=== PATIENT | female | born 1930 | race Caucasian/White ===

== ENCOUNTER 2019-03-21 08:08 | Inpatient (IN) | payer MEDICARE, MEDICAID ==
[~2019-03-21] VITALS: Ht 165.1 cm; Wt 85.7 kg
--- OUTSIDE RECORDS SUMMARY | ~2019-03-21 | XMS | Encounter Summary ---
Demographics + + + | Address | [address] | | | [place] [address] | + + + | Home Phone | | + + + | Preferred Language | Unknown | + + + | Marital Status | | + + + | Quaker Affiliation | 1013 | + + + | Race | Unknown | + + + | Ethnic Group | Unknown | + + + Author + + + | Author | [facility] | | | and [place] | + + + | Organization | [facility] | | | and [place] | + + + | Address | Unknown | + + + | Phone | Unavailable | + + + Support + + +---------+ + | Name | Relationship | Address | Phone | + + +---------+ + | Eladia Moore | ECON | Unknown | | + + +---------+ + | Bisi Hooks | ECON | Unknown | | + + +---------+ + Care Team Providers + +------+ + | Care Crystal Inspector Name | Role | Phone | + +------+ + | Kaushik Christensen MD | PCP | | + +------+ + Encounter Details +--------+ + + + + | Date | Type | Department | Care Team | Description | +--------+ + + + + | 10/03/ | Orders Only | [facility] | Chung Rushing, | | | 2016 | | NEPHROLOGY [place] | NATIONAL COVERAGE SPECIALIST [address] | | | | [address] | [address] | | | | | [address] [place], [place] | [place] | | | | | [address] | [address] | | | | | [phone] | [phone] | | | | | | | | +--------+ + + + + Social History + +-------+ +--------+------+ | Tobacco Use | Types | Packs/Day | Years | Date | | | | | Used | | + +-------+ +--------+------+ | Never Smoker | | | | | + +-------+ +--------+------+ + +---+---+---+ | Smokeless Tobacco: | | | | | Never Used | | | | + +---+---+---+ + + +---------+ + | Alcohol Use | Drinks/Week | oz/Week | Comments | + + +---------+ + | No | | | | + + +---------+ + + + + | Sex Assigned at | Date Recorded | | | | + + + | Not on file | | + + + + + + + | Job Start Date | Occupation | Industry | + + + + | Not on file | Not on file | Not on file | + + + + + + + + | Travel History | Travel Start | Travel End | + + + + + + | No recent travel history available. | + + documented as of this encounter Plan of Treatment +--------+---------+ + + + | Date | Type | Specialty | Care Team | Description | +--------+---------+ + + + | 04/08/ | Office | Cardiology | Alexandra Amaya | | | 2020 | Visit | | [address] | | | | | | [address] | | | | | | [place] [address] | | | | | | [phone] | | | | | | | | +--------+---------+ + + + documented as of this encounter Procedures + +--------+ + + + | Procedure Name | Priori | Date/Time | Associated Diagnosis | Comments | | | ty | | | | + +--------+ + + + | BASIC METABOLIC | Routin | 10/03/2016 | | Results for this | | PANEL | e | 10:20 AM | | procedure are in the | | | | PDT | | results section. | + +--------+ + + + documented in this encounter Results Basic Metabolic Panel (10/03/2016 10:20 AM PDT) + + + + + + | Component | Value | Ref Range | Performed | Pathologist | | | | | At | Signature | + + + + + + | Glucose, | 95 | 70 - 100 mg/dL | EXTERNAL | | | Fasting | | | LAB | | + + + + + + | BUN | 82 (A) | 6 - 23 mg/dL | EXTERNAL | | | | | | LAB | | + + + + + + | Creatinine | 3.42 (A) | 0.70 - 1.11 | EXTERNAL | | | | | mg/dL | LAB | | + + + + + + | BUN/Creatin | 24.0 | 6.0 - 28.6 | EXTERNAL | | | ine Ratio | | | LAB | | + + + + + + | Calcium | 9.5 | 8.4 - 10.2 | EXTERNAL | | | | | mg/dL | LAB | | + + + + + + | Na | 140 | 132 - 143 | EXTERNAL | | | | | mmol/L | LAB | | + + + + + + | K | 5.5 (A) | 3.6 - 5.1 | EXTERNAL | | | | | mmol/L | LAB | | + + + + + + | Cl | 108 | 95 - 112 mmol/L | EXTERNAL | | | | | | LAB | | + + + + + + | CO2 | 17 (A) | 19 - 31 mmol/L | EXTERNAL | | | | | | LAB | | + + + + + + | Anion Gap | 20.5 | 7 - 21 mmol/L | EXTERNAL | | | | | | LAB | | + + + + + + | Estimated | 13 | mg/dL | EXTERNAL | | | GFR | | | LAB | | + + + + + + + + | Specimen | + + | Blood specimen | | (specimen) | + + + +---------+ + + | Performing | Address | City/State/Zipcode | Phone Number | | Organization | | | | + +---------+ + + | EXTERNAL LAB | | | | + +---------+ + + documented in this encounter Visit Diagnoses Not on filedocumented in this encounter"
--- OUTSIDE RECORDS SUMMARY | ~2019-03-21 | XMS | Encounter Summary ---
Demographics + + + | Address | [address] | | | [place] [address] | + + + | Home Phone | | + + + | Preferred Language | Unknown | + + + | Marital Status | | + + + | Baptist Affiliation | 1013 | + + + | Race | Unknown | + + + | Ethnic Group | Unknown | + + + Author + + + | Author | [facility] | | | and [place] | + + + | Organization | [facility] | | | and [...] Team Providers + +------+ + | Care Railroad Signal Technician Name | Role | Phone | + +------+ + | Kaushik Christensen MD | PCP | | + +------+ + Encounter Details +--------+ + + + + | Date | Type | Department | Care Team | Description | +--------+ + + + + | 01/30/ | Orders Only | [facility] | Conversion | | | 2018 | | NEPRHOLOGY [place] | Transaction, | | | | | [address] | Provider Unknown | | | | | [address] [place], [place] | [phone] | | | | | [phone] | (Fax) | | | | | [phone] | | | +--------+ + + + [...] [address] | | | | | | [place] [address] | | | | | | [phone] | | | | | | | | +--------+---------+ + + + documented as of this encounter Procedures + +--------+ + + + | Procedure Name | Priori | Date/Time | Associated Diagnosis | Comments | | | ty | | | | + +--------+ + + + | CBC NO DIFFERENTIAL | Routin | 01/30/2018 | | Results for this | | | e | 12:00 AM | | procedure are in the | | | | PST | | results section. | + +--------+ + + + | URIC ACID | Routin | 01/30/2018 | | Results for this | | | e | 12:00 AM | | procedure are in the | | | | PST | | results section. | + +--------+ + + + | MAGNESIUM | Routin | 01/30/2018 | | Results for this | | | e | 12:00 AM | | procedure are in the | | | | PST | | results section. | + +--------+ + + + | RENAL FUNCTION PANEL | Routin | 01/30/2018 | | Results for this | | | e | 12:00 AM | | procedure are in the | | | | PST | | results section. | + +--------+ + + + documented in this encounter Results CBC no Differential (01/30/2018 12:00 AM PST) + + + + + + | Component | Value | Ref Range | Performed | Pathologist | | | | | At | Signature | + + + + + + | WBC | 4.5 | 4.5 - 11 10 | EXTERNAL | | | | | | LAB | | + + + + + + | RED CELL | 3.76 (A) | 3.8 - 5.1 10 | EXTERNAL | | | COUNT | | | LAB | | + + + + + + | Hgb | 11.8 (A) | 12 - 16 g/dL | EXTERNAL | | | | | | LAB | | + + + + + + | Hematocrit, | 35 | 35 - 45 % | EXTERNAL | | | POC | | | LAB | | + + + + + + | MCV | 93.1 | 81 - 99 fL | EXTERNAL | | | | | | LAB | | + + + + + + | MCH | 31 | 27 - 33 pg | EXTERNAL | | | | | | LAB | | + + + + + + | MCHC | 34 | 30 - 36 g/dL | EXTERNAL | | | | | | LAB | | + + + + + + | RDW-CV | 15.9 (A) | 10.5 - 15 % | EXTERNAL | | | | | | LAB | | + + + + + + | Platelet | 199 | 140 - 440 K/ L | EXTERNAL | | | Count | | | LAB | | | Plasma | | | | | + + + + + + | MPV | | fL | EXTERNAL | | | | | | LAB | | + + + + + + + + | Specimen | + + | | + + + +---------+ + + | Performing | Address | City/State/Zipcode | Phone Number | | Organization | | | | + +---------+ + + | EXTERNAL LAB | | | | + +---------+ + + Uric Acid (01/30/2018 12:00 AM PST) + +-------+ + + + | Component | Value | Ref Range | Performed | Pathologist | | | | | At | Signature | + +-------+ + + + | Uric Acid | 6.1 | 2.3 - 6.6 | EXTERNAL | | | | | | LAB | | + +-------+ + + + + + | Specimen | + + | Blood specimen | | (specimen) | + + + +---------+ + + | Performing | Address | City/State/Zipcode | Phone Number | | Organization | | | | + +---------+ + + | EXTERNAL LAB | | | | + +---------+ + + Magnesium (01/30/2018 12:00 AM PST) + +-------+ + + + | Component | Value | Ref Range | Performed | Pathologist | | | | | At | Signature | + +-------+ + + + | Magnesium | 2.2 | 1.7 - 2.5 mg/dL | EXTERNAL | | | | | | LAB | | + +-------+ + + + + + | Specimen | + + | Blood specimen | | (specimen) | + + + +---------+ + + | Performing | Address | City/State/Zipcode | Phone Number | | Organization | | | | + +---------+ + + | EXTERNAL LAB | | | | + +---------+ + + Renal Function Panel (01/30/2018 12:00 AM PST) + + + + + + | Component | Value | Ref Range | Performed | Pathologist | | | | | At | Signature | + + + + + + | Glucose, | 144 (A) | 70 - 100 mg/dL | EXTERNAL | | | Fasting | | | LAB | | + + + + + + | BUN | 27 (A) | 6 - 23 mg/dL | EXTERNAL | | | | | | LAB | | + + + + + + | Creatinine | 1.77 (A) | 0.70 - 1.11 | EXTERNAL | | | | | mg/dL | LAB | | + + + + + + | PHOSPHORUS | 3.4 | 2.5 - 5.0 mg/dL | EXTERNAL | | | | | | LAB | | + + + + + + | Albumin | 3.7 | 3.5 - 5.0 | EXTERNAL | | | | | | LAB | | + + + + + + | Na | 145 (A) | 132 - 143 | EXTERNAL | | | | | mmol/L | LAB | | + + + + + + | K | 3.8 | 3.6 - 5.1 | EXTERNAL | | | | | mmol/L | LAB | | + + + + + + | Cl | 105 | 95 - 112 mmol/L | EXTERNAL | | | | | | LAB | | + + + + + + | CO2 | 25 | 19 - 31 mmol/L | EXTERNAL | | | | | | LAB | | + + + + + + | Anion Gap | 18.8 | 7 - 21 mmol/L | EXTERNAL | | | | | | LAB | | + + + + + + | eGFR if not | | | EXTERNAL | | | | | | LAB | | | [place] | | | | | + + + + + + | Phosphorus, | | | EXTERNAL | | | Inorganic | | | LAB | | + + + + + + | BUN/Creatin | 15.3 | 6 - 28.6 | EXTERNAL | | | ine Ratio | | | LAB | | + + + + + + | Calcium | 9.4 | 8.5 - 10.3 | EXTERNAL | | | | | mg/dL | LAB | | + + + + + + | Estimated | 27 | mg/dL | EXTERNAL | | | [...]
--- OUTSIDE RECORDS SUMMARY | ~2019-03-21 | XMS | Encounter Summary ---
Demographics + + + | Address | [address] | | | [place] [address] | + + + | Home Phone | | + + + | Preferred Language | Unknown | + + + | Marital Status | | + + + | Yazidism Affiliation | 1013 | + + + | Race | Unknown | + + + | Ethnic Group | Unknown | + + + Author + + + | Author | [facility] | | | and [place] | + + + | Organization | [facility] | | | and [...] Team Providers + +------+ + | Care Dispatcher Maintenance Service Name | Role | Phone | + +------+ + | Renaldo Ramirez DO | PCP | Unavailable | + +------+ + Encounter Details +--------+---------+ + + + | Date | Type | Department | Care Team | Description | +--------+---------+ + + + | 02/11/ | Office | [facility] | Silvio Alfred MD | CKD (chronic kidney | | 2019 | Visit | NEPHROLOGY [place] | [address] | disease) stage 4, | | | | [address] | [address] [place], [place] | GFR 15-29 ml/min | | | | [address] | [id number] | (HCC) (Primary Dx); | | | | [place], [place] | | Bilateral leg edema; | | | | [address] | | Hyperuricemia; | | | | [phone] | | Vitamin D | | | | | | deficiency; | | | | | | Secondary | | | | | | hyperparathyroidism | | | | | | (HCC); Essential | | | | | | hypertension; | | | | | | Electrolyte | | | | | | imbalance risk | +--------+---------+ + + + Social History + +-------+ [...] + + documented as of this encounter Last Filed Vital Signs + + + + + | Vital Sign | Reading | Time Taken | Comments | + + + + + | Blood Pressure | 110/70 | 02/11/2019 11:34 AM | | | | | PST | | + + + + + | Pulse | 72 | 02/11/2019 11:34 AM | | | | | PST | | + + + + + | Temperature | - | - | | + + + + + | Respiratory Rate | - | - | | + + + + + | Oxygen Saturation | - | - | | + + + + + | Inhaled Oxygen | - | - | | | Concentration | | | | + + + + + | Weight | 108.5 kg (239 lb 4.8 | 02/11/2019 11:34 AM | | | | oz) | PST | | + + + + + | Height | 167.6 cm (5' 6") | 02/11/2019 11:34 AM | | | | | PST | | + + + + + | Body Mass Index | 38.62 | 02/11/2019 11:34 AM | | | | | PST | | + + + + + documented in this encounter Patient Instructions Patient Instructions Silvio Alfred MD - 02/11/2019 11:10 AM PSTDiscussions/Recommendations : I discussed today with Ms. Farias the meaning of her CKD and the interaction of that with her hemodynamics. I stressed the importance of keeping her BP controlled and avoiding getting dehydrated i f we are to have a chance at helping preserve her renal function. She showed good understan ding. I gave her instructions on how to chart her blood pressure in the appropriate manner at home. She is to call us if they fall outside of the optimal provided range. She will bring her sphygmomanometer for validation once a year. She will strictly abide by a low salt & low purine diet. She will avoid all kinds of NSAIDs for analgesia. Also: I increased her Torsemide to 40 mg twice a day. I sent her for a repeat BMP in 1 week. I decreased her Amlodipine to 2.5 mg once a day. She will bring me back her home BP charts in 1 week. At that time, I will decide whether any changes to her vasoactive regimen are warranted. I asked her to elevate her legs for 1 hour to 1.5 hours, once or twice a day to help with h er leg edema. She knows that she still needs to be active and ambulatory carefully as ben shrestha. Discussed to avoid alcohol and caffeine. Patient has expressed understanding of today's instructions, all questions have been ans wered to their satisfaction and written instructions have been provided. She will F/U with your office regularly. She will have RFP, Magnesium, CBC, uric acid, Urine total olwrebj-hh-imwjztulhk ratiodon e before she comes back in 6 months. documented in this encounter Progress Notes Silvio Alfred MD - 02/11/2019 11:10 AM PST Patient Active Problem List Diagnosis Date Noted POA Spinal stenosis, lumbar Unknown Priority: High Secondary hyperparathyroidism 02/24/2014 Unknown Vitamin D deficiency 02/24/2014 Unknown CKD (chronic kidney disease), stage III 12/30/2013 Unknown Hyperuricemia 12/30/2013 Unknown Anemia 12/25/2013 Unknown Edema 12/25/2013 Unknown Essential hypertension 12/25/2013 Unknown OSTEOPOROSIS Unknown OBESITY Unknown SCIATICA Unknown ARTHRITIS, LUMBAR SPINE Unknown DEGENERATIVE DISC DISEASE, LUMBAR SPINE Unknown BACK PAIN, LUMBAR Unknown THORACIC/LUMBOSACRAL NEURITIS/RADICULITIS UNSPEC Unknown HYPERTENSION 11/29/[address] Ramirez: I saw your patient Ms. Farias in the office today with her daughter. She is here to F/ U on her CKD & its complications: in 09/2013, her SCr & eGFR were 1.51 & 33; in early 4, 2.07, 23; in late 10/2013: 1.42 & 35. The patient has history of hypertension since ~1979's. her BP control has been reportedly a d. she denies any history of prolonged exposure to NSAIDs or recent exposure to known nephro toxins. she denies any recurrent nephrolithiasis or pyelonephritis. she tells me that she's had no history of urinary retention, gross hematuria or dysuria. she has stress incontinence symptoms. No symptoms of UTI. She has 2-4 nightly nocturia. No history of passing kidney stones. she has no foamy urine either. her baseline Creatinine is 1.3 from 2013*. There is n o family history of renal genetic diseases such as PKD. She says that she feels 'good ' today. She denies any blurred vision tinnitus, headache, f ever, chills, or cough. No nausea, vomiting, abdominal pain, diarrhea, melena, or hematoche cynthia. No chest pain, palpitation, dizziness, loss of consciousness, orthopnea, paroxysmal nocturn al dyspnea, or leg edema. She does feel imbalanced at times; no falls or LOC. She eats many high sodium foods, heat & serve and processed foods & meats. Her home BP log shows 1teens's - 130's / 60 - 70's.* She was on lisinopril 40mg in the past, September 2016 it was titrated down and eventually stopp ed for hypotension and lower GFR. Metoprolol was decreased to 25mg daily due to relative bradycardia. The following portions of the patient's history were reviewed and updated as appropriate: a llergies, current medications, past medical history, past social history, past surgical hist ory, family history and problem list. U/S from 12/2013: no evidence of any significant renal anatomic abnormalities. As in History of Present Illness & in Assessment. All the pertinent systems were reviewed a nd were otherwise negative. Current Outpatient Medications: acetaminophen (TYLENOL) 500 mg tablet, Take 500 mg by mouth 2 (two) times daily., Disp : , Rfl: allopurinol (ZYLOPRIM) 100 mg tablet, Take 1 tablet by mouth daily., Disp: , Rfl: amLODIPine (NORVASC) 5 mg tablet, Take 1 tablet by mouth daily., Disp: , Rfl: Aspirin (ADULT ASPIRIN LOW STRENGTH) 81 MG TBDP, One tablet by mouth once daily (Patie nt not taking: Reported on 02/11/2019), Disp: , Rfl: aspirin 81 MG EC tablet, Take 81 mg by mouth daily with breakfast., Disp: , Rfl: cholecalciferol (CHOLECALCIFEROL) 1000 units TABS, Take 1,000 Units by mouth daily., D isp: , Rfl: Cholecalciferol (VITAMIN D3) 400 UNITS CAPS, Two to four capsules by mouth daily (Shruti ent not taking: Reported on 02/11/2019), Disp: , Rfl: cyanocobalamin (VITAMIN B-12) 500 mcg tablet, Take 500 mcg by mouth Daily., Disp: , Rf l: doxazosin (CARDURA) 1 mg tablet, One tablet by mouth twice daily (Patient not taking: Reported on 02/11/2019), Disp: , Rfl: ELIQUIS 2.5 MG tablet, Take 2.5 mg by mouth 2 times daily., Disp: , Rfl: HYDROcodone-acetaminophen (NORCO) 5-325 mg per tablet, , Disp: , Rfl: lisinopril (PRINIVIL,ZESTRIL) 40 MG tablet, One tablet by mouth at bedtime (Patient no t taking: Reported on 02/11/2019), Disp: , Rfl: losartan (COZAAR) 50 mg tablet, One tablet by mouth once daily, Disp: , Rfl: metoprolol succinate (TOPROL-XL) 25 mg 24 hr tablet, Take 1 tablet by mouth daily., Di sp: , Rfl: metoprolol succinate (TOPROL-XL) 50 mg 24 hr tablet, One tablet by mouth once daily (P atient not taking: Reported on 02/11/2019), Disp: , Rfl: pantoprazole (PROTONIX) 40 mg tablet, Take 40 mg by mouth every morning (before breakf ast)., Disp: , Rfl: potassium chloride (MICRO-K) 10 mEq CR capsule, 4 times daily., Disp: , Rfl: torsemide (DEMADEX) 20 mg tablet, Take 20 mg by mouth 2 times daily., Disp: , Rfl: travoprost (TRAVATAN Z) 0.004% ophthalmic solution, 1 drop nightly., Disp: , Rfl: triamterene-hydrochlorothiazide (MAXZIDE-25) 37.5-25 mg per tablet, One tablet by mout h once daily (Patient not taking: Reported on 02/11/2019), Disp: , Rfl: Physical Exam: BP 110/70 | Pulse 72 | Ht 1.676 m (5' 6") | Wt 108.5 kg (239 lb 4.8 oz) | BMI 38.62 kg/ m General appearance: Pleasant, not in acute distress. Uses 4ww. Neck: Supple without tracheal deviation or jugular venous distension. Head and ENT: Head is atraumatic. The oropharynx is without erythema or thrush. Eyes: Anicteric. The extraocular muscle movements are normal. Lungs: Clear to auscultation bilaterally. There are no wheezes. Heart: Regular rate and rhythm without any rub, gallop. Grade 2 systolic murmur, best at t he LSB. Abdominal exam: Soft and nontender with normal bowel sounds. Musculoskeletal: No costovertebral angle tenderness bilaterally. Extremities: Warm to touch with +3 tense leg edema. There is no cyanosis. +ve edema in t he thighs. Skin: There are no petechiae, or ecchymosis. Neurological: Awake, alert, and oriented to time, place, and person. Normal gross motor po wer. There is no asterixis. Psychiatric: The patient s behavior is normal. Judgment and thought content are normal. Lab Results Component Value Date HGB 11.4 (A) 02/05/2019 HGB 12.4 07/26/2018 NA 142 02/05/2019 K 4.1 02/05/2019 CL 102 02/05/2019 CO2 28 02/05/2019 BUN 42 (A) 02/05/2019 CREA 1.88 (A) 02/05/2019 CALCIUM 9.2 02/05/2019 ALBUMIN 3.5 02/05/2019 EGFR 25.0 (A) 02/05/2019 PTH 128.3 (A) 07/25/2017 LABPROT 122.0 02/05/2019 Old Labs: Lab Results Component Value Date BUN 28 (A) 07/26/2018 CREATININE 1.70 (A) 07/26/2018 EGFR 28 (A) 07/26/2018 NA 143 07/26/2018 K 3.8 07/26/2018 CL 105 07/26/2018 CO2 22 07/26/2018 CA 9.3 07/26/2018 PHOS 3.4 07/26/2018 MG 2.3 07/26/2018 ALB 3.9 07/26/2018 HGB 12.4 07/26/2018 URICACID 5.8 07/26/2018 WBC 4.1 (A) 07/26/2018 HCT 37.5 07/26/2018 FERRITIN 266.7 (A) 10/16/2015 LABIRON 23.1 10/16/2015 LABPROT 187.9 (A) 07/26/2018 [id number] 39 09/07/2016 Assessment: Ms. Farias is a 88 y.o. female patient with stage IV CKD on a background of longstanding HTN. 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 She had an KAMALA in September 2016 that she had recovered from. RENAL FUNCTION: Relatively stable for her BLOOD PRESSURE: Reports controlled BLOOD SUGAR: Reports it normal ELECTROLYTES: Ok ANEMIA: Mild VITAMIN D: Deficiency is being treated PARATHYROID HORMONE: Mildly up; to be rechecked URIC ACID: Improved with treatment PROTEINURIA: Minimal URINALYSIS: No UTI or hematuria; she may have a colonizer historically VOLUME STATUS: Euvolumic. Discussions/Recommendations: I discussed today with Ms. Farias the meaning of her CKD and the interaction of that with her hemodynamics. I stressed the importance of keeping her BP controlled and avoiding getting dehydrated i f we are to have a chance at helping preserve her renal function. She showed good understan ding. I gave her instructions on how to chart her blood pressure in the appropriate manner at home. She is to call us if they fall outside of the optimal provided range. She will bring her sphygmomanometer for validation once a year. She will strictly abide by a low salt & low purine diet. She will avoid all kinds of NSAIDs for analgesia. Also: I increased her Torsemide to 40 mg twice a day. I sent her for a repeat BMP in 1 week. I decreased her Amlodipine to 2.5 mg once a day. She will bring me back her home BP charts in 1 week. At that time, I will decide whether any changes to her vasoactive regimen are warranted. I asked her to elevate her legs for 1 hour to 1.5 hours, once or twice a day to help with h er leg edema. She knows that she still needs to be active and ambulatory carefully as ben shrestha. Discussed to avoid alcohol and caffeine. Patient has expressed understanding of today's instructions, all questions have been ans wered to their satisfaction and written instructions have been provided. She will F/U with your office regularly. She will have RFP, Magnesium, CBC, uric acid, Urine total nsyvmxk-[id number] ratiodon e before she comes back in [address] Ramirez for the opportunity to follow up with this patient and be part of the care team. Please do not hesitate to call me at any time with questions or concerns. Truly yours, Silvio Alfred MD documented in this enco unter Plan of Treatment +--------+---------+ + + + | Date | Type | Specialty | Care Team | Description | +--------+---------+ + + + | 04/08/ | Office | Cardiology | Alexandra Amaya | | | 2019 | Visit | | [address] | | | | | | [address] | | | | | | [place] [address] | | | | | | [phone] | | | | | | | | +--------+---------+ + + + documented as of this encounter Visit Diagnoses + + | Diagnosis | + + | CKD (chronic kidney disease) stage 4, GFR 15-29 ml/min ([facility]) - Primary Chronic kidney | | disease, Stage IV (severe) | + + | Bilateral leg edema Edema | + + | Hyperuricemia Other abnormal blood chemistry | + + | Vitamin D deficiency Unspecified vitamin D deficiency | + + | Secondary hyperparathyroidism ([facility]) Secondary hyperparathyroidism (of renal origin) | + + | Essential hypertension Unspecified essential hypertension | + + | Electrolyte imbalance risk Other specified conditions influencing health status | + + documented in this encounter
--- OUTSIDE RECORDS SUMMARY | ~2019-03-21 | XMS | Encounter Summary ---
Demographics + + + | Address | [address] | | | [place] [address] | + + + | Home Phone | | + + + | Preferred Language | Unknown | + + + | Marital Status | | + + + | Pentecostalism Affiliation | 1013 | + + + | Race | Unknown | + + + | Ethnic Group | Unknown | + + + Author + + + | Author | [facility] | | | and [place] | + + + | Organization | [facility] | | | [...] Team Providers + +------+ + | Care First Sampler Name | Role | Phone | + +------+ + | Kaushik Christensen MD | PCP | | + +------+ + Encounter Details +--------+ + + + + | Date | Type | Department | Care Team | Description | +--------+ + + + + | 01/31/ | Orders Only | [facility] | Conversion | | | 2018 | | NEPHROLOGY [place] | Transaction, | | | | | [address] | Provider Unknown | | | | | [address] [facility], [place] | | | | | | [address] | (Fax) | | | | | [phone] | | | +--------+ + + + [...] [address] | | | | | | [place] [address] | | | | | | [phone] | | | | | | | | +--------+---------+ + + + documented as of this encounter Procedures + +--------+ + + + | Procedure Name | Priori | Date/Time | Associated Diagnosis | Comments | | | ty | | | | + +--------+ + + + | PROTEIN/CREATININE | Routin | 01/31/2018 | | Results for this | | RATIO, URINE | e | 12:00 AM | | procedure are in the | | | | PST | | results section. | + +--------+ + + + documented in this encounter Results Protein/Creatinine Ratio, Urine (01/31/2018 12:00 AM PST) + + + + + + | Component | Value | Ref Range | Performed | Pathologist | | | | | At | Signature | + + + + + + | Protein/Cre | 172.4 (A) | 0 - 150 | EXTERNAL | | | at Ratio | | | LAB | | + + + + + + + + | Specimen | + + | Urine specimen | | (specimen) | + + + +---------+ + + | Performing | Address | City/State/Zipcode | Phone Number | | Organization | | | | + +---------+ + + | EXTERNAL LAB | | | | + +---------+ + + documented in this encounter Visit Diagnoses Not on filedocumented in this encounter"
--- OUTSIDE RECORDS SUMMARY | ~2019-03-21 | XMS | Encounter Summary ---
Demographics + + + | Address | [address] | | | [place] [address] | + + + | Home Phone | | + + + | Preferred Language | Unknown | + + + | Marital Status | | + + + | Zoroastrian Affiliation | 1013 | + + + | Race | Unknown | + + + | Ethnic Group | Unknown | + + + Author + + + | Author | [facility] | | | and [place] | + + + | Organization | [facility] | | | [...] Team Providers + +------+ + | Care Director Of Parks And Recreation Name | Role | Phone | + +------+ + PCP | Unavailable | + +------+ + Encounter Details +--------+ + + + + | Date | Type | Department | Care Team | Description | +--------+ + + + + | 12/07/ | Abstract | [place] [facility] | [facility] | | | 2011 | | Conversion Location | SR | | | | | [phone] | | | +--------+ + + + + Social History + +-------+ +--------+------+ | Tobacco Use | Types | Packs/Day | Years | Date | | | | | Used | | + +-------+ +--------+------+ | Never Assessed | | | | | + +-------+ +--------+------+ + + + | Sex Assigned at [...] + + + | Blood Pressure | 158/88 | 12/01/2011 12:00 AM | | | | | PDT | | + + + + + | Pulse | - | - | | + [...] + + + + | Weight | 113.4 kg (250 lb) | 12/01/2011 12:00 AM | | | | | PDT | | + + + + + | Height | 165.1 cm (5' 5") | 02/21/2011 12:00 AM | | | | | PST | | + + + + + | Body Mass Index | 41.6 | 02/21/2011 12:00 AM | | | | | PST | | + + + + + documented in this encounter Plan of Treatment +--------+---------+ + + + | Date | Type | Specialty | Care Team | Description | +--------+---------+ + + + | 04/08/ | Office | Cardiology | Alexandra Amaya | | | 2020 | Visit | | [address] | | | | | | [address] | | | | | | [place] [address] | | | | | | [phone] | | | | | | | | +--------+---------+ + + + documented as of this encounter Visit Diagnoses Not on filedocumented in this encounter
--- OUTSIDE RECORDS SUMMARY | ~2019-03-21 | XMS | Encounter Summary ---
Demographics + + + | Address | [address] | | | [place] [address] | + + + | Home Phone | | + + + | Preferred Language | Unknown | + + + | Marital Status | | + + + | Anabaptism Affiliation | 1013 | + + + | Race | Unknown | + + + | Ethnic Group | Unknown | + + + Author + + + | Author | [facility] | | | and [place] | + + + | Organization | [facility] | | | [...] Team Providers + +------+ + | Care Loading Shovel Oiler Name | Role | Phone | + +------+ + | Kaushik Christensen MD | PCP | | + +------+ + Encounter Details +--------+ + + + + | Date | Type | Department | Care Team | Description | +--------+ + + + + | 12/13/ | Orders Only | [facility] | Conversion | | | 2016 | | NEPRHOLOGY [place] | Transaction, | | | | | [address] | Provider Unknown | | | | | [address] [place], [place] | [phone] | | | | | [address] | | | | | | [phone] | | | +--------+ + + + [...] [address] | | | | | | [place] [address] | | | | | | [phone] | | | | | | | | +--------+---------+ + + + documented as of this encounter Procedures + +--------+ + + + | Procedure Name | Priori | Date/Time | Associated Diagnosis | Comments | | | ty | | | | + +--------+ + + + | RENAL FUNCTION PANEL | Routin | 12/14/2015 | | Results for this | | | e | 12:00 AM | | procedure are in the | | | | PDT | | results section. | + +--------+ + + + documented in this encounter Results Renal Function Panel (12/14/2015 12:00 AM PDT) + + + + + + | Component | Value | Ref Range | Performed | Pathologist | | | | | At | Signature | + + + + + + | Glucose, | 86 | 70 - 100 mg/dL | EXTERNAL | | | Fasting | | | LAB | | + + + + + + | BUN | 35 (A) | 6 - 23 mg/dL | EXTERNAL | | | | | | LAB | | + + + + + + | Creatinine | 1.99 (A) | 0.70 - 1.11 | EXTERNAL | | | | | mg/dL | LAB | | + + + + + + | PHOSPHORUS | | mg/dL | EXTERNAL | | | | | | LAB | | + + + + + + | Albumin | 3.9 | 3.5 - 5.0 | EXTERNAL | | | | | | LAB | | + + + + + + | Na | 141 | 132 - 143 | EXTERNAL | | | | | mmol/L | LAB | | + + + + + + | K | 4.3 | 3.6 - 5.1 | EXTERNAL | | | | | mmol/L | LAB | | + + + + + + | Cl | 105 | 95 - 112 mmol/L | EXTERNAL | | | | | | LAB | | + + + + + + | CO2 | 24 | 19 - 31 mmol/L | EXTERNAL | | | | | | LAB | | + + + + + + | Anion Gap | 16.3 | 7 - 21 mmol/L | EXTERNAL | | | | | | LAB | | + + + + + + | eGFR if not | | | EXTERNAL | | | | | | LAB | | | ALGERIAN | | | | | + + + + + + | Phosphorus, | 4.0 | 2.5 - 5.0 | EXTERNAL | | | Inorganic | | | LAB | | + + + + + + | BUN/Creatin | 17.6 | 6.0 - 28.6 | EXTERNAL | | | ine Ratio | | | LAB | | + + + + + + | Calcium | 9.4 | 8.4 - 10.2 | EXTERNAL | | | | | mg/dL | LAB | | + + + + + + | Estimated | 24 | mg/dL | EXTERNAL | | | [...]
--- OUTSIDE RECORDS SUMMARY | ~2019-03-21 | XMS | Encounter Summary ---
Demographics + + + | Address | [address] | | | [place] [address] | + + + | Home Phone | | + + + | Preferred Language | Unknown | + + + | Marital Status | | + + + | Alevism Affiliation | 1013 | + + + | Race | Unknown | + + + | Ethnic Group | Unknown | + + + Author + + + | Author | [facility] | | | and [place] | + + + | Organization | [facility] | | [...] Team Providers + +------+ + | Care Adult Ministries Director Name | Role | Phone | + +------+ + | Kaushik Christensen MD | PCP | | + +------+ + Reason for Visit +---------+ + | Reason | Comments | +---------+ + | Results | 02/05/19 | +---------+ + Encounter Details +--------+ + + + + | Date | Type | Department | Care Team | Description | +--------+ + + + + | 02/07/ | Documentati | [facility] | Darrel, | Results (02/05/19) | | 2019 | on | NEPHROLOGY [place] | [facility] | | | | | [address] | Draw Bench Operator Helper | | | | | LEONARDO MARTINEZ [facility] | | | | | | [place] | | | | | | [address] | | | | | | [phone] | | | +--------+ + + + [...] [place] | | | | | | [place] [address] | | | | | | [phone] | | | | | | | | +--------+---------+ + + + documented as of this encounter Procedures + +--------+ + + + | Procedure Name | Priori | Date/Time | Associated Diagnosis | Comments | | | ty | | | | + +--------+ + + + | CBC NO DIFFERENTIAL | Routin | 02/05/2019 | | Results for this | | | e | | | procedure are in the | | | | | | results section. | + +--------+ + + + | PROTEIN/CREATININE | Routin | 02/05/2019 | | Results for this | | RATIO, URINE | e | | | procedure are in the | | | | | | results section. | + +--------+ + + + | URIC ACID | Routin | 02/05/2019 | | Results for this | | | e | | | procedure are in the | | | | | | results section. | + +--------+ + + + | MAGNESIUM | Routin | 02/05/2019 | | Results for this | | | e | | | procedure are in the | | | | | | results section. | + +--------+ + + + | RENAL FUNCTION PANEL | Routin | 02/05/2019 | | Results for this | | | e | | | procedure are in the | | | | | | results section. | + +--------+ + + + documented in this encounter Results Uric Acid (02/05/2019) + +-------+ + + + | Component | Value | Ref Range | Performed | Pathologist | | | | | At | Signature | + +-------+ + + + | Uric Acid | 6.1 | 2.3 - 6.6 | | | + +-------+ + + + + + | Specimen | + + | Blood | + + Protein/Creatinine Ratio, Urine (02/05/2019) + +-------+ + + + | Component | Value | Ref Range | Performed | Pathologist | | | | | At | Signature | + +-------+ + + + | Protein/Cre | 122.0 | 0 - 150 | | | | at Ratio | | | | | + +-------+ + + + + + | Specimen | + + | Urine | + + Renal Function Panel (02/05/2019) + + + + + + | Component | Value | Ref Range | Performed | Pathologist | | | | | At | Signature | + + + + + + | Na | 142 | 132 - 143 | | | | | | mmol/L | | | + + + + + + | K | 4.1 | 3.6 - 5.1 | | | | | | mmol/L | | | + + + + + + | Cl | 102 | 95 - 112 mmol/L | | | + + + + + + | CO2 | 28 | 19 - 31 mmol/L | | | + + + + + + | Anion Gap | 16 | 7 - 21 mmol/L | | | + + + + + + | Glucose | 96 | 70 - 100 mg/dL | | | + + + + + + | BUN | 42 (A) | 6 - 23 mg/dL | | | + + + + + + | Creatinine | 1.88 (A) | 0.70 - 1.11 | | | | | | mg/dL | | | + + + + + + | Estimated | 25.0 (A) | 60.0 - 140.0 | | | | GFR | | mL/min/1.73m2 | | | + + + + + + | BUN/Creatin | 22.3 | 6.0 - 28.6 | | | | ine Ratio | | | | | + + + + + + | Albumin | 3.5 | 3.5 - 5.0 g/dL | | | + + + + + + | Calcium | 9.2 | 8.5 - 10.3 | | | + + + + + + | PHOSPHORUS | 3.8 | 2.5 - 5.0 | | | + + + + + + + + | Specimen | + + | Blood | + + Magnesium (02/05/2019) + +-------+ + + + | Component | Value | Ref Range | Performed | Pathologist | | | | | At | Signature | + +-------+ + + + | Magnesium | 2.5 | 1.7 - 2.5 mg/dL | | | + +-------+ + + + + + | Specimen | + + | Blood | + + CBC with Manual Differential (02/05/2019) + + + + + + | Component | Value | Ref Range | Performed | Pathologist | | | | | At | Signature | + + + + + + | WBC | 4.8 | 4.5 - 11.0 | | | + + + + + + | RBC | 3.80 | 3.80 - 5.10 | | | | | | M/uL | | | + + + + + + | Hemoglobin | 11.4 (A) | 12 - 16 | | | + + + + + + | Hematocrit, | 35.1 | 35.0 - 45.0 % | | | | POC | | | | | + + + + + + | MCV | 92.4 | 81.0 - 99.0 fL | | | + + + + + + | MCH | 30.0 | 27.0 - 33.0 pg | | | + + + + + + | MCHC | 32.0 | 30.0 - 36.0 | | | | | | g/dL | | | + + + + + + | Platelet | 211 | 140 - 440 | | | | Count | | | | | | Plasma | | | | | + + + + + + | RDW | 17 (A) | 10.5 - 15.0 | | | + + + + + + | Neutrophils | 69.1 | 39 - 80 | | | | , Absolute | | | | | + + + + + + | Absolute | 12.9 (A) | 24 - 44 | | | | Lymphocytes | | | | | + + + + + + | Absolute | 12.6 (A) | 0 - 12 | | | | Monocytes | | | | | + + + + + + | Eosinophils | 4.1 | 0 - 6 | | | | , Absolute | | | | | + + + + + + | Basophils, | 1.3 | 0 - 2 | | | | Absolute | | | | | + + + + + + + + | Specimen | + + | Blood | + + documented in this encounter Visit Diagnoses Not on filedocumented in this encounter"
--- OUTSIDE RECORDS SUMMARY | ~2019-03-21 | XMS | Encounter Summary ---
Demographics + + + | Address | [address] | | | [place] [address] | + + + | Home Phone | | + + + | Preferred Language | Unknown | + + + | Marital Status | | + + + | Jehovah'S Witness Affiliation | 1013 | + + + | Race | Unknown | + + + | Ethnic Group | Unknown | + + + Author + + + | Author | [facility] | | | and [place] | + + + | Organization | [facility] | | | and [...] Team Providers + +------+ + | Care Point Of Care Specialist Name | Role | Phone | + +------+ + | Kaushik Christensen MD | PCP | | + +------+ + Encounter Details +--------+ + + + + | Date | Type | Department | Care Team | Description | +--------+ + + + + | 12/12/ | Orders Only | [facility] | Conversion | | | 2017 | | NEPRHOLOGY [place] | Transaction, | | | | | [address] | Provider Unknown | | | | | [address] [place], [place] | [phone] | | | | | [address] | | | | | | [phone] | | | +--------+ + + + [...] [place] | | | | | | [place] [address] | | | | | | [phone] | | | | | | | | +--------+---------+ + + + documented as of this encounter Procedures + +--------+ + + + | Procedure Name | Priori | Date/Time | Associated Diagnosis | Comments | | | ty | | | | + +--------+ + + + | BASIC METABOLIC | Routin | 12/12/2016 | | Results for this | | PANEL | e | 12:00 AM | | procedure are in the | | | | PDT | | results section. | + +--------+ + + + documented in this encounter Results Basic Metabolic Panel (12/12/2016 12:00 AM PDT) + + + + + + | Component | Value | Ref Range | Performed | Pathologist | | | | | At | Signature | + + + + + + | Glucose, | 83 | 70 - 100 mg/dL | EXTERNAL | | | Fasting | | | LAB | | + + + + + + | BUN | 18 | 6 - 23 mg/dL | EXTERNAL | | | | | | LAB | | + + + + + + | Creatinine | 1.42 (A) | 0.70 - 1.11 | EXTERNAL | | | | | mg/dL | LAB | | + + + + + + | BUN/Creatin | 12.7 | 6.0 - 28.6 | EXTERNAL | | | ine Ratio | | | LAB | | + + + + + + | Calcium | 9.8 | 8.4 - 10.2 | EXTERNAL | | | | | mg/dL | LAB | | + + + + + + | Na | 141 | 132 - 143 | EXTERNAL | | | | | mmol/L | LAB | | + + + + + + | K | 3.7 | 3.6 - 5.1 | EXTERNAL | | | | | mmol/L | LAB | | + + + + + + | Cl | 103 | 95 - 112 mmol/L | EXTERNAL | | | | | | LAB | | + + + + + + | CO2 | 25 | 19 - 31 mmol/L | EXTERNAL | | | | | | LAB | | + + + + + + | Anion Gap | 16.7 | 7 - 21 mmol/L | EXTERNAL | | | | | | LAB | | + + + + + + | Estimated | 35 | mg/dL | EXTERNAL | | | [...]
--- OUTSIDE RECORDS SUMMARY | ~2019-03-21 | XMS | Encounter Summary ---
Demographics + + + | Address | [address] | | | [place] [address] | + + + | Home Phone | | + + + | Preferred Language | Unknown | + + + | Marital Status | | + + + | Buddhist Affiliation | 1013 | + + + | Race | Unknown | + + + | Ethnic Group | Unknown | + + + Author + + + | Author | [facility] | | | and [place] | + + + | Organization | [facility] | | [...] Team Providers + +------+ + | Care Leak Detection Engineer Name | Role | Phone | + +------+ + | Kaushik Christensen MD | PCP | | + +------+ + Reason for Visit +--------+ + | Reason | Comments | +--------+ + | Other | cardiac clearance for surgery | +--------+ + Encounter Details +--------+ + + + + | Date | Type | Department | Care Team | Description | +--------+ + + + + | 12/25/ | Telephone | [facility] | David Montgomery MD | Other (cardiac | | 2011 | | NEUROSURGERY [address] | [address] | clearance for | | | | [address] | [place] [address] | surgery) | | | | [place]AW Ram[place]rez | [phone] | | | | | [address] | | | | | | [phone] | | | +--------+ + + + [...] [place] | | | | | | [place] [address] | | | | | | [phone] | | | | | | | | +--------+---------+ + + + documented as of this encounter Visit Diagnoses Not on filedocumented in this encounter"
--- OUTSIDE RECORDS SUMMARY | ~2019-03-21 | XMS | Encounter Summary ---
Demographics + + + | Address | [address] | | | [place] [address] | + + + | Home Phone | | + + + | Preferred Language | Unknown | + + + | Marital Status | | + + + | Temple Affiliation | 1013 | + + + | Race | Unknown | + + + | Ethnic Group | Unknown | + + + Author + + + | Author | [facility] | | | and [place] | + + + | Organization | [facility] | | | [...] Team Providers + +------+ + | Care Trauma Registrar Name | Role | Phone | + +------+ + | Renaldo Ramirez DO | PCP | Unavailable | + +------+ + Encounter Details +--------+---------+ + + + | Date | Type | Department | Care Team | Description | +--------+---------+ + + + | 02/11/ | Office | [facility] | Silvio Alfred MD | CKD (chronic kidney | | 2019 | Visit | NEPHROLOGY [place] | [address] | disease) stage 4, | | | | [address] | [address] [place], [place] | GFR 15-29 ml/min | | | | [address] | [address] | (HCC) (Primary Dx); | | | | [place], [place] | | Bilateral leg edema; | | | | [address] | | Hyperuricemia; | | | | [phone] | | Vitamin D | | | [...] RFP, Magnesium, CBC, uric acid, Urine total agncscq-nx-zavjzquxzb ratiodon e before she comes back in [...] LABIRON 23.1 10/16/2015 LABPROT 187.9 (A) 07/26/2018 [id number] 09/07/2016 Assessment: Ms. Farias is a [...] RFP, Magnesium, CBC, uric acid, Urine total ouilcqc-uw-mugaohtrpb ratiodon e before she comes back in [...] [address] | | | | | | [place] [address] | | | | | | [phone] | | | | | | | | +--------+---------+ + + + documented as of this encounter Visit Diagnoses + + | Diagnosis | + + | CKD (chronic kidney disease) stage 4, GFR 15-29 ml/min ([facility]) - Primary Chronic kidney | | disease, Stage IV (severe) | + + | Bilateral leg edema Edema | + + | Hyperuricemia Other abnormal blood chemistry | + + | Vitamin D deficiency Unspecified vitamin D deficiency | + + | Secondary hyperparathyroidism ([facility]) Secondary hyperparathyroidism (of renal origin) | + + | Essential hypertension Unspecified essential hypertension | + + | Electrolyte imbalance risk Other specified conditions influencing health status | + + documented in this encounter
--- OUTSIDE RECORDS SUMMARY | ~2019-03-21 | XMS | Encounter Summary ---
Demographics + + + | Address | [address] | | | [place] [address] | + + + | Home Phone | | + + + | Preferred Language | Unknown | + + + | Marital Status | | + + + | Protestant Affiliation | 1013 | + + + | Race | Unknown | + + + | Ethnic Group | Unknown | + + + Author + + + | Author | [facility] | | | and [place] | + + + | Organization | [facility] | | | [...] Team Providers + +------+ + | Care Web Services Manager Name | Role | Phone | + +------+ + | Kaushik Christensen MD | PCP | | + +------+ + Encounter Details +--------+ + + + + | Date | Type | Department | Care Team | Description | +--------+ + + + + | 04/21/ | Orders Only | [facility] | Silvio Alfred MD | | | 2014 | | NEPHROLOGY [place] | [address] | | | | | [address] | [address] [place], [place] | | | | | [address] [place], [place] | [address] | | | | | [address] | | | | | | [phone] | | | +--------+ + + + [...] [address] | | | | | | [place] [address] | | | | | | [phone] | | | | | | | | +--------+---------+ + + + documented as of this encounter Procedures + +--------+ + + + | Procedure Name | Priori | Date/Time | Associated Diagnosis | Comments | | | ty | | | | + +--------+ + + + | URINALYSIS WITH | Routin | 04/21/2014 | | Results for this | | MICROSCOPIC WITH | e | 12:00 AM | | procedure are in the | | CULTURE IF INDICATED | | PST | | results section. | + +--------+ + + + | VITAMIN D, | Routin | 04/21/2014 | | Results for this | | DEFICIENCY SCREEN | e | 12:00 AM | | procedure are in the | | (25-HYDROXY) | | PST | | results section. | + +--------+ + + + | PARATHYROID HORMONE, | Routin | 04/21/2014 | | Results for this | | INTACT AND CALCIUM | e | 12:00 AM | | procedure are in the | | | | PST | | results section. | + +--------+ + + + | PROTEIN/CREATININE | Routin | 04/21/2014 | | Results for this | | RATIO, URINE | e | 12:00 AM | | procedure are in the | | | | PST | | results section. | + +--------+ + + + | PROTEIN, URINE, | Routin | 04/21/2014 | | Results for this | | RANDOM | e | 12:00 AM | | procedure are in the | | | | PST | | results section. | + +--------+ + + + | CREATININE, URINE, | Routin | 04/21/2014 | | Results for this | | RANDOM | e | 12:00 AM | | procedure are in the | | | | PST | | results section. | + +--------+ + + + | CULTURE, URINE | Routin | 04/21/2014 | | Results for this | | | e | 12:00 AM | | procedure are in the | | | | PST | | results section. | + +--------+ + + + | URIC ACID | Routin | 04/21/2014 | | Results for this | | | e | 12:00 AM | | procedure are in the | | | | PST | | results section. | + +--------+ + + + | MAGNESIUM | Routin | 04/21/2014 | | Results for this | | | e | 12:00 AM | | procedure are in the | | | | PST | | results section. | + +--------+ + + + | RENAL FUNCTION PANEL | Routin | 04/21/2014 | | Results for this | | | e | 12:00 AM | | procedure are in the | | | | PST | | results section. | + +--------+ + + + documented in this encounter Results Urinalysis with Microscopic with Culture if Indicated (04/21/2014 12:00 AM PST) + + + + + + | Component | Value | Ref Range | Performed | Pathologist | | | | | At | Signature | + + + + + + | Color | Yellow | | EXTERNAL | | | | | | LAB | | + + + + + + | Clarity | Clear | | EXTERNAL | | | | | | LAB | | + + + + + + | Spec Grav, | 1.013 | 1.005 - 1.030 | EXTERNAL | | | Fluid | | | LAB | | + + + + + + | Leukocyte | Negative | | EXTERNAL | | | Esterase, | | | LAB | | | Urine | | | | | + + + + + + | Nitrite, | Negative | | EXTERNAL | | | Urine | | | LAB | | + + + + + + | Urobilinoge | Normal | | EXTERNAL | | | n, Urine | | | LAB | | + + + + + + | Total | Negative | | EXTERNAL | | | Protein | | | LAB | | + + + + + + | pH, Urine | 5 | 5 - 9 | EXTERNAL | | | | | | LAB | | + + + + + + | Blood, | Negative | | EXTERNAL | | | Urine | | | LAB | | + + + + + + | Ketones | Negative | | EXTERNAL | | | | | | LAB | | + + + + + + | Bilirubin, | Negative | | EXTERNAL | | | Urine | | | LAB | | + + + + + + | Glucose, | Negative | | EXTERNAL | | | Urine | | | LAB | | + + + + + + | WBC, UA | | | EXTERNAL | | | | | | LAB | | + + + + + + | RBC, UA | | | EXTERNAL | | | | | | LAB | | + + + + + + | Epithelial | | | EXTERNAL | | | Cells | | | LAB | | + + + + + + | Bacteria, | | | EXTERNAL | | | UA | | | LAB | | + + + + + + | HYALINE | | | EXTERNAL | | | CASTS UA | | | LAB | | + + + + + + + + | Specimen | + + | | + + + +---------+ + + | Performing | Address | City/State/Zipcode | Phone Number | | Organization | | | | + +---------+ + + | EXTERNAL LAB | | | | + +---------+ + + Parathyroid Hormone, Intact and Calcium (04/21/2014 12:00 AM PST) + + + + + + | Component | Value | Ref Range | Performed | Pathologist | | | | | At | Signature | + + + + + + | PTH Intact | 88.28 (A) | 15 - 65 | EXTERNAL | | | | | | LAB | | + + + + + + | Calcium | 9.7 | 8.4 - 10.2 | EXTERNAL | [...] | | | + +---------+ + + Protein/Creatinine Ratio, Urine (04/21/2014 12:00 AM PST) + +-------+ + + + | Component | Value | Ref Range | Performed | Pathologist | | | | | At | Signature | + +-------+ + + + | Protein/Cre | 52.9 | 0 - 150 | EXTERNAL | [...] | | | + +---------+ + + Protein, Urine, Random (04/21/2014 12:00 AM PST) + +-------+ + + + | Component | Value | Ref Range | Performed | Pathologist | | | | | At | Signature | + +-------+ + + + | Protein, | 9 | 0.0 - 50.0 | EXTERNAL | | | Urine | | | LAB | | + +-------+ + + + + + | Specimen | + + | Urine specimen | | (specimen) | + + + +---------+ + + | Performing | Address | City/State/Zipcode | Phone Number | | Organization | | | | + +---------+ + + | EXTERNAL LAB | | | | + +---------+ + + Creatinine, Urine, Random (04/21/2014 12:00 AM PST) + +-------+ + + + | Component | Value | Ref Range | Performed | Pathologist | | | | | At | Signature | + +-------+ + + + | Creatinine, | 170 | | EXTERNAL | | | 24H Ur | | | LAB | | + +-------+ + + + + + | Specimen | + + | Urine specimen | | (specimen) | + + + +---------+ + + | Performing | Address | City/State/Zipcode | Phone Number | | Organization | | | | + +---------+ + + | EXTERNAL LAB | | | | + +---------+ + + Vitamin D, Deficiency Screen (25-Hydroxy) (04/21/2014 12:00 AM PST) + +-------+ + + + | Component | Value | Ref Range | Performed | Pathologist | | | | | At | Signature | + +-------+ + + + | Vit D, | 34 | 30 - 100 | EXTERNAL | | | 25-Hydroxy | | | LAB | | + [...] | + +---------+ + + Uric Acid (04/21/2014 12:00 AM PST) + +---------+ + + + | Component | Value | Ref Range | Performed | Pathologist | | | | | At | Signature | + +---------+ + + + | Uric Acid | 9.9 (A) | 2.3 - 6.6 | EXTERNAL | | | | | | LAB | | + +---------+ + + + + + | Specimen | + + | Blood specimen | | (specimen) | + + + +---------+ + + | Performing | Address | City/State/Zipcode | Phone Number | | Organization | | | | + +---------+ + + | EXTERNAL LAB | | | | + +---------+ + + Magnesium (04/21/2014 12:00 AM PST) + +-------+ + + [...] + +---------+ + + Renal Function Panel (04/21/2014 12:00 AM PST) + + + + + + | Component | Value | Ref Range | Performed | Pathologist | | | | | At | Signature | + + + + + + | Glucose, | 96 | 70 - 100 mg/dL | EXTERNAL | | | Fasting | | | LAB | | + + + + + + | BUN | 29 (A) | 6 - 23 mg/dL | EXTERNAL | | | | | | LAB | | + + + + + + | Creatinine | 1.67 (A) | 0.70 - 1.11 | EXTERNAL | | | | | mg/dL | LAB | | + + + + + + | PHOSPHORUS | | mg/dL | EXTERNAL | | | | | | LAB | | + + + + + + | Albumin | 4.0 | 3.5 - 5.0 | EXTERNAL | | | | | | LAB | | + + + + + + | Na | 143 | 132 - 143 | EXTERNAL | | | | | mmol/L | LAB | | + + + + + + | K | 4.3 | 3.6 - 5.1 | EXTERNAL | | | | | mmol/L | LAB | | + + + + + + | Cl | 104 | 95 - 112 mmol/L | EXTERNAL | | | | | | LAB | | + + + + + + | CO2 | 25 | 19 - 31 mmol/L | EXTERNAL | | | | | | LAB | | + + + + + + | Anion Gap | 18.3 | 7 - 21 mmol/L | EXTERNAL | | | | | | LAB | | + + + + + + | eGFR if not | | | EXTERNAL | | | | | | LAB | | | COMORAN | | | | | + + + + + + | Phosphorus, | 3.8 | 2.5 - 5.0 | EXTERNAL | | | Inorganic | | | LAB | | + + + + + + | BUN/Creatin | 17.4 | 6.0 - 28.6 | EXTERNAL | | | ine Ratio | | | LAB | | + + + + + + | Calcium | 9.7 | 8.4 - 10.2 | EXTERNAL | | | | | mg/dL | LAB | | + + + + + + | Estimated | 29 | mg/dL | EXTERNAL | | | [...] | | | + +---------+ + + Culture, Urine (04/21/2014 12:00 AM PST) + + | Specimen | + + | Urine specimen | | (specimen) | + + + + + | Narrative | Performed At | + + + | Specimen Description Urine CULTURE | EXTERNAL LAB | | Probable Contaminants, suggest | | | recollection. REPORT STATUS Final | | | | | + + + + +---------+ + + | Performing | Address | City/State/Zipcode | Phone Number | | Organization | | | | + +---------+ + + | EXTERNAL LAB | | | | + +---------+ + + documented in this encounter Visit Diagnoses Not on filedocumented in this encounter"
--- OUTSIDE RECORDS SUMMARY | ~2019-03-21 | XMS | Encounter Summary ---
Demographics + + + | Address | [address] | | | [place] [address] | + + + | Home Phone | | + + + | Preferred Language | Unknown | + + + | Marital Status | | + + + | Denominational Affiliation | 1013 | + + + [...] Team Providers + +------+ + | Care Procurement Buyer Name | Role | Phone | + +------+ + | Kaushik Christensen MD | PCP | | + +------+ + Encounter Details +--------+ + + + + | Date | Type | Department | Care Team | Description | +--------+ + + + + | 09/21/ | Orders Only | [facility] | Chung Rushing, | | | 2016 | | NEPHROLOGY [place] | CABINET INSTALLER [address] | | | | | [address] [facility] | [address] | | | | | [place] | [place] | | | | | [address] | [address] | | | | | [phone] | [phone] | | | | | | | [...] [address] | | | | | | [place] [address] | | | | | | [phone] | | | | | | | | +--------+---------+ + + + documented as of this encounter Procedures + +--------+ + + + | Procedure Name | Priori | Date/Time | Associated Diagnosis | Comments | | | ty | | | | + +--------+ + + + | BASIC METABOLIC | Routin | 09/21/2016 | | Results for this | | PANEL | e | 11:31 AM | | procedure are in the | | | | PDT | | results section. | + +--------+ + + + documented in this encounter Results Basic Metabolic Panel (09/21/2016 11:31 AM PDT) + + + + + + | Component | Value | Ref Range | Performed | Pathologist | | | | | At | Signature | + + + + + + | Glucose, | 94 | 70 - 100 mg/dL | EXTERNAL | | | Fasting | | | LAB | | + + + + + + | BUN | 73 (A) | 6 - 23 mg/dL | EXTERNAL | | | | | | LAB | | + + + + + + | Creatinine | 2.79 (A) | 0.70 - 1.11 | EXTERNAL | | | | | mg/dL | LAB | | + + + + + + | BUN/Creatin | 26.2 | 6.0 - 28.6 | EXTERNAL | [...] + + + + | K | 4.8 | 3.6 - 5.1 | EXTERNAL | | | | | mmol/L | LAB | | + + + + + + | Cl | 107 | 95 - 112 mmol/L | EXTERNAL | | | | | | LAB | | + + + + + + | CO2 | 20 | 19 - 31 mmol/L | EXTERNAL | | | | | | LAB | | + + + + + + | Anion Gap | 17.8 | 7 - 21 mmol/L | EXTERNAL | | | | | | LAB | | + + + + + + | Estimated | 16 | mg/dL | EXTERNAL | | | [...]
--- OUTSIDE RECORDS SUMMARY | ~2019-03-21 | XMS | Encounter Summary ---
Demographics + + + | Address | [address] | | | [place] [address] | + + + | Home Phone | | + + + | Preferred Language | Unknown | + + + | Marital Status | | + + + | Yazidism Affiliation | 1013 | + + + | Race | Unknown | + + + | Ethnic Group | Unknown | + + + Author + + + | Author | [facility] | | | and [place] | + + + | Organization | [facility] | | | and [...] Team Providers + +------+ + | Care Education Spec Name | Role | Phone | + +------+ + | Kaushik Christensen MD | PCP | | + +------+ + Encounter Details +--------+ + + + + | Date | Type | Department | Care Team | Description | +--------+ + + + + | 10/15/ | Orders Only | [facility] | Chung Rushing, | | | 2015 | | NEPHROLOGY JOSE | [facility] [facility] [address] | | | | | [address] [facility] | [address] | | | | | [place] | [place] | | | | | [address] | [address] | | | | | [phone] | [phone] | | | | | | | [...] [address] | | | | | | [place] [address] | | | | | | [phone] | | | | | | | | +--------+---------+ + + + documented as of this encounter Procedures + +--------+ + + + | Procedure Name | Priori | Date/Time | Associated Diagnosis | Comments | | | ty | | | | + +--------+ + + + | EXTERNAL LAB: CBC | Routin | 10/16/2015 | | Results for this | | | e | 10:55 AM | | procedure are in the | | | | PDT | | results section. | + +--------+ + + + | IRON AND IRON | Routin | 10/16/2015 | | Results for this | | BINDING CAPACITY | e | 10:55 AM | | procedure are in the | | | | PDT | | results section. | + +--------+ + + + | VITAMIN D, | Routin | 10/16/2015 | | Results for this | | DEFICIENCY SCREEN | e | 10:55 AM | | procedure are in the | | (25-HYDROXY) | | PDT | | results section. | + +--------+ + + + | PARATHYROID HORMONE, | Routin | 10/16/2015 | | Results for this | | INTACT AND CALCIUM | e | 10:55 AM | | procedure are in the | | | | PDT | | results section. | + +--------+ + + + | PROTEIN, URINE, | Routin | 10/16/2015 | | Results for this | | RANDOM | e | 10:55 AM | | procedure are in the | | | | PDT | | results section. | + +--------+ + + + | URIC ACID | Routin | 10/16/2015 | | Results for this | | | e | 10:55 AM | | procedure are in the | | | | PDT | | results section. | + +--------+ + + + | MAGNESIUM | Routin | 10/16/2015 | | Results for this | | | e | 10:55 AM | | procedure are in the | | | | PDT | | results section. | + +--------+ + + + | FERRITIN | Routin | 10/16/2015 | | Results for this | | | e | 10:55 AM | | procedure are in the | | | | PDT | | results section. | + +--------+ + + + | RENAL FUNCTION PANEL | Routin | 10/16/2015 | | Results for this | | | e | 10:55 AM | | procedure are in the | | | | PDT | | results section. | + +--------+ + + + documented in this encounter Results Iron and Iron Binding Capacity (10/16/2015 10:55 AM PDT) + +-------+ + + + | Component | Value | Ref Range | Performed | Pathologist | | | | | At | Signature | + +-------+ + + + | Iron | 69.09 | 37 - 160 | EXTERNAL | | | | | | LAB | | + +-------+ + + + | Iron | 23.1 | 20 - 55 | EXTERNAL | | | Saturation | | | LAB | | + +-------+ + + + | TIBC | 299 | 245 - 400 | EXTERNAL | | | | | [...] + + Parathyroid Hormone, Intact and Calcium (10/16/2015 10:55 AM PDT) + + + + + + | Component | Value | Ref Range | Performed | Pathologist | | | | | At | Signature | + + + + + + | PTH Intact | 130.3 (A) | 15 - 65 | EXTERNAL [...] + +---------+ + + Protein, Urine, Random (10/16/2015 10:55 AM PDT) + +-------+ + + + | Component | Value | Ref Range | Performed | Pathologist | | | | | At | Signature | + +-------+ + + + | Protein, | 4 | 0.0 - 50.0 | EXTERNAL | [...] + + Vitamin D, Deficiency Screen (25-Hydroxy) (10/16/2015 10:55 AM PDT) + +-------+ + + + | Component [...] | | | + +---------+ + + External Lab: CBC (10/16/2015 10:55 AM PDT) + + + + + + | Component | Value | Ref Range | Performed | Pathologist | | | | | At | Signature | + + + + + + | WBC | 4.4 (A) | 4.5 - 11.0 10 | EXTERNAL | | | | | | LAB | | + + + + + + | RED CELL | 3.34 (A) | 3.8 - 5.1 10 | EXTERNAL | | | COUNT | | | LAB | | + + + + + + | Hgb | 10.1 (A) | 12.0 - 16.0 | EXTERNAL | | | | | g/dL | LAB | | + + + + + + | Hematocrit, | 30.9 (A) | 35 - 45 % | EXTERNAL | | | POC | | | LAB | | + + + + + + | MCV | 92.7 | 81 - 99 fL | EXTERNAL | | | | | | LAB | | + + + + + + | MCH | 30 | 27 - 33 pg | EXTERNAL | | | | | | LAB | | + + + + + + | MCHC | 33 | 30 - 36 g/dL | EXTERNAL | | | | | | LAB | | + + + + + + | Platelet | 163 | 140 - 440 K/ L | EXTERNAL | | | Count | | | LAB | | | Plasma | | | | | + + + + + + | RDW-CV | | % | EXTERNAL | | | | | | LAB | | + + + + + + | MPV | | fL | EXTERNAL | | | | | | LAB | | + + + + + + | Differentia | | | EXTERNAL | | | l Type | | | LAB | | + + + + + + | % Segmented | | % | EXTERNAL | | | | | | LAB | | | Neutrophils | | | | | + + + + + + | % | | % | EXTERNAL | | | Lymphocytes | | | LAB | | + + + + + + | % Monocytes | | % | EXTERNAL | | | | | | LAB | | + + + + + + | % | | % | EXTERNAL | | | Eosinophils | | | LAB | | + + + + + + | % Basophils | | % | EXTERNAL | | | | | | LAB | | + + + + + + | Absolute | | / L | EXTERNAL | | | Segmented | | | LAB | | | Neutrophils | | | | | + + + + + + | Absolute | | / L | EXTERNAL | | | Lymphocytes | | | LAB | | + + + + + + | Absolute | | / L | EXTERNAL | | | Monocytes | | | LAB | | + + + + + + | Absolute | | / L | EXTERNAL | | | Eosinophils | | | LAB | | + + + + + + | Absolute | | / L | EXTERNAL | | | Basophils | | | LAB | | + [...] | + +---------+ + + Uric Acid (10/16/2015 10:55 AM PDT) + +-------+ + + + | Component | Value | Ref Range | Performed | Pathologist | | | | | At | Signature | + +-------+ + + + | Uric Acid | 5.6 | 2.3 - 6.6 | EXTERNAL | [...] | | + +---------+ + + Magnesium (10/16/2015 10:55 AM PDT) + +-------+ + + + | Component [...] | | | + +---------+ + + Ferritin (10/16/2015 10:55 AM PDT) + + + + + + | Component | Value | Ref Range | Performed | Pathologist | | | | | At | Signature | + + + + + + | Ferritin, | 266.7 (A) | 13 - 150 ng/mL | EXTERNAL | | | External | | | LAB | | + [...] + +---------+ + + Renal Function Panel (10/16/2015 10:55 AM PDT) + + + + + + | Component | Value | Ref Range | Performed | Pathologist | | | | | At | Signature | + + + + + + | Glucose, | 88 | 70 - 100 mg/dL | EXTERNAL | | | Fasting | | | LAB | | + + + + + + | BUN | 38 (A) | 6 - 23 mg/dL | EXTERNAL | | | | | | LAB | | + + + + + + | Creatinine | 2.25 (A) | 0.70 - 1.11 | EXTERNAL | | | | | mg/dL | LAB | | + + + + + + | PHOSPHORUS | | mg/dL | EXTERNAL | | | | | | LAB | | + + + + + + | Albumin | 3.6 | 3.5 - 5.0 | EXTERNAL | | | | | | LAB | | + + + + + + | Na | 141 | 132 - 143 | EXTERNAL | | | | | mmol/L | LAB | | + + + + + + | K | 4.5 | 3.6 - 5.1 | EXTERNAL | | | | | mmol/L | LAB | | + + + + + + | Cl | 105 | 95 - 112 mmol/L | EXTERNAL | | | | | | LAB | | + + + + + + | CO2 | 23 | 19 - 31 mmol/L | EXTERNAL | | | | | | LAB | | + + + + + + | Anion Gap | 17.5 | 7 - 21 mmol/L | EXTERNAL | | | | | | LAB | | + + + + + + | eGFR if not | | | EXTERNAL | | | | | | LAB | | | BURMESE | | | | | + + + + + + | Phosphorus, | 3.3 | 2.5 - 5.0 | EXTERNAL | | | Inorganic | | | LAB | | + + + + + + | BUN/Creatin | 16.9 | 6.0 - 28.6 | EXTERNAL | | | ine Ratio | | | LAB | | + + + + + + | Calcium | 9.5 | 8.4 - 10.2 | EXTERNAL | | | | | mg/dL | LAB | | + + + + + + | Estimated | 21 | mg/dL | EXTERNAL | | | [...]
--- OUTSIDE RECORDS SUMMARY | ~2019-03-21 | XMS | Encounter Summary ---
Demographics + + + | Address | [address] | | | [place] [address] | + + + | Home Phone | | + + + | Preferred Language | Unknown | + + + | Marital Status | | + + + | Restoration Affiliation | 1013 | + + + | Race | Unknown | + + + | Ethnic Group | Unknown | + + + Author + + + | Author | [facility] | | | and [place] | + + + | Organization | [facility] | | | and [...] Team Providers + +------+ + | Care Regional Director Of Finance Name | Role | Phone | + +------+ + | Kaushik Christensne MD | PCP | | + +------+ + Encounter Details +--------+ + + + + | Date | Type | Department | Care Team | Description | +--------+ + + + + | 10/27/ | Orders Only | [facility] | Silvio Alfred MD | | | 2014 | | NEPHROLOGY [place] | [address] [place] | | | | | [address] [place] | [address] [place], [place] | | | | | [address] [place], [place] | [address] | | | | | [address] | | | | | | [phone] | | | +--------+ + + + [...] [address] | | | | | | [place] [address] | | | | | | [phone] | | | | | | | | +--------+---------+ + + + documented as of this encounter Procedures + +--------+ + + + | Procedure Name | Priori | Date/Time | Associated Diagnosis | Comments | | | ty | | | | + +--------+ + + + | EXTERNAL LAB: CBC | Routin | 10/27/2014 | | Results for this | | | e | 12:00 AM | | procedure are in the | | | | PDT | | results section. | + +--------+ + + + | URINALYSIS WITH | Routin | 10/27/2014 | | Results for this | | MICROSCOPIC WITH | e | 12:00 AM | | procedure are in the | | CULTURE IF INDICATED | | PDT | | results section. | + +--------+ + + + | PROTEIN/CREATININE | Routin | 10/27/2014 | | Results for this | | RATIO, URINE | e | 12:00 AM | | procedure are in the | | | | PDT | | results section. | + +--------+ + + + | URIC ACID | Routin | 10/27/2014 | | Results for this | | | e | 12:00 AM | | procedure are in the | | | | PDT | | results section. | + +--------+ + + + | MAGNESIUM | Routin | 10/27/2014 | | Results for this | | | e | 12:00 AM | | procedure are in the | | | | PDT | | results section. | + +--------+ + + + | BASIC METABOLIC | Routin | 10/27/2014 | | Results for this | | PANEL | e | 12:00 AM | | procedure are in the | | | | PDT | | results section. | + +--------+ + + + documented in this encounter Results Urinalysis with Microscopic with Culture if Indicated (10/27/2014 12:00 AM PDT) + + + + [...] + + + | Spec Grav, | 1.012 | 1.005 - 1.030 | EXTERNAL | [...] + +---------+ + + Protein/Creatinine Ratio, Urine (10/27/2014 12:00 AM PDT) + +-------+ + + + | Component | Value | Ref Range | Performed | Pathologist | | | | | At | Signature | + +-------+ + + + | Protein/Cre | 54.9 | 0 - 150 | EXTERNAL | [...] + +---------+ + + External Lab: CBC (10/27/2014 12:00 AM PDT) + + + + + + | Component | Value | Ref Range | Performed | Pathologist | | | | | At | Signature | + + + + + + | WBC | 4.5 | 4.5 - 11.0 10 | EXTERNAL | | | | | | LAB | | + + + + + + | RED CELL | 3.98 | 3.8 - 5.1 10 | EXTERNAL | | | COUNT | | | LAB | | + + + + + + | Hgb | 12.2 | 12.0 - 16.0 | EXTERNAL | | | | | g/dL | LAB | | + + + + + + | Hematocrit, | 36.9 | 35 - 45 % | EXTERNAL [...] + + + + | Platelet | 196 | 140 - 440 K/ L | EXTERNAL | | | Count | | | LAB | | | Plasma | | | | | + + + + + + | RDW-CV | 15.7 (A) | 10.5 - 15.0 % | EXTERNAL | | | | | | LAB | | + + + + + + | MPV | | fL | EXTERNAL | | | | | | LAB | | + + + + + + | Differentia | Auto | | EXTERNAL | | | l Type | | | LAB | | + + + + + + | % Segmented | 52.0 | 39 - 80 % | EXTERNAL | | | | | | LAB | | | Neutrophils | | | | | + + + + + + | % | 33.0 | 24 - 44 % | EXTERNAL | | | Lymphocytes | | | LAB | | + + + + + + | % Monocytes | 9.3 | 0 - 12 % | EXTERNAL | | | | | | LAB | | + + + + + + | % | 4.2 | 0 - 6 % | EXTERNAL | | | Eosinophils | | | LAB | | + + + + + + | % Basophils | 1.5 | 0 - 2 % | EXTERNAL | | | | [...] | + +---------+ + + Uric Acid (10/27/2014 12:00 AM PDT) + +-------+ + + + | Component | Value | Ref Range | Performed | Pathologist | | | | | At | Signature | + +-------+ + + + | Uric Acid | 5.8 | 2.3 - 6.6 | EXTERNAL | [...] | | + +---------+ + + Magnesium (10/27/2014 12:00 AM PDT) + +-------+ + + + [...] | | | + +---------+ + + Basic Metabolic Panel (10/27/2014 12:00 AM PDT) + + + + + + | Component | Value | Ref Range | Performed | Pathologist | | | | | At | Signature | + + + + + + | Glucose, | 92 | 70 - 100 mg/dL | EXTERNAL | | | Fasting | | | LAB | | + + + + + + | BUN | 56 (A) | 6 - 23 mg/dL | EXTERNAL | | | | | | LAB | | + + + + + + | Creatinine | 2.16 (A) | 0.70 - 1.11 | EXTERNAL | | | | | mg/dL | LAB | | + + + + + + | BUN/Creatin | 25.9 | 6.0 - 28.6 | EXTERNAL | [...] + + + + | K | 4.4 | 3.6 - 5.1 | EXTERNAL | | | | | mmol/L | LAB | | + + + + + + | Cl | 106 | 95 - 112 mmol/L | EXTERNAL | | | | | | LAB | | + + + + + + | CO2 | 22 | 19 - 31 mmol/L | EXTERNAL | | | | | | LAB | | + + + + + + | Anion Gap | 17.4 | 7 - 21 mmol/L | EXTERNAL | | | | | | LAB | | + + + + + + | Estimated | 22 | mg/dL | EXTERNAL | | | [...]
--- OUTSIDE RECORDS SUMMARY | ~2019-03-21 | XMS | Encounter Summary ---
Demographics + + + | Address | [address] | | | [place] [address] | + + + | Home Phone | | + + + | Preferred Language | Unknown | + + + | Marital Status | | + + + | Adventist Affiliation | 1013 | + + + | Race | Unknown | + + + | Ethnic Group | Unknown | + + + Author + + + | Author | [facility] | | | and [place] | + + + | Organization | [facility] | | | and [...] Team Providers + +------+ + | Care Rat Culturist Name | Role | Phone | + +------+ + | Kaushik Christensen MD | PCP | | + +------+ + Encounter Details +--------+ + + + + | Date | Type | Department | Care Team | Description | +--------+ + + + + | 01/31/ | Orders Only | [facility] | David Montgomery MD | Obesity, | | 2011 | | NEUROSURGERY [address] | [address] | unspecified; | | | | [address] | [place] [address] | Unspecified | | | | [place], [place] | [phone] | essential | | | | [address] | | hypertension; | | | | [phone] | | Coronary | | | | | | atherosclerosis of | | | | | | unspecified type of | | | | | | vessel, mcgrath or | | | | | | graft | +--------+ + + + + Social [...] | | | | | [place] [address] | | | | | | [phone] | | | | | | | | +--------+---------+ + + + + +------+--------+ + + | Name | Type | Priori | Associated Diagnoses | Order Schedule | | | | ty | | | + +------+--------+ + + | Protime-INR | Lab | Routin | Obesity | 1 Occurrences | | | | e | Unspecified | starting 02/01/2012 | | | | | essential | until 01/31/2013 | | | | | hypertension | | | | | | Coronary | | | | | | atherosclerosis of | | | | | | unspecified type of | | | | | | vessel, mcgrath or | | | | | | graft | | + +------+--------+ + + | APTT | Lab | Routin | Unspecified | 1 Occurrences | | | | e | essential | starting 02/01/2012 | | | | | hypertension | until 01/31/2013 | | | | | Coronary | | | | | | atherosclerosis of | | | | | | unspecified type of | | | | | | vessel, mcgrath or | | | | | | graft | | + +------+--------+ + + | UA W/Sidney If Ind | Lab | Routin | Obesity | 1 Occurrences | | W/Cult If Ind | | e | Unspecified | starting 02/01/2012 | | | | | essential | until 01/31/2013 | | | | | hypertension | | | | | | Coronary | | | | | | atherosclerosis of | | | | | | unspecified type of | | | | | | vessel, mcgrath or | | | | | | graft | | + +------+--------+ + + documented as of this encounter Visit Diagnoses + + | Diagnosis | + + | Obesity, unspecified | + + | Unspecified essential hypertension | + + | Coronary atherosclerosis of unspecified type of vessel, mcgrath or graft | + + documented in this encounter"
--- OUTSIDE RECORDS SUMMARY | ~2019-03-21 | XMS | Encounter Summary ---
Demographics + + + | Address | [address] | | | [place] [address] | + + + | Home Phone | | + + + | Preferred Language | Unknown | + + + | Marital Status | | + + + | Caodaism Affiliation | 1013 | + + + [...] Team Providers + +------+ + | Care Inventory Taker Name | Role | Phone | + +------+ + | Kaushik Christensen MD | PCP | | + +------+ + Encounter Details +--------+ + + + + | Date | Type | Department | Care Team | Description | +--------+ + + + + | 10/06/ | Orders Only | [facility] | Silvio Alfred MD | | | 2014 | | NEPHROLOGY [place] | [address] [place] | | | | | [address] [place] | [address] [place], [place] | | | | | [address] [place], [place] | [address] | | | | | [address] | | | | | | [phone] | | | +--------+ + + + [...] + + documented as of this encounter Progress Notes Brice Transaction, Provider Unknown - 10/01/2014 11:08 AM PDTFormatting of this note m ight be different from the original. Telephone Encounter by Leah Adams CMA at 10/01/14 [id number] Author: Leah Adams CMA Service: (none) Author Type: Statistical Clerk Filed: 10/01/14 1112 Encounter Date: 10/01/2014 Status: Signed Continuous Crusher Operator: Leah Adams CMA (Statistical Clerk) I called and spoke to patient in regards to GFR dramatic drop in the last two months. Alfredo nt stated she was not feeling ill and was feeling "Fine" patient said she was taking three i buprofen tablets in the AM and three tablets in the PM, patient stated PCP instructed her to stop taking that LAKE. As instructed from Provider patient will have repeat labs completed on Monday, she will cut Lisinopril in half. Patient voiced good understanding and lab order was faxed to IP in [place] Transaction, Provider Unknown - 10/01/2014 11:07 AM PDT Telephone Encounter by Leah Adams CMA at 10/01/14 8504 Author: Leah Adams CMA Service: (none) Author Type: Statistical Clerk Filed: 10/01/14 1103 Encounter Date: 10/01/2014 Status: Signed Continuous Crusher Operator: Leah Adams CMA (Statistical Clerk) ----- Message from Silvio Alfred MD sent at 10/01/2014 10:25 AM PDT ----- Regarding: FW: Schedule with Aubrie Make sure she is not sick; if she is she needs to go to urgent care/ER plz have her cut her Lisinopril in half Repeat BMP on Monday FA ----- Message ----- From: Leah Adams CMA Sent: 10/01/2014 9:51 AM To: Silvio Alfred MD Subject: FW: Schedule with Aubrie See results ----- Message ----- From: BLAINE Raygoza Sent: 10/01/2014 9:31 AM To: Leah Adams CMA Subject: Schedule with Aubrie This patients last labs show a dramatic drop in renal function. She should see Aubrie for h er next appointment please. ----- Message ----- From: Leah Adams CMA Sent: 10/01/2014 9:10 AM To: BLAINE Raygoza docume nted in this encounter Plan of Treatment +--------+---------+ + + + | Date | Type | Specialty | Care Team | Description | +--------+---------+ + + + | 04/08/ | Office | Cardiology | Alexandra Amaya | | | 2020 | Visit | | [address] | | | | | | [place] [address] | | | | | | [place] [address] | | | | | | [phone] | | | | | | | | +--------+---------+ + + + documented as of this encounter Procedures + +--------+ + + + | Procedure Name | Priori | Date/Time | Associated Diagnosis | Comments | | | ty | | | | + +--------+ + + + | BASIC METABOLIC | Routin | 10/06/2014 | | Results for this | | PANEL | e | 12:00 AM | | procedure are in the | | | | PDT | | results section. | + +--------+ + + + documented in this encounter Results Basic Metabolic Panel (10/06/2014 12:00 AM PDT) + + + + + + | Component | Value | Ref Range | Performed | Pathologist | | | | | At | Signature | + + + + + + | Glucose, | 99 | 70 - 100 mg/dL | EXTERNAL | | | Fasting | | | LAB | | + + + + + + | BUN | 34 (A) | 6 - 23 mg/dL | EXTERNAL | | | | | | LAB | | + + + + + + | Creatinine | 2.06 (A) | 0.70 - 1.11 | EXTERNAL | | | | | mg/dL | LAB | | + + + + + + | BUN/Creatin | | | EXTERNAL | | | ine Ratio | | | LAB | | + + + + + + | Calcium | 9.2 | 8.4 - 10.2 | EXTERNAL | | | | | mg/dL | LAB | | + + + + + + | Na | 142 | 132 - 143 | EXTERNAL | [...] + + + + | CO2 | 19 | 19 - 31 mmol/L | EXTERNAL | | | | | | LAB | | + + + + + + | Anion Gap | 19.5 | 7 - 21 mmol/L | EXTERNAL | | | | | | LAB | | + + + + + + | Estimated | 23 | mg/dL | EXTERNAL | | | [...]
--- OUTSIDE RECORDS SUMMARY | ~2019-03-21 | XMS | Encounter Summary ---
Demographics + + + | Address | [address] | | | [place] [address] | + + + | Home Phone | | + + + | Preferred Language | Unknown | + + + | Marital Status | | + + + | Latter-Day Affiliation | 1013 | + + + | Race | Unknown | + + + | Ethnic Group | Unknown | + + + Author + + + | Author | [facility] | | | and [place] | + + + | Organization | [facility] | | | [...] Team Providers + +------+ + | Care Ditcher Operator Name | Role | Phone | + +------+ + | Kaushik Christensen MD | PCP | | + +------+ + Encounter Details +--------+ + + + + | Date | Type | Department | Care Team | Description | +--------+ + + + + | 01/31/ | Orders Only | [facility] | Conversion | | | 2018 | | NEPHROLOGY [place] | Transaction, | | | | | [address] | Provider Unknown | | | | | [address] [facility] [place] | | | | | | [address] | (Fax) | | | | | [phone] | | | +--------+ + + + [...] [address] | | | | | | [place] [address] | | | | | | [phone] | | | | | | | [...]
--- OUTSIDE RECORDS SUMMARY | ~2019-03-21 | XMS | Encounter Summary ---
Demographics + + + | Address | [address] | | | [place] [address] | + + + | Home Phone | | + + + | Preferred Language | Unknown | + + + | Marital Status | | + + + | Bahai Affiliation | 1013 | + + + | Race | Unknown | + + + | Ethnic Group | Unknown | + + + Author + + + | Author | [facility] | | | and [place] | + + + | Organization | [facility] | | | [...] Team Providers + +------+ + | Care Delivery Coordinator Name | Role | Phone | + +------+ + | Kaushik Christensen MD | PCP | | + +------+ + Encounter Details +--------+ + + + + | Date | Type | Department | Care Team | Description | +--------+ + + + + | 12/05/ | Orders Only | [facility] | AlbertChung matthews, | | | 2016 | | NEPRHOLOGY [place] | HADOOP JAVA DEVELOPER [address] | | | | | [address] | [facility] | | | | | [address] [place], [place] | [place] | | | | | [address] | [address] | | | | | [phone] | [phone] | | | | | | | [...] | | | | | | [place] [address] | | | | | | [phone] | | | | | | | | +--------+---------+ + + + documented as of this encounter Procedures + +--------+ + + + | Procedure Name | Priori | Date/Time | Associated Diagnosis | Comments | | | ty | | | | + +--------+ + + + | EXTERNAL LAB: CBC | Routin | 12/05/2016 | | Results for this | | | e | 9:15 AM | | procedure are in the | | | | PDT | | results section. | + +--------+ + + + | URINALYSIS, REFLEX | Routin | 12/05/2016 | | Results for this | | MICROSCOPIC AND/OR | e | 9:15 AM | | procedure are in the | | CULTURE | | PDT | | results section. | + +--------+ + + + | PROTEIN/CREATININE | Routin | 12/05/2016 | | Results for this | | RATIO, URINE | e | 9:15 AM | | procedure are in the | | | | PDT | | results section. | + +--------+ + + + | RENAL FUNCTION PANEL | Routin | 12/05/2016 | | Results for this | | | e | 9:15 AM | | procedure are in the | | | | PDT | | results section. | + +--------+ + + + documented in this encounter Results Urinalysis, Reflex Microscopic and/or Culture (12/05/2016 9:15 AM PDT) + + + + + [...] + + + | Spec Grav, | 1.007 | 1.005 - 1.030 | EXTERNAL | | | Fluid | | | LAB | | + + + + + + | Leukocyte | Comment: 25 | | EXTERNAL | | | Esterase, [...] + + | | + + + + + | Narrative | Performed At | + + + | WBC's: >50 RBC's: 0 Epithelial: Squamous 1+, Transitional 1+ | EXTERNAL LAB | | Bacteria: 3+ | | + + + + +---------+ + + | Performing | Address | City/State/Zipcode | Phone Number | | Organization | | | | + +---------+ + + | EXTERNAL LAB | | | | + +---------+ + + Protein/Creatinine Ratio, Urine (12/05/2016 9:15 AM PDT) + + + + + + | Component | Value | Ref Range | Performed | Pathologist | | | | | At | Signature | + + + + + + | Protein/Cre | 159.1 (A) | 0 - 150 | EXTERNAL [...] + +---------+ + + External Lab: CBC (12/05/2016 9:15 AM PDT) + + + + + + | Component | Value | Ref Range | Performed | Pathologist | | | | | At | Signature | + + + + + + | WBC | 5.0 | 4.5 - 11.0 10 | EXTERNAL | | | | | | LAB | | + + + + + + | RED CELL | 3.56 (A) | 3.8 - 5.1 10 | EXTERNAL | | | COUNT | | | LAB | | + + + + + + | Hgb | 11.2 (A) | 12.0 - 16.0 | EXTERNAL | | | | | g/dL | LAB | | + + + + + + | Hematocrit, | 33.8 (A) | 35 - 45 % | EXTERNAL | | | POC | | | LAB | | + + + + + + | MCV | 95.2 | 81 - 99 fL | EXTERNAL [...] + + + + | Platelet | 166 | 140 - 440 K/ L | EXTERNAL | | | Count | | | LAB | | | Plasma | | | | | + + + + + + | RDW-CV | 16.2 (A) | 10.5 - 15.0 % | [...] + +---------+ + + Renal Function Panel (12/05/2016 9:15 AM PDT) + + + + + + | Component | Value | Ref Range | Performed | Pathologist | | | | | At | Signature | + + + + + + | Glucose, | 89 | 70 - 100 mg/dL | EXTERNAL | | | Fasting | | | LAB | | + + + + + + | BUN | 21 | 6 - 23 mg/dL | EXTERNAL | | | | | | LAB | | + + + + + + | Creatinine | 1.55 (A) | 0.70 - 1.11 | EXTERNAL [...] + + + + | K | 3.6 | 3.6 - 5.1 | EXTERNAL | [...] + + + | Anion Gap | 17.6 | 7 - 21 mmol/L | EXTERNAL | | | | | | LAB | | + + + + + + | eGFR if not | | | EXTERNAL | | | | | | LAB | | | [place] | | | | | + + + + + + | Phosphorus, | 3.6 | 2.5 - 5.0 | EXTERNAL | | | Inorganic | | | LAB | | + + + + + + | BUN/Creatin | 13.5 | 6.0 - 28.6 | EXTERNAL | | | ine Ratio | | | LAB | | + + + + + + | Calcium | 9.3 | 8.4 - 10.2 | EXTERNAL | | | | | mg/dL | LAB | | + + + + + + | Estimated | 32 | mg/dL | EXTERNAL | | | [...]
--- OUTSIDE RECORDS SUMMARY | ~2019-03-21 | XMS | Encounter Summary ---
Demographics + + + | Address | [address] | | | [place] [address] | + + + | Home Phone | | + + + | Preferred Language | Unknown | + + + | Marital Status | | + + + | Confucianism Affiliation | 1013 | + + + | Race | Unknown | + + + | Ethnic Group | Unknown | + + + Author + + + | Author | [facility] | | | and [place] | + + + | Organization | [facility] | | | [...] Team Providers + +------+ + | Care Sample Steamer Name | Role | Phone | + +------+ + | Kaushik Christensen MD | PCP | | + +------+ + Encounter Details +--------+ + + + + | Date | Type | Department | Care Team | Description | +--------+ + + + + | 10/06/ | Orders Only | [facility] | Silvio Alfred MD | | | 2014 | | NEPHROLOGY [place] | [address] [place] | | | | | [address] | [address] [place], [place] | | | | | [address] [place], [place] | [address] | | | | | [address] | | | | | | [phone] | | | +--------+ + + + [...] Encounter by Leah Adams CMA at 10/01/14 [id number] Author: Leah Adams CMA Service: (none) Author Type: Director Business Systems Filed: 10/01/14 1112 Encounter Date: 10/01/2014 Status: Signed Choker Setter: Leah Adams CMA (Director Business Systems) I called and spoke to patient in [...] Encounter by Leah Adams CMA at 10/01/14 1073 Author: Leah Adams CMA Service: (none) Author Type: Director Business Systems Filed: 10/01/14 1104 Encounter Date: 10/01/2014 Status: Signed Choker Setter: Leah Adams CMA (Director Business Systems) ----- Message from Silvio Alfred MD sent [...] [address] | | | | | | [place] [address] | | | | | | [phone] | | | | | | | [...]
--- OUTSIDE RECORDS SUMMARY | ~2019-03-21 | XMS | Encounter Summary ---
Demographics + + + | Address | [address] | | | [place] [address] | + + + | Home Phone | | + + + | Preferred Language | Unknown | + + + | Marital Status | | + + + | Congregational Affiliation | 1013 | + + + | Race | Unknown | + + + | Ethnic Group | Unknown | + + + Author + + + | Author | [facility] | | | and [place] | + + + | Organization | [facility] | | [...] Team Providers + +------+ + | Care Seed Corn Manager Production Name | Role | Phone | + +------+ + | Kaushik Christensen MD | PCP | | + +------+ + Encounter Details +--------+ + + + + | Date | Type | Department | Care Team | Description | +--------+ + + + + | 09/07/ | Orders Only | [facility] | Chung Rushing, | | | 2017 | | NEPHROLOGY [place] | HOME RESTORATION SERVICE CLEANER [address] | | | | | [address] | [address] | | | | | [address] [place], [place] | [place] | | | | | [address] | [address] | | | | | [phone] | [phone] | | | | | | | [...] [address] | | | | | | [place] [address] | | | | | | [phone] | | | | | | | | +--------+---------+ + + + documented as of this encounter Procedures + +--------+ + + + | Procedure Name | Priori | Date/Time | Associated Diagnosis | Comments | | | ty | | | | + +--------+ + + + | EXTERNAL LAB: CBC | Routin | 09/07/2016 | | Results for this | | | e | 10:35 AM | | procedure are in the | | | | PDT | | results section. | + +--------+ + + + | URINALYSIS, REFLEX | Routin | 09/07/2016 | | Results for this | | MICROSCOPIC AND/OR | e | 10:35 AM | | procedure are in the | | CULTURE | | PDT | | results section. | + +--------+ + + + | VITAMIN D, | Routin | 09/07/2016 | | Results for this | | DEFICIENCY SCREEN | e | 10:35 AM | | procedure are in the | | (25-HYDROXY) | | PDT | | results section. | + +--------+ + + + | PROTEIN/CREATININE | Routin | 09/07/2016 | | Results for this | | RATIO, URINE | e | 10:35 AM | | procedure are in the | | | | PDT | | results section. | + +--------+ + + + | URIC ACID | Routin | 09/07/2016 | | Results for this | | | e | 10:35 AM | | procedure are in the | | | | PDT | | results section. | + +--------+ + + + | PARATHYROID HORMONE, | Routin | 09/07/2016 | | Results for this | | INTACT | e | 10:35 AM | | procedure are in the | | | | PDT | | results section. | + +--------+ + + + | RENAL FUNCTION PANEL | Routin | 09/07/2016 | | Results for this | | | e | 10:35 AM | | procedure are in the | | | | PDT | | results section. | + +--------+ + + + documented in this encounter Results Urinalysis, Reflex Microscopic and/or Culture (09/07/2016 10:35 AM PDT) + + + + + [...] + + + | Spec Grav, | 1.010 | 1.005 - 1.030 | EXTERNAL | | | Fluid | | | LAB | | + + + + + + | Leukocyte | Comment: 100 | | EXTERNAL | | | Esterase, | | | LAB | | | Urine | | | | | + + + + + + | Nitrite, | Comment: Positive | | EXTERNAL | | | Urine [...] + +---------+ + + Protein/Creatinine Ratio, Urine (09/07/2016 10:35 AM PDT) + + + + + + | Component | Value | Ref Range | Performed | Pathologist | | | | | At | Signature | + + + + + + | Protein/Cre | 252.5 (A) | 0 - 150 | EXTERNAL [...] + + Vitamin D, Deficiency Screen (25-Hydroxy) (09/07/2016 10:35 AM PDT) + +-------+ + + + | Component | Value | Ref Range | Performed | Pathologist | | | | | At | Signature | + +-------+ + + + | Vit D, | 39 | 30 - 100 | EXTERNAL | [...] + +---------+ + + External Lab: CBC (09/07/2016 10:35 AM PDT) + +-------+ + + + | Component | Value | Ref Range | Performed | Pathologist | | | | | At | Signature | + +-------+ + + + | WBC | 6.8 | 4.5 - 11.0 10 | EXTERNAL | | | | | | LAB | | + +-------+ + + + | RED CELL | 4.03 | 3.8 - 5.1 10 | EXTERNAL | | | COUNT | | | LAB | | + +-------+ + + + | Hgb | 12.3 | 12.0 - 16.0 | EXTERNAL | | | | | g/dL | LAB | | + +-------+ + + + | Hematocrit, | 37.2 | 35 - 45 % | EXTERNAL | | | POC | | | LAB | | + +-------+ + + + | MCV | 92.4 | 81 - 99 fL | EXTERNAL | | | | | | LAB | | + +-------+ + + + | MCH | 31 | 27 - 33 pg | EXTERNAL | | | | | | LAB | | + +-------+ + + + | MCHC | 33 | 30 - 36 g/dL | EXTERNAL | | | | | | LAB | | + +-------+ + + + | Platelet | 206 | 140 - 440 K/ L | EXTERNAL | | | Count | | | LAB | | | Plasma | | | | | + +-------+ + + + | RDW-CV | 14.8 | 10.5 - 15.0 % | EXTERNAL | | | | | | LAB | | + +-------+ + + + | MPV | | fL | EXTERNAL | | | | | | LAB | | + +-------+ + + + | Differentia | | | EXTERNAL | | | l Type | | | LAB | | + +-------+ + + + | % Segmented | | % | EXTERNAL | | | | | | LAB | | | Neutrophils | | | | | + +-------+ + + + | % | | % | EXTERNAL | | | Lymphocytes | | | LAB | | + +-------+ + + + | % Monocytes | | % | EXTERNAL | | | | | | LAB | | + +-------+ + + + | % | | % | EXTERNAL | | | Eosinophils | | | LAB | | + +-------+ + + + | % Basophils | | % | EXTERNAL | | | | | | LAB | | + +-------+ + + + | Absolute | | / L | EXTERNAL | | | Segmented | | | LAB | | | Neutrophils | | | | | + +-------+ + + + | Absolute | | / L | EXTERNAL | | | Lymphocytes | | | LAB | | + +-------+ + + + | Absolute | | / L | EXTERNAL | | | Monocytes | | | LAB | | + +-------+ + + + | Absolute | | / L | EXTERNAL | | | Eosinophils | | | LAB | | + +-------+ + + + | Absolute | | [...] | + +---------+ + + Uric Acid (09/07/2016 10:35 AM PDT) + +-------+ + + + | Component | Value | Ref Range | Performed | Pathologist | | | | | At | Signature | + +-------+ + + + | Uric Acid | 5.0 | 2.3 - 6.6 | EXTERNAL | [...] + +---------+ + + Parathyroid Hormone, Intact (09/07/2016 10:35 AM PDT) + + + + + + | Component | Value | Ref Range | Performed | Pathologist | | | | | At | Signature | + + + + + + | PTH INTACT | 179.5 (A) | 15 - 65 pg/mL | EXTERNAL | | | | | [...] + +---------+ + + Renal Function Panel (09/07/2016 10:35 AM PDT) + + + + + [...] + + + + | BUN | 46 (A) | 6 - 23 mg/dL | EXTERNAL | | | | | | LAB | | + + + + + + | Creatinine | 2.36 (A) | 0.70 - 1.11 | EXTERNAL [...] + + + + | K | 4.6 | 3.6 - 5.1 | EXTERNAL | [...] | | | LAB | | | [place] | | | | | + + + + + + | Phosphorus, | 3.9 | 2.5 - 5.0 | EXTERNAL | | | Inorganic | | | LAB | | + + + + + + | BUN/Creatin | 19.5 | 6.0 - 28.6 | EXTERNAL | | | ine Ratio | | | LAB | | + + + + + + | Calcium | 9.4 | 8.4 - 10.2 | EXTERNAL | | | | | mg/dL | LAB | | + + + + + + | Estimated | 20 | mg/dL | EXTERNAL | | | [...]
--- OUTSIDE RECORDS SUMMARY | ~2019-03-21 | XMS | Encounter Summary ---
Demographics + + + | Address | [address] | | | [place] [address] | + + + | Home Phone | | + + + | Preferred Language | Unknown | + + + | Marital Status | | + + + | Amish Affiliation | 1013 | + + + | Race | Unknown | + + + | Ethnic Group | Unknown | + + + Author + + + | Author | [facility] | | | and [place] | + + + | Organization | [facility] | | | and [...] Team Providers + +------+ + | Care Airborne And Air Delivery Specialist Name | Role | Phone | + +------+ + | Kaushik Christensen MD | PCP | | + +------+ + Encounter Details +--------+ + + + + | Date | Type | Department | Care Team | Description | +--------+ + + + + | 03/03/ | Orders Only | [facility] | Silvio Alfred MD | | | 2013 | | NEPHROLOGY [place] | [address] | | | | | [address] | [address] [place], [place] | | | | | [address] [place], [place] | [address] | | | | | [address] | | | | | | [phone] | | | +--------+ + + + [...] [address] | | | | | | [place] [address] | | | | | | [phone] | | | | | | | | +--------+---------+ + + + documented as of this encounter Procedures + +--------+ + + + | Procedure Name | Priori | Date/Time | Associated Diagnosis | Comments | | | ty | | | | + +--------+ + + + | BASIC METABOLIC | Routin | 03/03/2014 | | Results for this | | PANEL | e | 12:00 AM | | procedure are in the | | | | PST | | results section. | + +--------+ + + + documented in this encounter Results Basic Metabolic Panel (03/03/2014 12:00 AM PST) + + + + + + | Component | Value | Ref Range | Performed | Pathologist | | | | | At | Signature | + + + + + + | Glucose, | 98 | 70 - 100 mg/dL | EXTERNAL | | | Fasting | | | LAB | | + + + + + + | BUN | 31 (A) | 6 - 23 mg/dL | EXTERNAL | | | | | | LAB | | + + + + + + | Creatinine | 1.59 (A) | 0.70 - 1.11 | EXTERNAL [...] + + + + | K | 4.2 | 3.6 - 5.1 | EXTERNAL | | | | | mmol/L | LAB | | + + + + + + | Cl | 101 | 95 - 112 mmol/L | EXTERNAL | | | | | | LAB | | + + + + + + | CO2 | 29 | 19 - 31 mmol/L | EXTERNAL | | | | | | LAB | | + + + + + + | Anion Gap | 17.2 | 7 - 21 mmol/L | EXTERNAL | | | | | | LAB | | + + + + + + | Estimated | 31 | mg/dL | EXTERNAL | | | [...]
--- OUTSIDE RECORDS SUMMARY | ~2019-03-21 | XMS | Encounter Summary ---
Demographics + + + | Address | [address] | | | [place] [address] | + + + | Home Phone | | + + + | Preferred Language | Unknown | + + + | Marital Status | | + + + | Islam Affiliation | 1013 | + + + | Race | Unknown | + + + | Ethnic Group | Unknown | + + + Author + + + | Author | [facility] | | | and [place] | + + + | Organization | [facility] | | | [...] Team Providers + +------+ + | Care Change Control Coordinator Name | Role | Phone | [...] + + | 02/07/ | Documentati | [facility] | Darrel, | Results (02/05/19) | | 2019 | on | NEPHROLOGY [place] | [facility] | | | | | [address] | Rock Crushing Machine Operator | | | | | [address] [facility] | | | | | | [place] | | | | | | [address] | | | | | | [phone] | | | +--------+ + + + [...] [address] | | | | | | [place] [address] | | | | | | [phone] | | | | | | | [...]
--- OUTSIDE RECORDS SUMMARY | ~2019-03-21 | XMS | Encounter Summary ---
Demographics + + + | Address | [address] | | | [place] [address] | + + + | Home Phone | | + + + | Preferred Language | Unknown | + + + | Marital Status | | + + + | Hindu Affiliation | 1013 | + + + | Race | Unknown | + + + | Ethnic Group | Unknown | + + + Author + + + | Author | [facility] | | | and [place] | + + + | Organization | [facility] | | | and [...] Team Providers + +------+ + | Care River Rat Name | Role | Phone | + +------+ + | Kaushik Christensen MD | PCP | | + +------+ + Encounter Details +--------+ + + + + | Date | Type | Department | Care Team | Description | +--------+ + + + + | 11/08/ | Orders Only | [facility] | Conversion | | | 2016 | | NEPRHOLOGY [place] | Transaction, | | | | | [address] | Provider Unknown | | | | | [address] [place], [place] | [phone] | | | | | [address] | | | | | | [phone] | | | +--------+ + + + [...] [address] | | | | | | [place] [address] | | | | | | [phone] | | | | | | | | +--------+---------+ + + + documented as of this encounter Procedures + +--------+ + + + | Procedure Name | Priori | Date/Time | Associated Diagnosis | Comments | | | ty | | | | + +--------+ + + + | EXTERNAL LAB: CBC | Routin | 11/09/2015 | | Results for this | | | e | 12:00 AM | | procedure are in the | | | | PDT | | results section. | + +--------+ + + + | URINALYSIS, REFLEX | Routin | 11/09/2015 | | Results for this | | MICROSCOPIC AND/OR | e | 12:00 AM | | procedure are in the | | CULTURE | | PDT | | results section. | + +--------+ + + + | COMPREHENSIVE | Routin | 11/09/2015 | | Results for this | | METABOLIC PANEL | e | 12:00 AM | | procedure are in the | | | | PDT | | results section. | + +--------+ + + + documented in this encounter Results Urinalysis, Reflex Microscopic and/or Culture (11/09/2015 12:00 AM PDT) + + + + + + | Component | Value | Ref Range | Performed | Pathologist | | | | | At | Signature | + + + + + + | Color | Light Yellow | | EXTERNAL | | | | | | LAB | | + + + + + + | Clarity | Clear | | EXTERNAL | | | | | | LAB | | + + + + + + | Spec Grav, | 1.008 | 1.005 - 1.030 | EXTERNAL | [...] + + + + | Total | neg | | EXTERNAL | | | Protein | | | LAB | | + + + + + + | Blood, | Negative | | EXTERNAL | | | Urine | | | LAB | | + + + + + + | Ketones | neg | | EXTERNAL | | | | [...] Performed At | + + + | CASTS - HAYALINE 2+ WBC'S 0 -0 - 4 RBC'S - 0 -0 -4 EPITHILIAL - | EXTERNAL LAB | | SQUAMOUS 1+ - 0-1+ SQUAMOUS CRYSTALS - NEG BACTERIA - 3+ | | + + + + +---------+ + + | Performing | Address | City/State/Zipcode | Phone Number | | Organization | | | | + +---------+ + + | EXTERNAL LAB | | | | + +---------+ + + External Lab: CBC (11/09/2015 12:00 AM PDT) + + + + + + | Component | Value | Ref Range | Performed | Pathologist | | | | | At | Signature | + + + + + + | WBC | 3.8 (A) | 4.5 - 11.0 10 | [...] + + + + | Hematocrit, | 30.8 (A) | 35 - 45 % | EXTERNAL | | | POC | | | LAB | | + + + + + + | MCV | 92.2 | 81 - 99 fL | EXTERNAL [...] + + + + | Platelet | 158 | 140 - 440 K/ L | EXTERNAL | | | Count | | | LAB | | | Plasma | | | | | + + + + + + | RDW-CV | 15.4 (A) | 10.5 - 15.0 % | [...] + + + | % Segmented | 50.0 | 39 - 80 % | EXTERNAL | | | | | | LAB | | | Neutrophils | | | | | + + + + + + | % | 35.7 | 24 - 44 % | EXTERNAL | | | Lymphocytes | | | LAB | | + + + + + + | % Monocytes | 7.7 | 0 - 12 % | EXTERNAL | | | | | | LAB | | + + + + + + | % | 5.6 | 0 - 6 % | EXTERNAL | | | Eosinophils | | | LAB | | + + + + + + | % Basophils | 1.0 | 0 - 2 % | EXTERNAL [...] | | | + +---------+ + + Comprehensive Metabolic Panel (11/09/2015 12:00 AM PDT) + + + + + + | Component | Value | Ref Range | Performed | Pathologist | | | | | At | Signature | + + + + + + | Glucose, | 84 | 70 - 100 mg/dL | EXTERNAL | | | Fasting | | | LAB | | + + + + + + | BUN | 33 (A) | 6 - 23 mg/dL | EXTERNAL | | | | | | LAB | | + + + + + + | Creatinine | 2.12 (A) | 0.70 - 1.11 | EXTERNAL | | | | | mg/dL | LAB | | + + + + + + | BUN/Creatin | 15.6 | 6.0 - 28.6 | EXTERNAL | | | ine Ratio | | | LAB | | + + + + + + | Calcium | 9.1 | 8.4 - 10.2 | EXTERNAL | | | | | mg/dL | LAB | | + + + + + + | Protein, | 6.0 | 6.0 - 8.0 g/dL | EXTERNAL | | | Total | | | LAB | | + + + + + + | Albumin | 3.9 | 3.5 - 5.0 | EXTERNAL | | | | | | LAB | | + + + + + + | Globulin | 2.1 | 1.8 - 3.5 | EXTERNAL | | | | | | LAB | | + + + + + + | A/G Ratio | 1.9 | 1.1 - 2.4 | EXTERNAL | | | | | | LAB | | + + + + + + | Bilirubin | 0.6 | 0.0 - 1.2 mg/dL | EXTERNAL | | | Total | | | LAB | | + + + + + + | ALP, | 84 | 30 - 128 | EXTERNAL | | | External | | | LAB | | + + + + + + | ALT | 5 (A) | 7 - 52 U/L | EXTERNAL | | | | | | LAB | | + + + + + + | AST | 8 (A) | 13 - 39 U/L | EXTERNAL | | | | | [...]
--- OUTSIDE RECORDS SUMMARY | ~2019-03-21 | XMS | Encounter Summary ---
Demographics + + + | Address | [address] | | | [place] [address] | + + + | Home Phone | | + + + | Preferred Language | Unknown | + + + | Marital Status | | + + + | Yazidi Affiliation | 1013 | + + + | Race | Unknown | + + + | Ethnic Group | Unknown | + + + Author + + + | Author | [facility] | | | and [place] | + + + | Organization | [facility] | | [...] Team Providers + +------+ + | Care Damper Maker Name | Role | Phone | + +------+ + | Kaushik Christensen MD | PCP | | + +------+ + Encounter Details +--------+ + + + + | Date | Type | Department | Care Team | Description | +--------+ + + + + | 10/27/ | Orders Only | [facility] | Conversion | | | 2017 | | NEPHROLOGY [place] | Transaction, | | | | | [address] | Provider Unknown | | | | | [address] [facility], [place] | | | | | | [address] | (Fax) | | | | | [phone] | | | +--------+ + + + [...] [place] | | | | | | [place] [address] | | | | | | [phone] | | | | | | | | +--------+---------+ + + + documented as of this encounter Procedures + +--------+ + + + | Procedure Name | Priori | Date/Time | Associated Diagnosis | Comments | | | ty | | | | + +--------+ + + + | BASIC METABOLIC | Routin | 10/27/2016 | | Results for this | | PANEL | e | 8:40 AM | | procedure are in the | | | | PDT | | results section. | + +--------+ + + + documented in this encounter Results Basic Metabolic Panel (10/27/2016 8:40 AM PDT) + + + + + [...] + + + + | Creatinine | 1.95 (A) | 0.70 - 1.11 | EXTERNAL | | | | | mg/dL | LAB | | + + + + + + | BUN/Creatin | 21.5 | 6.0 - 28.6 | EXTERNAL | | | ine Ratio | | | LAB | | + + + + + + | Calcium | 9.6 | 8.4 - 10.2 | EXTERNAL | | | | | mg/dL | LAB | | + + + + + + | Na | 138 | 132 - 143 | EXTERNAL | | | | | mmol/L | LAB | | + + + + + + | K | 3.5 (A) | 3.6 - 5.1 | EXTERNAL [...]
--- OUTSIDE RECORDS SUMMARY | ~2019-03-21 | XMS | Encounter Summary ---
Demographics + + + | Address | [address] | | | [place] [address] | + + + | Home Phone | | + + + | Preferred Language | Unknown | + + + | Marital Status | | + + + | Shinto Affiliation | 1013 | + + + | Race | Unknown | + + + | Ethnic Group | Unknown | + + + Author + + + | Author | [facility] | | | and [place] | + + + | Organization | [facility] | | | [...] Team Providers + +------+ + | Care Plant Mechanic Name | Role | Phone | + +------+ + PCP | Unavailable | + +------+ + Encounter Details +--------+ + + + + | Date | Type | Department | Care Team | Description | +--------+ + + + + | 09/26/ | Hospital | [facility] | Sammy Cespedes Shandra Maier, | | | 2011 | Encounter | MED CTR XRAY [address] | MD [address] | | | | | [place] | [place], [place] | | | | | [place] [address] | [address] | | | | | [phone] | | | +--------+ + + + [...] + + documented as of this encounter Medications at Time of Discharge + + + +---------+ + + | Medication | Sig | Dispensed | Refills | Start | End Date | | | | | | Date | | + + + +---------+ + + | gabapentin | 2 by mouth three | | 0 | 09/15/19 | | | (NEURONTIN) 300 mg | times daily | | | 12 | 3 | | capsule | | | | | | + + + +---------+ + + | losartan (COZAAR) | | | 0 | 06/20/19 | | | 25 mg tablet | | | | 12 | 2 | + + + +---------+ + + | nortriptyline | 2-3 by mouth at | | 0 | 09/15/19 | | | (PAMELOR) 10 MG | bedtime | | | 12 | 3 | | capsule | | | | | | + + + +---------+ + + documented as of this encounter [...] [address] | | | | | | [place] [address] | | | | | | [phone] | | | | | | | | +--------+---------+ + + + documented as of this encounter Procedures + +--------+ + + + | Procedure Name | Priori | Date/Time | Associated Diagnosis | Comments | | | ty | | | | + +--------+ + + + | DEXA BONE DENSITY | | 09/27/2011 | | Results for this | | STUDY ARACELY MILLS | | 9:53 AM | | procedure are in the | | ASSESSMENT | | PDT | | results section. | + +--------+ + + + documented in this encounter Results DEXA Bone Density Study (09/27/2011 9:53 AM PDT) + + | Specimen | + + | | + + + + + | Narrative | Performed At | + + + | [facility] Diagnostic Imaging Department | [place] | | [address] [facility] | [facility] | | BONE DENSITY TESTING | DIAG IMG | | CLINICAL HISTORY: OSTEOPOROSIS. TECHNIQUE: The bone mineral | | | density was evaluated in this 81-year-old female utilizing dual-energy | | | x -ray absorption technique applied to the left femoral neck and | | | lumbar spine. Review of the images and data sheet show the study to | | | be technically satisfactory. The average bone mineral density in | | | lumbar spine region was 1.198 g/cm2, which is 1.3 standard deviat | | | ions above peak bone density (T-score). Matched for age and sex, this | | | bone mineral density was 4.0 st andard deviations above the mean | | | (Z-score). In the femoral neck, the corresponding bone mineral | | | density was 0.661 g/cm2 which is 1.7 standard dev iations below peak | | | bone density and 0.6 standard deviations above the mean. | | | IMPRESSION: 1. BONE MINERAL DENSITY READINGS WHICH FALL IN THE | | | OSTEOPENIC RANGE AT THE FEMORAL NECK LEVEL. THIS IS THOUGHT TO BE | | | THE MORE ACCURATE ASSESSMENT OF THE PATIENT'S TRUE BONE MINERAL | | | DENSITY, BECAUSE OF DEGENERATIVE CHANGES IN THE LUMBAR REGION. | | | Dictated Date/Time: 09/29/2011 10:34 Transcribed Date/Time: | | | 09/29/2011 11:13 Track Mechanic: LZ <Electronically Signed | | | by Lefty Kirby MD> 09/29/11 1346 | | + + + + + | Procedure Note | + + | Sarbjit, Rad Conversion - 05/03/2013 5:38 PM [facility] | | Diagnostic Imaging Department [address] [place] [address] | | BONE DENSITY TESTING CLINICAL HISTORY: OSTEOPOROSIS. | | TECHNIQUE: The bone mineral density was evaluated in this 81-year-old female utilizing | | dual-energy x-ray absorption technique applied to the left femoral neck and lumbar | | spine. Review of the images and data sheet show the study to be technically | | satisfactory. The average bone mineral density in lumbar spine region was 1.198 g/cm2, | | which is 1.3 standard deviations above peak bone density (T-score). Matched for age and | | sex, this bone mineral density was 4.0 standard deviations above the mean (Z-score). In | | the femoral neck, the corresponding bone mineral density was 0.661 g/cm2 which is 1.7 | | standard deviations below peak bone density and 0.6 standard deviations above the mean. | | IMPRESSION:1. BONE MINERAL DENSITY READINGS WHICH FALL IN THE OSTEOPENIC RANGE AT THE | | FEMORAL NECK LEVEL. THIS IS THOUGHT TO BE THE MORE ACCURATE ASSESSMENT OF THE PATIENT'S | | TRUE BONE MINERAL DENSITY, BECAUSE OF DEGENERATIVE CHANGES IN THE LUMBAR REGION. | | Dictated Date/Time: 09/29/2011 10:34Transcribed Date/Time: 09/29/2011 | | 11:13Transcriptionist: <Electronically Signed by Lefty Kirby MD> 09/29/11 | | 1346 | | | |In the femoral neck, the corresponding bone mineral density was 0.661 g/cm2 which is 1.7 st andard dev | |iations below peak bone density and 0.6 standard deviations above the mean. | | | |IMPRESSION: | |1. BONE MINERAL DENSITY READINGS WHICH FALL IN THE OSTEOPENIC RANGE AT THE FEMORAL NECK LE HUSAM. THIS | | IS THOUGHT TO BE THE MORE ACCURATE ASSESSMENT OF THE PATIENT'S TRUE BONE MINERAL DENSITY, BECAUSE OF | | DEGENERATIVE CHANGES IN THE LUMBAR REGION. | | | |Dictated Date/Time: 09/29/2011 10:34 | |Transcribed Date/Time: 09/29/2011 11:13 | |Track Mechanic: | |<Electronically Signed by Lefty Kirby MD> 09/29/11 1346 | + + + +---------+ + + | Performing | Address | City/State[place] [facility] | Phone Number | | Organization | | | | + +---------+ + + | [facility] | | | | | [facility] | | | | + +---------+ + + documented in this encounter Visit Diagnoses Not on filedocumented in this encounter"
--- OUTSIDE RECORDS SUMMARY | ~2019-03-21 | XMS | Encounter Summary ---
Demographics + + + | Address | [address] | | | [place] [address] | + + + | Home Phone | | + + + | Preferred Language | Unknown | + + + | Marital Status | | + + + | Holiness Affiliation | 1013 | + + + | Race | Unknown | + + + | Ethnic Group | Unknown | + + + Author + + + | Author | [facility] | | | and [place] | + + + | Organization | [facility] | | | [...] Team Providers + +------+ + | Care Security Officer Supervisor Name | Role | Phone | + +------+ + | Renaldo Ramirez DO | PCP | Unavailable | + +------+ + Reason for Visit +--------+ + | Reason | Comments | +--------+ + | Other | | +--------+ + Encounter Details +--------+ + + + + | Date | Type | Department | Care Team | Description | +--------+ + + + + | 03/12/ | Telephone | [facility] | Lia Diallo, | Other | | 2019 | | CARDIOLOGY [place] | [facility] | | | | | [address] | | | | | | [place], [place] | | | | | | [address] | | | | | | [phone] | | | +--------+ + + + [...] [place] | | | | | | [place] [address] | | | | | | [phone] | | | | | | | | +--------+---------+ + + + documented as of this encounter Visit Diagnoses Not on filedocumented in this encounter"
--- OUTSIDE RECORDS SUMMARY | ~2019-03-21 | XMS | Encounter Summary ---
Demographics + + + | Address | [address] | | | [place] [address] | + + + | Home Phone | | + + + | Preferred Language | Unknown | + + + | Marital Status | | + + + | Uatsdin Affiliation | 1013 | + + + [...] Team Providers + +------+ + | Care Media Sales Consultant Name | Role | Phone | + +------+ + | Kaushik Christensen MD | PCP | | + +------+ + Encounter Details +--------+ + + + + | Date | Type | Department | Care Team | Description | +--------+ + + + + | 03/08/ | Orders Only | [facility] | Conversion | | | 2016 | | NEPHROLOGY [place] | Transaction, | | | | | [address] | Provider Unknown | | | | | [address] [facility] [place] | | | | | | [address] | (Fax) | | | | | [phone] | | | +--------+ + + + [...] [place] | | | | | | [place] [address] | | | | | | [phone] | | | | | | | | +--------+---------+ + + + documented as of this encounter Procedures + +--------+ + + + | Procedure Name | Priori | Date/Time | Associated Diagnosis | Comments | | | ty | | | | + +--------+ + + + | VITAMIN D, | Routin | 03/08/2016 | | Results for this | | DEFICIENCY SCREEN | e | 11:06 AM | | procedure are in the | | (25-HYDROXY) | | PST | | results section. | + +--------+ + + + | HEMOGLOBIN AND | Routin | 03/08/2016 | | Results for this | | HEMATOCRIT | e | 11:06 AM | | procedure are in the | | | | PST | | results section. | + +--------+ + + + | PROTEIN/CREATININE | Routin | 03/08/2016 | | Results for this | | RATIO, URINE | e | 11:06 AM | | procedure are in the | | | | PST | | results section. | + +--------+ + + + | URIC ACID | Routin | 03/08/2016 | | Results for this | | | e | 11:06 AM | | procedure are in the | | | | PST | | results section. | + +--------+ + + + | PARATHYROID HORMONE, | Routin | 03/08/2016 | | Results for this | | INTACT | e | 11:06 AM | | procedure are in the | | | | PST | | results section. | + +--------+ + + + | MAGNESIUM | Routin | 03/08/2016 | | Results for this | | | e | 11:06 AM | | procedure are in the | | | | PST | | results section. | + +--------+ + + + | RENAL FUNCTION PANEL | Routin | 03/08/2016 | | Results for this | | | e | 11:06 AM | | procedure are in the | | | | PST | | results section. | + +--------+ + + + documented in this encounter Results Hemoglobin and Hematocrit (03/08/2016 11:06 AM PST) + + + + + + | Component | Value | Ref Range | Performed | Pathologist | | | | | At | Signature | + + + + + + | Hgb | 11.4 (A) | 12.0 - 16.0 | EXTERNAL [...] + +---------+ + + Protein/Creatinine Ratio, Urine (03/08/2016 11:06 AM PST) + +-------+ + + + | Component | Value | Ref Range | Performed | Pathologist | | | | | At | Signature | + +-------+ + + + | Protein/Cre | 74.7 | 0 - 150 | EXTERNAL | [...] + + Vitamin D, Deficiency Screen (25-Hydroxy) (03/08/2016 11:06 AM PST) + +-------+ + + + | Component | Value | Ref Range | Performed | Pathologist | | | | | At | Signature | + +-------+ + + + | Vit D, | 35 | 30 - 100 | EXTERNAL | [...] | + +---------+ + + Uric Acid (03/08/2016 11:06 AM PST) + +-------+ + + + | Component | Value | Ref Range | Performed | Pathologist | | | | | At | Signature | + +-------+ + + + | Uric Acid | 4.9 | 2.3 - 6.6 | EXTERNAL | [...] + +---------+ + + Parathyroid Hormone, Intact (03/08/2016 11:06 AM PST) + + + + + + | Component | Value | Ref Range | Performed | Pathologist | | | | | At | Signature | + + + + + + | PTH INTACT | 124.6 (A) | 15 - 65 pg/mL | [...] | | + +---------+ + + Magnesium (03/08/2016 11:06 AM PST) + +-------+ + + + | Component | Value | Ref Range | Performed | Pathologist | | | | | At | Signature | + +-------+ + + + | Magnesium | 2.4 | 1.7 - 2.5 mg/dL | EXTERNAL [...] + +---------+ + + Renal Function Panel (03/08/2016 11:06 AM PST) + + + + + + | Component | Value | Ref Range | Performed | Pathologist | | | | | At | Signature | + + + + + + | Glucose, | 93 | 70 - 100 mg/dL | EXTERNAL | | | Fasting | | | LAB | | + + + + + + | BUN | 43 (A) | 6 - 23 mg/dL | EXTERNAL | | | | | | LAB | | + + + + + + | Creatinine | 1.91 (A) | 0.70 - 1.11 | EXTERNAL [...] + + + | Anion Gap | 15.6 | 7 - 21 mmol/L | EXTERNAL | | | | | | LAB | | + + + + + + | eGFR if not | | | EXTERNAL | | | | | | LAB | | | PALESTINIAN | | | | | + + + + + + | Phosphorus, | 3.7 | 2.5 5.0 | EXTERNAL | | | Inorganic | | | LAB | | + + + + + + | BUN/Creatin | 22.5 | 6.0 - 28.6 | EXTERNAL | | | ine Ratio | | | LAB | | + + + + + + | Calcium | 9.3 | 8.4 - 10.2 | EXTERNAL | | | | | mg/dL | LAB | | + + + + + + | Estimated | 25 | mg/dL | EXTERNAL | | | [...]
--- OUTSIDE RECORDS SUMMARY | ~2019-03-21 | XMS | Encounter Summary ---
Demographics + + + | Address | [address] | | | [place] [address] | + + + | Home Phone | | + + + | Preferred Language | Unknown | + + + | Marital Status | | + + + | Scientology Affiliation | 1013 | + + + [...] Team Providers + +------+ + | Care Sharepoint Solutions Architect Name | Role | Phone | + +------+ + | Kaushik Christensen MD | PCP | | + +------+ + Encounter Details +--------+ + + + + | Date | Type | Department | Care Team | Description | +--------+ + + + + | 01/04/ | Abstract | [place] [facility] | Kaushik Christensen | | | 2011 | | Conversion Location | MD [address] | | | | | [phone] | [address] | | | | | | [place] [address] | | | | | | [phone] | | | | | | | [...] [place] | | | | | | [place] [address] | | | | | | [phone] | | | | | | | | +--------+---------+ + + + documented as of this encounter Visit Diagnoses Not on filedocumented in this encounter"
--- OUTSIDE RECORDS SUMMARY | ~2019-03-21 | XMS | Encounter Summary ---
Demographics + + + | Address | [address] | | | [place] [address] | + + + | Home Phone [...] Team Providers + +------+ + | Care Auto Body Repairer Fiberglass Name | Role | Phone | + +------+ + | Kaushik Christensen MD | PCP | | + +------+ + Encounter Details +--------+ + + + + | Date | Type | Department | Care Team | Description | +--------+ + + + + | 01/24/ | Orders Only | [facility] | Dvaid Montgomery MD | S/P lumbar fusion | | 2011 | | NEUROSURGERY [address] | [address] | (Primary Dx) | | | | [address] | [place] [address] | | | | | [place] | [phone] | | | | | [address] | | | | | | [phone] | | | +--------+ + + + [...] [place] | | | | | | [place] [address] | | | | | | [phone] | | | | | | | | +--------+---------+ + + + documented as of this encounter Visit Diagnoses + + | Diagnosis | + + | S/P lumbar fusion - Primary Arthrodesis status | + + documented in this encounter"
--- OUTSIDE RECORDS SUMMARY | ~2019-03-21 | XMS | Encounter Summary ---
Demographics + + + | Address | [address] | | | [place] [address] | + + + | Home Phone | | + + + | Preferred Language | Unknown | + + + | Marital Status | | + + + | Taoism Affiliation | 1013 | + + + | Race | Unknown | + + + | Ethnic Group | Unknown | + + + Author + + + | Author | [facility] | | | and [place] | + + + | Organization | [facility] | | [...] Team Providers + +------+ + | Care Clinic Assistant Name | Role | Phone | + +------+ + | Kaushik Christensen MD | PCP | | + +------+ + Encounter Details +--------+ + + + + | Date | Type | Department | Care Team | Description | +--------+ + + + + | 10/18/ | Orders Only | [facility] | Provider, | Vitamin D | | 2018 | | SYSTEM GENERIC OP | [address] | deficiency; | | | | CONVERSION [address] | Secondary | | | | [address] [place], [place] | [place] [address] | hyperparathyroidism | | | | [address] | | of renal origin | | | | [phone] | | ([facility]); Hyperuricemia | | | | | | without signs of | | | | | | inflammatory | | | | | | arthritis and | | | | | | tophaceous disease; | | | | | | Chronic kidney | | | | | | disease, stage III | | | | | | (moderate) ([facility]); | | | | | | Localized edema; | | | | | | Essential (primary) | | | | | | hypertension | +--------+ + + + + Social [...] [address] | | | | | | [place] [address] | | | | | | [phone] | | | | | | | | +--------+---------+ + + + + +------+--------+ + + | Name | Type | Priori | Associated Diagnoses | Order Schedule | | | | ty | | | + +------+--------+ + + | CBC with Manual | Lab | Routin | Vitamin D | Expected: | | Differential | | e | deficiency | 01/16/2018, Expires: | | | | | Secondary | 01/15/2019 | | | | | hyperparathyroidism | | | | | | of renal origin | | | | | | (HCC) Hyperuricemia | | | | | | without signs of | | | | | | inflammatory | | | | | | arthritis and | | | | | | tophaceous disease | | | | | | Chronic kidney | | | | | | disease, stage III | | | | | | (moderate) (HCC) | | | | | | Localized edema | | | | | | Essential (primary) | | | | | | hypertension | | + +------+--------+ + + | Renal Function Panel | Lab | Routin | Chronic kidney | Expected: | | | | e | disease, stage III | 01/25/2019, Expires: | | | | | (moderate) ([facility]) | 03/26/2019 | | | | | Localized edema | | | | | | Essential (primary) | | | | | | hypertension | | | | | | Hyperuricemia | | | | | | without signs of | | | | | | inflammatory | | | | | | arthritis and | | | | | | tophaceous disease | | + +------+--------+ + + | CBC with | Lab | Routin | Chronic kidney | Expected: | | Differential | | e | disease, stage III | 01/25/2019, Expires: | | | | | (moderate) ([facility]) | 03/26/2019 | | | | | Localized edema | | | | | | Essential (primary) | | | | | | hypertension | | | | | | Hyperuricemia | | | | | | without signs of | | | | | | inflammatory | | | | | | arthritis and | | | | | | tophaceous disease | | + +------+--------+ + + | Magnesium | Lab | Routin | Chronic kidney | Expected: | | | | e | disease, stage III | 01/25/2019, Expires: | | | | | (moderate) ([facility]) | 03/26/2019 | | | | | Localized edema | | | | | | Essential (primary) | | | | | | hypertension | | | | | | Hyperuricemia | | | | | | without signs of | | | | | | inflammatory | | | | | | arthritis and | | | | | | tophaceous disease | | + +------+--------+ + + | Uric Acid | Lab | Routin | Chronic kidney | Expected: | | | | e | disease, stage III | 01/25/2019, Expires: | | | | | (moderate) (HCC) | 03/26/2019 | | | | | Localized edema | | | | | | Essential (primary) | | | | | | hypertension | | | | | | Hyperuricemia | | | | | | without signs of | | | | | | inflammatory | | | | | | arthritis and | | | | | | tophaceous disease | | + +------+--------+ + + | Protein/Creatinine | Lab | Routin | Chronic kidney | Expected: | | Ratio, Urine | | e | disease, stage III | 01/25/2019, Expires: | | | | | (moderate) (HCC) | 03/26/2019 | | | | | Localized edema | | | | | | Essential (primary) | | | | | | hypertension | | | | | | Hyperuricemia | | | | | | without signs of | | | | | | inflammatory | | | | | | arthritis and | | | | | | tophaceous disease | | + +------+--------+ + + documented as of this encounter Visit Diagnoses + + | Diagnosis | + + | Vitamin D deficiency Unspecified vitamin D deficiency | + + | Secondary hyperparathyroidism of renal origin (HCC) Secondary hyperparathyroidism (of | | renal origin) | + + | Hyperuricemia without signs of inflammatory arthritis and tophaceous disease Other | | abnormal blood chemistry | + + | Chronic kidney disease, stage III (moderate) (HCC) Chronic kidney disease, Stage III | | (moderate) | + + | Localized edema Edema | + + | Essential (primary) hypertension Unspecified essential hypertension | + + documented in this encounter"
--- OUTSIDE RECORDS SUMMARY | ~2019-03-21 | XMS | Encounter Summary ---
Demographics + + + | Address | [address] | | | [place] [address] | + + + | Home Phone | | + + + | Preferred Language | Unknown | + + + | Marital Status | | + + + | Rastafari Affiliation | 1013 | + + + | Race | Unknown | + + + | Ethnic Group | Unknown | + + + Author + + + | Author | [facility] | | | and [place] | + + + | Organization | [facility] | | | and [...] Team Providers + +------+ + | Care Interactive Media Project Manager Name | Role | Phone | + +------+ + | Renaldo Ramirez DO | PCP | Unavailable | + +------+ + Encounter Details +--------+ + + + + | Date | Type | Department | Care Team | Description | +--------+ + + + + | 02/11/ | Orders Only | [facility] | Silvio Alfred MD | Essential | | 2019 | | NEPHROLOGY [place] | [address] | hypertension | | | | [address] | [address] [place], [place] | (Primary Dx); CKD | | | | [address] | [address] | (chronic kidney | | | | [place], [place] | | disease) stage 4, | | | | [address] | | GFR 15-29 ml/min | | | | [phone] | | (HCC) | +--------+ + + + + Social [...] [address] | | | | | | [place] [address] | | | | | | [phone] | | | | | | | | +--------+---------+ + + + + +------+--------+ + + | Name | Type | Priori | Associated Diagnoses | Order Schedule | | | | ty | | | + +------+--------+ + + | Basic Metabolic | Lab | Routin | Essential | Expected: | | Panel | | e | hypertension CKD | 08/12/2019, Expires: | | | | | (chronic kidney | 02/12/2020 | | | | | disease) stage 4, | | | | | | GFR 15-29 ml/min | | | | | | (HCC) | | + +------+--------+ + + | Renal Function Panel | Lab | Routin | Essential | Expected: | | | | e | hypertension CKD | 08/12/2019, Expires: | | | | | (chronic kidney | 02/12/2020 | | | | | disease) stage 4, | | | | | | GFR 15-29 ml/min | | | | | | (HCC) | | + +------+--------+ + + | Magnesium | Lab | Routin | Essential | Expected: | | | | e | hypertension CKD | 08/12/2019, Expires: | | | | | (chronic kidney | 02/12/2020 | | | | | disease) stage 4, | | | | | | GFR 15-29 ml/min | | | | | | (HCC) | | + +------+--------+ + + | CBC with | Lab | Routin | Essential | Expected: | | Differential | | e | hypertension CKD | 08/12/2019, Expires: | | | | | (chronic kidney | 02/12/2020 | | | | | disease) stage 4, | | | | | | GFR 15-29 ml/min | | | | | | (HCC) | | + +------+--------+ + + | Uric Acid | Lab | Routin | Essential | Expected: | | | | e | hypertension CKD | 08/12/2019, Expires: | | | | | (chronic kidney | 02/12/2020 | | | | | disease) stage 4, | | | | | | GFR 15-29 ml/min | | | | | | (HCC) | | + +------+--------+ + + | Protein/Creatinine | Lab | Routin | Essential | Expected: | | Ratio, Urine | | e | hypertension CKD | 08/12/2019, Expires: | | | | | (chronic kidney | 02/12/2020 | | | | | disease) stage 4, | | | | | | GFR 15-29 ml/min | | | | | | ([facility]) | | + +------+--------+ + + documented as of this encounter Visit Diagnoses + + | Diagnosis | + + | Essential hypertension - Primary Unspecified essential hypertension | + + | CKD (chronic kidney disease) stage 4, GFR 15-29 ml/min ([facility]) Chronic kidney disease, | | Stage IV (severe) | + + documented in this encounter"
--- OUTSIDE RECORDS SUMMARY | ~2019-03-21 | XMS | Encounter Summary ---
Demographics + + + | Address | [address] | | | [place] [address] | + + + | Home Phone | | + + + | Preferred Language | Unknown | + + + | Marital Status | | + + + | Adventism Affiliation | 1013 | + + + | Race | Unknown | + + + | Ethnic Group | Unknown | + + + Author + + + | Author | [facility] | | | and [place] | + + + | Organization | [facility] | | | and [...] Team Providers + +------+ + | Care Structural Layout Worker Name | Role | Phone | + +------+ + PCP | Unavailable | + +------+ + Encounter Details +--------+ + + + + | Date | Type | Department | Care Team | Description | +--------+ + + + + | 06/26/ | Hospital | [facility] | | | | 1997 | Encounter | MED CTR XRAY [address] | | | | | | [address] | | | | | | [place] [address] | | | | | | [phone] | | | +--------+ + + + [...] [address] | | | | | | [place] [address] | | | | | | [phone] | | | | | | | | +--------+---------+ + + + documented as of this encounter Visit Diagnoses Not on filedocumented in this encounter"
--- OUTSIDE RECORDS SUMMARY | ~2019-03-21 | XMS | Encounter Summary ---
Demographics + + + | Address | [address] | | | [place] [address] | + + + | Home Phone | | + + + | Preferred Language | Unknown | + + + | Marital Status | | + + + | Voodoo Affiliation | 1013 | + + + | Race | Unknown | + + + | Ethnic Group | Unknown | + + + Author + + + | Author | [facility] | | | and [place] | + + + | Organization | [facility] | | | and [...] Team Providers + +------+ + | Care Dictaphone Mechanic Name | Role | Phone | + +------+ + | Kaushik Christensen MD | PCP | | + +------+ + Encounter Details +--------+ + + + + | Date | Type | Department | Care Team | Description | +--------+ + + + + | 05/01/ | Hospital | [facility] | David Montgomery MD | Spondylolisthesis of | | 2013 - | Encounter | MED CTR XRAY [address] | [address] | lumbar region | | | | [place] | [place] [address] | | | 05/03/ | | [place] [address] | [phone] | | | 2012 | | [phone] | | | +--------+ + + + [...] + + + +---------+ + + | Cholecalciferol | Two to four capsules | | 0 | 11/29/19 | | | (VITAMIN D3) 400 | by mouth daily | | | 12 | | | UNITS CAPS | | | | | | + + + +---------+ + + | Aspirin (ADULT | One tablet by mouth | | 0 | 11/29/19 | | | ASPIRIN LOW | once daily | | | 12 | 9 | | STRENGTH) 81 MG TBDP | | | | | | + + + +---------+ + + | doxazosin | One tablet by mouth | | 0 | 11/29/19 | | | (CARDURA) 1 mg | twice daily | | | 12 | 9 | | tablet | | | | | | + + + +---------+ + + | gabapentin | 2 by mouth three | | 0 | 09/15/19 | | | (NEURONTIN) 300 mg | times daily | | | 12 | 3 | | capsule | | | | | | + + + +---------+ + + | Lactulose | Take 30 mLs by mouth | 240 mL | 1 | 01/25/20 | | | SOLNIndications: S/P | every 6 hours as | | | 12 | 3 | | lumbar fusion | needed | | | | | | | (Constipation). | | | | | + + + +---------+ + + | lisinopril | One tablet by mouth | | 0 | 11/29/19 | | | (PRINIVIL,ZESTRIL) | at bedtime | | | 12 | 9 | | 40 MG tablet | | | | | | + + + +---------+ + + | losartan (COZAAR) | One tablet by mouth | | 0 | 11/29/19 | | | 50 mg tablet | once daily | | | 12 | 9 | + + + +---------+ + + | metoprolol | One tablet by mouth | | 0 | 11/29/19 | | | succinate | once daily | | | 12 | 9 | | (TOPROL-XL) 50 mg 24 | | | | | | | hr tablet | | | | | | + + + +---------+ + + | naproxen sodium | Two tablets by mouth | | 0 | 11/29/19 | | | (ALEVE) 220 MG | twice daily | | | 12 | 3 | | tablet | | | | | | + + + +---------+ + + | nortriptyline | 2-3 by mouth at | | 0 | 09/15/19 | | | (PAMELOR) 10 MG | bedtime | | | 12 | 3 | | capsule | | | | | | + + + +---------+ + + | tizanidine | Take 1 capsule by | 90 | 3 | 01/25/20 | | | (ZANAFLEX) 4 MG | mouth 3 times daily | capsule | | 12 | 3 | | capsuleIndications: | as needed for Muscle | | | | | | S/P lumbar fusion | spasms. | | | | | + + + +---------+ + + | | One tablet by mouth | | 0 | 11/29/19 | | | triamterene-hydrochl | once daily | | | 12 | 9 | | orothiazide | | | | | | | (MAXZIDE-25) 37.5-25 | | | | | | | mg per tablet | | | | | | + + + +---------+ + + | UNCODED | S/P lumbar fusion | 1 each | 0 | 01/30/20 | | | MEDICATIONIndication | | | | 12 | 3 | | s: S/P lumbar fusion | | | | | | + + + +---------+ + + documented as of this encounter Plan of Treatment +--------+---------+ + + + | Date | Type | Specialty | Care Team | Description | +--------+---------+ + + + | 04/08/ | Office | Cardiology | Carnaghan, Alexandra | | | 2020 | Visit | | [address] | | | | | | [address] | | | | | | [place] [address] | | | | | | [phone] | | | | | | | | +--------+---------+ + + + documented as of this encounter Procedures + +--------+ + + + | Procedure Name | Priori | Date/Time | Associated Diagnosis | Comments | | | ty | | | | + +--------+ + + + | XR LUMBAR SPINE 2 OR | Routin | 05/01/2012 | Spondylolisthesis | Results for this | | 3 VW | e | 4:12 PM | of lumbar region | procedure are in the | | | | PST | | results section. | + +--------+ + + + documented in this encounter Results XR Lumbar Spine 2 or 3 Vw (05/01/2012 4:12 PM PST) + + | Specimen | + + | | + + + + + | Narrative | Performed At | + + + | [facility] | [place] | | Department [address] [place] [address] | [facility] | | [ rep [address]] [ rep [facility] | | [facility]] Signed | - IMAGING | | | | | Patient Name: JORDAN GRULLON | | | Physician: LANNY : 1930 Age: 82 Sex: F Unit | | | #: [id number] Exam Date: 05/01/12 Location: | | | [facility] Report #: [id number] Page: | | | %(RAD)RES..mtdd.print.filter("pg") of %(RAD) | | | RES..mtdd.print.filter("tpg") | | | | | | Accession Number: [id number] | | | TWO VIEWS LUMBAR SPINE, 05/01/2012 CLINICAL HISTORY: | | | FOLLOW UP LUMBAR FUSION. COMPARISON: Lumbar | | | radiographs 03/13/2012 and multiple previous radiographs, lumbar MRI | | | 06/23/2011. FINDINGS: Diffuse osteopenia is | | | suggested. Five nonrib-bearing, lumbar-type vertebrae are again | | | visible. Leftward lumbar curvature centered at L2 persists. | | | Interbody and posterior naveed and pedicle screw fusion hardware | | | remains in similar, satisfactory position and alignment at L4-5. | | | Minimal residual anterolisthesis persists at this level and is | | | similar to previous. Lumbar vertebral height is maintained, | | | without evident fracture. Severe, asymmetric right-sided disk space | | | narrowing and vertebral spondylosis persist at L2-3, and there is | | | multilevel facet hypertrophy. Sacroiliac joints, imaged sacrum, | | | bony pelvis and lower ribs are unremarkable. Numerous rounded | | | calcifications persist in the pelvic cavity and are consistent with | | | phleboliths. IMPRESSION: 1. STABLE, | | | SATISFACTORY APPEARANCE STATUS POST OPERATIVE INTERBODY AND POSTERIOR | | | NAVEED AND PEDICLE SCREW FUSION AT L4-5, WITH MINIMAL RESIDUAL | | | ANTEROLISTHESIS PERSISTING AT THIS LEVEL. 2. SEVERE | | | ASYMMETRIC DEGENERATIVE DISK DISEASE AND SPONDYLOSIS AT L2-3, IN THE | | | SETTING OF LEVOSCOLIOSIS. 3. OSTEOPENIA. | | | Dictated Date/Time: 05/01/2012 16:12 Transcribed | | | Date/Time: 05/01/2012 16:58 It Teacher: | | | <<Signature on File>> | | | Shamar King | | Luis Carlos Jeter MD05/01/122 <Electronically signed by Shamar Jeter MD> | | | Shamar Jeter MD 05/01/12 1612 It Teacher: | | | Webmedx [id number]/05/13 1658 David Montgomery MD | | | | | + + + + + + + + | Performing | Address | City/State/Zipcode | Phone Number | | Organization | | | | + + + + + | [facility] | [address] | [place] | [phone] | | [facility] | | [address] | | | - IMAGING | | | | + + + + + documented in this encounter Visit Diagnoses + + | Diagnosis | + + | Spondylolisthesis of lumbar region Acquired spondylolisthesis | + + documented in this encounter
--- OUTSIDE RECORDS SUMMARY | ~2019-03-21 | XMS | Encounter Summary ---
Demographics + + + | Address | [address] | | | [place] [address] | + + + | Home Phone [...] + + | Author | [facility] | | | and [place] | + + + | Organization | [facility] | | [...] Team Providers + +------+ + | Care Stage Rigger Name | Role | Phone | + +------+ + | Kaushik Christensen MD | PCP | | + +------+ + Encounter Details +--------+ + + + + | Date | Type | Department | Care Team | Description | +--------+ + + + + | 01/29/ | Orders Only | [facility] | David Montgomery MD | S/P lumbar fusion | | 2011 | | NEUROSURGERY [address] | [address] | (Primary Dx) | | | | [address] | [place] [address] | | | | | [place] | [phone] | | | | | [address] | | | | | | [phone] | | | +--------+ + + + [...] [address] | | | | | | [place] [address] | | | | | | [phone] | | | | | | | | +--------+---------+ + + + documented as of this encounter Visit Diagnoses + + | Diagnosis | + + | S/P lumbar fusion - Primary Arthrodesis status | + + documented in this encounter"
--- OUTSIDE RECORDS SUMMARY | ~2019-03-21 | XMS | Encounter Summary ---
Demographics + + + | Address | [address] | | | [place] [address] | + + + | Home Phone | | + + + | Preferred Language | Unknown | + + + | Marital Status | | + + + | Bahai Affiliation | 1013 | + + + | Race | Unknown | + + + | Ethnic Group | Unknown | + + + Author + + + | Author | [facility] | | | and [place] | + + + | Organization | [facility] | | | [...] Team Providers + +------+ + | Care Medical Information Specialist Name | Role | Phone | + +------+ + | Renaldo Ramirez DO | PCP | Unavailable | + +------+ + Encounter Details +--------+---------+ + + + | Date | Type | Department | Care Team | Description | +--------+---------+ + + + | 02/11/ | Office | [facility] | Silvio Alfred MD | CKD (chronic kidney | | 2019 | Visit | NEPHROLOGY [place] | [address] | disease) stage 4, | | | | [address] | [address] [place], [place] | GFR 15-29 ml/min | | | | [address] | [address] | (HCC) (Primary Dx); | | | | [place], [place] | | Bilateral leg edema; | | | | [address] | | Hyperuricemia; | | | | [phone] | | Vitamin D | | | [...] RFP, Magnesium, CBC, uric acid, Urine total qdkpsre-wc-sbnqytmynq ratiodon e before she comes back in [...] LABIRON 23.1 10/16/2015 LABPROT 187.9 (A) 07/26/2018 [id number] 09/07/2016 Assessment: Ms. Farias is a [...] RFP, Magnesium, CBC, uric acid, Urine total rpenusy-ot-lojnwpfxgj ratiodon e before she comes back in [...] [address] | | | | | | [place] [address] | | | | | | [phone] | | | | | | | | +--------+---------+ + + + documented as of this encounter Visit Diagnoses + + | Diagnosis | + + | CKD (chronic kidney disease) stage 4, GFR 15-29 ml/min ([facility]) - Primary Chronic kidney | | disease, Stage IV (severe) | + + | Bilateral leg edema Edema | + + | Hyperuricemia Other abnormal blood chemistry | + + | Vitamin D deficiency Unspecified vitamin D deficiency | + + | Secondary hyperparathyroidism ([facility]) Secondary hyperparathyroidism (of renal origin) | + + | Essential hypertension Unspecified essential hypertension | + + | Electrolyte imbalance risk Other specified conditions influencing health status | + + documented in this encounter
--- OUTSIDE RECORDS SUMMARY | ~2019-03-21 | XMS | Encounter Summary ---
Demographics + + + | Address | [address] | | | [place] [address] | + + + | Home Phone | | + + + | Preferred Language | Unknown | + + + | Marital Status | | + + + | Restorationism Affiliation | 1013 | + + + [...] Team Providers + +------+ + | Care Sheet Sewer Name | Role | Phone | + +------+ + | Kaushik Christensen MD | PCP | | + +------+ + Encounter Details +--------+ + + + + | Date | Type | Department | Care Team | Description | +--------+ + + + + | 12/13/ | Orders Only | [facility] | Conversion | | | 2016 | | NEPRHOLOGY [place] | Transaction, | | | | | [address] | Provider Unknown | | | | | [address] [place], [place] | [phone] | | | | | [address] | | | | | | [phone] | | | +--------+ + + + [...] [address] | | | | | | [place] [address] | | | | | | [phone] | | | | | | | [...] | | | LAB | | | [facility] | | | | | + + [...]
--- OUTSIDE RECORDS SUMMARY | ~2019-03-21 | XMS | Encounter Summary ---
Demographics + + + | Address | [address] | | | [place] [address] | + + + | Home Phone | | + + + | Preferred Language | Unknown | + + + | Marital Status | | + + + | Amish Affiliation | 1013 | + + + | Race | Unknown | + + + | Ethnic Group | Unknown | + + + Author + + + | Author | [facility] | | | and [place] | + + + | Organization | [facility] | | [...] Providers + +------+ + | Care Security Police Name | Role | Phone | + +------+ + | Renaldo Ramirez DO | PCP | Unavailable | + +------+ + Reason for Visit + + + | Reason | Comments | + + + | Medication Refill | | + + + Encounter Details +--------+--------+ + + + | Date | Type | Department | Care Team | Description | +--------+--------+ + + + | 02/12/ | Refill | [facility] | Silvio Alfred MD | Medication Refill | | 2019 | | NEPHROLOGY [place] | [address] | | | | | [address] | [address] [facility] [place] | | | | | [facility] [address] | [address] | | | | | [place], [place] | | | | | | [address] | | | | | | [phone] | | | +--------+--------+ + + + Social History + +-------+ [...] [address] | | | | | | [place] [address] | | | | | | [phone] | | | | | | | | +--------+---------+ + + + documented as of this encounter Visit Diagnoses + + | Diagnosis | + + | Essential hypertension - Primary Unspecified essential hypertension | + + | CKD (chronic kidney disease) stage 4, GFR 15-29 ml/min (HCC) Chronic kidney disease, | | Stage IV (severe) | + + documented in this encounter"
--- OUTSIDE RECORDS SUMMARY | ~2019-03-21 | XMS | Encounter Summary ---
Demographics + + + | Address | [address] | | | [place] [address] | + + + | Home Phone | | + + + | Preferred Language | Unknown | + + + | Marital Status | | + + + | Zoroastrianism Affiliation | 1013 | + + + | Race | Unknown | + + + | Ethnic Group | Unknown | + + + Author + + + | Author | [facility] | | | and [place] | + + + | Organization | [facility] | | [...] Team Providers + +------+ + | Care Sand Blaster Name | Role | Phone | + +------+ + PCP | Unavailable | + +------+ + Encounter Details +--------+ + + + + | Date | Type | Department | Care Team | Description | +--------+ + + + + | 06/26/ | Hospital | [facility] | | | | 1997 | Encounter | MED CTR XRAY [address] | | | | | | [address] | | | | | | [place] [address] | | | | | | [phone] | | | +--------+ + + + [...] [address] | | | | | | [place] [address] | | | | | | [phone] | | | | | | | | +--------+---------+ + + + documented as of this encounter Visit Diagnoses Not on filedocumented in this encounter"
--- OUTSIDE RECORDS SUMMARY | ~2019-03-21 | XMS | Encounter Summary ---
Demographics + + + | Address | [address] | | | [place] [address] | + + + | Home Phone | | + + + | Preferred Language | Unknown | + + + | Marital Status | | + + + | Jehovah'S Witness Affiliation | 1013 | + + + | Race | Unknown | + + + | Ethnic Group | Unknown | + + + Author + + + | Author | [facility] | | | and [place] | + + + | Organization | [facility] | | [...] Team Providers + +------+ + | Care Greaser And Oiler Name | Role | Phone | + +------+ + | Kaushik Christensen MD | PCP | | + +------+ + Reason for Referral Diagnostic/Screening (Routine) +--------+--------+ + + + + | Status | Reason | Specialty | Diagnoses / | Referred By | Referred To | | | | | Procedures | Contact | Contact | +--------+--------+ + + + + | Closed | | Radiology | Diagnoses | [place], | [facility] | | | | | Cervical | [place] | [address] | | | | | radiculopath | [address] | [place], | | | | | y S/P | [address] | [place] | | | | | lumbar | [address] | [address] | | | | | spinal | [place] | Phone: | | | | | fusion | [id number] | [phone] | | | | | Procedures | Phone: | Fax: | | | | | MRI Cervical | [phone] | [phone] | | | | | Spine wo | Fax: | | | | | | Contrast | [phone] | | +--------+--------+ + + + + Reason for Visit + + + | Reason | Comments | + + + | Follow-up | 6 Month PO | + + + Encounter Details +--------+---------+ + + + | Date | Type | Department | Care Team | Description | +--------+---------+ + + + | 08/14/ | Office | [facility] | [place], [place] | Cervical | | 2012 | Visit | NEUROSURGERY [address] | [address] | radiculopathy | | | | [address] | [address] | (Primary Dx); S/P | | | | [place], [place] | [place] [address] | lumbar spinal | | | | [address] | [phone] | fusion; Spinal | | | | [phone] | | stenosis, lumbar | +--------+---------+ + + + Social History [...] + + + | Blood Pressure | 98/47 | 08/14/2012 11:08 AM | | | | | PDT | | + + + + + | Pulse | 80 | 08/14/2012 11:08 AM | | | | | PDT | | + + + + + | Temperature | - | - | | + + + + + | Respiratory Rate | 18 | 08/14/2012 11:08 AM | | | | | PDT | | + + + + + | Oxygen Saturation | - | - | | + + + + + | Inhaled Oxygen | - | - | | | Concentration | | | | + + + + + | Weight | 113.4 kg (250 lb) | 08/14/2012 11:08 AM | | | | | PDT | | + + + + + | Height | 165.1 cm (5' 5") | 08/14/2012 11:08 AM | | | | | PDT | | + + + + + | Body Mass Index | 41.6 | 08/14/2012 11:08 AM | | | | | PDT | | + + + + + documented in this encounter Patient Instructions Patient Instructions Roland Beebe PA-C - 08/14/2012 11:46 AM To U. told me t hat you're symptoms are doing fairly well when your sitting. However when your up moving ar ound you have both leg weakness as well as balance issues. He also note he eventually yield ed increased back pain when your up very long. You're trying to walk but that is very diffi cult for you not only for the above reasons but also because of your knees. You also told massiel painter that you're right hand will goes to sleep on you frequently and you have weakness of your right hand as well. We are planning to get an MRI of your neck. We will call you with the results but if we need to discuss the results we will have you return for a visit. Namita painter we will see you back in about 3 months for a recheck with no x-rays at that time. If you decide he wants to try physical therapy again to help with recent or in your balance and str ength in your lower extremities then you will call us and we can get that arranged for you.E lectronically signed by Roland Beebe PA-C at 08/14/2012 11:47 AM PDT documented in this encounter Progress Notes Roland Beebe PA-C - 08/14/2012 11:49 AM PDTFormatting of this note might be differ ent from the original. Roland Beebe PA-C [address] [facility] [address] [place] [address] FAX: NEUROSURGERY FOLLOW-UP CHIEF COMPLAINT: Chief Complaint Patient presents with Follow-up 6 Month PO HISTORY OF PRESENT ILLNESS: The patient is a 82 y.o. female that had a L4-[address] pinto for around 6 months ago. She returns and overall is doing just okay.. The patient com plains of bilateral leg weakness we have some balance problems. She continues to have some back pain when she is up walking around or standing. She certainly has had some improvement sensory presurgical state. She is able to sleep well without discomfort. She has very lit tle pain when she is sitting. Unfortunately she continues to have balance issues as well as leg weakness with activity. This may be a little bit progressive. She also has problems w ith her knees bilaterally complicating her ability to walk. The patient also complains of r ight hand numbness particularly in the first and second fingers. 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 PAST MEDICAL HISTORY: Past Medical History Diagnosis Date Hypertension Obesity, Class III, BMI 40-49.9 (morbid obesity) PAST SURGICAL HISTORY: Past Surgical History Procedure Date Gallbladder surgery 30 years ago Refractive surgery 2011 Both Eyes Tonsillectomy Knee arthroscopy CURRENT MEDICATIONS: Current Outpatient Prescriptions Medication Sig Dispense Refill Aspirin (ADULT ASPIRIN LOW STRENGTH) 81 MG TBDP One tablet by mouth once daily losartan (COZAAR) 50 mg tablet One tablet by mouth once daily lisinopril (PRINIVIL,ZESTRIL) 40 MG tablet One tablet by mouth at bedtime triamterene-hydrochlorothiazide (MAXZIDE-25) 37.5-25 mg per tablet One tablet by mouth once daily Cholecalciferol (VITAMIN D3) 400 UNITS CAPS Two to four capsules by mouth daily metoprolol succinate (TOPROL-XL) 50 mg 24 hr tablet One tablet by mouth once daily doxazosin (CARDURA) 1 mg tablet One tablet by mouth twice daily ALLERGIES: No Known Allergies SOCIAL HISTORY: The patient reports that she has never smoked. She has never used smokeless tobacco. She r eports that she does not drink alcohol or use illicit drugs. FAMILY HISTORY: No family history on file. INTERIM PHYSICAL EXAMINATION: Blood pressure 98/47, pulse 80, resp. rate 18, height 1.651 m (5' 5"), weight 113.399 kg (2 50 lb). Body mass index is 41.60 kg/(m^2). GENERAL: Jordan Farias is in no acute distress with unlabored respirations. HEENT: HEAD/FACE: Normocephalic and atraumatic. There are no areas of recent trauma. CHEST: Clear to ausculation without crackles or wheeze. HEART: Regular rate and rhythm without murmurs. SPINE: The patient s incisions are healed well. EXTREMITIES: No lower extremity edema. NEUROLOGICAL EXAMINATION: MENTAL STATUS: The patient is awake, alert, and oriented. She follows simple and complex commands MOTOR EXAM: Motor strength is normal. This is unchanged from the preoperative exam. SENSORY EXAM: The sensory examination unchanged from the preoperative exam. REFLEXES: Reflexes are unchanged from her preoperative history and physical. RADIOGRAPHIC REVIEW: The patient s postoperative x-rays show stable instrumentation and alignment and were rev iewed with the patient today during the visit. There has been increased arthrodesis since t he patient s last x-ray which was also reviewed for comparison. ASSESSMENT: S/P lumbar fusion L4-5 for: Encounter Diagnoses Name Primary? Cervical radiculopathy Yes S/P lumbar spinal fusion Spinal stenosis, lumbar Past Medical History Diagnosis Date Hypertension Obesity, Class III, BMI 40-49.9 (morbid obesity) PLAN: Overall, the patient is doing doing okay but still could have some improvement I have offered the patient to return to land therapy with physical therapy for strengthenin g as well as balance training. Because of her hand symptoms her weakness and her balance is sues I think it's reasonable to get a cervical MRI. I plan to call her with the results of her MRI. She understands though if we need to discuss the MRIs in any detail I would ask he r to return to the clinic for an appointment. Otherwise I have asked her to give us a call if she decides she wants to proceed with physical therapy. I would like to have her seen willow jackman in about 3 months for a general check on her progress. We will not plan for x-rays prior to that appointment unless something changes. I spent 30 minutes in visit with Jordan Farias today with the majority of time spent counselling the patient on her recovery and coordinating her future care. The patient will follow-up with my clinic in around 3 months for re-evaluation. ELECTRONICALLY SIGNED BY: Roland Beebe PA-C, 08/14/2012 11:53 documented in this encounter Plan of Treatment +--------+---------+ + + + | Date | Type | Specialty | Care Team | Description | +--------+---------+ + + + | 04/08/ | Office | Cardiology | Jose Luis Alexandra | | | 2019 | Visit | | [address] | | | | | | [address] | | | | | | [place] [address] | | | | | | [phone] | | | | | | | | +--------+---------+ + + + + +---------+--------+ + + | Name | Type | Priori | Associated Diagnoses | Order Schedule | | | | ty | | | + +---------+--------+ + + | MRI Cervical Spine | Imaging | Routin | Cervical | Expected: | | wo Contrast | | e | radiculopathy S/P | 08/14/2012, Expires: | | | | | lumbar spinal fusion | 08/14/2013 | + +---------+--------+ + + documented as of this encounter Visit Diagnoses + + | Diagnosis | + + | Cervical radiculopathy - Primary Brachial neuritis or radiculitis nos | + + | S/P lumbar spinal fusion Arthrodesis status | + + | Spinal stenosis, lumbar Spinal stenosis, lumbar region, without neurogenic | | claudication | + + documented in this encounter
--- OUTSIDE RECORDS SUMMARY | ~2019-03-21 | XMS | Encounter Summary ---
Demographics + + + | Address | [address] | | | [place] [address] | + + + | Home Phone | | + + + | Preferred Language | Unknown | + + + | Marital Status | | + + + | Christian Affiliation | 1013 | + + + | Race | Unknown | + + + | Ethnic Group | Unknown | + + + Author + + + | Author | [facility] | | | and [place] | + + + | Organization | [facility] | | | [...] Team Providers + +------+ + | Care Cane Weigher Helper Name | Role | Phone | + +------+ + | Renaldo Ramirez DO | PCP | Unavailable | + +------+ + Reason for Visit +--------+ + | Reason | Comments | +--------+ + | Other | B/P Log 02/11/19-02/18/19 | +--------+ + Encounter Details +--------+ + + + + | Date | Type | Department | Care Team | Description | +--------+ + + + + | 02/19/ | Documentati | [facility] | Darrel | Jaison (B/P Log | | 2019 | on | NEPHROLOGY [place] | Kash Treadwell | 02/11/19-02/18/19) | | | | [address] | [address] | | | | | [place] [address] | | | | | | [place], [place] | | | | | | [address] | | | | | | [phone] | | | +--------+ + + + [...] [address] | | | | | | [place] [address] | | | | | | [phone] | | | | | | | | +--------+---------+ + + + documented as of this encounter Visit Diagnoses Not on filedocumented in this encounter"
--- OUTSIDE RECORDS SUMMARY | ~2019-03-21 | XMS | Encounter Summary ---
Demographics + + + | Address | [address] | | | [place] [address] | + + + | Home Phone | | + + + | Preferred Language | Unknown | + + + | Marital Status | | + + + | Sabianism Affiliation | 1013 | + + + | Race | Unknown | + + + | Ethnic Group | Unknown | + + + Author + + + | Author | [facility] | | | and [place] | + + + | Organization | [facility] | | | [...] Team Providers + +------+ + | Care Nut Former Name | Role | Phone | + +------+ + | Kaushik Christensen MD | PCP | | + +------+ + Encounter Details +--------+ + + + + | Date | Type | Department | Care Team | Description | +--------+ + + + + | 01/29/ | Hospital | [facility] | David Montgomery MD | | | 2011 - | Encounter | MED CTR SUR[facility] | [address] | | | | | [address] | [place] [address] | | | 01/31/ | | [place] [address] | [phone] | | | 2011 | | [phone] | | | +--------+ + + + [...] + + +---------+ + + | | Take 1-2 tablets by | 60 | 0 | 01/25/20 | | | oxyCODONE-acetaminop | mouth every 4 hours | tablet | | 12 | 2 | | hen (PERCOCET) | as needed for Pain | | | | | | 7.5-325 mg per | for 10 days. | | | | | | tabletIndications: | | | | | | | S/P lumbar fusion | | | | [...] [address] | | | | | | [place] [address] | | | | | | [phone] | | | | | | | | +--------+---------+ + + + documented as of this encounter Procedures + +--------+ + + + | Procedure Name | Priori | Date/Time | Associated Diagnosis | Comments | | | ty | | | | + +--------+ + + + | XR LUMBAR SPINE 2 OR | Routin | 01/31/2012 | | Results for this | | 3 VW | e | 12:58 PM | | procedure are in the | | | | PST | | results section. | + +--------+ + + + documented in this encounter Results XR Lumbar Spine 2 or 3 Vw (01/31/2012 12:58 PM PST) + + | Specimen | + + | | + + + + + | Narrative | Performed At | + + + | [facility] | MAX | | Department [address] [place] [address] | [facility] | | [ rep [address]] [ rep ct [facility] | | [facility] Signed | - IMAGING | | | | | Patient Name: JORDAN GRULLON | | | Physician: LANNY : 1930 Age: 81 Sex: F Unit | | | #: [id number] Exam Date: 01/31/12 Location: | | | [address] [place] [address]- Report #: [id number] Page: | | | %(RAD)RES..mtdd.print.filter("pg") of %(RAD) | | | RES..mtdd.print.filter("tpg") | | | | | | Accession Number: [id number] | | | TWO VIEWS LUMBAR SPINE, 01/31/2012 CLINICAL HISTORY: | | | STATUS POST LUMBAR FUSION. COMPARISON: Lumbar MRI | | | 06/23/2011, lumbar radiographs 06/20/2011. FINDINGS: | | | Five [id number]-[id number], lumbar-type vertebrae are visible. There is | | | persistent leftward lumbar curvature centered at L2-3. Interbody | | | and posterior naveed and pedicle screw fusion hardware is now present | | | at L4-5 and appears to be well seated. Previously described | | | anterolisthesis at this level has resolved. No fracture is | | | visible. There is persistent severe asymmetric right-sided disk | | | space narrowing and vertebral spondylosis at L2-3. The sacroiliac | | | joints and imaged sacrum are unremarkable. A back brace is present | | | and an apparent surgical drain projects in the left paravertebral | | | region. IMPRESSION: 1. SATISFACTORY APPEARANCE | | | STATUS POST OPERATIVE INTERBODY AND POSTERIOR NAVEED AND PEDICLE SCREW | | | FUSION AT L4-5, WITH RESOLUTION OF PREVIOUSLY DESCRIBED | | | ANTEROLISTHESIS AT THIS LEVEL. 2. 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 Dictated Date/Time: 01/31/2012 | | | 12:58 Transcribed Date/Time: 01/31/2012 13:13 | | | Manager Secondary: <<Signature on File>> | | | | | | Shamar Jeter MD01/31/12 3744 <Electronically signed by Shamar King | | | Corona PURCELL> Shamar Jeter MD 01/31/12 1258 | | | Manager Secondary: [email or web address] | | | David Montgomery MD | | + + + + + + + + | Performing | Address | City/State/Zipcode | Phone Number | | Organization | | | | + + + + + | [facility] | [address] | [place] | [phone] | | [facility] | | [address] | | | - IMAGING | | | | + + + + + documented in this encounter Visit Diagnoses Not on filedocumented in this encounter
--- OUTSIDE RECORDS SUMMARY | ~2019-03-21 | XMS | Encounter Summary ---
Demographics + + + | Address | [address] | | | [place] [address] | + + + | Home Phone | | + + + | Preferred Language | Unknown | + + + | Marital Status | | + + + | Druze Affiliation | 1013 | + + + | Race | Unknown | + + + | Ethnic Group | Unknown | + + + Author + + + | Author | [facility] | | | and [place] | + + + | Organization | [facility] | | [...] Team Providers + +------+ + | Care Bowl Sander Name | Role | Phone | + +------+ + | Kaushik Christensen MD | PCP | | + +------+ + Encounter Details +--------+ + + + + | Date | Type | Department | Care Team | Description | +--------+ + + + + | 10/12/ | Orders Only | [facility] | Conversion | | | 2017 | | NEPHROLOGY [place] | Transaction, | | | | | [address] | Provider Unknown | | | | | [address] [facility], [place] | | | | | | [address] | (Fax) | | | | | [phone] | | | +--------+ + + + [...] [address] | | | | | | [place] [address] | | | | | | [phone] | | | | | | | | +--------+---------+ + + + documented as of this encounter Procedures + +--------+ + + + | Procedure Name | Priori | Date/Time | Associated Diagnosis | Comments | | | ty | | | | + +--------+ + + + | BASIC METABOLIC | Routin | 10/12/2016 | | Results for this | | PANEL | e | 9:10 AM | | procedure are in the | | | | PDT | | results section. | + +--------+ + + + documented in this encounter Results Basic Metabolic Panel (10/12/2016 9:10 AM PDT) + + + + + + | Component | Value | Ref Range | Performed | Pathologist | | | | | At | Signature | + + + + + + | Glucose, | 91 | 70 - 100 mg/dL | EXTERNAL | | | Fasting | | | LAB | | + + + + + + | BUN | 79 (A) | 6 - 23 mg/dL | EXTERNAL | | | | | | LAB | | + + + + + + | Creatinine | 3.05 (A) | 0.70 - 1.11 | EXTERNAL [...] + + + + | CO2 | 18 (A) | 19 - 31 mmol/L | EXTERNAL | | | | | | LAB | | + + + + + + | Anion Gap | 19.5 | 7 - 21 mmol/L | EXTERNAL | | | | | | LAB | | + + + + + + | Estimated | 15 | mg/dL | EXTERNAL | | | [...]
--- OUTSIDE RECORDS SUMMARY | ~2019-03-21 | XMS | Clinical Summary ---
Demographics + + + | Address | [address] | | | [place] [address] | + + + | Home Phone | | + + + | Preferred Language | Unknown | + + + | Marital Status | | + + + | Buddhist Affiliation | 1013 | + + + | Race | Unknown | + + + | Ethnic Group | Unknown | + + + Author + + + | Author | [facility] | | | and [place] | + + + | Organization | [facility] | | | [...] Providers + +------+ + | Care Delivery Rep Name | Role | Phone | + +------+ + | Renaldo Ramirez DO | PCP | Unavailable | + +------+ + Allergies No Known Allergies Medications + + + +---------+------+------+-------+ | Medication | Sig | Dispensed | Refills | Star | End | Statu | | | | | | t | Date | s | | | | | | Date | | | + + + +---------+------+------+-------+ | Cholecalciferol | Two to four capsules | | 0 | 09/0 | | Activ | | (VITAMIN D3) 400 | by mouth daily | | | 4/20 | | e | | UNITS CAPS | | | | 12 | | | + + + +---------+------+------+-------+ | cyanocobalamin | Take 500 mcg by | | 0 | | | Activ | | (VITAMIN B-12) 500 | mouth Daily. | | | | | e | | mcg tablet | | | | | | | + + + +---------+------+------+-------+ | potassium chloride | 4 times daily. | | 0 | 03/2 | | Activ | | (MICRO-K) 10 mEq CR | | | | 8/20 | | e | | capsule | | | | 19 | | | + + + +---------+------+------+-------+ | ELIQUIS 2.5 MG | Take 2.5 mg by mouth | | 0 | 10/2 | | Activ | | tablet | 2 times daily. | | | 220 | | e | | | | | | 19 | | | + + + +---------+------+------+-------+ | pantoprazole | Take 40 mg by mouth | | 0 | | | Activ | | (PROTONIX) 40 mg | every morning | | | | | e | | tablet | (before breakfast). | | | | | | + + + +---------+------+------+-------+ | allopurinol | Take 1 tablet by | 90 | 3 | 01/25 | | Activ | | (ZYLOPRIM) 100 mg | mouth Daily. | tablet | | 11/13 | | e | | tablet | | | | 19 | | | + + + +---------+------+------+-------+ | metoprolol | Take 1 tablet by | 90 | 3 | / | | Activ | | succinate | mouth Daily. | tablet | | 0/20 | | e | | (TOPROL-XL) 25 mg 24 | | | | 19 | | | | hr tablet | | | | | | | + + + +---------+------+------+-------+ | torsemide | Take 1 tablet by | 30 | 5 | 12/1 | | Activ | | (DEMADEX) 100 mg | mouth Daily. Until | tablet | | 0/20 | | e | | tablet | swelling improves, | | | 19 | | | | | then decrease back | | | | | | | | to the previous dose | | | | | | | | of 40 mg 2x daily | | | | | | + + + +---------+------+------+-------+ | metOLazone 2.5 mg | Take 1 tablet by | 30 | 11 | 12/1 | 12/1 | Activ | | tablet | mouth Daily. Take | tablet | | 7/20 | 6/20 | e | | | daily 30 - 60 | | | 19 | 20 | | | | minutes before | | | | | | | | taking Torsemide for | | | | | | | | 3 days, then take | | | | | | | | it every OTHER day | | | | | | + + + +---------+------+------+-------+ | Aspirin (ADULT | One tablet by mouth | | 0 | 09/0 | 12/1 | Disco | | ASPIRIN LOW | once daily | | | 4/20 | 0/20 | ntinu | | STRENGTH) 81 MG TBDP | | | | 12 | 19 | ed | | | | | | | | (Shruti | | | | | | | | ent | | | | | | | | Not | | | | | | | | Takin | | | | | | | | g) | + + + +---------+------+------+-------+ | losartan (COZAAR) | One tablet by mouth | | 0 | 09/0 | 12/1 | Disco | | 50 mg tablet | once daily | | | 4/20 | 0/20 | ntinu | | | | | | 12 | 19 | ed | | | | | | | | (Shruti | | | | | | | | ent | | | | | | | | Not | | | | | | | | Takin | | | | | | | | g) | + + + +---------+------+------+-------+ | lisinopril | One tablet by mouth | | 0 | 09/0 | 12/1 | Disco | | (PRINIVIL,ZESTRIL) | at bedtime | | | 4/20 | 0/20 | ntinu | | 40 MG tablet | | | | 12 | 19 | ed | | | | | | | | (Shruti | | | | | | | | ent | | | | | | | | Not | | | | | | | | Takin | | | | | | | | g) | + + + +---------+------+------+-------+ | | One tablet by mouth | | 0 | 09/0 | 12/1 | Disco | | triamterene-hydrochl | once daily | | | 4/20 | 0/20 | ntinu | | orothiazide | | | | 12 | 19 | ed | | (MAXZIDE-25) 37.5-25 | | | | | | (Shruti | | mg per tablet | | | | | | ent | | | | | | | | Not | | | | | | | | Takin | | | | | | | | g) | + + + +---------+------+------+-------+ | metoprolol | One tablet by mouth | | 0 | 09/0 | 12/1 | Disco | | succinate | once daily | | | 4/20 | 0/20 | ntinu | | (TOPROL-XL) 50 mg 24 | | | | 12 | 19 | ed | | hr tablet | | | | | | (Shruti | | | | | | | | ent | | | | | | | | Not | | | | | | | | Takin | | | | | | | | g) | + + + +---------+------+------+-------+ | doxazosin | One tablet by mouth | | 0 | 09/0 | 12/1 | Disco | | (CARDURA) 1 mg | twice daily | | | 4/20 | 0/20 | ntinu | | tablet | | | | 12 | 19 | ed | | | | | | | | (Shruti | | | | | | | | ent | | | | | | | | Not | | | | | | | | Takin | | | | | | | | g) | + + + +---------+------+------+-------+ | acetaminophen | Take 500 mg by mouth | | 0 | | 12/1 | Disco | | (TYLENOL) 500 mg | 2 (two) times | | | | 0/20 | ntinu | | tablet | daily. | | | | 19 | ed | | | | | | | | (Shruti | | | | | | | | ent | | | | | | | | Not | | | | | | | | Takin | | | | | | | | g) | + + + +---------+------+------+-------+ | | | | 0 | 10/ | 12/ | Disco | | HYDROcodone-acetamin | | | | 6/20 | 0/20 | ntinu | | ophen (NORCO) 5-325 | | | | 18 | 19 | ed | | mg per tablet | | | | | | (Shruti | | | | | | | | ent | | | | | | | | Not | | | | | | | | Takin | | | | | | | | g) | + + + +---------+------+------+-------+ | aspirin 81 MG EC | Take 81 mg by mouth | | 0 | | 12/1 | Disco | | tablet | daily with | | | | 0/20 | ntinu | | | breakfast. | | | | 19 | ed | | | | | | | | (Shruti | | | | | | | | ent | | | | | | | | Not | | | | | | | | Takin | | | | | | | | g) | + + + +---------+------+------+-------+ | cholecalciferol | Take 1,000 Units by | | 0 | | 12/1 | Disco | | (CHOLECALCIFEROL) | mouth daily. | | | | 0/20 | ntinu | | 1000 units TABS | | | | | 19 | ed | | | | | | | | (Shruti | | | | | | | | ent | | | | | | | | Not | | | | | | | | Takin | | | | | | | | g) | + + + +---------+------+------+-------+ | metoprolol | Take 1 tablet by | | 0 | 11/0 | 12/1 | Disco | | succinate | mouth daily. | | | 10/13 | 0/20 | ntinu | | (TOPROL-XL) 25 mg 24 | | | | 18 | 19 | ed | | hr tablet | | | | | | (Dose | | | | | | | | | | | | | | | | adjus | | | | | | | | tment | | | | | | | | ) | + + + +---------+------+------+-------+ | travoprost | 1 drop nightly. | | 0 | | 02/24 | Disco | | (TRAVATAN Z) 0.004% | | | | | 0/20 | ntinu | | ophthalmic solution | | | | | 19 | ed | | | | | | | | (Shruti | | | | | | | | ent | | | | | | | | Not | | | | | | | | Takin | | | | | | | | g) | + + + +---------+------+------+-------+ | amLODIPine | Take 1 tablet by | 90 | 3 | 11 | 02/24 | Disco | | (NORVASC) 2.5 mg | mouth Daily. | tablet | | 8/ | 0/20 | ntinu | | tablet | | | | 19 | 19 | ed | | | | | | | | (Side | | | | | | | | | | | | | | | | effec | | | | | | | | ts) | + + + +---------+------+------+-------+ | torsemide | Take 2 tablets by | 360 | 3 | 01/26 | 02/24 | Disco | | (DEMADEX) 20 mg | mouth 2 times daily. | tablet | | 0/20 | 0/20 | ntinu | | tabletIndications: | | | | 19 | 19 | ed | | Essential | | | | | | | | hypertension, CKD | | | | | | | | (chronic kidney | | | | | | | | disease) stage 4, | | | | | | | | GFR 15-29 ml/min | | | | | | | | (HCC) | | | | | | | + + + +---------+------+------+-------+ Active Problems + + + | Problem | Noted Date | + + + | Electrolyte imbalance risk | 02/11/2019 | + + + | Secondary hyperparathyroidism | 02/24/2014 | + + + | Vitamin D deficiency | 02/24/2014 | + + + | CKD (chronic kidney disease) stage 4, GFR 15-29 ml/min | 12/30/2013 | + + + | Hyperuricemia | 12/30/2013 | + + + | Anemia | 12/25/2013 | + + + | Bilateral leg edema | 12/25/2013 | + + + | Essential hypertension | 12/25/2013 | + + + | OSTEOPOROSIS | | + + + | OBESITY | | + + + | Spinal stenosis, lumbar | | + + + | SCIATICA | | + + + | ARTHRITIS, LUMBAR SPINE | | + + + | DEGENERATIVE DISC DISEASE, LUMBAR SPINE | | + + + | BACK PAIN, LUMBAR | | + + + | THORACIC/LUMBOSACRAL NEURITIS/RADICULITIS UNSPEC | | + + + | Atrial fibrillation | | + + + | Hypertension | | + + + | Chronic kidney disease | | + + + + + | Overview: class IV, (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, resolved) | + + Resolved Problems + + + + | Problem | Noted | Resolved | | | Date | Date | + + + + | Hypertension | 11/29/19 | | | | 12 | 9 | + + + + Encounters +--------+ + + + + | Date | Type | Specialty | Care Team | Description | +--------+ + + + + | 03/12/ | Telephone | Cardiology | Lia Diallo, | Other | | 2019 | | | STRUCTURER | | +--------+ + + + + | 03/07/ | Procedure | Cardiology | Jose Juan Montes, | Persistent atrial | | 2018 | visit | | MD | fibrillation | +--------+ + + + + | 03/05/ | Office | Cardiology | Jose Juan Montes, | Persistent atrial | | 2018 | Visit | | MD | fibrillation | | | | | | (Primary Dx); | | | | | | Essential | | | | | | hypertension; Stage | | | | | | 4 chronic kidney | | | | | | disease (HCC); Pedal | | | | | | edema | +--------+ + + + + | 02/19/ | Documentati | Nephrology | Darrel, | Jaison (B/P Log | | 2018 | on | | [facility] | 02/11/19-02/18/19) | | | | | [employer]ig[employer] | | +--------+ + + + + | 02/12/ | Refill | Nephrology | Silvio Alfred MD | Medication Refill | | 2018 | | | | | +--------+ + + + + | 02/11/ | Office | Nephrology | Silvio Alfred MD | CKD (chronic kidney | | 2019 | Visit | | | disease) stage 4, | | | | | | GFR 15-29 ml/min | | | | | | ([facility]) (Primary Dx); | | | | | | Bilateral leg edema; | | | | | | Hyperuricemia; | | | | | | Vitamin D | | | | | | deficiency; | | | | | | Secondary | | | | | | hyperparathyroidism | | | | | | ([facility]); Essential | | | | | | hypertension; | | | | | | Electrolyte | | | | | | imbalance risk | +--------+ + + + + | 02/11/ | Orders Only | Nephrology | Silvio Alfred MD | Essential | | 2019 | | | | hypertension | | | | | | (Primary Dx); CKD | | | | | | (chronic kidney | | | | | | disease) stage 4, | | | | | | GFR 15-29 ml/min | | | | | | ([facility]) | +--------+ + + + + | 02/07/ | Documentati | Nephrology | Darrel | Kamille (02/05/19) | | 2019 | on | | [facility] | | | | | | [employer] | | +--------+ + + + + | 01/30/ | Telephone | Nephrology | Darrel, | Other (Appointment | | 2018 | | | [facility] | reminder call) | | | | | [employer] | | +--------+ + + + + from Last 3 Months Immunizations + + + + | Name | Administration Dates | Next Due | + + + + | PNEUMOCOCCAL | 03/27/2004 | | | POLYSACCHARIDE | | | | 23-VALENT (PPSV23) | | | + + + + Family History + + +---------+ + | Medical History | Relation | Name | Comments | + + +---------+ + | Cancer | Brother | Deejay | | + + +---------+ + | Coronary artery | Brother | Deejay | | | disease | | | | + + +---------+ + | Diabetes | Brother | Deejay | | + + +---------+ + | Diabetes | Father | | | + + +---------+ + | Heart attack | Father | | | + + +---------+ + | Heart disease | Father | | | + + +---------+ + | Diabetes | Mother | | | + + +---------+ + | Heart disease | Mother | | | + + +---------+ + | Diabetes, IDDM | Sister | | | + + +---------+ + | Heart disease | Sister | | | + + +---------+ + | Colon cancer | Sister | | | + + +---------+ + | Colon cancer | Sister | Ivonne | | + + +---------+ + | Coronary artery | Sister | Ivonne | | | disease | | | | + + +---------+ + | Heart attack | Sister | Ivnone | | + + +---------+ + | Coronary artery | Sister | Lee | | | disease | | | | + + +---------+ + | Heart attack | Sister | Lee | | + + +---------+ + | Coronary artery | Son | | | | disease | | | | + + +---------+ + | Heart attack | Son | | | + + +---------+ + | Sudden | Son | | | + + +---------+ + + +---------+ + + | Relation | Name | Status | Comments | + +---------+ + + | Brother | Deejay | | | + +---------+ + + | Brother | | | | + +---------+ + + | Brother | | | | + +---------+ + + | Brother | | | | + +---------+ + + | Daughter | | Alive | | + +---------+ + + | Father | | | [place] | | | | (Age | | | | | 80) | | + +---------+ + + | Maternal Grandfather | | | | + +---------+ + + | Maternal Grandmother | | | | + +---------+ + + | Mother | | | following a hip fracture | | | | (Age | | | | | 80) | | + +---------+ + + | Paternal Grandfather | | | | + +---------+ + + | Paternal Grandmother | | | | + +---------+ + + | Sister | | Alive | | + +---------+ + + | Sister | | Alive | | + +---------+ + + | Sister | Ivonne | | | + +---------+ + + | Sister | Lee | | | + +---------+ + + | Sister | | | | + +---------+ + + | Sister | | | | + +---------+ + + | Son | | | [place] | | | | (Age | | | | | 65) | | + +---------+ + + Social History + +-------+ +--------+------+ [...] recent travel history available. | + + Last Filed Vital Signs + + + + + | Vital Sign | Reading | Time Taken | Comments | + + + + + | Blood Pressure | 120/64 | 03/05/2019 10:20 AM | RA | | | | PST | | + + + + + | Pulse | 91 | 03/05/2019 10:17 AM | | | | | PST | | + + + + + | Temperature | 35.7 C (96.3 F) | 08/02/2017 10:45 AM | | | | | PDT | | + + + + + | Respiratory Rate | 18 | 08/14/2012 11:08 AM | | | | | PDT | | + + + + + | Oxygen Saturation | 98% | 03/05/2019 10:17 AM | | | | | PST | | + + + + + | Inhaled Oxygen | - | - | | | Concentration | | | | + + + + + | Weight | 109.4 kg (241 lb 3.2 | 03/05/2019 10:17 AM | | | | oz) | PST | | + + + + + | Height | 167.6 cm (5' 6") | 03/05/2019 10:17 AM | | | | | PST | | + + + + + | Body Mass Index | 38.93 | 03/05/2019 10:17 AM | | | | | PST | | + + + + + Plan of Treatment +--------+---------+ + + + | Date | Type | Specialty | Care Team | Description | +--------+---------+ + + + | 04/08/ | Office | Cardiology | Jose Luis Alexandra | | | 2020 | Visit | | [address] | | | | | | [address] | | | | | | [place] [address] | | | | | | [phone] | | | | | | | | +--------+---------+ + + + + + + + + | Health Maintenance | Due Date | Last Done | Comments | + + + + + | Vaccine: | | | | | Dtap/Tdap/Td (1 - | 2 | | | | Tdap) | | | | + + + + + | Vaccine: Zoster (1 | | | | | of 2) | 1 | | | + + + + + | Vaccine: | | 03/27/2004 | | | Pneumococcal 65+ (2 | 6 | | | | of 2 - PCV13) | | | | + + + + + | Adult Annual | | | | | Wellness Visit | 9 | | | + + + + + | Vaccine: Influenza | Completed | 12/17/2018 | | + + + + + Procedures + +--------+ + + + | Procedure Name | Priori | Date/Time | Associated Diagnosis | Comments | | | ty | | | | + +--------+ + + + | ECG 12 LEAD | Routin | 03/05/2019 | Persistent atrial | Results for this | | | e | 10:23 AM | fibrillation | procedure are in the | | | | PST | | results section. | + +--------+ + + + | LABS - EXTERNAL SCAN | | 02/05/2019 | | Results for this | | | | 12:00 AM | | procedure are [...] section. | + +--------+ + + + from Last 3 Months Results ECG 12 lead (03/05/2019 10:23 AM PST) + + + + + + | Component | Value | Ref Range | Performed | Pathologist | | | | | At | Signature | + + + + + + | VENTRICULAR | 94 | BPM | [facility] | | | RATE EKG | | | | | + + + + + + | ATRIAL RATE | 88 | BPM | [facility] | | + + + + + + | QRS | 72 | ms | [facility] | | | DURATION | | | | | + + + + + + | Q-T | 366 | ms | [facility] | | | INTERVAL | | | | | + + + + + + | Q-T | 457 | ms | [facility] | | | INTERVAL | | | | | | (CORRECTED) | | | | | + + + + + + | QRS AXIS | 60 | degrees | [facility] | | + + + + + + | T AXIS | -146 | degrees | [facility] | | + + + + + + | INTERPRETAT | Atrial fibrillationLow | | [facility] | | | ION TEXT | voltage QRSST & T wave | | | | | | abnormality, consider | | | | | | inferior | | | | | | ischemiaAbnormal ECGNo | | | | | | previous ECGs | | | | | | availablePlease refer to | | | | | | Providers office visit | | | | | | note for Providers | | | | | | Interpretation.Confirmed | | | | | | by [facility] [place] Read Only, | | | | | | [facility] ([id number]), | | | | | | research editor Hernan Zamora | | | | | | ([id number]) on 03/05/2019 | | | | | | 10:33:51 AM | | | | + + + + + + + + | Specimen | + + | | + + + + + | Narrative | Performed At | + + + | | | + + + + +---------+ + + | Performing | Address | City/State/Zipcode | Phone Number | | Organization | | | | + +---------+ + + | [facility] | | | | + +---------+ + + LABS - EXTERNAL SCAN (02/05/2019 12:00 AM PST) + + + | Narrative | Performed At | + + + | Ordered by an | | | unspecified provider. | | + + + CBC with Manual Differential (02/05/2019) [...] + + | Urine | + + Uric Acid (02/05/2019) + +-------+ + + [...] + + | Blood | + + Renal Function Panel (02/05/2019) [...] + + | Blood | + + from Last 3 Months Insurance + +--------+ +--------+-------+---------+--------+ | Payer | Benefi | Subscriber | Effect | Phone | Address | Type | | | t Plan | ID | harriet | | | | | | / | | Dates | | | | | | Group | | | | | | + +--------+ +--------+-------+---------+--------+ | [employer] | [employer] | [id number] | 03/27/19 | | | Medica | | | HEALTH | | 17-Pre | | | re | | | MDCR | | sent | | | | + +--------+ +--------+-------+---------+--------+ + +--------+ +--------+ + + | Guarantor Name | Accoun | Relation to | Date | Phone | Billing Address | | | t Type | Patient | of | | | | | | | | | | + +--------+ +--------+ + + | Jordan Farias | Person | Self [birth year] | [address] | | | al/Fam | | 1930 | [phone] | [place], [place] | | | [place] | | | [address] (Home) | [address] | + +--------+ +--------+ + + | Jordan Farias | Person | Self [birth year] | [address] | | | al/Fam | | 1930 | [phone] | [place], [place] | | | [place] | | | [address] (Home) | [address] | + +--------+ +--------+ + + Advance Directives + + + + + | Type | Date Recorded | Patient | Explanation | | | | Assistant Pastry Chef | | + + + + + | Power of | | | | | Flight Instructor | | | | + + + + + | Advance | | | | | Directive | | | | + + + + +
--- OUTSIDE RECORDS SUMMARY | ~2019-03-21 | XMS | Encounter Summary ---
Demographics + + + | Address | [address] | | | [place] [address] | + + + | Home Phone | | + + + | Preferred Language | Unknown | + + + | Marital Status | | + + + | Hinduism Affiliation | 1013 | + + + [...] Team Providers + +------+ + | Care Information Systems Supervisor Name | Role | Phone | + +------+ + | Kaushik Christensen MD | PCP | | + +------+ + Reason for Visit + + + | Reason | Comments | + + + | Recall For Services | | | (DMST) | | + + + Encounter Details +--------+ + + + + | Date | Type | Department | Care Team | Description | +--------+ + + + + | 11/05/ | Telephone | [facility] | Jonathan Izquierdo | Recall For Services | | 2012 | | [address] | MD Steve [address] | (DMST) | | | | [place] [address], | [address] [place] | | | | | [place] [address] | [place] [address] | | | | | [phone] | [phone] | | | | | | | [...] [address] | | | | | | [place] [address] | | | | | | [phone] | | | | | | | | +--------+---------+ + + + documented as of this encounter Visit Diagnoses Not on filedocumented in this encounter"
--- OUTSIDE RECORDS SUMMARY | ~2019-03-21 | XMS | Encounter Summary ---
Demographics + + + | Address | [address] | | | [place] [address] | + + + | Home Phone | | + + + | Preferred Language | Unknown | + + + | Marital Status | | + + + | Roman Catholic Affiliation | 1013 | + + + | Race | Unknown | + + + | Ethnic Group | Unknown | + + + Author + + + | Author | [facility] | | | and [place] | + + + | Organization | [facility] | [...] Team Providers + +------+ + | Care Hotel Engineer Name | Role | Phone | + +------+ + | Kaushik Christensen MD | PCP | | + +------+ + Encounter Details +--------+ + + + + | Date | Type | Department | Care Team | Description | +--------+ + + + + | 12/05/ | Orders Only | [facility] | AlbertChung matthews, | | | 2016 | | NEPRHOLOGY [place] | TAPPING MACHINE OPERATOR [address] | | | | | [address] | [facility] [place] | | | | | [address] [place], [place] | [place] | | | | | [address] | [address] | | | | | [phone] | [phone] | | | | | | | [...] [address] | | | | | | [place] [address] | | | | | | [phone] | | | | | | | [...] | | | LAB | | | CITIZEN [place] | | | | | + + [...]
--- OUTSIDE RECORDS SUMMARY | ~2019-03-21 | XMS | Encounter Summary ---
Demographics + + + | Address | [address] | | | [place] [address] | + + + | Home Phone | | + + + | Preferred Language | Unknown | + + + | Marital Status | | + + + | Sikhism Affiliation | 1013 | + + + | Race | Unknown | + + + | Ethnic Group | Unknown | + + + Author + + + | Author | [facility] | | | and [place] | + + + | Organization | [facility] | | [...] Team Providers + +------+ + | Care Invas Tech Name | Role | Phone | + +------+ + | Kaushik Christensen MD | PCP | | + +------+ + Encounter Details +--------+ + + + + | Date | Type | Department | Care Team | Description | +--------+ + + + + | 04/21/ | Orders Only | [facility] | Chung Rushing, | | | 2015 | | NEPHROLOGY [place] | SUPERVISOR MOLDING [address] | | | | | [address] | [address] | | | | | [address] [place], [place] | [place] | | | | | [address] | [address] | | | | | [phone] | [phone] | | | | | | | [...] [address] | | | | | | [place] [address] | | | | | | [phone] | | | | | | | | +--------+---------+ + + + documented as of this encounter Procedures + +--------+ + + + | Procedure Name | Priori | Date/Time | Associated Diagnosis | Comments | | | ty | | | | + +--------+ + + + | EXTERNAL LAB: CBC | Routin | 04/21/2015 | | Results for this | | | e | 12:00 AM | | procedure are in the | | | | PST | | results section. | + +--------+ + + + | URINALYSIS WITH | Routin | 04/21/2015 | | Results for this | | MICROSCOPIC IF | e | 12:00 AM | | procedure are in the | | INDICATED | | PST | | results section. | + +--------+ + + + | VITAMIN D, | Routin | 04/21/2015 | | Results for this | | DEFICIENCY SCREEN | e | 12:00 AM | | procedure are in the | | (25-HYDROXY) | | PST | | results section. | + +--------+ + + + | PROTEIN/CREATININE | Routin | 04/21/2015 | | Results for this | | RATIO, URINE | e | 12:00 AM | | procedure are in the | | | | PST | | results section. | + +--------+ + + + | URIC ACID | Routin | 04/21/2015 | | Results for this | | | e | 12:00 AM | | procedure are in the | | | | PST | | results section. | + +--------+ + + + | MAGNESIUM | Routin | 04/21/2015 | | Results for this | | | e | 12:00 AM | | procedure are in the | | | | PST | | results section. | + +--------+ + + + | RENAL FUNCTION PANEL | Routin | 04/21/2015 | | Results for this | | | e | 12:00 AM | | procedure are in the | | | | PST | | results section. | + +--------+ + + + documented in this encounter Results Protein/Creatinine Ratio, Urine (04/21/2015 12:00 AM PST) + +-------+ + + + | Component | Value | Ref Range | Performed | Pathologist | | | | | At | Signature | + +-------+ + + + | Protein/Cre | 79.4 | 0 - 150 | EXTERNAL | [...] + + Vitamin D, Deficiency Screen (25-Hydroxy) (04/21/2015 12:00 AM PST) + +-------+ + + [...] | | | + +---------+ + + Urinalysis with Microscopic if Indicated (04/21/2015 12:00 AM PST) + + + + [...] + + + | Spec Grav, | 1.009 | 1.005 - 1.030 | EXTERNAL | [...] + +---------+ + + External Lab: CBC (04/21/2015 12:00 AM PST) + + + + + + | Component | Value | Ref Range | Performed | Pathologist | | | | | At | Signature | + + + + + + | WBC | 4.6 | 4.5 - 11.0 10 | EXTERNAL | | | | | | LAB | | + + + + + + | RED CELL | 3.86 | 3.8 - 5.1 10 | EXTERNAL | | | COUNT | | | LAB | | + + + + + + | Hgb | 11.9 (A) | 12.0 - 16.0 | EXTERNAL | | | | | g/dL | LAB | | + + + + + + | Hematocrit, | 36.0 | 35 - 45 % | EXTERNAL | | | POC | | | LAB | | + + + + + + | MCV | 93.5 | 81 - 99 fL | EXTERNAL [...] + + + + | Platelet | 171 | 140 - 440 K/ L | EXTERNAL | | | Count | | | LAB | | | Plasma | | | | | + + + + + + | RDW-CV | 15.0 | 10.5 - 15.0 % | EXTERNAL [...] + + + | % Segmented | 52.1 | 39 - 80 % | EXTERNAL | | | | | | LAB | | | Neutrophils | | | | | + + + + + + | % | 31.5 | 24 - 44 % | EXTERNAL | | | Lymphocytes | | | LAB | | + + + + + + | % Monocytes | 11.5 | 0 - 12 % | EXTERNAL | | | | | | LAB | | + + + + + + | % | 3.9 | 0 - 6 % | EXTERNAL [...] | + +---------+ + + Uric Acid (04/21/2015 12:00 AM PST) + +-------+ + + + | Component | Value | Ref Range | Performed | Pathologist | | | | | At | Signature | + +-------+ + + + | Uric Acid | 5.5 | 2.3 - 6.6 | EXTERNAL | [...] | | + +---------+ + + Magnesium (04/21/2015 12:00 AM PST) + +-------+ + + + | Component | Value | Ref Range | Performed | Pathologist | | | | | At | Signature | + +-------+ + + + | Magnesium | 2.0 | 1.7 - 2.5 mg/dL | EXTERNAL [...] + +---------+ + + Renal Function Panel (04/21/2015 12:00 AM PST) + + + + + + | Component | Value | Ref Range | Performed | Pathologist | | | | | At | Signature | + + + + + + | Glucose, | 90 | 70 - 100 mg/dL | EXTERNAL | | | Fasting | | | LAB | | + + + + + + | BUN | 35 (A) | 6 - 23 mg/dL | EXTERNAL | | | | | | LAB | | + + + + + + | Creatinine | 1.92 (A) | 0.70 - 1.11 | EXTERNAL | | | | | mg/dL | LAB | | + + + + + + | PHOSPHORUS | | mg/dL | EXTERNAL | | | | | | LAB | | + + + + + + | Albumin | 3.8 | 3.5 - 5.0 | EXTERNAL | | | | | | LAB | | + + + + + + | Na | 137 | 132 - 143 | EXTERNAL | [...] + + + | Anion Gap | 16.4 | 7 - 21 mmol/L | EXTERNAL [...] + + + + | BUN/Creatin | 18.2 | 6.0 - 28.6 | EXTERNAL | | | ine Ratio | | | LAB | | + + + + + + | Calcium | 8.9 | 8.4 - 10.2 | EXTERNAL | | | | | mg/dL | LAB | | + + + + + + | Estimated | 25 (A) | 60 - 140 mg/dL | EXTERNAL | | | GFR [...]
--- OUTSIDE RECORDS SUMMARY | ~2019-03-21 | XMS | Encounter Summary ---
Demographics + + + | Address | [address] | | | [place] [address] | + + + | Home Phone | | + + + | Preferred Language | Unknown | + + + | Marital Status | | + + + | Denominational Affiliation | 1013 | + + + | Race | Unknown | + + + | Ethnic Group | Unknown | + + + Author + + + | Author | [facility] | | | and [place] | + + + | Organization | [facility] | | | [...] Team Providers + +------+ + | Care Lap Polisher Name | Role | Phone | + +------+ + | Kaushik Christensen MD | PCP | | + +------+ + Encounter Details +--------+ + + + + | Date | Type | Department | Care Team | Description | +--------+ + + + + | 12/12/ | Orders Only | [facility] | Conversion | | | 2017 | | NEPRHOLOGY [place] | Transaction, | | | | | [address] | Provider Unknown | | | | | [address] [place], [place] | [phone] | | | | | [address] | | | | | | [phone] | | | +--------+ + + + [...] [address] | | | | | | [place] [address] | | | | | | [phone] | | | | | | | [...]
--- OUTSIDE RECORDS SUMMARY | ~2019-03-21 | XMS | Encounter Summary ---
Demographics + + + | Address | [address] | | | [place] [address] | + + + | Home Phone [...] Team Providers + +------+ + | Care Photographer Portrait Name | Role | Phone | + [...] | | [address] | [place] [address] | | | | | [place] | [phone] | | | | | [address] | | | | | | [phone] | | | +--------+ + + + [...] [address] | | | | | | [address] | | | | | | [place] [address] | | | | | | [phone] | | | | | | | | +--------+---------+ + + + documented as of this encounter Visit Diagnoses + + | Diagnosis | + + | S/P lumbar fusion - Primary Arthrodesis status | + + documented in this encounter"
--- OUTSIDE RECORDS SUMMARY | ~2019-03-21 | XMS | Encounter Summary ---
Demographics + + + | Address | [address] | | | [place] [address] | + + + | Home Phone | | + + + | Preferred Language | Unknown | + + + | Marital Status | | + + + | Episcopalian Affiliation | 1013 | + + + | Race | Unknown | + + + | Ethnic Group | Unknown | + + + Author + + + | Author | [facility] | | | and [place] | + + + | Organization | [facility] [...] Team Providers + +------+ + | Care Petrol Tanker Driver Name | Role | Phone | + +------+ + | Kaushik Christensen MD | PCP | | + +------+ + Encounter Details +--------+ + + + + | Date | Type | Department | Care Team | Description | +--------+ + + + + | 07/25/ | Orders Only | [facility] | Conversion | | | 2018 | | NEPRHOLOGY [place] | Transaction, | | | | | [address] | Provider Unknown | | | | | [address] [place], [place] | | | | | | [address] | (Fax) | | | | | [phone] | | | +--------+ + + + [...] [address] | | | | | | [place] [address] | | | | | | [phone] | | | | | | | | +--------+---------+ + + + documented as of this encounter Procedures + +--------+ + + + | Procedure Name | Priori | Date/Time | Associated Diagnosis | Comments | | | ty | | | | + +--------+ + + + | BASIC METABOLIC | Routin | 07/25/2017 | | Results for this | | PANEL | e | 12:00 AM | | procedure are in the | | | | PDT | | results section. | + +--------+ + + + documented in this encounter Results Basic Metabolic Panel (07/25/2017 12:00 AM PDT) + + + + [...] + + + + | BUN | 28 (A) | 6 - 23 mg/dL | EXTERNAL | | | | | | LAB | | + + + + + + | Creatinine | 1.81 (A) | 0.70 - 1.11 | EXTERNAL | | | | | mg/dL | LAB | | + + + + + + | BUN/Creatin | 15.5 | 6.0 - 28.6 | EXTERNAL | [...] + + + + | CO2 | 27 | 19 - 31 mmol/L | EXTERNAL | | | | | | LAB | | + + + + + + | Anion Gap | 14.8 | 7 - 21 mmol/L | EXTERNAL [...]
--- OUTSIDE RECORDS SUMMARY | ~2019-03-21 | XMS | Encounter Summary ---
Demographics + + + | Address | [address] | | | [place] [address] | + + + | Home Phone | | + + + | Preferred Language | Unknown | + + + | Marital Status | | + + + | Judaism Affiliation | 1013 | + + + | Race | Unknown | + + + | Ethnic Group | Unknown | + + + Author + + + | Author | [facility] | | | and [place] | + + + | Organization | [facility] | | | and [...] Team Providers + +------+ + | Care Database Development Project Manager Name | Role | Phone | + +------+ + | Kaushik Christensen MD | PCP | | + +------+ + Encounter Details +--------+ + + + + | Date | Type | Department | Care Team | Description | +--------+ + + + + | 07/25/ | Orders Only | [facility] | Conversion | | | 2018 | | NEPRHOLOGY [place] | Transaction, | | | | | [address] | Provider Unknown | | | | | [address] [place], [place] | | | | | | [address] | (Fax) | | | | | [phone] | | | +--------+ + + + [...] [address] | | | | | | [place] [address] | | | | | | [phone] | | | | | | | [...]
--- OUTSIDE RECORDS SUMMARY | ~2019-03-21 | XMS | Clinical Summary ---
Demographics + + + | Address | [address] | | | [place] [address] | + + + | Home Phone | | + + + | Preferred Language | Unknown | + + + | Marital Status | | + + + | Catholic Affiliation | 1013 | + + + | Race | Unknown | + + + | Ethnic Group | Unknown | + + + Author + + + | Author | [facility] | | | and [place] | + + + | Organization | [facility] | | [...] Team Providers + +------+ + | Care Poultry Process Worker Name | Role | Phone | [...] Other | | 2019 | | | BELT FIXER | | +--------+ + + + + [...] | 02/11/19-02/18/19) | | | | | Churn Drill Operator | | +--------+ + + + + [...] ml/min | | | | | | ([facility]) (Primary Dx); | | | | | | Bilateral leg edema; | | | | | | Hyperuricemia; | | | | | | Vitamin D | | | | | | deficiency; | | | | | | Secondary | | | | | | hyperparathyroidism | | | | | | ([facility]); Essential | | | | | | [...] ml/min | | | | | | ([facility]) | +--------+ + + + + | 02/07/ | Documentati | Nephrology | Darrel | Kamille (02/05/19) | | 2019 | on | | [facility] | | | | | | Churn Drill Operator | | +--------+ + + + + | 01/30/ | Telephone | Nephrology | Darrel, | Other (Appointment | | 2018 | | | Kash Treadwell | reminder call) | | | | | Churn Drill Operator | | +--------+ + + + + [...] + | Heart attack | Sister | Ivonne | | + [...] + + | Father | | | [place] | | | | (Age | | [...] + + | Son | | | [place] | | | | (Age | | [...] [place] | | | | | | [place] [address] | | | | | | [phone] | | | | | | | [...] | | | | | by [facility] Read Only, | | | | | | [facility] (502), | | | | | | editorial specialist Hernan Zamora | | | | | | (130) on 03/05/2019 | | | | | [...] | [employer] | [facility] | [id number] | 03/27/19 | | | Medica | [...] [place] | | | 5 (Home) | [address] | + +--------+ +--------+ + + | Jordan Farias | Person | Self | [birth year] | [address] | | | al/Fam | | 1930 | [phone] | [place], [place] | | | [place] | | | [address] (Home) | [address] | + +--------+ +--------+ + + Advance Directives + + + + + | Type | Date Recorded | Patient | Explanation | | | | Orthophotography Technician | | + + + + + | Power of | | | | | Financial Engineer | | | | + + + + + | Advance | | | | | Directive | | | | + + + + +
--- OUTSIDE RECORDS SUMMARY | ~2019-03-21 | XMS | Clinical Summary ---
Demographics + + + | Address | [address] | | | [place] [address] | + + + | Home Phone | | + + + | Preferred Language | Unknown | + + + | Marital Status | | + + + | Buddhism Affiliation | Unknown | + + + | Race | Unknown | + + + | Ethnic Group | Unknown | + + + Author + + + | Author | [facility] (Historical as of | | | 11-10-18) | + + + | Organization | [facility] (Historical as of | | | 11-10-18) | + + + | Address | Unknown | + + + | Phone | Unavailable | + + + Support + + +---------+ + | Name | Relationship | Address | Phone | + + +---------+ + | Oscar,Eladia | ECON | Unknown | | + + +---------+ + | Bisi Hooks | ECON | Unknown | | + + +---------+ + Care Team Providers + +------+ + | Care Technical Services Assistant Name | Role | Phone | + +------+ + | Kaushik Christensen MD | PP | Unavailable | + +------+ + Allergies No Known Allergies Current Medications + + +---------+---------+------+------+-------+ | Prescription | Sig. | Disp. | Refills | Star | End | Statu | | | | | | t | Date | s | | | | | | Date | | | + + +---------+---------+------+------+-------+ | acetaminophen | Take 500 mg by mouth | | | | | Activ | | (TYLENOL) 500 MG | 2 (two) times | | | | | e | | tablet | daily. | | | | | | + + +---------+---------+------+------+-------+ | cyanocobalamin | Take 5,000 mcg by | | | | | Activ | | (VITAMIN B-12) 500 | mouth daily. | | | | | e | | MCG tablet | | | | | | | + + +---------+---------+------+------+-------+ | aspirin 81 MG EC | Take 81 mg by mouth | | | | | Activ | | tablet | daily with | | | | | e | | | breakfast. | | | | | | + + +---------+---------+------+------+-------+ | Cholecalciferol | Take 1,000 Units by | | | | | Activ | | (VITAMIN D3) 1000 | mouth daily. | | | | | e | | UNITS tablet | | | | | | | + + +---------+---------+------+------+-------+ | torsemide | Take 1 tablet by | 30 | 11 | 09/2 | | Activ | | (DEMADEX) 20 MG | mouth daily. | tablet | | 7/20 | | e | | tabletIndications: | | | | 18 | | | | Localized edema, | | | | | | | | Stage 3 chronic | | | | | | | | kidney disease | | | | | | | | (HCC), Essential | | | | | | | | hypertension | | | | | | | + + +---------+---------+------+------+-------+ | | | | | 10/1 | | Activ | | HYDROcodone-acetamin | | | | 6/20 | | e | | ophen (NORCO) 5-325 | | | | 18 | | | | MG per tablet | | | | | | | + + +---------+---------+------+------+-------+ | amLODIPine | Take 1 tablet by | 90 | 3 | 11/0 | | Activ | | (NORVASC) 5 MG | mouth daily. | tablet | | 7/20 | | e | | tablet | | | | 18 | | | + + +---------+---------+------+------+-------+ | metoprolol | Take 1 tablet by | 90 | 3 | 11/0 | | Activ | | (TOPROL-XL) 25 MG 24 | mouth daily. | tablet | | 7/20 | | e | | hr tablet | | | | 18 | | | + + +---------+---------+------+------+-------+ | allopurinol | Take 1 tablet by | 90 | 3 | 12/2 | | Activ | | (ZYLOPRIM) 100 MG | mouth daily. | tablet | | /20 | | e | | tabletIndications: | | | | 18 | | | | Hyperuricemia, Stage | | | | | | | | 3 chronic kidney | | | | | | | | disease (HCC) | | | | | | | + + +---------+---------+------+------+-------+ | potassium chloride | Take 2 capsules by | 180 | 3 | 03/2 | | Activ | | (MICRO-K) 10 MEQ CR | mouth daily. | capsule | | 8/20 | | e | | capsuleIndications: | | | | 19 | | | | Essential | | | | | | | | hypertension, Stage | | | | | | | | 3 chronic kidney | | | | | | | | disease (HCC) | | | | | | | + + +---------+---------+------+------+-------+ Active Problems + + + | Problem | Noted Date | + + + | Vitamin D deficiency | 02/24/2014 | + + + | Secondary hyperparathyroidism (HCC) | 02/24/2014 | + + + | CKD (chronic kidney disease), stage III | 12/30/2013 | + + + | Hyperuricemia | 12/30/2013 | + + + | Anemia | 12/25/2013 | + + + | Essential hypertension | 12/25/2013 | + + + | Edema | 12/25/2013 | + + + Immunizations + + + + | Name | Dates Previously Given | Next Due | + + + + | Pneumococcal | 03/27/2004 | | | Polysaccharide | | | | 23-valent | | | + + + + Family History + + +------+ + | Medical History | Relation | Name | Comments | + + +------+ + | Cancer | Brother | | | + + +------+ + | Diabetes type I | Father | | | + + +------+ + | Heart defect | Father | | | + + +------+ + | Heart defect | Mother | | | + + +------+ + | Diabetes type I | Sister | | | + + +------+ + | Heart defect | Sister | | | + + +------+ + | Cancer | Sister | | | + + +------+ + | Cancer | Sister | | | + + +------+ + + +------+--------+ + | Relation | Name | Status | Comments | + +------+--------+ + | Brother | | | | + +------+--------+ + | Father | | | | + +------+--------+ + | Mother | | | | + +------+--------+ + | Sister | | | | + +------+--------+ + | Sister | | | | + +------+--------+ + | Sister | | | | + +------+--------+ + Social History + +-------+ +--------+------+ | [...] + +---------+ + | Alcohol Use | Drinks/We | oz/Week | Comments | | | ek | | | + + +---------+ + | No | | | | + + +---------+ + + + + | Sex Assigned at | Date Recorded | | | | + + + | Not on file | | + + + Last Filed Vital Signs + + + + | Vital Sign | Reading | Time Taken | + + + + | Blood Pressure | 146/90 | 08/03/2018 10:30 AM PDT | + + + + | Pulse | 80 | 08/03/2018 10:30 AM PDT | + + + + | Temperature | 35.7 C (96.3 F) | 08/02/2017 10:41 AM PDT | + + + + | Respiratory Rate | - | - | + + + + | Oxygen Saturation | 97% | 08/03/2018 10:30 AM PDT | + + + + | Inhaled Oxygen | - | - | | Concentration | | | + + + + | Weight | 90.6 kg (199 lb 11.2 | 08/03/2018 10:30 AM PDT | | | oz) | | + + + + | Height | 167.6 cm (5' 6") | 08/03/2018 10:30 AM PDT | + + + + | Body Mass Index | 32.23 | 08/03/2018 10:30 AM PDT | + + + + Plan of Treatment + + + + + | Health Maintenance | Due Date | Last Done | Comments | + + + + + | Vaccine: | | | | | Dtap/Tdap/Td (1 - | 0 | | | | Tdap) | | | | + + + + + | Vaccine: Zoster (1 | | | | | of 2) | 1 | | | + + + + + | DEXA SCAN SCREENING | | | | | | 6 | | | + + + + + | Vaccine: | | 03/27/2004 | | | Pneumococcal 65+ | 6 | | | | Low/Medium Risk (2 | | | | | of 2 - PCV13) | | | | + + + + + | Vaccine: Influenza | | | | | (#1) | 9 | | | + + + + + Results Not on filefrom Last 3 Months Insurance + +--------+ +--------+-------+---------+ | Payer | Benefi | Subscriber | Type | Phone | Address | | | t Plan | ID | | | | | | / | | | | | | | Group | | | | | + +--------+ +--------+-------+---------+ | [place] | [id number] | Med[employer] | | | | | [employer] | | re | | | | | | | | | | | | | | | | | | | | | | | | | | | | | | | | | | | | | | | | [place] - | | | | | | | [employer] | | | | | + +--------+ +--------+-------+---------+ + +--------+ +--------+ + + | Guarantor Name | Accoun | Relation to | Date | Phone | Billing Address | | | t Type | Patient | of | | | | | | | | | | + +--------+ +--------+ + + | JORDAN GRULLON | Person | Self | [birth year] | Home: | [address] | | | al/[place] | | 1930 | [phone] [place] | | | [place] | | | 1984 | [address] | + +--------+ +--------+ + +
--- OUTSIDE RECORDS SUMMARY | ~2019-03-21 | XMS | Encounter Summary ---
Demographics + + + | Address | [address] | | | [place] [address] | + + + | Home Phone | | + + + | Preferred Language | Unknown | + + + | Marital Status | | + + + | Gnosticism Affiliation | 1013 | + + + | Race | Unknown | + + + | Ethnic Group | Unknown | + + + Author + + + | Author | [facility] | | | and [place] | + + + | Organization | [facility] | | | [...] Team Providers + +------+ + | Care Fisheries Officer Name | Role | Phone | + [...] XRAY [address] | MD [address] | | | | | [place] | [place], [place] | | | | | [place] [address] | [address] | | | | | [phone] | | | +--------+ + + + [...] [address] | | | | | | [place] [address] | | | | | | [phone] | | | | | | | [...] Performed At | + + + | [facility] Diagnostic Imaging Department | [place] | | [address] [facility] | [facility] | | BONE DENSITY TESTING | DIAG [...] Transcribed Date/Time: | | | 09/29/2011 11:13 K9 Handler: LZ <Electronically Signed | | | by Lefty Kirby MD> 09/29/11 1346 | | + + + + + | Procedure Note | + + | Sarbjit, Rad Conversion - 05/03/2013 5:38 PM [facility] | | Diagnostic Imaging Department [address] [place] [address] | | BONE DENSITY TESTING CLINICAL HISTORY: [...] 10:34 | |Transcribed Date/Time: 09/29/2011 11:13 | |K9 Handler: | |<Electronically Signed by Lefty Kirby MD> 09/29/11 1346 | + + + +---------+ + + | Performing | Address | City[facility]State[facility] | Phone Number | | Organization | | | | + +---------+ + + | [facility] | | | | | [facility] | | | | + +---------+ + + documented in this encounter Visit Diagnoses Not on filedocumented in this encounter"
--- OUTSIDE RECORDS SUMMARY | ~2019-03-21 | XMS | Encounter Summary ---
Demographics + + + | Address | [address] | | | [place] [address] | + + + | Home Phone | | + + + | Preferred Language | Unknown | + + + | Marital Status | | + + + | Caodaism Affiliation | 1013 | + + + | Race | Unknown | + + + | Ethnic Group | Unknown | + + + Author + + + | Author | [facility] | | | and [place] | + + + | Organization | [facility] | | | [...] Team Providers + +------+ + | Care Elevator Runner Name | Role | Phone | + [...] + + | 11/05/ | Telephone | [facility] | Jonathan Izquierdo | Recall For Services | | 2012 | | JIGNESH [address] | MD Steve [address] | (DMST) | | | | [place], | [address] [place] | | | | | [place] [address] | [place] [address] | | | | | [phone] | [phone] | | | | | | | [...] [address] | | | | | | [place] [address] | | | | | | [phone] | | | | | | | | +--------+---------+ + + + documented as of this encounter Visit Diagnoses Not on filedocumented in this encounter"
--- OUTSIDE RECORDS SUMMARY | ~2019-03-21 | XMS | Encounter Summary ---
Demographics + + + | Address | [address] | | | [place] [address] | + + + | Home Phone | | + + + | Preferred Language | Unknown | + + + | Marital Status | | + + + | Hoahaoism Affiliation | 1013 | + + + [...] Team Providers + +------+ + | Care Game Trapper Name | Role | Phone | + +------+ + | Kaushik Christensen MD | PCP | | + +------+ + Encounter Details +--------+ + + + + | Date | Type | Department | Care Team | Description | +--------+ + + + + | 03/13/ | Hospital | [facility] | David Montgomery MD | Status post lumbar | | 2012 - | Encounter | MED CTR XRAY [address] | spinal fusion | | | | [place] | [place] [address] | | | 03/15/ | | [place] [address] | [phone] | | | 2011 | | [phone] | | | +--------+ + + + [...] MON[address] | | | | | | [place] [address] | | | | | | [phone] | | | | | | | | +--------+---------+ + + + documented as of this encounter Procedures + +--------+ + + + | Procedure Name | Priori | Date/Time | Associated Diagnosis | Comments | | | ty | | | | + +--------+ + + + | XR LUMBAR SPINE 2 OR | Routin | 03/13/2012 | Status post lumbar | Results for this | | 3 VW | e | 2:50 PM | spinal fusion | procedure are in the | | | | PST | | results section. | + +--------+ + + + documented in this encounter Results XR Lumbar Spine 2 or 3 Vw (03/13/2012 2:50 PM PST) + + | Specimen | + + | | + + + + + | Narrative | Performed At | + + + | [facility] | [place] | | Department [address] [facility] | [facility] | | [ rep [address]] [ rep [facility] | | [facility]] Signed | - IMAGING | | | | | Patient Name: JORDAN GRULLON | | | Physician: LANNY : 1930 Age: 82 Sex: F Unit | | | #: [id number] Exam Date: 03/13/12 Location: | | | [facility] [place] Report #: [id number] Page: | | | %(RAD)RES..mtdd.print.filter("pg") of %(RAD) | | | RES..mtdd.print.filter("tpg") | | | | | | Accession Number: [id number] | | | LUMBAR SPINE X-RAY CLINICAL HISTORY: POSTOPERATIVE | | | LUMBAR SPINE. COMPARISON: Lumbar spine x-rays dated | | | 01/31/2012, 05/31/2011, MRI of the lumbar spine dated 06/23/2011 , CT | | | scan of the lumbar spine dated 03/17/2011. FINDINGS: Two | | | views of the lumbar spine were obtained. There is mild levoscoliosis | | | of the lumbar spine. Hardware for posterior fusion is present | | | from L4 through L5 with spacer material at L4-5 that remain intact. | | | Vertebral body heights are preserved. Some moderate-sized | | | osteophytes are present of the lower thoracic spine. Moderate | | | osteophytes are seen at L2 and L3. Smaller osteophytes are noted | | | at the other levels. There is minimal anterolisthesis of L4 over L5. | | | Moderate to severe disk height loss is present at L2-3 with | | | endplate sclerosis. Mild disk height loss is present at L3-4. | | | There is moderate disk height loss at L4-5. There is no evidence | | | for spondylolysis. Overall findings are stable. | | | IMPRESSION: 1. STATUS POST POSTERIOR FUSION FROM L4 THROUGH L5 | | | WITH HARDWARE INTACT. 2. STABLE DEGENERATIVE CHANGES | | | DESCRIBED ABOVE. Dictated Date/Time: 03/13/2012 14:50 | | | Transcribed Date/Time: 03/13/2012 17:42 Loom Fixer Helper: | | | <<Signature on File>> | | | Daniel | | | MD Jeanmarie03/14/12 0838 <Electronically signed by Daniel Murry MD> | | | Daniel Murry MD 03/13/12 4904 Loom Fixer Helper: [employer] | | | Fgdlggmourzwr31/18/12 2533 David Montgomery MD | | + + + + + + + + | Performing | Address | City/State/Zipcode | Phone Number | | Organization | | | | + + + + + | [facility] | [address] | [place] | [phone] | | [facility] | | [address] | | | - IMAGING | | | | + + + + + documented in this encounter Visit Diagnoses + + | Diagnosis | + + | Status post lumbar spinal fusion Arthrodesis status | + + documented in this encounter
--- OUTSIDE RECORDS SUMMARY | ~2019-03-21 | XMS | Encounter Summary ---
Demographics + + + | Address | [address] | | | [place] [address] | + + + | Home Phone | | + + + | Preferred Language | Unknown | + + + | Marital Status | | + + + | Caodaism Affiliation | 1013 | + + + | Race | Unknown | + + + | Ethnic Group | Unknown | + + + Author + + + | Author | [facility] | | | and [place] | + + + | Organization | [facility] | | | [...] Team Providers + +------+ + | Care Can Sealer Name | Role | Phone | + +------+ + | Kaushik Christensen MD | PCP | | + +------+ + Encounter Details +--------+ + + + + | Date | Type | Department | Care Team | Description | +--------+ + + + + | 11/02/ | Orders Only | [facility] | AlbertChung matthews, | | | 2016 | | NEPRHOLOGY [place] | COMPUTER APPLICATIONS ENGINEER [address] | | | | | [address] | [facility] | | | | | [address] [place], [place] | [place] | | | | | [address] | [address] | | | | | [phone] | [phone] | | | | | | | [...] MONET | | | | | | [place] [address] | | | | | | [phone] | | | | | | | | +--------+---------+ + + + documented as of this encounter Procedures + +--------+ + + + | Procedure Name | Priori | Date/Time | Associated Diagnosis | Comments | | | ty | | | | + +--------+ + + + | BASIC METABOLIC | Routin | 11/02/2016 | | Results for this | | PANEL | e | 10:03 AM | | procedure are in the | | | | PDT | | results section. | + +--------+ + + + documented in this encounter Results Basic Metabolic Panel (11/02/2016 10:03 AM PDT) + + + + + + | Component | Value | Ref Range | Performed | Pathologist | | | | | At | Signature | + + + + + + | Glucose, | 101 (A) | 70 - 100 mg/dL | EXTERNAL | | | Fasting | | | LAB | | + + + + + + | BUN | 31 (A) | 6 - 23 mg/dL | EXTERNAL | | | | | | LAB | | + + + + + + | Creatinine | 1.78 (A) | 0.70 - 1.11 | EXTERNAL [...]
--- OUTSIDE RECORDS SUMMARY | ~2019-03-21 | XMS | Encounter Summary ---
Demographics + + + | Address | [address] | | | [place] [address] | + + + | Home Phone | | + + + | Preferred Language | Unknown | + + + | Marital Status | | + + + | Moravian Affiliation | 1013 | + + + | Race | Unknown | + + + | Ethnic Group | Unknown | + + + Author + + + | Author | [facility] | | | and [place] | + + + | Organization | [facility] | | | [...] Team Providers + +------+ + | Care Wind Energy Project Manager Name | Role | Phone | + +------+ + | Renaldo Ramirez DO | PCP | Unavailable | + +------+ + Reason for Visit +--------+ + | Reason | Comments | +--------+ + | Other | BARDI | +--------+ + Diagnostic/Screening (Routine) +--------+--------+ + + + + | Status | Reason | Specialty | Diagnoses / | Referred By | Referred To | | | | | Procedures | Contact | Contact | +--------+--------+ + + + + | Closed | | Cardiology | Diagnoses | Simon, | Antoine | | | | | 48 hr | Jose Juan Reed, | Cardiology | | | | | Procedures | MD [address] | [place] | | | | | CR EVENT | [address] | [address] | | | | | MONITOR | [address] | [address] | | | | | | [place], [place] | [place], [place] | | | | | | [address] | [address] | | | | | | Phone: | Phone: | | | | | | [phone] | [phone] | | | | | | Fax: | Fax: | | | | | | [phone] | [phone] | +--------+--------+ + + + + Encounter Details +--------+ + + + + | Date | Type | Department | Care Team | Description | +--------+ + + + + | 03/07/ | Procedure | [facility] | Jose Juan Montes, | Persistent atrial | | 2019 | visit | CARDIOLOGY [place] | [address] | fibrillation | | | | [address] | [address] [facility], | | | | | [address] | [place] [address] | | | | | [place], [place] | [phone] | | | | | [address] | | | | | | [phone] | | | +--------+ + + + [...] documented as of this encounter Progress Notes Mile Freitas, Projector Operator - 03/07/2019 3:30 PM PSTBardi monitor placed on sherman ent. Instructions for reporting symptoms, and monitoring in patient diary given and underst ood. Patient instructed to call if questions arise. REF:R1000 SN: [id number] BARCODE # [id number] JDW:CONNECTION WORKER-AAMA. doc umented in this encounter Plan of Treatment +--------+---------+ + + + | Date | Type | Specialty | Care Team | Description | +--------+---------+ + + + | 04/08/ | Office | Cardiology | Alexandra Amaya | | | 2019 | Visit | | [address] | | | | | | [address] | | | | | | [place] [address] | | | | | | [phone] | | | | | | | | +--------+---------+ + + + documented as of this encounter Visit Diagnoses + + | Diagnosis | + + | Persistent atrial fibrillation Atrial fibrillation | + + documented in this encounter"
--- OUTSIDE RECORDS SUMMARY | ~2019-03-21 | XMS | Encounter Summary ---
Demographics + + + | Address | [address] | | | [place] [address] | + + + | Home Phone | | + + + | Preferred Language | Unknown | + + + | Marital Status | | + + + | Advent Affiliation | 1013 | + + + [...] Team Providers + +------+ + | Care Hand Glass Cutter Name | Role | Phone | + [...] | SR | | | | | [phone] | | | +--------+ + + + [...] | | | | | [place] [address] | | | | | | [phone] | | | | | | | | +--------+---------+ + + + documented as of this encounter Visit Diagnoses Not on filedocumented in this encounter
--- OUTSIDE RECORDS SUMMARY | ~2019-03-21 | XMS | Encounter Summary ---
Demographics + + + | Address | [address] | | | [place] [address] | + + + | Home Phone | | + + + | Preferred Language | Unknown | + + + | Marital Status | | + + + | Confucianist Affiliation | 1013 | + + + [...] Team Providers + +------+ + | Care Fermentologist Name | Role | Phone | + +------+ + | Kaushik Christensen MD | PCP | | + +------+ + Encounter Details +--------+ + + + + | Date | Type | Department | Care Team | Description | +--------+ + + + + | 07/25/ | Orders Only | [facility] | Conversion | | | 2018 | | NEPRHOLOGY [place] | Transaction, | | | | | [address] | Provider Unknown | | | | | [address] [place], [place] | | | | | | [address] | (Fax) | | | | | [phone] | | | +--------+ + + + [...] MON[address] | | | | | | [place] [address] | | | | | | [phone] | | | | | | | [...]
--- OUTSIDE RECORDS SUMMARY | ~2019-03-21 | XMS | Encounter Summary ---
Demographics + + + | Address | [address] | | | [place] [address] | + + + | Home Phone | | + + + | Preferred Language | Unknown | + + + | Marital Status | | + + + | Presybeterian Affiliation | 1013 | + + + [...] Team Providers + +------+ + | Care Milieu Coordinator Name | Role | Phone | + +------+ + | Kaushik Christensen MD | PCP | | + +------+ + Encounter Details +--------+ + + + + | Date | Type | Department | Care Team | Description | +--------+ + + + + | 09/21/ | Orders Only | [facility] | Chung Rushing, | | | 2016 | | NEPHROLOGY [place] | PROPELLER ENGINEER [address] | | | | | [address] [facility] | [facility] [address] | | | | | [place] | [place] | | | | | [address] | [address] | | | | | [phone] | [phone] | | | | | | | [...] [address] | | | | | | [place] [address] | | | | | | [phone] | | | | | | | [...]
--- OUTSIDE RECORDS SUMMARY | ~2019-03-21 | XMS | Encounter Summary ---
Demographics + + + | Address | [address] | | | [place] [address] | + + + | Home Phone | | + + + | Preferred Language | Unknown | + + + | Marital Status | | + + + | Gnosticism Affiliation | 1013 | + + + | Race | Unknown | + + + | Ethnic Group | Unknown | + + + Author + + + | Author | [facility] | | | and [place] | + + + | Organization | [facility] | | | [...] Team Providers + +------+ + | Care Assistant Teacher Primary Name | Role | Phone | + +------+ + | Kaushik Christensen MD | PCP | | + +------+ + Reason for Visit +--------+ + | Reason | Comments | +--------+ + | Other | Appointment reminder call | +--------+ + Encounter Details +--------+ + + + + | Date | Type | Department | Care Team | Description | +--------+ + + + + | 01/30/ | Telephone | [facility] | Rojo, | Other (Appointment | | 2019 | | NEPHROLOGY [place] | Kash Treadwell | reminder call) | | | | [address] | Calender Worker Helper | | | | | [place] [address] | | | | | | [place], [place] | | | | | | [address] | | | | | | [phone] | | | +--------+ + + + [...] [address] | | | | | | [place] [address] | | | | | | [phone] | | | | | | | | +--------+---------+ + + + documented as of this encounter Visit Diagnoses Not on filedocumented in this encounter"
--- OUTSIDE RECORDS SUMMARY | ~2019-03-21 | XMS | Encounter Summary ---
Demographics + + + | Address | [address] | | | [place] [address] | + + + | Home Phone | | + + + | Preferred Language | Unknown | + + + | Marital Status | | + + + | Hoahaoism Affiliation | 1013 | + + + | Race | Unknown | + + + | Ethnic Group | Unknown | + + + Author + + + | Author | [facility] | | | and [place] | + + + | Organization | [facility] | | | [...] Team Providers + +------+ + | Care Delinquency Prevention Officer Name | Role | Phone | [...] | | [address] | [place] [address] | surgery) | | | | [place] | [phone] | | | | | [address] | | | | | | [phone] | | | +--------+ + + + [...] MON[address] | | | | | | [place] [address] | | | | | | [phone] | | | | | | | | +--------+---------+ + + + documented as of this encounter Visit Diagnoses Not on filedocumented in this encounter"
--- OUTSIDE RECORDS SUMMARY | ~2019-03-21 | XMS | Encounter Summary ---
Demographics + + + | Address | [address] | | | [place] [address] | + + + | Home Phone [...] Team Providers + +------+ + | Care Choreography Director Name | Role | Phone | + +------+ + | Kaushik Christensen MD | PCP | | + +------+ + Encounter Details +--------+ + + + + | Date | Type | Department | Care Team | Description | +--------+ + + + + | 03/13/ | Hospital | [facility] | David Montgomery MD | Status post lumbar | | 2012 - | Encounter | MED CTR XRAY [address] | spinal fusion | | | | [place] | [place] [address] | | | 03/15/ | | [place] [address] | [phone] | | | 2011 | | [phone] | | | +--------+ + + + [...] [address] | | | | | | [place] [address] | | | | | | [phone] | | | | | | | [...] Performed At | + + + | [facility] | [place] | | Department [address] [facility] | [facility] | | [ rep [address]] [ rep [facility] | | [facility]] Signed | - IMAGING | | | | | Patient Name: JORDAN GRULLON | | | Physician: LANNY : 1930 Age: 82 Sex: F Unit | | | #: [id number] Exam Date: 03/13/12 Location: | | | [facility] [place] Report #: [id number] Page: | | | %(RAD)RES..mtdd.print.filter("pg") of %(RAD) | | | RES..mtdd.print.filter("tpg") | | | | | | Accession Number: [id number] | | | LUMBAR SPINE X-RAY CLINICAL [...] | | | Transcribed Date/Time: 03/13/2012 17:42 Physical Science Aide: | | | <<Signature on File>> | | | Daniel | | | MD Jeanmarie03/14/12 0838 <Electronically signed by Daniel Murry MD> | | | Daniel Murry MD 03/13/12 0895 Physical Science Aide: [employer] | | | Jamnuixehqfak88/18/12 4756 David Montgomery MD | | + + + + + + + + | Performing | Address | City/State/Zipcode | Phone Number | | Organization | | | | + + + + + | [facility] | [address] | [place] | [phone] | | [facility] | | [address] | | | - IMAGING | | | | + + + + + documented in this encounter Visit Diagnoses + + | Diagnosis | + + | Status post lumbar spinal fusion Arthrodesis status | + + documented in this encounter
--- OUTSIDE RECORDS SUMMARY | ~2019-03-21 | XMS | Encounter Summary ---
Demographics + + + | Address | [address] | | | [place] [address] | + + + | Home Phone | | + + + | Preferred Language | Unknown | + + + | Marital Status | | + + + | Baptism Affiliation | 1013 | + + + [...] Team Providers + +------+ + | Care Scanning Clerk Name | Role | Phone | + +------+ + | Kaushik Christensen MD | PCP | | + +------+ + Reason for Referral Evaluate & Treat (Routine) +--------+ + + + + + | Status | Reason | Specialty | Diagnoses / | Referred By | Referred To | | | | | Procedures | Contact | Contact | +--------+ + + + + + | Closed | Specialty | Physical | Diagnoses | [facility] | | | | Services | Therapy | Status post | Neurosurgery | | | | Required | | lumbar | [address] | | | | | | spinal | [address] | | | | | | fusion | [address] | | | | | | | [place], | | | | | | | [place] | | | | | | | [address] | | | | | | | Phone: | | | | | | | [phone] | | | | | | | Fax: | | | | | | | [phone] | | +--------+ + + + + + + + | Scheduling Instructions | + + | Four to eight weeks post-surgery: Physical therapy to evaluate and treat plus one to | | two sessions to teach body mechanics and light core stabilization techniques. Progress | | with aquatic therapy 2-3x/week for 4 weeks and transition to independent program. | | Eight to twelve weeks post-surgery: Begin land physical therapy for lumbar spine | | stabilization exercises and core conditioning, 2-3x/week for 4 weeks. | + + Reason for Visit + + + | Reason | Comments | + + + | Wound Check | 2 week post op | + + + Encounter Details +--------+ + + + + | Date | Type | Department | Care Team | Description | +--------+ + + + + | 02/12/ | Clinical | [facility] | | Status post lumbar | | 2011 | Support | NEUROSURGERY [address] | | spinal fusion | | | | [address] | | (Primary Dx) | | | | [place] | | | | | | [address] | | | | | | [phone] | | | +--------+ + + + [...] + + documented as of this encounter Patient Instructions Patient Instructions Emiliano Mccullough - 02/13/2012 11:06 AM PSTMay lift up to 15 pounds a nd start physical therapy 02/29/12. 1 1:06 AM PST documented in this encounter Progress Notes Emiliano Mccullough - 02/13/2012 11:21 AM PST Neurosurgery Postoperative Wound Check/Nurse Visit Wound Information: Location: Back Photo Attached: no Wound Type: Surgical Incisons Wound Size: WNL Wound Bed: WNL Wound Edges: Well approximated and intact Drainage (Amount): none Drainage (Color): none Odor: none Treatment/Dressing: Open to air Lab Orders: Clinical/Plan: Pain (0-10): 4/10 Pain Management: Percocet Effective Pain Mgmt: yes Refill Needed: no Notes: Ambulating well using 4-wheel walker. Walking everyday short frequent walks around her house. She was not wearing her brace, advised that the brace needs to be worn at all ti mes when awake. Complained of some numbness and tingling to left leg but states that this w as prior to surgery. She believes that it is from arthritis. Therapy Plans: To start one month after surgery. X-Rays: Prior to next appointment Plan/Follow-Up: Appointment with Dr. Montgomery documented in this en counter Plan of Treatment +--------+---------+ + + + | Date | Type | Specialty | Care Team | Description | +--------+---------+ + + + | 04/08/ | Office | Cardiology | Alexandra Amaya | | | 2020 | Visit | | [address] | | | | | | [address] | | | | | | [place] [address] | | | | | | [phone] | | | | | | | | +--------+---------+ + + + + + +--------+ + + | Name | Type | Priori | Associated Diagnoses | Order Schedule | | | | ty | | | + + +--------+ + + | Ambulatory referral | Outpatient | Routin | Status post lumbar | 1 Occurrences | | to Physical Therapy | Referral | e | spinal fusion | starting 02/13/2012 | | | | | | until 05/01/2012 | + + +--------+ + + documented as of this encounter Results XR Lumbar Spine 2 or 3 Vw (03/13/2012 2:50 PM PST) + + | Specimen | + + | | + + + + + | Narrative | Performed At | + + + | [facility] | [place] | | Department [address] [facility] | [facility] | | [ rep [address]] [ rep [facility] | | [facility]] Signed | - IMAGING | | | | | Patient Name: JORDAN GRULLON | | | Physician: LANNY : 1930 Age: 82 Sex: F Unit | | | #: [id number] Exam Date: 03/13/12 Location: | | | [facility] [place] Report #: [id number] Page: | | | %(RAD)RES..mtdd.print.filter("pg") of %(RAD) | | | RES..mtdd.print.filter("tpg") | | | | | | Accession Number: [id number] | | | LUMBAR SPINE X-RAY CLINICAL [...] | | | Transcribed Date/Time: 03/13/2012 17:42 Fence Laborer: | | | <<Signature on File>> | | | Daniel | | | MD Jeanmarie03/14/12 0838 <Electronically signed by Daniel Murry MD> | | | Daniel Murry MD 03/13/12 1673 Fence Laborer: [facility] | | | Ejtmhltybjufw72/18/12 5126 David Montgomery MD | | + + + + + + + + | Performing | Address | City/State/Zipcode | Phone Number | | Organization | | | | + + + + + | [facility] | [address] | [place] | [phone] | | [facility] | | [address] | | | - IMAGING | | | | + + + + + documented in this encounter Visit Diagnoses + + | Diagnosis | + + | Status post lumbar spinal fusion - Primary Arthrodesis status | + + documented in this encounter
--- OUTSIDE RECORDS SUMMARY | ~2019-03-21 | XMS | Encounter Summary ---
Demographics + + + | Address | [address] | | | [place] [address] | + + + | Home Phone | | + + + | Preferred Language | Unknown | + + + | Marital Status | | + + + | Buddhist Affiliation | 1013 | + + + | Race | Unknown | + + + | Ethnic Group | Unknown | + + + Author + + + | Author | [facility] | | | and [place] | + + + | Organization | [facility] | | | and [...] Team Providers + +------+ + | Care Effervescent Salts Compounder Name | Role | Phone | + +------+ + | Kaushik Christensen MD | PCP | | + +------+ + Encounter Details +--------+ + + + + | Date | Type | Department | Care Team | Description | +--------+ + + + + | 07/26/ | Orders Only | [facility] | Chung Rushing, | | | 2018 | | NEPHROLOGY [place] | [address] | | | | | [address] | [address] | | | | | [address] [place], [place] | [place] | | | | | [address] | [address] | | | | | [phone] | | | | | | | [...] | | | | | [place] [address] | | | | | | [phone] | | | | | | | | +--------+---------+ + + + documented as of this encounter Procedures + +--------+ + + + | Procedure Name | Priori | Date/Time | Associated Diagnosis | Comments | | | ty | | | | + +--------+ + + + | EXTERNAL LAB: CBC | Routin | 07/26/2018 | | Results for this | | | e | 11:19 AM | | procedure are in the | | | | PDT | | results section. | + +--------+ + + + | PROTEIN/CREATININE | Routin | 07/26/2018 | | Results for this | | RATIO, URINE | e | 11:19 AM | | procedure are in the | | | | PDT | | results section. | + +--------+ + + + | URIC ACID | Routin | 07/26/2018 | | Results for this | | | e | 11:19 AM | | procedure are in the | | | | PDT | | results section. | + +--------+ + + + | MAGNESIUM | Routin | 07/26/2018 | | Results for this | | | e | 11:19 AM | | procedure are in the | | | | PDT | | results section. | + +--------+ + + + | RENAL FUNCTION PANEL | Routin | 07/26/2018 | | Results for this | | | e | 11:19 AM | | procedure are in the | | | | PDT | | results section. | + +--------+ + + + documented in this encounter Results Protein/Creatinine Ratio, Urine (07/26/2018 11:19 AM PDT) + + + + + + | Component | Value | Ref Range | Performed | Pathologist | | | | | At | Signature | + + + + + + | Protein/Cre | 187.9 (A) | 0 - 150 | EXTERNAL [...] | + +---------+ + + External Lab: JAYLENE (07/26/2018 11:19 AM PDT) + + + + + + | Component | Value | Ref Range | Performed | Pathologist | | | | | At | Signature | + + + + + + | WBC | 4.1 (A) | 4.5 - 11.0 | EXTERNAL | | | | | | LAB | | + + + + + + | RED CELL | 4.03 | 3.8 - 5.1 10 | EXTERNAL | | | COUNT | | | LAB | | + + + + + + | Hgb | 12.4 | 12.0 - 16.0 | EXTERNAL | | | | | g/dL | LAB | | + + + + + + | Hematocrit, | 37.5 | 35 - 45 % | EXTERNAL [...] + + + + | Platelet | 183 | 140 - 440 K/ L | EXTERNAL | | | Count | | | LAB | | | Plasma | | | | | + + + + + + | RDW-CV | 15.6 (A) | 10.5 - 15.0 % | [...] + + + | % Segmented | 60.0 | 39 - 80 % | EXTERNAL | | | | | | LAB | | | Neutrophils | | | | | + + + + + + | % | 23.1 (A) | 24 - 44 % | EXTERNAL | | | Lymphocytes | | | LAB | | + + + + + + | % Monocytes | 8.5 | 0 - 12 % | EXTERNAL | | | | | | LAB | | + + + + + + | % | 6.7 (A) | 0 - 6 % | EXTERNAL | | | Eosinophils | | | LAB | | + + + + + + | % Basophils | 1.7 | 0 - 2 % | EXTERNAL [...] | + +---------+ + + Uric Acid (07/26/2018 11:19 AM PDT) + +-------+ + + + [...] | | + +---------+ + + Magnesium (07/26/2018 11:19 AM PDT) + +-------+ + + + | Component | Value | Ref Range | Performed | Pathologist | | | | | At | Signature | + +-------+ + + + | Magnesium | 2.3 | 1.7 - 2.5 mg/dL | EXTERNAL [...] + +---------+ + + Renal Function Panel (07/26/2018 11:19 AM PDT) + + + + + + | Component | Value | Ref Range | Performed | Pathologist | | | | | At | Signature | + + + + + + | Glucose, | 87 | 70 - 100 mg/dL | EXTERNAL | | | Fasting | | | LAB | | + + + + + + | BUN | 28 (A) | 6 - 23 mg/dL | EXTERNAL | | | | | | LAB | | + + + + + + | Creatinine | 1.70 (A) | 0.70 - 1.11 | EXTERNAL [...] + + + | Anion Gap | 19.8 | 7 - 21 mmol/L | EXTERNAL | | | | | | LAB | | + + + + + + | eGFR if not | | | EXTERNAL | | | | | | LAB | | | [place] | | | | | + + + + + + | Phosphorus, | | | EXTERNAL | | | Inorganic | | | LAB | | + + + + + + | BUN/Creatin | 16.5 | 6.0 - 28.6 | EXTERNAL | | | ine Ratio | | | LAB | | + + + + + + | Calcium | 9.3 | 8.5 - 10.3 | EXTERNAL | | | | | mg/dL | LAB | | + + + + + + | Estimated | 28 (A) | 60 - 140 mg/dL | [...]
--- OUTSIDE RECORDS SUMMARY | ~2019-03-21 | XMS | Encounter Summary ---
Demographics + + + | Address | [address] | | | [place] [address] | + + + | Home Phone | | + + + | Preferred Language | Unknown | + + + | Marital Status | | + + + | Confucianist Affiliation | 1013 | + + + | Race | Unknown | + + + | Ethnic Group | Unknown | + + + Author + + + | Author | [facility] | | | and [place] | + + + | Organization | [facility] | | | [...] Team Providers + +------+ + | Care Textile Technologist Name | Role | Phone | + +------+ + | Kaushik Christensen MD | PCP | | + +------+ + Encounter Details +--------+ + + + + | Date | Type | Department | Care Team | Description | +--------+ + + + + | 02/17/ | Orders Only | [facility] | Silvio Alfred MD | | | 2013 | | NEPRHOLOGY [place] | [address] | | | | | [address] | [address] [place], [place] | | | | | [address] [place], [place] | [address] | | | | | [address] | | | | | | [phone] | | | +--------+ + + + [...] [place] | | | | | | [facility] [address] | | | | | | [phone] | | | | | | | | +--------+---------+ + + + documented as of this encounter Procedures + +--------+ + + + | Procedure Name | Priori | Date/Time | Associated Diagnosis | Comments | | | ty | | | | + +--------+ + + + | URINALYSIS WITH | Routin | 02/17/2014 | | Results for this | | MICROSCOPIC WITH | e | 12:00 AM | | procedure are in the | | CULTURE IF INDICATED | | PST | | results section. | + +--------+ + + + | VITAMIN D, | Routin | 02/17/2014 | | Results for this | | DEFICIENCY SCREEN | e | 12:00 AM | | procedure are in the | | (25-HYDROXY) | | PST | | results section. | + +--------+ + + + | PARATHYROID HORMONE, | Routin | 02/17/2014 | | Results for this | | INTACT AND CALCIUM | e | 12:00 AM | | procedure are in the | | | | PST | | results section. | + +--------+ + + + | HEMOGLOBIN AND | Routin | 02/17/2014 | | Results for this | | HEMATOCRIT | e | 12:00 AM | | procedure are in the | | | | PST | | results section. | + +--------+ + + + | PROTEIN/CREATININE | Routin | 02/17/2014 | | Results for this | | RATIO, URINE | e | 12:00 AM | | procedure are in the | | | | PST | | results section. | + +--------+ + + + | PROTEIN, URINE, | Routin | 02/17/2014 | | Results for this | | RANDOM | e | 12:00 AM | | procedure are in the | | | | PST | | results section. | + +--------+ + + + | CREATININE, URINE, | Routin | 02/17/2014 | | Results for this | | RANDOM | e | 12:00 AM | | procedure are in the | | | | PST | | results section. | + +--------+ + + + | URIC ACID | Routin | 02/17/2014 | | Results for this | | | e | 12:00 AM | | procedure are in the | | | | PST | | results section. | + +--------+ + + + | MAGNESIUM | Routin | 02/17/2014 | | Results for this | | | e | 12:00 AM | | procedure are in the | | | | PST | | results section. | + +--------+ + + + | RENAL FUNCTION PANEL | Routin | 02/17/2014 | | Results for this | | | e | 12:00 AM | | procedure are in the | | | | PST | | results section. | + +--------+ + + + documented in this encounter Results Urinalysis with Microscopic with Culture if Indicated (02/17/2014 12:00 AM PST) + + + + [...] + + + | Spec Grav, | 1.016 | 1.005 - 1.030 | EXTERNAL | [...] + + Parathyroid Hormone, Intact and Calcium (02/17/2014 12:00 AM PST) + + + + + + | Component | Value | Ref Range | Performed | Pathologist | | | | | At | Signature | + + + + + + | PTH Intact | 109.7 (A) | 15 - 65 | EXTERNAL [...] | | | + +---------+ + + Hemoglobin and Hematocrit (02/17/2014 12:00 AM PST) + +-------+ + + + | Component | Value | Ref Range | Performed | Pathologist | | | | | At | Signature | + +-------+ + + + | Hemoglobin | 13.0 | 12.0 - 16.0 | EXTERNAL | | | | | | LAB | | + +-------+ + + + | Hematocrit, | 38.6 | 35 - 45 % | EXTERNAL [...] + +---------+ + + Protein/Creatinine Ratio, Urine (02/17/2014 12:00 AM PST) + +-------+ + + + | Component | Value | Ref Range | Performed | Pathologist | | | | | At | Signature | + +-------+ + + + | Protein/Cre | 92.6 | 0 - 150 | EXTERNAL | [...] + +---------+ + + Protein, Urine, Random (02/17/2014 12:00 AM PST) + +-------+ + + + | Component | Value | Ref Range | Performed | Pathologist | | | | | At | Signature | + +-------+ + + + | Protein, | 10 | 0.0 - 50.0 | EXTERNAL | [...] + +---------+ + + Creatinine, Urine, Random (02/17/2014 12:00 AM PST) + +-------+ + + + | Component | Value | Ref Range | Performed | Pathologist | | | | | At | Signature | + +-------+ + + + | Creatinine, | 108 | | EXTERNAL | | | 24H [...] + + Vitamin D, Deficiency Screen (25-Hydroxy) (02/17/2014 12:00 AM PST) + +--------+ + + + | Component | Value | Ref Range | Performed | Pathologist | | | | | At | Signature | + +--------+ + + + | Vit D, | 28 (A) | 30 - 100 | EXTERNAL | | | 25-Hydroxy | | | LAB | | + +--------+ + + + + + | Specimen | + + | Blood specimen | | (specimen) | + + + +---------+ + + | Performing | Address | City/State/Zipcode | Phone Number | | Organization | | | | + +---------+ + + | EXTERNAL LAB | | | | + +---------+ + + Uric Acid (02/17/2014 12:00 AM PST) + +---------+ + + + | Component | Value | Ref Range | Performed | Pathologist | | | | | At | Signature | + +---------+ + + + | Uric Acid | 8.6 (A) | 2.3 - 6.6 | EXTERNAL [...] | | + +---------+ + + Magnesium (02/17/2014 12:00 AM PST) + +-------+ + + [...] + +---------+ + + Renal Function Panel (02/17/2014 12:00 AM PST) + + + + [...] + + + + | Creatinine | 1.27 (A) | 0.70 - 1.11 | EXTERNAL | | | | | mg/dL | LAB | | + + + + + + | PHOSPHORUS | | mg/dL | EXTERNAL | | | | | | LAB | | + + + + + + | Albumin | 4.1 | 3.5 - 5.0 | EXTERNAL | [...] + + + | Anion Gap | 13.7 | 7 - 21 mmol/L | EXTERNAL | | | | | | LAB | | + + + + + + | eGFR if not | | | EXTERNAL | | | | | | LAB | | | [place] | | | | | + + + + + + | Phosphorus, | 3.7 | 2.5 - 5.0 | EXTERNAL | | | Inorganic | | | LAB | | + + + + + + | BUN/Creatin | 22.0 | 6.0 - 28.6 | EXTERNAL | | | ine Ratio | | | LAB | | + + + + + + | Calcium | 9.4 | 8.4 - 10.2 | EXTERNAL | | | | | mg/dL | LAB | | + + + + + + | Estimated | 40 | mg/dL | EXTERNAL | | | [...]
--- OUTSIDE RECORDS SUMMARY | ~2019-03-21 | XMS | Encounter Summary ---
Demographics + + + | Address | [address] | | | [place] [address] | + + + | Home Phone | | + + + | Preferred Language | Unknown | + + + | Marital Status | | + + + | Gnosticism Affiliation | 1013 | + + + | Race | Unknown | + + + | Ethnic Group | Unknown | + + + Author + + + | Author | [facility] | | | and [place] | + + + | Organization | [facility] | | [...] Team Providers + +------+ + | Care Lean Engineer Name | Role | Phone | [...] + + | 02/12/ | Refill | [facility] | Silvio Alfred MD | Medication Refill | | 2019 | | NEPHROLOGY [place] | [address] [place] | | | | | [address] | [address] [facility] [place] | | | | | [facility] [address] | [address] | | | | | [place], [place] | | | | | | [address] | | | | | | [phone] | | | +--------+--------+ + + + [...] [address] | | | | | | [place] [address] | | | | | | [phone] | | | | | | | [...]
--- OUTSIDE RECORDS SUMMARY | ~2019-03-21 | XMS | Encounter Summary ---
Demographics + + + | Address | [address] | | | [place] [address] | + + + | Home Phone | | + + + | Preferred Language | Unknown | + + + | Marital Status | | + + + | Yarsanism Affiliation | 1013 | + + + | Race | Unknown | + + + | Ethnic Group | Unknown | + + + Author + + + | Author | [facility] | | | and [place] | + + + | Organization | [facility] | | | [...] Team Providers + +------+ + | Care Juvenile Court Judge Name | Role | Phone | + +------+ + | Kaushik Christensen MD | PCP | | + +------+ + Encounter Details +--------+ + + + + | Date | Type | Department | Care Team | Description | +--------+ + + + + | 04/21/ | Orders Only | [facility] | Silvio Alfred MD | | | 2014 | | NEPHROLOGY [place] | [address] | | | | | [address] | [address] [place], [place] | | | | | [address] [place], [place] | [address] | | | | | [address] | | | | | | [phone] | | | +--------+ + + + [...] [place] | | | | | | [place] [address] | | | | | | [phone] | | | | | | | [...] | | | LAB | | | [place] | | | | | + + [...]
--- OUTSIDE RECORDS SUMMARY | ~2019-03-21 | XMS | Encounter Summary ---
Demographics + + + | Address | [address] | | | [place] [address] | + + + | Home Phone | | + + + | Preferred Language | Unknown | + + + | Marital Status | | + + + | Christian Affiliation | 1013 | + + + | Race | Unknown | + + + | Ethnic Group | Unknown | + + + Author + + + | Author | [facility] | | | and [place] | + + + | Organization | [facility] | | | and [place] | + + + | Address | Unknown | + + + | Phone | Unavailable | + + + Support + + +---------+ + | Name | Relationship | Address | Phone | + + +---------+ + | lEadia Moore | ECON | Unknown | | + + +---------+ + | Bisi Hooks | ECON | Unknown | | + + +---------+ + Care Team Providers + +------+ + | Care Sterile Technician Name | Role | Phone | + +------+ + | Kaushik Christensen MD | PCP | | + +------+ + Encounter Details +--------+ + + + + | Date | Type | Department | Care Team | Description | +--------+ + + + + | 02/21/ | Orders Only | [facility] | AlbertChung matthews, | | | 2016 | | NEPRHOLOGY [place] | AIDS SOCIAL WORKER [address] | | | | | [address] | [facility] | | | | | [address] [place], [place] | [place] | | | | | [address] | [address] | | | | | [phone] | [phone] | | | | | | | [...] [address] | | | | | | [place] [address] | | | | | | [phone] | | | | | | | | +--------+---------+ + + + documented as of this encounter Procedures + +--------+ + + + | Procedure Name | Priori | Date/Time | Associated Diagnosis | Comments | | | ty | | | | + +--------+ + + + | EXTERNAL LAB: CBC | Routin | 02/21/2017 | | Results for this | | | e | 12:00 AM | | procedure are in the | | | | PST | | results section. | + +--------+ + + + | URINALYSIS, REFLEX | Routin | 02/21/2017 | | Results for this | | MICROSCOPIC AND/OR | e | 12:00 AM | | procedure are in the | | CULTURE | | PST | | results section. | + +--------+ + + + | PROTEIN/CREATININE | Routin | 02/21/2017 | | Results for this | | RATIO, URINE | e | 12:00 AM | | procedure are in the | | | | PST | | results section. | + +--------+ + + + | URIC ACID | Routin | 02/21/2017 | | Results for this | | | e | 12:00 AM | | procedure are in the | | | | PST | | results section. | + +--------+ + + + | PARATHYROID HORMONE, | Routin | 02/21/2017 | | Results for this | | INTACT | e | 12:00 AM | | procedure are in the | | | | PST | | results section. | + +--------+ + + + | MAGNESIUM | Routin | 02/21/2017 | | Results for this | | | e | 12:00 AM | | procedure are in the | | | | PST | | results section. | + +--------+ + + + | RENAL FUNCTION PANEL | Routin | 02/21/2017 | | Results for this | | | e | 12:00 AM | | procedure are in the | | | | PST | | results section. | + +--------+ + + + documented in this encounter Results Urinalysis, Reflex Microscopic and/or Culture (02/21/2017 12:00 AM PST) + + + + [...] Performed At | + + + | CATS - HYALINE 1+ WBC'S 0-0- 4 RBC'S - 0-0-4 EPITHELIAL - | EXTERNAL LAB | | SQUAMOUS 1+ CRYSTALS - NEGATIVE BACTERIA - 1+ | | + + + + +---------+ + + | Performing | Address | City/State/Zipcode | Phone Number | | Organization | | | | + +---------+ + + | EXTERNAL LAB | | | | + +---------+ + + Protein/Creatinine Ratio, Urine (02/21/2017 12:00 AM PST) + +-------+ + + + | Component | Value | Ref Range | Performed | Pathologist | | | | | At | Signature | + +-------+ + + + | Protein/Cre | 75.5 | 0 - 150 | EXTERNAL | | | at Ratio | | | LAB | | + +-------+ + + + + + | Specimen | + + | Urine specimen | | (specimen) | + + + + + | Narrative | Performed At | + + + | PROTEIN, URINE - 4 - 0.0 - 50.0 CREATININE, URINE - 53 | EXTERNAL LAB | + + + + +---------+ + + | Performing | Address | City/State/Zipcode | Phone Number | | Organization | | | | + +---------+ + + | EXTERNAL LAB | | | | + +---------+ + + External Lab: CBC (02/21/2017 12:00 AM PST) + +---------+ + + + | Component | Value | Ref Range | Performed | Pathologist | | | | | At | Signature | + +---------+ + + + | WBC | 4.2 (A) | 4.5 - 11.0 10 | EXTERNAL | | | | | | LAB | | + +---------+ + + + | RED CELL | 4.00 | 3.8 - 5.1 10 | EXTERNAL | | | COUNT | | | LAB | | + +---------+ + + + | Hgb | 12.3 | 12.0 - 16.0 | EXTERNAL | | | | | g/dL | LAB | | + +---------+ + + + | Hematocrit, | 36.8 | 35 - 45 % | EXTERNAL | | | POC | | | LAB | | + +---------+ + + + | MCV | 91.8 | 81 - 99 fL | EXTERNAL | | | | | | LAB | | + +---------+ + + + | MCH | 31 | 27 - 33 pg | EXTERNAL | | | | | | LAB | | + +---------+ + + + | MCHC | 33 | 30 - 36 g/dL | EXTERNAL | | | | | | LAB | | + +---------+ + + + | Platelet | 154 | 140 - 440 K/ L | EXTERNAL | | | Count | | | LAB | | | Plasma | | | | | + +---------+ + + + | RDW-CV | 14.4 | 10.5 - 15.0 % | EXTERNAL | | | | | | LAB | | + +---------+ + + + | MPV | | fL | EXTERNAL | | | | | | LAB | | + +---------+ + + + | Differentia | | | EXTERNAL | | | l Type | | | LAB | | + +---------+ + + + | % Segmented | 54.6 | 39 - 80 % | EXTERNAL | | | | | | LAB | | | Neutrophils | | | | | + +---------+ + + + | % | 32.3 | 24 - 44 % | EXTERNAL | | | Lymphocytes | | | LAB | | + +---------+ + + + | % Monocytes | 8.4 | 0 - 12 % | EXTERNAL | | | | | | LAB | | + +---------+ + + + | % | 3.5 | 0 - 6 % | EXTERNAL | | | Eosinophils | | | LAB | | + +---------+ + + + | % Basophils | 1.2 | 0 - 2 % | EXTERNAL | | | | | | LAB | | + +---------+ + + + | Absolute | | / L | EXTERNAL | | | Segmented | | | LAB | | | Neutrophils | | | | | + +---------+ + + + | Absolute | | / L | EXTERNAL | | | Lymphocytes | | | LAB | | + +---------+ + + + | Absolute | | / L | EXTERNAL | | | Monocytes | | | LAB | | + +---------+ + + + | Absolute | | / L | EXTERNAL | | | Eosinophils | | | LAB | | + +---------+ + + + | Absolute | | [...] | + +---------+ + + Uric Acid (02/21/2017 12:00 AM PST) + +-------+ + + + | Component | Value | Ref Range | Performed | Pathologist | | | | | At | Signature | + +-------+ + + + | Uric Acid | 5.7 | 2.3 - 6.6 | EXTERNAL | [...] + +---------+ + + Parathyroid Hormone, Intact (02/21/2017 12:00 AM PST) + + + + + + | Component | Value | Ref Range | Performed | Pathologist | | | | | At | Signature | + + + + + + | PTH INTACT | 118.3 (A) | 15 - 65 pg/mL | EXTERNAL | | | | | | LAB | | + + + + + + + + | Specimen | + + | Blood specimen | | (specimen) | + + + + + | Narrative | Performed At | + + + | CALCIUM - 9.3 - 8.4 - 10.2 | EXTERNAL LAB | + + + + +---------+ + + | Performing | Address | City/State/Zipcode | Phone Number | | Organization | | | | + +---------+ + + | EXTERNAL LAB | | | | + +---------+ + + Magnesium (02/21/2017 12:00 AM PST) + +-------+ + + [...] + +---------+ + + Renal Function Panel (02/21/2017 12:00 AM PST) + + + + [...] + + + + | Creatinine | 1.61 (A) | 0.70 - 1.11 | EXTERNAL [...] + + + + | CO2 | 26 | 19 - 31 mmol/L | EXTERNAL | | | | | | LAB | | + + + + + + | Anion Gap | 17.7 | 7 - 21 mmol/L | EXTERNAL | | | | | | LAB | | + + + + + + | eGFR if not | | | EXTERNAL | | | | | | LAB | | | [place] | | | | | + + [...] + + + + | Estimated | 30 | mg/dL | EXTERNAL | | | [...]
--- OUTSIDE RECORDS SUMMARY | ~2019-03-21 | XMS | Encounter Summary ---
Demographics + + + | Address | [address] | | | [place] [address] | + + + | Home Phone | | + + + | Preferred Language | Unknown | + + + | Marital Status | | + + + | Gnosticist Affiliation | 1013 | + + + | Race | Unknown | + + + | Ethnic Group | Unknown | + + + Author + + + | Author | [facility] | | | and [place] | + + + | Organization | [facility] | | [...] Team Providers + +------+ + | Care Trim Machine Operator Name | Role | Phone | + +------+ + | Kaushik Christensen MD | PCP | | + +------+ + Encounter Details +--------+ + + + + | Date | Type | Department | Care Team | Description | +--------+ + + + + | 09/26/ | Orders Only | [facility] | Chung Rushing, | | | 2014 | | NEPHROLOGY [place] | LEAD CYTOGENETIC TECHNOLOGIST [address] | | | | [address] | [address] | | | | | [address] [place], [place] | [place] | | | | | [address] | [address] | | | | | [phone] | | | | | | | [...] [address] | | | | | | [place] [address] | | | | | | [phone] | | | | | | | | +--------+---------+ + + + documented as of this encounter Procedures + +--------+ + + + | Procedure Name | Priori | Date/Time | Associated Diagnosis | Comments | | | ty | | | | + +--------+ + + + | EXTERNAL LAB: CBC | Routin | 09/26/2014 | | Results for this | | | e | 12:00 AM | | procedure are in the | | | | PDT | | results section. | + +--------+ + + + | URINALYSIS WITH | Routin | 09/26/2014 | | Results for this | | MICROSCOPIC IF | e | 12:00 AM | | procedure are in the | | INDICATED | | PDT | | results section. | + +--------+ + + + | COMPREHENSIVE | Routin | 09/26/2014 | | Results for this | | METABOLIC PANEL | e | 12:00 AM | | procedure are in the | | | | PDT | | results section. | + +--------+ + + + documented in this encounter Results Urinalysis with Microscopic if Indicated (09/26/2014 12:00 AM PDT) + + + + [...] + +---------+ + + External Lab: CBC (09/26/2014 12:00 AM PDT) + + + + [...] + + + | RED CELL | 3.73 (A) | 3.8 - 5.1 10 | EXTERNAL | | | COUNT | | | LAB | | + + + + + + | Hgb | 11.2 (A) | 12 - 16.0 g/dL | EXTERNAL | | | | | | LAB | | + + + + + + | Hematocrit, | 34.7 (A) | 35 - 45 % | EXTERNAL | | | POC | | | LAB | | + + + + + + | MCV | 93.2 | 81 - 99 fL | EXTERNAL | | | | | | LAB | | + + + + + + | MCH | 30 | 27 - 33 pg | EXTERNAL | | | | | | LAB | | + + + + + + | MCHC | 32 | 30 - 36 g/dL | EXTERNAL | | | | | | LAB | | + + + + + + | Platelet | 160 | 140 - 440 K/ L | EXTERNAL | | | Count | | | LAB | | | Plasma | | | | | + + + + + + | RDW-CV | 15.3 (A) | 10.5 - 15.0 % | [...] + + + + | % | 33.7 | 24 - 44 % | EXTERNAL | | | Lymphocytes | | | LAB | | + + + + + + | % Monocytes | 7.8 | 0 - 12 % | EXTERNAL | | | | | | LAB | | + + + + + + | % | 5.0 | 0 - 6 % | EXTERNAL | | | Eosinophils | | | LAB | | + + + + + + | % Basophils | 1.4 | 0 - 2 % | EXTERNAL [...] + +---------+ + + Comprehensive Metabolic Panel (09/26/2014 12:00 AM PDT) + + + + [...] + + + + | BUN | 51 (A) | 6 - 23 mg/dL | EXTERNAL | | | | | | LAB | | + + + + + + | Creatinine | 2.97 (A) | 0.70 - 1.11 | EXTERNAL | | | | | mg/dL | LAB | | + + + + + + | BUN/Creatin | 17.2 | 6.0 - 28.6 | EXTERNAL | | | ine Ratio | | | LAB | | + + + + + + | Calcium | 8.9 | 8.4 - 10.2 | EXTERNAL | | | | | mg/dL | LAB | | + + + + + + | Protein, | 6.2 | 6.0 - 8.0 g/dL | EXTERNAL | | | Total | | | LAB | | + + + + + + | Albumin | 3.8 | 3.5 - 5.0 | EXTERNAL | | | | | | LAB | | + + + + + + | Globulin | 2.4 | 1.8 - 3.5 | EXTERNAL | | | | | | LAB | | + + + + + + | A/G Ratio | 1.6 | 1.1 - 2.4 | EXTERNAL | | | | | | LAB | | + + + + + + | Bilirubin | 0.6 | 0.0 - 1.2 mg/dL | EXTERNAL | | | Total | | | LAB | | + + + + + + | ALP, | 113 | 30 - 128 | EXTERNAL | | | External | | | LAB | | + + + + + + | ALT | 8 | 7 - 52 U/L | EXTERNAL | | | | | | LAB | | + + + + + + | AST | 9 (A) | 13 - 39 U/L | [...] + + + + | Cl | 110 | 95 - 112 mmol/L | EXTERNAL | | | | | | LAB | | + + + + + + | CO2 | 17 (A) | 19 - 31 mmol/L | EXTERNAL | | | | | | LAB | | + + + + + + | Anion Gap | 17.3 | 7 - 21 mmol/L | EXTERNAL [...]
--- OUTSIDE RECORDS SUMMARY | ~2019-03-21 | XMS | Encounter Summary ---
Demographics + + + | Address | [address] | | | [place] [address] | + + + | Home Phone | | + + + | Preferred Language | Unknown | + + + | Marital Status | | + + + | Mosque Affiliation | 1013 | + + + [...] Team Providers + +------+ + | Care Vacuum Repairer Name | Role | Phone | + +------+ + | Kaushik Christensen MD | PCP | | + +------+ + Encounter Details +--------+ + + + + | Date | Type | Department | Care Team | Description | +--------+ + + + + | 02/21/ | Orders Only | [facility] | AlbertChung matthews, | | | 2016 | | NEPRHOLOGY [place] | CASTING OPERATOR [address] | | | | | [address] | [facility] | | | | | [address] [place], [place] | [place] | | | | | [address] | [address] | | | | | [phone] | [phone] | | | | | | | [...] [address] | | | | | | [place] [address] | | | | | | [phone] | | | | | | | [...] | | | LAB | | | RUSSIAN | | | | | + + [...]
--- OUTSIDE RECORDS SUMMARY | ~2019-03-21 | XMS | Encounter Summary ---
Demographics + + + | Address | [address] | | | [place] [address] | + + + | Home Phone [...] Team Providers + +------+ + | Care Semiconductor Technician Name | Role | Phone | + +------+ + | Kaushik Christensen MD | PCP | | + +------+ + Encounter Details +--------+ + + + + | Date | Type | Department | Care Team | Description | +--------+ + + + + | 10/06/ | Orders Only | [facility] | Silvio Alfred MD | | | 2014 | | NEPHROLOGY [place] | [address] [place] | | | | | [address] [place] | [address] [place], [place] | | | | | [address] [place], [place] | [address] | | | | | [address] | | | | | | [phone] | | | +--------+ + + + [...] Encounter by Leah Adams CMA at 10/01/14 0383 Author: Leah Adams CMA Service: (none) Author Type: Embedded Software Developer Filed: 10/01/14 1112 Encounter Date: 10/01/2014 Status: Signed Door Patcher: Leah Adams CMA (Embedded Software Developer) I called and spoke to patient in [...] Encounter by Leah Adams CMA at 10/01/14 0862 Author: Leah Adams CMA Service: (none) Author Type: Embedded Software Developer Filed: 10/01/14 1102 Encounter Date: 10/01/2014 Status: Signed Door Patcher: Leah Adams CMA (Embedded Software Developer) ----- Message from Silvio Alfred MD sent [...] [address] | | | | | | [place] [address] | | | | | | [phone] | | | | | | | [...]
--- OUTSIDE RECORDS SUMMARY | ~2019-03-21 | XMS | Encounter Summary ---
Demographics + + + | Address | [address] | | | [place] [address] | + + + | Home Phone [...] | Author | [facility] | | | and [place] | + + + | Organization | [facility] | | | and [...] Team Providers + +------+ + | Care Premix Operator Concentrate Name | Role | Phone | + +------+ + PCP | Unavailable | + +------+ + Encounter Details +--------+ + + + + | Date | Type | Department | Care Team | Description | +--------+ + + + + | 09/12/ | Hospital | [facility] | Jonathan Izquierdo | | | 2011 | Encounter | MED CTR XRAY [address] | MD Steve [address] | | | | | [place] | [address] [place] | | | | | [place] [address] | [place] [address] | | | | | [phone] | | | | | | | [...] 04/08/ | Office | Cardiology | Alexandra Aamya | | | 2020 | Visit | | [address] | | | | | | [address] | | | | | | [place] [address] | | | | | | [phone] | | | | | | | | +--------+---------+ + + + documented as of this encounter Procedures + +--------+ + + + | Procedure Name | Priori | Date/Time | Associated Diagnosis | Comments | | | ty | | | | + +--------+ + + + | NM MYOCARDIAL | | 12/07/2011 | | Results for this | | PERFUSION MULT SPECT | | 8:18 AM | | procedure are in the | | | | PDT | | results section. | + +--------+ + + + documented in this encounter Results NM Myocardial Perfusion Mult SPECT (12/07/2011 8:18 AM PDT) + + | Specimen | + + | | + + + + + | Narrative | Performed At | + + + | [facility] | [facility] | | [address], [place] | [facility] [place] | | STRESS PERFUSION STUDY, | DIA IM | | 12/08/2011 REFERRING PHYSICIAN: Dr. David Montgomery CLINICAL | | | HISTORY: CORONARY ARTERY DISEASE, PREOPERATIVE ASSESSMENT. | | | PROCEDURE: The patient was injected with 0.4 mg of Regadenoson as a | | | pharmacologic stress agent. Thereafter, she received 10 mCi | | | Cardiolite followed by post stress supine SPECT imaging. Patient | | | underwent rest perfusion imaging following the injection of 32 mCi | | | of Cardiolite. RESULTS: PHARMACOLOGIC STRESS: Resting heart | | | rate was 61, increasing to 92 with infusion. Resting blood | | | pressure is 183/65 ending at 141/44. Resting electrocardiogram | | | shows underlying sinus rhythm with normal axis and intervals and no | | | S-T segment or T-wave abnormalities. With stress, there were no | | | diagnostic ECG changes noted. The patient had some sinus arrhythmia | | | during recovery without any significant dysrhythmias seen. | | | NUCLEAR IMAGING: Myocardial perfusion images demonstrate a small | | | medium intensity perfusion defect involving the apical inferolateral | | | myocardium with partial reversibility with a summed stress score of | | | 5, summed rest score of 1, and summed defect score of 4. Left | | | ventricular size is within normal limits with normal regional wall | | | motion with LVEF calculated at 73%. IMPRESSION: 1. | | | PHARMACOLOGIC STRESS WITHOUT ANY DIAGNOSTIC ECG CHANGES OR SYMPTOMS. | | | 2. NORMAL LEFT VENTRICULAR SIZE AND SYSTOLIC FUNCTION WITH LVEF | | | OF 73%. 3. SMALL DEFECT INVOLVING THE APICAL INFEROLATERAL | | | MYOCARDIUM WITH PARTIAL REVERSIBILITY. THIS MAY BE SECONDARY TO | | | ARTIFACT ALTHOUGH A TRUE SMALL AREA OF ISCHEMIA CANNOT BE RULED OUT. | | | 4. OVERALL THIS REMAINS A LOW RISK STRESS PERFUSION STUDY | | | FROM A PREOPERATIVE STANDPOINT. PATIENT WILL BE SEEN FOR FURTHER | | | CONSULTATION AND MANAGEMENT WELL. Dictated | | | Date/Time: 12/08/2011 18:36 Transcribed Date/Time: 12/08/2011 | | | 19:05 Visual Developer: <Electronically Signed by Dipesh Wilosn | | | MD Timbo> 12/08/111951 | | + + + + + | Procedure Note | + + | Sarbjit, Rad Conversion - 05/03/2013 6:00 PM [facility] | | Diagnostic Imaging Department | | [address] [facility] | | | | | | | | STRESS PERFUSION STUDY, 12/08/2011 | | | | REFERRING PHYSICIAN: Dr. David Montgomery | | | | CLINICAL HISTORY: CORONARY ARTERY DISEASE, PREOPERATIVE ASSESSMENT. | | | | PROCEDURE: The patient was injected with 0.4 mg of Regadenoson as a | | pharmacologic stress agent. Thereafter, she received 10 mCi Cardiolite | | followed by post stress supine SPECT imaging. Patient underwent rest perfusion | | imaging following the injection of 32 mCi of Cardiolite. | | | | RESULTS: | | | | PHARMACOLOGIC STRESS: Resting heart rate was 61, increasing to 92 with | | infusion. Resting blood pressure is 183/65 ending at 141/44. Resting | | electrocardiogram shows underlying sinus rhythm with normal axis and intervals | | and no S-T segment or T-wave abnormalities. With stress, there were no | | diagnostic ECG changes noted. The patient had some sinus arrhythmia during | | recovery without any significant dysrhythmias seen. | | | | NUCLEAR IMAGING: Myocardial perfusion images demonstrate a small medium | | intensity perfusion defect involving the apical inferolateral myocardium with | | partial reversibility with a summed stress score of 5, summed rest score of 1, | | and summed defect score of 4. Left ventricular size is within normal limits | | with normal regional wall motion with LVEF calculated at 73%. | | | | IMPRESSION: | | | | 1. PHARMACOLOGIC STRESS WITHOUT ANY DIAGNOSTIC ECG CHANGES OR SYMPTOMS. | | | | 2. NORMAL LEFT VENTRICULAR SIZE AND SYSTOLIC FUNCTION WITH LVEF OF 73%. | | | | 3. SMALL DEFECT INVOLVING THE APICAL INFEROLATERAL MYOCARDIUM WITH PARTIAL | | REVERSIBILITY. THIS MAY BE SECONDARY TO ARTIFACT ALTHOUGH A TRUE SMALL AREA OF | | ISCHEMIA CANNOT BE RULED OUT. | | | | 4. OVERALL THIS REMAINS A LOW RISK STRESS PERFUSION STUDY FROM A PREOPERATIVE | | STANDPOINT. PATIENT WILL BE SEEN FOR FURTHER CONSULTATION AND MANAGEMENT | | WELL. | | | | | | | | | | Dictated Date/Time: 12/08/2011 18:36 | | Transcribed Date/Time: 12/08/2011 19:05 | | Visual Developer: | | <Electronically Signed by Dipesh Izquierdo MD> 12/08/111951 | + + + +---------+ + + | Performing | Address | City/State/Zipcode | Phone Number | | Organization | | | | + +---------+ + + | [facility] | | | | | [facility] | | | | + +---------+ + + documented in this encounter Visit Diagnoses Not on filedocumented in this encounter"
--- OUTSIDE RECORDS SUMMARY | ~2019-03-21 | XMS | Encounter Summary ---
Demographics + + + | Address | [address] | | | [place] [address] | + + + | Home Phone | | + + + | Preferred Language | Unknown | + + + | Marital Status | | + + + | Moravian Affiliation | 1013 | + + + | Race | Unknown | + + + | Ethnic Group | Unknown | + + + Author + + + | Author | [facility] | | | and [place] | + + + | Organization | [facility] | | [...] Team Providers + +------+ + | Care Ranch Cook Name | Role | Phone | + +------+ + | Kaushik Christensen MD | PCP | | + +------+ + Encounter Details +--------+ + + + + | Date | Type | Department | Care Team | Description | +--------+ + + + + | 11/08/ | Orders Only | [facility] | Conversion | | | 2016 | | NEPRHOLOGY [place] | Transaction, | | | | | [address] | Provider Unknown | | | | | [address] [place], [place] | [phone] | | | | | [address] | | | | | | [phone] | | | +--------+ + + + [...] [address] | | | | | | [place] [address] | | | | | | [phone] | | | | | | | [...]
--- OUTSIDE RECORDS SUMMARY | ~2019-03-21 | XMS | Encounter Summary ---
Demographics + + + | Address | [address] | | | [place] [address] | + + + | Home Phone | | + + + | Preferred Language | Unknown | + + + | Marital Status | | + + + | Orthodoxy Affiliation | 1013 | + + + | Race | Unknown | + + + | Ethnic Group | Unknown | + + + Author + + + | Author | [facility] | | | and [place] | + + + | Organization | [facility] | | | [...] Team Providers + +------+ + | Care Insolvency Practitioner Name | Role | Phone | + +------+ + | Kaushik Christnesen MD | PCP | | + +------+ + Encounter Details +--------+ + + + + | Date | Type | Department | Care Team | Description | +--------+ + + + + | 10/27/ | Orders Only | [facility] | Silvio Alfred MD | | | 2017 | | NEPRHOLOGY [place] | [address] | | | | | [address] | [address] [place], [place] | | | | | [address] [place], [place] | [address] | | | | | [address] | | | | | | [phone] | | | +--------+ + + + [...] [address] | | | | | | [facility] [place] [address] | | | | | | [phone] | | | | | | | | +--------+---------+ + + + documented as of this encounter Procedures + +--------+ + + + | Procedure Name | Priori | Date/Time | Associated Diagnosis | Comments | | | ty | | | | + +--------+ + + + | RENAL FUNCTION PANEL | Routin | 10/27/2016 | | Results for this | | | e | 12:00 AM | | procedure are in the | | | | PDT | | results section. | + +--------+ + + + documented in this encounter Results Renal Function Panel (10/27/2016 12:00 AM PDT) + + + + + + | Component | Value | Ref Range | Performed | Pathologist | | | | | At | Signature | + + + + + + | Glucose, | 100 | 70 - 100 mg/dL | EXTERNAL | | | Fasting | | | LAB | | + + + + + + | BUN | 42 (A) | 6 - 23 mg/dL | EXTERNAL | | | | | | LAB | | + + + + + + | Creatinine | 1.97 (A) | 0.70 - 1.11 | EXTERNAL | | | | | mg/dL | LAB | | + + + + + + | PHOSPHORUS | 3.0 | 2.5 - 5.0 mg/dL | EXTERNAL [...] + + + | Anion Gap | 18.6 | 7 - 21 mmol/L | EXTERNAL | | | | | | LAB | | + + + + + + | eGFR if not | | | EXTERNAL | | | | | | LAB | | | [place]AL[place] | | | | | + + + + + + | Phosphorus, | | | EXTERNAL | | | Inorganic | | | LAB | | + + + + + + | BUN/Creatin | 21.3 | 6.0 - 28.6 | EXTERNAL | [...]
--- OUTSIDE RECORDS SUMMARY | ~2019-03-21 | XMS | Encounter Summary ---
Demographics + + + | Address | [address] | | | [place] [address] | + + + | Home Phone [...] + + + | Author | [facility] | | | and [place] | + + + | Organization | [facility] | [...] Team Providers + +------+ + | Care Rip Sawyer Name | Role | Phone | + +------+ + | Kaushik Christensen MD | PCP | | + +------+ + Encounter Details +--------+ + + + + | Date | Type | Department | Care Team | Description | +--------+ + + + + | 11/04/ | Orders Only | [facility] | Kaushik Christensen | | | 2013 | | MEDICAL CENTER | MD [address] | | | | | HEALTH INFORMATION | [address] | | | | | [address] | [place] [address] | | | | | [address] | [phone] | | | | | [place], [place] | | | | | | [address] | | | | | | [phone] | | | +--------+ + + + [...] | | | | | [place] [address] | | | | | | [phone] | | | | | | | | +--------+---------+ + + + documented as of this encounter Procedures + +--------+ + + + | Procedure Name | Priori | Date/Time | Associated Diagnosis | Comments | | | ty | | | | + +--------+ + + + | EXTERNAL LAB: CBC | Routin | 12/23/2013 | | Results for this | | | e | 12:00 AM | | procedure are in the | | | | PDT | | results section. | + +--------+ + + + | URINALYSIS WITH | Routin | 12/23/2013 | | Results for this | | MICROSCOPIC WITH | e | 12:00 AM | | procedure are in the | | CULTURE IF INDICATED | | PDT | | results section. | + +--------+ + + + | PROTEIN/CREATININE | Routin | 12/23/2013 | | Results for this | | RATIO, URINE | e | 12:00 AM | | procedure are in the | | | | PDT | | results section. | + +--------+ + + + | PROTEIN, URINE, | Routin | 12/23/2013 | | Results for this | | RANDOM | e | 12:00 AM | | procedure are in the | | | | PDT | | results section. | + +--------+ + + + | CREATININE, URINE, | Routin | 12/23/2013 | | Results for this | | RANDOM | e | 12:00 AM | | procedure are in the | | | | PDT | | results section. | + +--------+ + + + | URIC ACID | Routin | 12/23/2013 | | Results for this | | | e | 12:00 AM | | procedure are in the | | | | PDT | | results section. | + +--------+ + + + | MAGNESIUM | Routin | 12/23/2013 | | Results for this | | | e | 12:00 AM | | procedure are in the | | | | PDT | | results section. | + +--------+ + + + | BASIC METABOLIC | Routin | 12/23/2013 | | Results for this | | PANEL | e | 12:00 AM | | procedure are in the | | | | PDT | | results section. | + +--------+ + + + | BASIC METABOLIC | Routin | 11/19/2013 | | Results for this | | PANEL | e | 12:00 AM | | procedure are in the | | | | PDT | | results section. | + +--------+ + + + | BASIC METABOLIC | Routin | 11/04/2013 | | Results for this | | PANEL | e | 12:00 AM | | procedure are in the | | | | PDT | | results section. | + +--------+ + + + | EXTERNAL LAB: CBC | Routin | 10/14/2013 | | Results for this | | | e | 12:00 AM | | procedure are in the | | | | PDT | | results section. | + +--------+ + + + | COMPREHENSIVE | Routin | 10/14/2013 | | Results for this | | METABOLIC PANEL | e | 12:00 AM | | procedure are in the | | | | PDT | | results section. | + +--------+ + + + documented in this encounter Results Urinalysis with Microscopic with Culture if Indicated (12/23/2013 12:00 AM PDT) + + + + [...] + + | Total | Negative | Negative | EXTERNAL | | | Protein | [...] + + | Ketones | Negative | Negative | EXTERNAL | | | | | [...] + +---------+ + + Protein/Creatinine Ratio, Urine (12/23/2013 12:00 AM PDT) + +-------+ + + + | Component | Value | Ref Range | Performed | Pathologist | | | | | At | Signature | + +-------+ + + + | Protein/Cre | 67.6 | 0 - 150 | EXTERNAL | [...] + +---------+ + + Protein, Urine, Random (12/23/2013 12:00 AM PDT) + +-------+ + + + | Component | Value | Ref Range | Performed | Pathologist | | | | | At | Signature | + +-------+ + + + | Protein, | 5 | 0.0 - 50.0 | EXTERNAL | [...] + +---------+ + + Creatinine, Urine, Random (12/23/2013 12:00 AM PDT) + +-------+ + + + | Component | Value | Ref Range | Performed | Pathologist | | | | | At | Signature | + +-------+ + + + | Creatinine, | 74 | | EXTERNAL | | | 24H [...] + +---------+ + + External Lab: CBC (12/23/2013 12:00 AM PDT) + + + + + + | Component | Value | Ref Range | Performed | Pathologist | | | | | At | Signature | + + + + + + | WBC | 5.2 | 4.5 - 11.0 10 | EXTERNAL | | | | | | LAB | | + + + + + + | RED CELL | 3.85 | 3.8 - 5.1 10 | EXTERNAL | | | COUNT | | | LAB | | + + + + + + | Hgb | 12.0 | 12.0 - 16.0 | EXTERNAL | | | | | g/dL | LAB | | + + + + + + | Hematocrit, | 34.8 (A) | 35 - 45 % | EXTERNAL | | | POC | | | LAB | | + + + + + + | MCV | 90.2 | 81 - 99 fL | EXTERNAL [...] + + + + | Platelet | 215 | 140 - 440 K/ L | EXTERNAL | | | Count | | | LAB | | | Plasma | | | | | + + + + + + | RDW-CV | 14.1 | 10.5 - 15.0 % | EXTERNAL [...] + + + | % Segmented | 58.7 | 39 - 80 % | EXTERNAL | | | | | | LAB | | | Neutrophils | | | | | + + + + + + | % | 26.8 | 24 - 44 % | EXTERNAL | | | Lymphocytes | | | LAB | | + + + + + + | % Monocytes | 9.8 | 0 - 12 % | EXTERNAL | | | | | | LAB | | + + + + + + | % | 3.6 | 0 - 6 % | EXTERNAL | | | Eosinophils | | | LAB | | + + + + + + | % Basophils | 1.1 | 0 - 2 % | EXTERNAL [...] | + +---------+ + + Uric Acid (12/23/2013 12:00 AM PDT) + +---------+ + + + | Component | Value | Ref Range | Performed | Pathologist | | | | | At | Signature | + +---------+ + + + | Uric Acid | 7.5 (A) | 2.3 - 6.6 | EXTERNAL [...] | | + +---------+ + + Magnesium (12/23/2013 12:00 AM PDT) + +-------+ + + + | Component | Value | Ref Range | Performed | Pathologist | | | | | At | Signature | + +-------+ + + + | Magnesium | 2.1 | 1.7 - 2.5 mg/dL | EXTERNAL [...] + +---------+ + + Basic Metabolic Panel (12/23/2013 12:00 AM PDT) + + + + [...] + + + + | BUN | 16 | 6 - 23 mg/dL | EXTERNAL | | | | | | LAB | | + + + + + + | Creatinine | 1.30 (A) | 0.70 - 1.11 | EXTERNAL | | | | | mg/dL | LAB | | + + + + + + | BUN/Creatin | 12.3 | 6.0 - 28.6 | EXTERNAL | [...] + + + + | K | 4.0 | 3.6 - 5.1 | EXTERNAL | [...] + + + | Anion Gap | 16.0 | 7 - 21 mmol/L | EXTERNAL | | | | | | LAB | | + + + + + + | Estimated | 39 | mg/dL | EXTERNAL | | | [...] + +---------+ + + Basic Metabolic Panel (11/19/2013 12:00 AM PDT) + + + + + + | Component | Value | Ref Range | Performed | Pathologist | | | | | At | Signature | + + + + + + | Glucose, | 85 | 70 - 100 mg/dL | EXTERNAL | | | Fasting | | | LAB | | + + + + + + | BUN | 20 | 6 - 23 mg/dL | EXTERNAL | | | | | | LAB | | + + + + + + | Creatinine | 1.42 (A) | 0.70 - 1.11 | EXTERNAL | | | | | mg/dL | LAB | | + + + + + + | BUN/Creatin | 14.1 | 6.0 - 28.6 | EXTERNAL | [...] + + + | Anion Gap | 12.4 | 7 - 21 mmol/L | EXTERNAL [...] + +---------+ + + Basic Metabolic Panel (11/04/2013 12:00 AM PDT) + + + + + + | Component | Value | Ref Range | Performed | Pathologist | | | | | At | Signature | + + + + + + | Glucose, | 97 | 70 - 100 mg/dL | EXTERNAL | | | Fasting | | | LAB | | + + + + + + | BUN | 55 (A) | 6 - 23 mg/dL | EXTERNAL | | | | | | LAB | | + + + + + + | Creatinine | 2.07 (A) | 0.70 - 1.11 | EXTERNAL | | | | | mg/dL | LAB | | + + + + + + | BUN/Creatin | 26.6 | 6.0 - 28.6 | EXTERNAL | [...] + + + | Anion Gap | 16.6 | 7 - 21 mmol/L | EXTERNAL [...] + +---------+ + + External Lab: CBC (10/14/2013 12:00 AM PDT) + +-------+ + + + | Component | Value | Ref Range | Performed | Pathologist | | | | | At | Signature | + +-------+ + + + | WBC | 4.8 | 4.5 - 11.0 10 | EXTERNAL | | | | | | LAB | | + +-------+ + + + | RED CELL | 4.02 | 3.8 - 5.1 10 | EXTERNAL | | | COUNT | | | LAB | | + +-------+ + + + | Hgb | 12.2 | 12.0 - 16.0 | EXTERNAL | | | | | g/dL | LAB | | + +-------+ + + + | Hematocrit, | 36.5 | 35 - 45 % | EXTERNAL | | | POC | | | LAB | | + +-------+ + + + | MCV | 90.8 | 81 - 99 fL | EXTERNAL | | | | | | LAB | | + +-------+ + + + | MCH | 30 | 27 - 33 pg | EXTERNAL | | | | | | LAB | | + +-------+ + + + | MCHC | 33 | 30 - 36 g/dL | EXTERNAL | | | | | | LAB | | + +-------+ + + + | Platelet | 167 | 140 - 440 K/ L | EXTERNAL | | | Count | | | LAB | | | Plasma | | | | | + +-------+ + + + | RDW-CV | 14.4 | 10.5 - 15.0 % | EXTERNAL | | | | | | LAB | | + +-------+ + + + | MPV | | fL | EXTERNAL | | | | | | LAB | | + +-------+ + + + | Differentia | Auto | | EXTERNAL | | | l Type | | | LAB | | + +-------+ + + + | % Segmented | 56.2 | 39 - 80 % | EXTERNAL | | | | | | LAB | | | Neutrophils | | | | | + +-------+ + + + | % | 31.9 | 24 - 44 % | EXTERNAL | | | Lymphocytes | | | LAB | | + +-------+ + + + | % Monocytes | 7.0 | 0 - 12 % | EXTERNAL | | | | | | LAB | | + +-------+ + + + | % | 3.6 | 0 - 6 % | EXTERNAL | | | Eosinophils | | | LAB | | + +-------+ + + + | % Basophils | 1.3 | 0 - 2 % | EXTERNAL [...] + +---------+ + + Comprehensive Metabolic Panel (10/14/2013 12:00 AM PDT) + + + + + + | Component | Value | Ref Range | Performed | Pathologist | | | | | At | Signature | + + + + + + | Glucose, | 78 | 70 - 100 mg/dL | EXTERNAL | | | Fasting | | | LAB | | + + + + + + | BUN | 42 (A) | 6 - 23 mg/dL | EXTERNAL | | | | | | LAB | | + + + + + + | Creatinine | 1.51 (A) | 0.70 - 1.11 | EXTERNAL | | | | | mg/dL | LAB | | + + + + + + | BUN/Creatin | 27.8 | 6.0 - 28.6 | EXTERNAL | | | ine Ratio | | | LAB | | + + + + + + | Calcium | 9.5 | 8.4 - 10.2 | EXTERNAL | | | | | mg/dL | LAB | | + + + + + + | Protein, | 6.5 | 6.0 - 8.0 g/dL | EXTERNAL | | | Total | | | LAB | | + + + + + + | Albumin | 3.9 | 3.5 - 5.0 | EXTERNAL | | | | | | LAB | | + + + + + + | Globulin | 2.6 | 1.8 - 3.5 | EXTERNAL | | | | | | LAB | | + + + + + + | A/G Ratio | 1.5 | 1.1 - 2.4 | EXTERNAL | | | | | | LAB | | + + + + + + | Bilirubin | 0.6 | 0.0 - 1.2 mg/dL | EXTERNAL | | | Total | | | LAB | | + + + + + + | ALP, | 64 | 30 - 128 | EXTERNAL | | | External | | | LAB | | + + + + + + | ALT | 11 | 7 - 52 U/L | EXTERNAL | | | | | | LAB | | + + + + + + | AST | 11 (A) | 13 - 39 U/L | EXTERNAL | | | | | | LAB | | + + + + + + | Na | 140 | 132 - 143 | EXTERNAL | | | | | mmol/L | LAB | | + + + + + + | K | 5.1 | 3.6 - 5.1 | EXTERNAL | [...] + + + | Anion Gap | 13.1 | 7 - 21 mmol/L | EXTERNAL | | | | | | LAB | | + + + + + + | Estimated | 33 | mg/dL | EXTERNAL | | | [...]
--- OUTSIDE RECORDS SUMMARY | ~2019-03-21 | XMS | Encounter Summary ---
Demographics + + + | Address | [address] | | | [place] [address] | + + + | Home Phone [...] Team Providers + +------+ + | Care Riding Teacher Name | Role | Phone | + +------+ + | Renaldo Ramirez DO | PCP | Unavailable | + +------+ + Reason for Visit + + + | Reason | Comments | + + + | Follow-up | a fib | + + + Evaluate & Treat (Routine) + +--------+ + + + + | Status | Reason | Specialty | Diagnoses / | Referred By | Referred To | | | | | Procedures | Contact | Contact | + +--------+ + + + + | Authorized | | Cardiology | Diagnoses | Fermin, | Simon, | | | | | Unspecified | Kaushik | Jose Juan Reed MD | | | | | atrial | MD Alonzo | [address] | | | | | fibrillation | [address] | [address] | | | | | ([facility]) | [facility] | [address] | | | | | Procedures | [place], [place] | [place], [place] | | | | | Consult | [address] | [address] Phone: | | | | | | Phone: | [phone] | | | | | | [phone] | Fax: | | | | | | Fax: | [phone] | | | | | | [phone] | | + +--------+ + + + + Encounter Details +--------+---------+ + + + | Date | Type | Department | Care Team | Description | +--------+---------+ + + + | 03/05/ | Office | [facility] | Jose Juan Montes, | Persistent atrial | | 2019 | Visit | [place]IOLOGY [place] | [address] | fibrillation | | | | [address] | [place] [address] [place], | (Primary Dx); | | | | [address] | [place] [address] | Essential | | | | [place], [place] | [phone] | hypertension; Stage | | | | [address] | | 4 chronic kidney | | | | [phone] | | disease (HCC); Pedal | | | | | | edema | +--------+---------+ + + + Social History [...] + + + documented in this encounter Progress Notes Jose Juan Montes MD - 03/05/2019 10:45 AM PSTFormatting of this note might be different fro m the original. Subjective: Patient ID: Jordan Farias is a 89 y.o. female. HPI Patient's medications, allergies, past medical, surgical, social and family histories were obtained and reviewed as appropriate. Mrs. Farias, accompanied by her daughter, came to the office today for a cardiology eval uation. She was seen in the ER 09/24/2018 for complaints of retrosternal "pressure", dyspnea and orthopnea, unrelieved with NTG, diagnosed as GERD later on, when she went back to the ER about 2 weeks later (I have no records from the second visit) and these symptoms resolved w ith PPI treatment. She ruled out for an acute myocardial infarction. She was noted to have atrial fibrillation with a controlled ventricular rate, was appropriately started on Eliqui s for stroke prevention ([id number] VASc 4). She is completely unaware of the arrhythmia, with no palpitations. 48-hour Holter will be done to assess her rate control. Her echo 11/28/18 showed normal LV systolic function, could not assess systolic function due to atrial fibrill ation, moderate TR, that may be contributing to her pedal edema, and mild-moderate pulmonary hypertension. She also had mild biatrial enlargement, so she may be a candidate, in the fu ture, for an elective DC cardioversion. Recently, she has noted dark stools, whereas before they were "greenish". I asked her to n otify Dr. Ramirez of this, this could represent melena. She does not have much of a sense of smell, so was unable to tell me about any change in odor. I did not stop her Eliquis today , however, pending confirmation of blood in the stool. She has gained over 40 pounds last few months, attributable to increasing pedal edema, now 3-4+ up to the knees bilaterally, despite being on torsemide 40 mg twice daily. I stopped h er amlodipine, which may be contributing to the edema (it can also be a rare side effect of Toprol), and increased her torsemide dose short-term to 100 mg daily. If this does not work , then she may need Zaroxolyn added, although it will likely affect her already-compromised renal function. She sees Silvio Alfred MD for her stage IV CKD, and I note that he recently d ecreased her Toprol dose from 50 to 25 mg daily due to mild bradycardia and had stopped her lisinopril due to the renal dysfunction. He will continue to monitor this. I will see her back in a few weeks for follow up. ROS CONSTITUTIONAL: Obesity. 41 lb weight fluctuation over the past year, recently regained a ll the weight she lost attributed to her edema, denies recent fever, chills, night sweats, c /o significant Fatigue NEUROLOGIC: She notes mild Short-term Memory Loss. No history of CVA, TIA, migraines, sei zures, syncope. She has Orthostatic Dizziness, lightheadedness, has fallen several times. She has a h/o Carpal Tunnel Syndrome in her records, which she denies, no numbness, tingling , paresthesias. EYES: No amaurosis, diplopia, recent visual changes, cataracts, has bilateral Glaucoma ENT: Bilateral Hearing Loss, no tinnitus, epistaxis, dysphagia ENDOCRINE: No history of diabetes. ? history of thyroid disorders (elevated TSH noted in p ast records), Secondary Hyperparathyroidism, Vitamin D Deficiency. No excessive hunger, thi rst. PULMONARY/SLEEP: No recurrent dyspnea, orthopnea, paroxysmal nocturnal dyspnea. She has a ? history of COPD in her records, no h/o asthma, emphysema or chronic cough/bronchitis. Sh e has mild-moderate secondary Pulmonary Hypertension. No history of pneumonia (had Pneumovax ). Denies significant snoring, has Daytime Somnolence. Sleep is usually refreshing, but she is mostly up at night and sleeps during the day. CARDIOVASCULAR: Denies recurrent chest pain, pressure or discomfort. No history of CAD. No history of heart failure. She was noted to have Atrial Fibrillation 09/24/18, [id number] VASc 4, on Eliquis, no prior h/o cardiac arrhythmias. No palpitations. She has a history of a he art Murmur, denies any h/o rheumatic fever. She has a history of Essential Hypertension, no h/o hyperlipidemia. She has Pedal Edema, no claudication symptoms. No h/o an AAA. -- Echo (11/28/18 - [facility]): EF 60%, normal RV size, function, mild Bi-AE. Moderate TR, mild-mo derate Pulmonary HTN, peak RVSP 49 mm Hg GASTROINTESTINAL: GERD. No recent abdominal pain, nausea, vomiting or diarrhea. Denies PU D, ? Melena recently, no hematochezia, hepatitis. 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 No dysuria, hematuria, has U rinary Incontinence, urgency, no hesitancy. No active [employer] disorders. HEMATOLOGY/ONCOLOGY: No h/o bleeding disorders, DVT, PE. She notes easy Bruisability on Eliquis, with no significant bleeding. She has a history of Anemia, no prior blood transfus ions. No history of cancer. MUSCULOSKELETAL: No myalgias, has Lumbar Degenerative Disc Disease and Spinal Stenosis wit h chronic lower back pain, Sciatica that limits her ability to walk, Osteoarthritis, with LE arthralgias. She has Osteoporosis, Hyperuricemia. No history of rheumatologic or auto immune diseases. CUTANEOUS: She has mild pretibial Cellulitis with an erythematous papular rash, no pruritu s or other skin lesions. PSYCHIATRIC: No history of depression, anxiety or other psychiatric problems. Past Medical History: Diagnosis Date Arthritis Atrial fibrillation (HCC) Carpal tunnel syndrome Chronic kidney disease class IV, (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, resolved) COPD (chronic obstructive pulmonary disease) ([facility]) Hypertension Obesity, Class III, BMI 40-49.9 (morbid obesity) ([facility]) Pernicious anemia Past Surgical History: Procedure Laterality Date CHOLECYSTECTOMY GALLBLADDER SURGERY 30 years ago KNEE ARTHROSCOPY KNEE SURGERY OTHER SURGICAL HISTORY 2010 CATARACT EXTRACTION - Both Eyes OTHER SURGICAL HISTORY TONSILLECTOMY REFRACTIVE SURGERY 2011 Both Eyes SPINE SURGERY 2012 TONSILLECTOMY Family History Problem Relation Age of Onset Stroke Mother Diabetes Mother Heart disease Mother Diabetes, IDDM Father Heart disease Father Diabetes, IDDM Sister Heart disease Sister Cancer Brother Coronary artery disease Brother Cancer Sister Cancer Sister Heart attack Son Social History Socioeconomic History Marital status: Spouse name: Not on file Number of children: Not on file Years of education: Not on file Highest education level: Not on file Occupational History Not on file Social Needs Financial resource strain: Not on file Food insecurity: Worry: Not on file Inability: Not on file Transportation needs: Medical: Not on file Non-medical: Not on file Tobacco Use Smoking status: Never Smoker Smokeless tobacco: Never Used Substance and Sexual Activity Alcohol use: No Drug use: No Comment: Drug use: No Sexual activity: Not on file Lifestyle Physical activity: Days per week: Not on file Minutes per session: Not on file Stress: Not on file Relationships Social connections: Talks on phone: Not on file Gets together: Not on file Attends church service: Not on file Active member of club or organization: Not on file Attends meetings of clubs or organizations: Not on file Relationship status: Not on file Intimate partner violence: Fear of current or ex partner: Not on file Emotionally abused: Not on file Physically abused: Not on file Forced sexual activity: Not on file Other Topics Concern Not on file Social History Narrative Not on file Allergies No active allergies Intolerance No active intolerances/contraindications Current Outpatient Medications Medication Sig Dispense Refill allopurinol (ZYLOPRIM) 100 mg tablet Take 1 tablet by mouth Daily. 90 tablet 3 amLODIPine (NORVASC) 2.5 mg tablet Take 1 tablet by mouth Daily. 90 tablet 3 Cholecalciferol (VITAMIN D3) 400 UNITS CAPS Two to four capsules by mouth daily cyanocobalamin (VITAMIN B-12) 500 mcg tablet Take 500 mcg by mouth Daily. ELIQUIS 2.5 MG tablet Take 2.5 mg by mouth 2 times daily. metoprolol succinate (TOPROL-XL) 25 mg 24 hr tablet Take 1 tablet by mouth daily. pantoprazole (PROTONIX) 40 mg tablet Take 40 mg by mouth every morning (before breakfas t). potassium chloride (MICRO-K) 10 mEq CR capsule 4 times daily. torsemide (DEMADEX) 20 mg tablet Take 2 tablets by mouth 2 times daily. 360 tablet 3 No current facility-administered medications for this visit. Objective: BP 120/64 Comment: RA | Pulse 91 | Ht 1.676 m (5' 6") | Wt 109.4 kg (241 lb 3.2 oz) | Sp O2 98% | BMI 38.93 kg/m BP 128/70 left arm PHYSICAL EXAM GENERAL: Well developed, well nourished elderly woman, in no distress. Appears approximately stated age. HEENT: Normocephalic, atraumatic. EYES: PERRL, sclerae anicteric, no xanthelsasmas MOUTH: Oral mucosae moist, dentition adequate, no lesions noted NECK: No JVD, lymphadenopathy, thyromegaly, bruits. Carotid pulses are 2+ bilaterally LUNGS: Clear bilaterally, with no rales, rhonchi or wheezing noted, respirations unlabored HEART: Nondisplaced PMI, regular rate, irregularly irregular rhythm, S1 is varied in inten sity, S2 normal. No murmurs, rubs or gallops noted. ABDOMEN: Soft, nontender, no organomegaly, masses or bruits. Bowel sounds are normal in a ll 4 quadrants. The abdominal aortic pulsation is not palpable. EXTREMITIES: 3-4+ pitting edema knees bilaterally. Radial pulses 2+ bilaterally. Femoral pulses are 2+ bilaterally without bruits. DP and PT pulses are 2+ bilaterally. SKIN: Warm and dry, capillary refill is normal, pretibial erythema with a mild macular dung h bilaterally. NEUROLOGIC: Awake, alert and oriented x 3. No focal motor deficits. PSYCHIATRIC: Appropriate, affect appears normal EKG (personally reviewed today): Atrial fibrillation, ventricular rate 94, mild, nonspecifi c inferolateral and anterior T wave abnormalities, QTc 457 ms, no previous tracings availabl e for comparison Assessment: Jordan was seen today for follow-up. Diagnoses and all orders for this visit: Persistent atrial fibrillation - ECG 12 lead - Holter monitor - 48 hour; Future Essential hypertension Stage 4 chronic kidney disease (HCC) Pedal edema Other orders - metoprolol succinate (TOPROL-XL) 25 mg 24 hr tablet; Take 1 tablet by mouth Daily. - Cancel: Holter monitor - 48 hour; Future - torsemide (DEMADEX) 100 mg tablet; Take 1 tablet by mouth Daily. Until swelling impro ves, then decrease back to the previous dose of 40 mg 2x daily Plan: Follow up in 4 weeks d ocumented in this encounter Plan of Treatment +--------+---------+ + + + | Date | Type | Specialty | Care Team | Description | +--------+---------+ + + + | 04/08/ | Office | Cardiology | Alexandra Amaya | | | 2019 | Visit | | [address] | | | | | | [address] | | | | | | [place] [address] | | | | | | [phone] | | | | | | | | +--------+---------+ + + + + +------+--------+ + + | Name | Type | Priori | Associated Diagnoses | Order Schedule | | | | ty | | | + +------+--------+ + + | Holter monitor - 48 | ECG | Routin | Persistent atrial | Expected: | | hour | | e | fibrillation | 03/12/2019, Expires: | | | | | | 03/05/2020 | + +------+--------+ + + documented as [...] + + documented in this encounter Results ECG 12 lead (03/05/2019 10:23 AM [...] | | | | | by [facility] [place] Read Only, | | | | | | [facility] Yvette ([id number]), | | | | | | editor news Hernan Zamora | | | | | | ([id number]) on 03/05/2019 | | | | | [...] | + + | Persistent atrial fibrillation - Primary Atrial fibrillation | + + | Essential hypertension Unspecified essential hypertension | + + | Stage 4 chronic kidney disease (HCC) | + + | Pedal edema Edema | + + documented in this encounter
--- OUTSIDE RECORDS SUMMARY | ~2019-03-21 | XMS | Encounter Summary ---
Demographics + + + | Address | [address] | | | [place] [address] | + + + | Home Phone | | + + + | Preferred Language | Unknown | + + + | Marital Status | | + + + | Shinto Affiliation | 1013 | + + + | Race | Unknown | + + + | Ethnic Group | Unknown | + + + Author + + + | Author | [facility] | | | and [place] | + + + | Organization | [facility] | | | [...] Team Providers + +------+ + | Care Truck Car And Bus Cleaner Name | Role | Phone | + +------+ + | Kaushik Christensen MD | PCP | | + +------+ + Encounter Details +--------+ + + + + | Date | Type | Department | Care Team | Description | +--------+ + + + + | 04/21/ | Orders Only | [facility] | Silvio Alfred MD | | | 2014 | | NEPHROLOGY [place] | [address] [place] | | | | | [address] [place] | [address] [place], [place] | | | | | [address] [place], [place] | [address] | | | | | [address] | | | | | | [phone] | | | +--------+ + + + [...] [address] | | | | | | [place] [address] | | | | | | [phone] | | | | | | | [...] | | | LAB | | | [facility] | | | | | + [...]
--- OUTSIDE RECORDS SUMMARY | ~2019-03-21 | XMS | Encounter Summary ---
Demographics + + + | Address | [address] | | | [place] [address] | + + + | Home Phone | | + + + | Preferred Language | Unknown | + + + | Marital Status | | + + + | Anglican Affiliation | 1013 | + + + [...] Team Providers + +------+ + | Care Drill Operator Pneumatic Name | Role | Phone | + +------+ + | Kaushik Christensen MD | PCP | | + +------+ + Encounter Details +--------+ + + + + | Date | Type | Department | Care Team | Description | +--------+ + + + + | 01/31/ | Orders Only | [facility] | Alonzo Awad, | Obesity, | | 2011 | | [facility] | [address] | unspecified; | | | | [address] | [place], [place] | Unspecified | | | | [place], [place] | [address] | essential | | | | [address] | | hypertension; | | | | [phone] | | Coronary | | | | | | atherosclerosis of | | | | | | unspecified type of | | | | | | vessel, [place] or | | | | | | [...] | | | | | | [address] | | | | | | [place] [address] | | | | | | [phone] | | | | | | | | +--------+---------+ + + + documented as of this encounter Visit Diagnoses + + | Diagnosis | + + | Obesity, unspecified | + + | Unspecified essential hypertension | + + | Coronary atherosclerosis of unspecified type of vessel, [place] or graft | + + documented in this encounter"
--- OUTSIDE RECORDS SUMMARY | ~2019-03-21 | XMS | Encounter Summary ---
Demographics + + + | Address | [address] | | | [place] [address] | + + + | Home Phone | | + + + | Preferred Language | Unknown | + + + | Marital Status | | + + + | Islam Affiliation | 1013 | + + + | Race | Unknown | + + + | Ethnic Group | Unknown | + + + Author + + + | Author | [facility] | | | and [place] | + + + | Organization | [facility] | | [...] Team Providers + +------+ + | Care Counter Former Name | Role | Phone | + +------+ + | Kaushik Christensen MD | PCP | | + +------+ + Encounter Details +--------+ + + + + | Date | Type | Department | Care Team | Description | +--------+ + + + + | 07/26/ | Orders Only | [facility] | Chung Rushing, | | | 2018 | | NEPHROLOGY [place] | ORDER MAKE UP CLERK [address] | | | | | [address] | [address] | | | | | [address] [place], [place] | [place] | | | | | [address] | [address] | | | | | [phone] | [phone] | | | | | | | [...] [address] | | | | | | [place] [address] | | | | | | [phone] | | | | | | | [...]
--- OUTSIDE RECORDS SUMMARY | ~2019-03-21 | XMS | Encounter Summary ---
Demographics + + + | Address | [address] | | | [place] [address] | + + + | Home Phone | | + + + | Preferred Language | Unknown | + + + | Marital Status | | + + + | Uatsdin Affiliation | 1013 | + + + | Race | Unknown | + + + | Ethnic Group | Unknown | + + + Author + + + | Author | [facility] | | | and [place] | + + + | Organization | [facility] | | | [...] Team Providers + +------+ + | Care Transition Mgr Rn Name | Role | Phone | + [...] | | [address] | [place] [address] | | | | | [place] | [phone] | | | | | [address] | | | | | | [phone] | | | +--------+ + + + [...] [place] | | | | | | [place] [address] | | | | | | [phone] | | | | | | | | +--------+---------+ + + + documented as of this encounter Visit Diagnoses + + | Diagnosis | + + | S/P lumbar fusion - Primary Arthrodesis status | + + documented in this encounter"
--- OUTSIDE RECORDS SUMMARY | ~2019-03-21 | XMS | Encounter Summary ---
Demographics + + + | Address | [address] | | | [place] [address] | + + + | Home Phone [...] Team Providers + +------+ + | Care Police Officer Crime Prevention Name | Role | Phone | + [...] | | [address] | [place] [address] | surgery) | | | | [place] | [phone] | | | | | [address] | | | | | | [phone] | | | +--------+ + + + [...] [address] | | | | | | [place] [address] | | | | | | [phone] | | | | | | | | +--------+---------+ + + + documented as of this encounter Visit Diagnoses Not on filedocumented in this encounter"
--- OUTSIDE RECORDS SUMMARY | ~2019-03-21 | XMS | Encounter Summary ---
Demographics + + + | Address | [address] | | | [place] [address] | + + + | Home Phone | | + + + | Preferred Language | Unknown | + + + | Marital Status | | + + + | Evangelical Affiliation | 1013 | + + + | Race | Unknown | + + + | Ethnic Group | Unknown | + + + Author + + + | Author | [facility] | | | and [place] | + + + | Organization | [facility] | | | [...] Team Providers + +------+ + | Care Technology Solutions Architect Name | Role | Phone | + +------+ + | Kaushik Christensen MD | PCP | | + +------+ + Encounter Details +--------+ + + + + | Date | Type | Department | Care Team | Description | +--------+ + + + + | 12/23/ | Orders Only | [facility] | Silvio Alfred MD | | | 2013 | | NEPHROLOGY [place] | [address] [place] | | | | | [address] [place] | [address] [place], [place] | | | | | [address] [place], [place] | [address] | | | | | [address] | | | | | | [phone] | | | +--------+ + + + [...] [address] | | | | | | [place] [address] | | | | | | [phone] | | | | | | | | +--------+---------+ + + + documented as of this encounter Procedures + +--------+ + + + | Procedure Name | Priori | Date/Time | Associated Diagnosis | Comments | | | ty | | | | + +--------+ + + + | CULTURE, URINE | Routin | 12/23/2013 | | Results for this | | | e | 12:00 AM | | procedure are in the | | | | PDT | | results section. | + +--------+ + + + documented in this encounter Results Culture, Urine (12/23/2013 12:00 AM PDT) + + | Specimen | [...]
--- OUTSIDE RECORDS SUMMARY | ~2019-03-21 | XMS | Encounter Summary ---
Demographics + + + | Address | [address] | | | [place] [address] | + + + | Home Phone [...] Team Providers + +------+ + | Care Row Boss Name | Role | Phone | + [...] + + | 03/12/ | Telephone | [facility] | Lia Diallo, | Other | | 2019 | | CARDIOLOGY [place] | [facility] | | | | | [address] | | | | | | [place], [place] | | | | | | [address] | | | | | | [phone] | | | +--------+ + + + [...] [place] | | | | | | [place] [address] | | | | | | [phone] | | | | | | | | +--------+---------+ + + + documented as of this encounter Visit Diagnoses Not on filedocumented in this encounter"
--- OUTSIDE RECORDS SUMMARY | ~2019-03-21 | XMS | Encounter Summary ---
Demographics + + + | Address | [address] | | | [place] [address] | + + + | Home Phone [...] Team Providers + +------+ + | Care Rn Gyn Name | Role | Phone | + +------+ + | Kaushik Christensen MD | PCP | | + +------+ + Encounter Details +--------+ + + + + | Date | Type | Department | Care Team | Description | +--------+ + + + + | 10/27/ | Orders Only | [facility] | Conversion | | | 2017 | | NEPHROLOGY [place] | Transaction, | | | | | [address] | Provider Unknown | | | | | [address] [facility] [place] | | | | | | [address] | (Fax) | | | | | [phone] | | | +--------+ + + + [...] [place] | | | | | | [place] [address] | | | | | | [phone] | | | | | | | [...]
--- OUTSIDE RECORDS SUMMARY | ~2019-03-21 | XMS | Encounter Summary ---
Demographics + + + | Address | [address] | | | [place] [address] | + + + | Home Phone | | + + + | Preferred Language | Unknown | + + + | Marital Status | | + + + | Yarsani Affiliation | 1013 | + + + | Race | Unknown | + + + | Ethnic Group | Unknown | + + + Author + + + | Author | [facility] | | | and [place] | + + + | Organization | [facility] | | [...] Team Providers + +------+ + | Care Project Management Manager Name | Role | Phone | [...] | | | | | | | [place], | | | | | | | [place] | | | | | | | [address] | | | | | | | Phone: | | | | | | | [phone] | | | | | | | Fax: | | | | | | | [phone] | | +--------+ + + + + [...] [place] | | | | | | [address] | | | | | | [phone] | | | +--------+ + + + [...] MON[address] | | | | | | [place] [address] | | | | | | [phone] | | | | | | | [...] Performed At | + + + | Merged With [facility] | [place] | | Department [address] [facility] [address] | [facility] | | [ rep [address]] [ rep [facility] | | [facility]] Signed | - IMAGING | | | | | Patient Name: JORDAN GRULLON | | | Physician: LANNY : 1930 Age: 82 Sex: F Unit | | | #: [id number] Exam Date: 03/13/12 [place]: | | | [facility] [place] #: [id number] Page: | | | %(RAD)RES..mtdd.print.filter("pg") of %(RAD) | | | RES..mtdd.print.filter("tpg") | | | | | | Accession Number: [id number] | | | LUMBAR SPINE X-RAY CLINICAL [...] | | | Transcribed Date/Time: 03/13/2012 17:42 Clerk Operator: | | | <<Signature on File>> | | | Daniel | | | MD Jeanmarie03/14/12 0838 <Electronically signed by Daniel Murry MD> | | | Daniel Murry MD 03/13/12 0840 Clerk Operator: GruvItx | | | [email or web address]/18/12 3109 David Montgomery MD | | + + + + + + + + | Performing | Address | City/State/Zipcode | Phone Number | | Organization | | | | + + + + + | [facility] | [address] | [place] | [phone] | | [facility] | | [address] | | | - IMAGING | | | | + + + + + documented in this encounter Visit Diagnoses + + | Diagnosis | + + | Status post lumbar spinal fusion - Primary Arthrodesis status | + + documented in this encounter
--- OUTSIDE RECORDS SUMMARY | ~2019-03-21 | XMS | Encounter Summary ---
Demographics + + + | Address | [address] | | | [place] [address] | + + + | Home Phone [...] Author | [facility] | | | and [place] | + [...] Team Providers + +------+ + | Care Case Mgr Name | Role | Phone | + +------+ + | Kaushik Christensen MD | PCP | | + +------+ + Encounter Details +--------+ + + + + | Date | Type | Department | Care Team | Description | +--------+ + + + + | 10/27/ | Orders Only | [facility] | Conversion | | | 2017 | | NEPHROLOGY [place] | Transaction, | | | | | [address] | Provider Unknown | | | | | [address] [facility], [place] | | | | | | [address] | (Fax) | | | | | [phone] | | | +--------+ + + + [...] [place] | | | | | | [place] [address] | | | | | | [phone] | | | | | | | [...]
--- OUTSIDE RECORDS SUMMARY | ~2019-03-21 | XMS | Encounter Summary ---
Demographics + + + | Address | [address] | | | [place] [address] | + + + | Home Phone | | + + + | Preferred Language | Unknown | + + + | Marital Status | | + + + | Spiritism Affiliation | 1013 | + + + [...] Team Providers + +------+ + | Care Recycle Driver Name | Role | Phone | + +------+ + | Kaushik Christensen MD | PCP | | + +------+ + Encounter Details +--------+ + + + + | Date | Type | Department | Care Team | Description | +--------+ + + + + | 12/23/ | Orders Only | [facility] | Silvio Alfred MD | | | 2013 | | NEPHROLOGY [place] | [address] [place] | | | | | [address] [place] | [address] [place], [place] | | | | | [address] [place], [place] | [address] | | | | | [address] | | | | | | [phone] | | | +--------+ + + + [...] [place] | | | | | | [place] [address] | | | | | | [phone] | | | | | | | [...]
--- OUTSIDE RECORDS SUMMARY | ~2019-03-21 | XMS | Encounter Summary ---
Demographics + + + | Address | [address] | | | [place] [address] | + + + | Home Phone [...] Team Providers + +------+ + | Care Supervisor Cell Efficiency Name | Role | Phone | + +------+ + | Kaushik Christensen MD | PCP | | + +------+ + Reason for Visit +--------+ + | Reason | Comments | +--------+ + | Other | Discuss Surgery | +--------+ + Encounter Details +--------+---------+ + + + | Date | Type | Department | Care Team | Description | +--------+---------+ + + + | 01/17/ | Office | [facility] | David Montgomery MD | Spondylolisthesis of | | 2011 | Visit | NEUROSURGERY [address] | [address] | lumbar region | | | | [address] | [place] [address] | (Primary Dx); Lumbar | | | | [place] | [phone] | stenosis with | | | | [address] | | neurogenic | | | | [phone] | | claudication; Lumbar | | | | | | disc herniation | | | | | | with radiculopathy | +--------+---------+ + + + Social History [...] + + + | Blood Pressure | 135/91 | 01/18/2012 1:49 PM | | | | | PDT | | + + + + + | Pulse | 86 | 01/18/2012 1:49 PM | | | | | PDT | | + + + + + | Temperature | - | - | | + + + + + | Respiratory Rate | 18 | 01/18/2012 1:49 PM | | | | | PDT | | + + + + + | Oxygen Saturation | - | - | | + + + + + | Inhaled Oxygen | - | - | | | Concentration | | | | + + + + + | Weight | 114.3 kg (252 lb) | 01/18/2012 1:49 PM | | | | | PDT | | + + + + + | Height | 165.1 cm (5' 5") | 01/18/2012 1:49 PM | | | | | PDT | | + + + + + | Body Mass Index | 41.93 | 01/18/2012 1:49 PM | | | | | PDT | | + + + + + documented in this encounter Patient Instructions Patient Instructions David Montgomery MD - 01/18/2012 2:21 PM PDTComplete clearance for surge ry for a L4-5 MIS TLIF. documented in this encounter Progress Notes David Montgomery MD - 01/18/2012 2:19 PM PDTFormatting of this note might be different from t he original. David Montgomery MD [address] [place] [address], [address] [place] [address] FAX: NEUROSURGERY HISTORY AND PHYSICAL EXAMINATION CHIEF COMPLAINT: Chief Complaint Patient presents with Other Discuss Surgery HISTORY OF PRESENT ILLNESS: The patient is a 81 y.o. female with the complaint of back gaviota n that began long ago. The symptoms began to worsen steadily over the last 5 or so years an d especially over the last 14 months. Since that time the patient feel her pain has been wo rsening. She rates the pain in her back as a 7 on scale of 1-10. The patient also describ es leg symptoms that occur on both sides worst on the left. The leg symptoms account for gr eater than or equal to 50% of her symptoms. The leg symptoms are constant and the symptoms travels from the leg into the buttock. The patient also describes decline in her ambulation to only a 1/2 block. The patient does report chronic bladder issues that have not changed recently. Her symptoms improve with sitting or lying down. Her symptoms worsen with walking and standing. Her has tried multiple conservative treatments. PAST MEDICAL HISTORY: Past Medical History Diagnosis Date Hypertension Obesity, Class III, BMI 40-49.9 (morbid obesity) PAST SURGICAL HISTORY: Past Surgical History Procedure Date Gallbladder surgery 30 years ago Refractive surgery 2011 Both Eyes CURRENT MEDICATIONS: Current Outpatient Prescriptions on File Prior to Visit Medication Sig Dispense Refill Aspirin (ADULT ASPIRIN [...] tablet One tablet by mouth twice daily naproxen sodium (ALEVE) 220 MG tablet Two tablets by mouth twice daily gabapentin (NEURONTIN) 300 mg capsule 2 by mouth three times daily nortriptyline (PAMELOR) 10 MG capsule 2-3 by mouth at bedtime ALLERGIES: No Known Allergies SOCIAL HISTORY: The patient reports that she has never smoked. She has never used smokeless tobacco. She r eports that she does not drink alcohol or use illicit drugs. FAMILY HISTORY: History reviewed. No pertinent family history. REVIEW OF SYSTEMS: The patient's full review of systems from 11/01/11 was reviewed in full and there are no lee ges to this complete review of systems. PHYSICAL EXAMINATION: Blood pressure 135/91, pulse 86, resp. rate 18, height 1.651 m (5' 5"), weight 114.306 kg ( 252 lb). Body mass index is 41.93 kg/(m^2). GENERAL: Jordan Farias is in no acute distress with unlabored respirations. The sherman ent does not appear uncomfortable throughout the exam today. She is morbidly obese. HEENT: HEAD/FACE: EYES: EARS: NASOPHARNYX: OROPHARNYX: Normocephalic and atraumatic. There are no areas of recent trauma. Normal sclerae without icterus. No drainage or tenderness. Clear without drainage. Clear without erythema. Dentures are in place. NECK (ANTERIOR): Supple and without palpable masses. CHEST: Clear to ausculation without crackles or wheeze. HEART: Regular rate and rhythm without gallops. ABDOMEN: Soft, non-tender, non-distended, and without palpable masses. The patient is obe se. SPINE: There is no tenderness in the midline of the cervical or thoracic spine. There is p alpable deformity of the spine. The lumbar spine shows there is tenderness in the midline of the L4, L5 levels. EXTREMITIES: No cyanosis, clubbing. 2+ lower extremity edema. NEUROLOGICAL EXAM: MENTAL STATUS: The patient is awake, alert, and oriented. She follows simple and complex commands. She speech is fluent, her comprehends speech well, and her repeats well. She has no apparent deficits with short or halfway memory. CRANIAL NERVES: II: Acuity is intact. Ragland are full to confrontation. III, IV, : The pupils are reactive. Extraocular movements are intact. No ptosis is note d. V: Facial sensation is intact and symmetric. VII: Facial movements are symmetric. VIII: Hearing is intact bilaterally. IX, X: The uvula and palate move appropriately. XI: Shrug is equal bilaterally. XII: Tongue protrusion is midline. MOTOR EXAM: (5 IS NORMAL) * Indicates pain limited MUSCLE/ MOVEMENT: RIGHT LEFT Deltoids 5 5 Biceps 5 5 Triceps 5 5 Wrist Flexion 5 5 Wrist Extension 5 5 Median Intrinsics 5 5 Ulnar Intrinsics 5 5 Pharmacy Technician Infusion Strength 5 5 Hip Flexion 5 5 Hip Extension 5 5 Knee Flexion 5 5 Knee Extension 5 5 Dorsiflexion 4+ 4+ Extensor Hallicus Longus 4+ 4+ Plantarflexion 5 5 SENSORY EXAM: Sensory exam shows no diminished sensation to light touch or pain throughout the upper and lower extremities. She does have paresthesia into the buttock into the left greater than ri ght leg. REFLEXES: (2 OR 2+ IS NORMAL) REFLEX: RIGHT LEFT BICEPS 1 1 BRACHIORADIALIS 1 1 TRICEPS 1 1 PATELLAR 1 1 ACHILLES 1 1 FLYNN'S ABSENT ABSENT PLANTAR DOWNGOING DOWNGOING GAIT: Gait is unsteady and she flexes forward signficantly. RADIOGRAPHIC REVIEW: The patient's imaging was reviewed in detail with the patient today during the visit. The images show severe spinal stenosis at L4-5 and spondylolisthesis. Her thecal sac is severel y compressed. Flexion/extension views show listhesis with instability at L4-5. ASSESSMENT: NEUROSURGICAL DIAGNOSES: Encounter Diagnoses Name Primary? 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 Farias returns and has continued symptoms of pain. She has received cardiac clearan ce. I discussed surgery once again. I am favoring a L4-5 TLIF. She and her family were ex tensively counselled today. We discussed the risks, alternatives, and benefits to surgical intervention with Ms. Yazmin akhtar in clinic. These risks included but were not limited to , stroke, heart attack, nu mbness, weakness, paralysis, failure of fusion, failure of hardware, subsidence, adjacent se gment degeneration, cerebrospinal fluid leak, bleeding, infection, injury to surrounding tis sues and organs, injury from positioning, injury to the nerves, and need for additional surg douglas. Surgical options were discussed and the technique employed was described in detail to Ms. Eleno rubio. All their questions were answered. We discussed that the goal of the surgery is to prevent progression of their disease, but i t is not considered a cure. We also discussed that although some patients may obtain 100% s ymptom relief, it is more realistic to anticipate that some symptoms will continue postopera tively despite a successful surgery. We also discussed that there is no guarantee that surg douglas will provide improvement in their condition. She needs some additional preoperative testing and a final decision about surgery will be massiel sinha after this is obtained and after insurance authorization has been obtained as well. I am hoping to help improve her walking and her pain. I spent 45 minutes in visit with Jordan Farias today with the majority of time spent counselling the patient on her diagnosis, options for her care, and coordinating her care. ELECTRONICALLY SIGNED BY: David Montgomery MD, 01/18/2012 14:19 documented in this encounter Plan of Treatment +--------+---------+ + + + | Date | Type | Specialty | Care Team | Description | +--------+---------+ + + + | 04/08/ | Office | Cardiology | Alexandra Amaya | | | 2019 | Visit | | [address] | | | | | | [address] | | | | | | [place] [address] | | | | | | [phone] | | | | | | | | +--------+---------+ + + + documented as of this encounter Visit Diagnoses + + | Diagnosis | + + | Spondylolisthesis of lumbar region - Primary Acquired spondylolisthesis | + + | Lumbar stenosis with neurogenic claudication Spinal stenosis, lumbar region, with | | neurogenic claudication | + + | Lumbar disc herniation with radiculopathy Displacement of lumbar intervertebral disc | | without myelopathy | + + documented in this encounter
--- OUTSIDE RECORDS SUMMARY | ~2019-03-21 | XMS | Encounter Summary ---
Demographics + + + | Address | [address] | | | [place] [address] | + + + | Home Phone | | + + + | Preferred Language | Unknown | + + + | Marital Status | | + + + | Synagogue Affiliation | 1013 | + + + [...] Team Providers + +------+ + | Care Commercial Intern Name | Role | Phone | + +------+ + | Kaushik Christensen MD | PCP | | + +------+ + Encounter Details +--------+ + + + + | Date | Type | Department | Care Team | Description | +--------+ + + + + | 01/30/ | Orders Only | [facility] | Conversion | | | 2018 | | NEPRHOLOGY [place] | Transaction, | | | | | [address] | Provider Unknown | | | | | [address] [place], [place] | [phone] | | | | | [address] | (Fax) | | | | | [phone] | | | +--------+ + + + [...] [address] | | | | | | [place] [address] | | | | | | [phone] | | | | | | | [...] | | | LAB | | | [facility] | | | | | + + [...]
--- OUTSIDE RECORDS SUMMARY | ~2019-03-21 | XMS | Encounter Summary ---
Demographics + + + | Address | [address] | | | [place] [address] | + + + | Home Phone | | + + + | Preferred Language | Unknown | + + + | Marital Status | | + + + | Tenriism Affiliation | 1013 | + + + [...] Team Providers + +------+ + | Care Senior Marketing Associate Name | Role | Phone | + +------+ + | Renaldo Ramirez DO | PCP | Unavailable | + +------+ + Encounter Details +--------+ + + + + | Date | Type | Department | Care Team | Description | +--------+ + + + + | 02/11/ | Orders Only | [facility] | Silvio Alfred MD | Essential | | 2019 | | NEPHROLOGY [place] | [address] | hypertension | | | | [address] | [address] [place], [place] | (Primary Dx); CKD | | | | [address] | [address] | (chronic kidney | | | | [place], [place] | | disease) stage 4, | | | | [address] | | GFR 15-29 ml/min | | | | [phone] | | (HCC) | +--------+ + + [...] [address] | | | | | | [place] [address] | | | | | | [phone] | | | | | | | [...] ml/min | | | | | | ([facility]) | | + +------+--------+ + + documented as of this encounter Visit Diagnoses + + | Diagnosis | + + | Essential hypertension - Primary Unspecified essential hypertension | + + | CKD (chronic kidney disease) stage 4, GFR 15-29 ml/min ([facility]) Chronic kidney disease, | | Stage IV (severe) | + + documented in this encounter"
--- OUTSIDE RECORDS SUMMARY | ~2019-03-21 | XMS | Encounter Summary ---
Demographics + + + | Address | [address] | | | [place] [address] | + + + | Home Phone | | + + + | Preferred Language | Unknown | + + + | Marital Status | | + + + | Samaritan Affiliation | 1013 | + + + [...] Team Providers + +------+ + | Care Slip Cover Estimator Name | Role | Phone | + +------+ + | Kaushik Christensen MD | PCP | | + +------+ + Encounter Details +--------+ + + + + | Date | Type | Department | Care Team | Description | +--------+ + + + + | 07/25/ | Orders Only | [facility] | Chung Rushing, | | | 2017 | | NEPRHOLOGY [place] | CRYPTOGRAPHIC TECHNICIAN [address] | | | | | [address] | [facility] | | | | | [address] [place], [place] | [place] | | | | | [address] | [address] | | | | | [phone] | [phone] | | | | | | | [...] [address] | | | | | | [place] [address] | | | | | | [phone] | | | | | | | | +--------+---------+ + + + documented as of this encounter Procedures + +--------+ + + + | Procedure Name | Priori | Date/Time | Associated Diagnosis | Comments | | | ty | | | | + +--------+ + + + | EXTERNAL LAB: CBC | Routin | 07/25/2017 | | Results for this | | | e | 12:00 AM | | procedure are in the | | | | PDT | | results section. | + +--------+ + + + | URIC ACID | Routin | 07/25/2017 | | Results for this | | | e | 12:00 AM | | procedure are in the | | | | PDT | | results section. | + +--------+ + + + | PARATHYROID HORMONE, | Routin | 07/25/2017 | | Results for this | | INTACT | e | 12:00 AM | | procedure are in the | | | | PDT | | results section. | + +--------+ + + + | MAGNESIUM | Routin | 07/25/2017 | | Results for this | | | e | 12:00 AM | | procedure are in the | | | | PDT | | results section. | + +--------+ + + + | RENAL FUNCTION PANEL | Routin | 07/25/2017 | | Results for this | | | e | 12:00 AM | | procedure are in the | | | | PDT | | results section. | + +--------+ + + + documented in this encounter Results External Lab: CBC (07/25/2017 12:00 AM PDT) + + + [...] + + + + | Hgb | 12.1 | 12.0 - 16.0 | EXTERNAL | | | | | g/dL | LAB | | + + + + + + | Hematocrit, | 36.5 | 35 - 45 % | EXTERNAL | | | POC | | | LAB | | + + + + + + | MCV | 91.8 [...] + + + + | Platelet | 172 | 140 - 440 K/ L | [...] + + + | % Segmented | 58.4 | 39 - 80 % | EXTERNAL | | | | | | LAB | | | Neutrophils | | | | | + + + + + + | % | 28.0 | 24 - 44 % | EXTERNAL | | | Lymphocytes | | | LAB | | + + + + + + | % Monocytes | 8.6 | 0 - 12 % | EXTERNAL | | | | | | LAB | | + + + + + + | % | 3.5 [...] | + +---------+ + + Uric Acid (07/25/2017 12:00 AM PDT) + +-------+ + + + | Component | Value | Ref Range | Performed | Pathologist | | | | | At | Signature | + +-------+ + + + | Uric Acid | 5.4 | 2.3 - 6.6 | EXTERNAL | [...] + +---------+ + + Parathyroid Hormone, Intact (07/25/2017 12:00 AM PDT) + + + + + + | Component | Value | Ref Range | Performed | Pathologist | | | | | At | Signature | + + + + + + | PTH INTACT | 128.3 (A) | 15 - 65 pg/mL | [...] | | + +---------+ + + Magnesium (07/25/2017 12:00 AM PDT) + +-------+ + + [...] + +---------+ + + Renal Function Panel (07/25/2017 12:00 AM PDT) + + [...] + + + + | Na | 144 (A) | 132 - 143 | EXTERNAL [...] | | | LAB | | | [facility] | | | | | + + + + + + | Phosphorus, | 3.7 | 2.5 - 5.0 | EXTERNAL | | | Inorganic | | | LAB | | + + + + + + | BUN/Creatin | 15.7 | 6.0 - 28.6 | EXTERNAL | [...]
--- OUTSIDE RECORDS SUMMARY | ~2019-03-21 | XMS | Encounter Summary ---
Demographics + + + | Address | [address] | | | [place] [address] | + + + | Home Phone | | + + + | Preferred Language | Unknown | + + + | Marital Status | | + + + | Church Affiliation | 1013 | + + + [...] Team Providers + +------+ + | Care Retail Buyer Name | Role | Phone | + +------+ + | Kaushik Christensen MD | PCP | | + +------+ + Encounter Details +--------+ + + + + | Date | Type | Department | Care Team | Description | +--------+ + + + + | 10/12/ | Orders Only | [facility] | Conversion | | | 2017 | | NEPHROLOGY [place] | Transaction, | | | | | [address] | Provider Unknown | | | | | [address] [facility] [place] | | | | | | [address] | (Fax) | | | | | [phone] | | | +--------+ + + + [...] [address] | | | | | | [place] [address] | | | | | | [phone] | | | | | | | [...]
--- OUTSIDE RECORDS SUMMARY | ~2019-03-21 | XMS | Encounter Summary ---
Demographics + + + | Address | [address] | | | [place] [address] | + + + | Home Phone | | + + + | Preferred Language | Unknown | + + + | Marital Status | | + + + | Mandaen Affiliation | 1013 | + + + | Race | Unknown | + + + | Ethnic Group | Unknown | + + + Author + + + | Author | [facility] | | | and [place] | + + + | Organization | [facility] | | | [...] Team Providers + +------+ + | Care Chain Link Fence Installer Name | Role | Phone | + +------+ + PCP | Unavailable | + +------+ + Encounter Details +--------+ + + + + | Date | Type | Department | Care Team | Description | +--------+ + + + + | 06/19/ | Hospital | [facility] | Sammy Cespedes Shandra Maier, | | | 2011 | Encounter | MED CTR XRAY [address] | MD [address] | | | | | [place] | [place], [place] | | | | | [place] [address] | [address] | | | | | [phone] | | | +--------+ + + + [...] encounter Medications at Time of Discharge + +-----+ +---------+ + + | Medication | Sig | Dispensed | Refills | Start | End Date | | | | | | Date | | + +-----+ +---------+ + + | losartan (COZAAR) | | | 0 | 06/20/19 | | | 25 mg tablet | | | | 12 | 2 | + +-----+ +---------+ + + documented as of this encounter Plan of Treatment +--------+---------+ + + + | Date | Type | Specialty | Care Team | Description | +--------+---------+ + + + | 04/08/ | Office | Cardiology | Ofelia Amaya | | | 2020 | Visit | | [address] | | | | | | [place] | | | | | | [place] [address] | | | | | | [phone] | | | | | | | | +--------+---------+ + + + documented as of this encounter Procedures + +--------+ + + + | Procedure Name | Priori | Date/Time | Associated Diagnosis | Comments | | | ty | | | | + +--------+ + + + | XR LUMBAR SPINE 4 + | | 06/20/2011 | | Results for this | | VW | | 12:12 PM | | procedure are in the | | | | PDT | | results section. | + +--------+ + + + documented in this encounter Results XR Lumbar Spine 4 + Vw (06/20/2011 12:12 PM PDT) + + | Specimen | + + | | + + + + + | Narrative | Performed At | + + + | [facility] Diagnostic Imaging Department | [facility] | | [address] [facility][1] | [facility] | | LUMBAR SPINE CLINICAL | DIAG IMG | | HISTORY: BACK PAIN. EVALUATE FOR INSTABILITY. FINDINGS: | | | There are 5 lumbar vertebral bodies. Alignment is normal except | | | for anterolisthesis of L4 on L5, which in the neutral position | | | measures approximately 7 mm. There is severe, asymmetric disk | | | space narrowing at L2-3 with endplate sclerotic change. There is | | | also a symmetric disk space narrowi ng at L4-5. The other disk | | | interspaces are maintained. Vertebral body heights appear normal | | | with no compression deformities. In flexion, the | | | anterolisthesis at L4-5 appears to significantly increase, to over 11 | | | mm. It also de creases in extension, with opening at the anterior | | | aspects of the interspace. No other changes in al ignment occur | | | with motion. IMPRESSION: 1. DEGENERATIVE DISK DISEASE CHANGE | | | AT L2-3 AND L4-5, WITH L4-5 DEGENERATIVE SPONDYLOLISTHESIS. INS | | | TABILITY IS RADIOGRAPHICALLY DEMONSTRATED IN FLEXION AND EXTENSION | | | DISCUSSED ABOVE. Dictated Date/Time: 06/20/2011 15:14 | | | Transcribed Date/Time: 06/20/2011 15:30 Anesthesiology Faculty: | | | <Electronically Signed by Lefty Kirby MD> 06/20/11 1916 | | + + + + + | Procedure Note | + + | Sarbjit, Rad Conversion - 05/03/2013 4:59 PM [facility] | | Diagnostic Imaging Department [address] [place] [address] | | LUMBAR SPINE CLINICAL HISTORY: BACK PAIN. EVALUATE FOR | | INSTABILITY. FINDINGS: There are 5 lumbar vertebral bodies. Alignment is normal | | except for anterolisthesis of L4 on L5, which in the neutral position measures | | approximately 7 mm. There is severe, asymmetric disk space narrowing at L2-3 with | | endplate sclerotic change. There is also a symmetric disk space narrowing at L4-5. The | | other disk interspaces are maintained. Vertebral body heights appear normal with no | | compression deformities. In flexion, the anterolisthesis at L4-5 appears to | | significantly increase, to over 11 mm. It also decreases in extension, with opening at | | the anterior aspects of the interspace. No other changes in alignment occur with | | motion. IMPRESSION: 1. DEGENERATIVE DISK DISEASE CHANGE AT L2-3 AND L4-5, WITH L4-5 | | DEGENERATIVE SPONDYLOLISTHESIS. INSTABILITY IS RADIOGRAPHICALLY DEMONSTRATED IN FLEXION | | AND EXTENSION DISCUSSED ABOVE. Dictated Date/Time: 06/20/2011 15:14Transcribed | | Date/Time: 06/20/2011 15:30Transcriptionist: <Electronically Signed by Lefty Avendaño | | MD Kofi> 06/20/111915 | |In flexion, the anterolisthesis at L4-5 appears to significantly increase, to over 11 mm. It also de | |creases in extension, with opening at the anterior aspects of the interspace. No other garth nges in al | |ignment occur with motion. | | | |IMPRESSION: | |1. DEGENERATIVE DISK DISEASE CHANGE AT L2-3 AND L4-5, WITH L4-5 DEGENERATIVE SPONDYLOLISTH ESIS. INS | |TABILITY IS RADIOGRAPHICALLY DEMONSTRATED IN FLEXION AND EXTENSION DISCUSSED ABOVE. | | | |Dictated Date/Time: 06/20/2011 15:14 | |Transcribed Date/Time: 06/20/2011 15:30 | |Anesthesiology Faculty: | |<Electronically Signed by Lefty Kirby MD> 06/20/111915 | + + + +---------+ + + | Performing | Address | City/State/Zipcode | Phone Number | | Organization | | | | + +---------+ + + | [place] | | | | | [place] | | | | + +---------+ + + documented in this encounter Visit Diagnoses Not on filedocumented in this encounter"
--- OUTSIDE RECORDS SUMMARY | ~2019-03-21 | XMS | Encounter Summary ---
Demographics + + + | Address | [address] | | | [place] [address] | + + + | Home Phone | | + + + | Preferred Language | Unknown | + + + | Marital Status | | + + + | Sikh Affiliation | 1013 | + + + | Race | Unknown | + + + | Ethnic Group | Unknown | + + + Author + + + | Author | [facility] | | | and [place] | + + + | Organization | [facility] | | [...] Team Providers + +------+ + | Care Axminster Weaver Name | Role | Phone | + [...] XRAY [address] | MD [address] | | | | | [place] | [place], [place] | | | | | [place] [address] | [address] | | | | | [phone] | | | +--------+ + + + [...] | 04/08/ | Office | Cardiology | Ofeila Amaya | | | 2020 | Visit | | [address] | | | | | | [place] | | | | | | [place] [address] | | | | | | [phone] | | | | | | | [...] At | + + + | [facility] Diagnostic Imaging Department | [facility] | | [address] [facility] | [facility] | | LUMBAR SPINE CLINICAL [...] | | | Transcribed Date/Time: 06/20/2011 15:30 Regional Sales Associate: | | | <Electronically Signed by Lefty Kirby MD> 06/20/11 1916 | | + + + + + | Procedure Note | + + | Sarbjit, Rad Conversion - 05/03/2013 4:59 PM [facility] | | Diagnostic Imaging Department [address] [place] [address] | | LUMBAR SPINE CLINICAL HISTORY: BACK [...] 15:14 | |Transcribed Date/Time: 06/20/2011 15:30 | |Regional Sales Associate: | |<Electronically Signed by Lefty Kirby MD> [...]
--- OUTSIDE RECORDS SUMMARY | ~2019-03-21 | XMS | Encounter Summary ---
Demographics + + + | Address | [address] | | | [place] [address] | + + + | Home Phone [...] Team Providers + +------+ + | Care Bareback Rider Name | Role | Phone | + +------+ + | Kaushik Christensen MD | PCP | | + +------+ + Encounter Details +--------+ + + + + | Date | Type | Department | Care Team | Description | +--------+ + + + + | 02/17/ | Orders Only | [facility] | Silvio Alfred MD | | | 2013 | | NEPRHOLOGY [place] | [address] | | | | | [address] | [address] [place], [place] | | | | | [address] [place], [place] | [address] | | | | | [address] | | | | | | [phone] | | | +--------+ + + + [...] [place] | | | | | | [facility] [address] | | | | | | [phone] | | | | | | | [...] | | | LAB | | | TANZAN[facility] | | | | | + + [...]
--- OUTSIDE RECORDS SUMMARY | ~2019-03-21 | XMS | Encounter Summary ---
Demographics + + + | Address | [address] | | | [place] [address] | + + + | Home Phone | | + + + | Preferred Language | Unknown | + + + | Marital Status | | + + + | Religion Affiliation | 1013 | + + + | Race | Unknown | + + + | Ethnic Group | Unknown | + + + Author + + + | Author | [facility] | | | and [place] | + + + | Organization | [facility] | | | and [...] Team Providers + +------+ + | Care Bilingual Administrative Assistant Name | Role | Phone | [...] [address] | | | | | [phone] | [address] | | | | | | [place] [address] | | | | | | [phone] | | | | | | | [...] [address] | | | | | | [place] [address] | | | | | | [phone] | | | | | | | | +--------+---------+ + + + documented as of this encounter Visit Diagnoses Not on filedocumented in this encounter"
--- OUTSIDE RECORDS SUMMARY | ~2019-03-21 | XMS | Encounter Summary ---
Demographics + + + | Address | [address] | | | [place] [address] | + + + | Home Phone | | + + + | Preferred Language | Unknown | + + + | Marital Status | | + + + | Oriental Orthodox Affiliation | 1013 | + + + [...] Team Providers + +------+ + | Care Neurophysiology Tech Name | Role | Phone | + +------+ + | Kaushik Christensen MD | PCP | | + +------+ + Reason for Visit +--------+ + | Reason | Comments | +--------+ + | Other | S/P LUMBAR FUSION | +--------+ + Encounter Details +--------+---------+ + + + | Date | Type | Department | Care Team | Description | +--------+---------+ + + + | 03/13/ | Office | [facility] | David Montgomery MD | Spondylolisthesis of | | 2011 | Visit | NEUROSURGERY [address] | [address] | lumbar region | | | | [address] | [place] [address] | (Primary Dx); | | | | [place] | [phone] | DEGENERATIVE DISC | | | | [address] | | DISEASE, LUMBAR | | | | [phone] | | SPINE; Spinal | | | | | | stenosis, lumbar | +--------+---------+ + [...] + + + | Blood Pressure | 113/67 | 03/13/2012 1:34 PM | | | | | PST | | + + + + + | Pulse | 56 | 03/13/2012 1:34 PM | | | | | PST | | + + + + + | Temperature | - | - | | + + + + + | Respiratory Rate | 16 | 03/13/2012 1:34 PM | | | | | PST | | + + + + + | Oxygen Saturation | - | - | | + + + + + | Inhaled Oxygen | - | - | | | Concentration | | | | + + + + + | Weight | 114.3 kg (252 lb) | 03/13/2012 1:34 PM | | | | | PST | | + + + + + | Height | 165.1 cm (5' 5") | 03/13/2012 1:34 PM | | | | | PST | | + + + + + | Body Mass Index | 41.93 | 03/13/2012 1:34 PM | | | | | PST | | + + + + + documented in this encounter Patient Instructions Patient Instructions David Montgomery MD - 03/13/2012 2:41 PM PSTSPINE BRACE WEANING PROTOCOL (5 WEEKS) Below are instructions for weaning your brace. You can move through the weeks slower if yo u feel the need to do so, but the overall goal is to get you out of the brace slowly over th e next several weeks. WEEK 1 If you have been using your brace for activities like sleeping, showering, do not use the b race for these activities any longer but continue using it for everything else. WEEK 2 Stop wearing your brace for sitting and short distance walking. You should use the brace f or anything more involved. WEEK 3 Stop using the brace for medium distance walking. You can bend and twist your back but sti ll proceed slowly with these activities. WEEK 4 Stop using the brace for everything but the most difficult tasks. You should now be able to go on long walks and lift more weight as directed. Add more bending and twisting as tolera marga. WEEK 5 Stop using the brace for daily use. I would encourage you to use the brace in the future f or activities that you know might aggravate your back or cause pain. You should still work to strengthen your back and use good technique when pick remover things and bending. Electronica lly signed by David Montgomery MD at 03/13/2012 2:41 PM PST documented in this encounter Progress Notes David Montgomery MD - 03/14/2012 7:34 AM PSTFormatting of this note might be different from t he original. David Montgomery MD [address] [place] [address], [address] [place] [address] FAX: NEUROSURGERY SURGICAL FOLLOW-UP CHIEF COMPLAINT: Chief Complaint Patient presents with Other S/P LUMBAR FUSION HISTORY OF PRESENT ILLNESS: The patient is a 82 y.o. female that had a lumbar fusion by me for lumbar spondylolisthesis around 6-8 weeks ago. She returns and overall is doing well. The patient complains of some back discomfort but her legs and walking distance have improv ed. The patient has been walking as directed. She is not still taking pain medications at this point. The patient has had no issues with her surgical site. CURRENT MEDICATIONS: Current Outpatient Prescriptions Medication Sig Dispense Refill UNCODED MEDICATION S/P lumbar fusion 1 each 0 Lactulose SOLN Take 30 mLs by mouth every 6 hours as needed (Constipation). 240 mL 1 tizanidine (ZANAFLEX) 4 MG capsule Take 1 capsule by mouth 3 times daily as needed for Muscle spasms. 90 capsule 3 Aspirin (ADULT ASPIRIN LOW STRENGTH) 81 MG [...] not drink alcohol or use illicit drugs. INTERIM PHYSICAL EXAMINATION: Blood pressure 113/67, pulse 56, resp. rate 16, height 1.651 m (5' 5"), weight 114.306 kg ( 252 lb). Body mass index is 41.93 kg/(m^2). GENERAL: Jordan Grullon is in no acute distress with unlabored respirations. SPINE: The patient s incisions are healing well without drainage, significant erythema, o r discharge EXTREMITIES: No lower extremity edema. NEUROLOGICAL EXAMINATION: MENTAL STATUS: The patient is awake, alert, and oriented. She follows simple and complex commands MOTOR EXAM: Motor strength is 5/5. SENSORY EXAM: The sensory examination improved from the preoperative exam. She no longer r eports paresthesias. RADIOGRAPHIC REVIEW: The patient s postoperative x-rays show stable instrumentation and alignment and were rev iewed with the patient today. There have been no interval changes since the immediate posto perative films. Complete fusion has not yet occurred, but this is normal and would not be e xpected at this time. ASSESSMENT: S/P lumbar fusion for: Encounter Diagnoses Name Primary? Spondylolisthesis of lumbar region Yes DEGENERATIVE DISC DISEASE, LUMBAR SPINE Spinal stenosis, lumbar Past Medical History Diagnosis Date Hypertension Obesity, Class III, BMI 40-49.9 (morbid obesity) PLAN: Overall, the patient is doing well. I was pleased to see she's made such great progress in such a short amount time. I increased the patient s activities slowly now allowing 15 po und lifting and also will begin the process of brace weaning. I would like the patient to a dvance slowly with this process and discussed this at length during today's visit. I would also like the patient to continue with postoperative rehabilitation and to advance with ther apy as tolerated. I am hoping to see improvement over the coming weeks to months and plan to continue to foll ow this patient. I spent 20 minutes in visit with Jordan Grullon today with the majority of time spent counselling the patient on her recovery and coordinating her future care. The patient will follow-up with me in around 5-7 weeks for re-evaluation. ELECTRONICALLY SIGNED BY: David Montgomery MD, 03/14/2012 7:34 documented in this encounter Plan of Treatment +--------+---------+ + + + | Date | Type | Specialty | Care Team | Description | +--------+---------+ + + + | 04/08/ | Office | Cardiology | Alexandra Amaya | | | 2019 | Visit | | [address] | | | | | | [place] [address] | | | | | | [place] [address] | | | | | | [phone] | | | | | | | | +--------+---------+ + + + documented as of this encounter Results XR Lumbar Spine 2 or 3 Vw (05/01/2012 4:12 PM PST) + + | Specimen | + + | | + + + + + | Narrative | Performed At | + + + | [facility] Diagnostic Imaging | [place] | | Department [address] [place] [address] | [facility] | | [ rep [address]] [ rep [facility] | | st zip] Signed | - IMAGING | | | | | Patient Name: JORDAN GRULLON | | | Physician: LANNY : 1930 Age: 82 Sex: F Unit | | | #: [id number] Exam Date: 05/01/12 Location: | | | [facility] [place] [place] Report #: [id number] Page: | | | %(RAD)RES..mtdd.print.filter("pg") of %(RAD) | | | RES..mtdd.print.filter("tpg") | | | | | | Accession Number: [id number] | | | TWO VIEWS LUMBAR SPINE, [...] Transcribed | | | Date/Time: 05/01/2012 16:58 Bacteriology Research Assistant: | | | <<Signature on File>> | | | Shamar King | | | MD [place]05/01/122121 <Electronically signed by Shamar Jeter MD> | | | Shamar Jeter MD 05/01/12 1612 Bacteriology Research Assistant: | | | Webmedx Bksargwrbutqt87/05/13 [id number] David Montgomery MD | | | | | + + + + + + + + | Performing | Address | City/State/Zipcode | Phone Number | | Organization | | | | + + + + + | [facility] | [address] | [place] | [phone] | | [facility] | | [address] | | | - IMAGING | | | | + + + + + documented in this encounter Visit Diagnoses + + | Diagnosis | + + | Spondylolisthesis of lumbar region - Primary Acquired spondylolisthesis | + + | DEGENERATIVE DISC DISEASE, LUMBAR SPINE Degeneration of lumbar or lumbosacral | | intervertebral disc | + + | Spinal stenosis, lumbar Spinal stenosis, lumbar region, without neurogenic | | claudication | + + documented in this encounter
--- OUTSIDE RECORDS SUMMARY | ~2019-03-21 | XMS | Encounter Summary ---
Demographics + + + | Address | [address] | | | [place] [address] | + + + | Home Phone [...] | + + +---------+ + | Eladia Mooer | ECON | Unknown | | + + +---------+ + | Bisi Hooks | ECON | Unknown | | + + +---------+ + Care Team Providers + +------+ + | Care Oracle Programmer Name | Role | Phone | + [...] | SR | | | | | [phone] | | | +--------+ + + + [...] | | | | | [place] [address] | | | | | | [phone] | | | | | | | | +--------+---------+ + + + documented as of this encounter Visit Diagnoses Not on filedocumented in this encounter
--- OUTSIDE RECORDS SUMMARY | ~2019-03-21 | XMS | Encounter Summary ---
Demographics + + + | Address | [address] | | | [place] [address] | + + + | Home Phone [...] Team Providers + +------+ + | Care Industry Operations Investigator Name | Role | Phone | + +------+ + | Kaushik Christensen MD | PCP | | + +------+ + Encounter Details +--------+ + + + + | Date | Type | Department | Care Team | Description | +--------+ + + + + | 01/29/ | Hospital | [facility] | David Montgomery MD | | | 2011 - | Encounter | MED CTR SURGICAL | [address] | | | | | [address] | [place] [address] | | | 01/31/ | | [place] [address] | [phone] | | | 2011 | | [phone] | | | +--------+ + + + [...] MON[place] | | | | | | [place] [address] | | | | | | [phone] | | | | | | | [...] Performed At | + + + | [facility] Diagnostic Imaging | [place] | | Department [address] [place] [address] | [facility] | | [ rep ct [address]] [ rep ct [facility] | | [facility]] Signed | - IMAGING | | | | | Patient Name: JORDAN GRULLON | | | Physician: LANNY : 1930 Age: 81 Sex: F Unit | | | #: [id number] Exam Date: 01/31/12 Location: | | | [address] [place] [address]- Report #: [id number] Page: | | | %(RAD)RES..mtdd.print.filter("pg") of %(RAD) | | | RES..mtdd.print.filter("tpg") | | | | | | Accession Number: [id number] | | | TWO VIEWS LUMBAR SPINE, 01/31/2012 CLINICAL HISTORY: | | | STATUS POST LUMBAR FUSION. COMPARISON: Lumbar MRI | | | 06/23/2011, lumbar radiographs 06/20/2011. FINDINGS: | | | Five bpl-ubg-mrgqejm, lumbar-type vertebrae are visible. There is | [...] Transcribed Date/Time: 01/31/2012 13:13 | | | Geophysical Laboratory Chief: <<Signature on File>> | | | | | | Shamar Jeter MD01/31/12 2864 <Electronically signed by Shamar King | | | Corona PURCELL> Shamar Jeter MD 01/31/12 1258 | | | Geophysical Laboratory Chief: DoublePositive [id number]/06/12 1313 | | | David Montgomery MD | | + + + + + + + + | Performing | Address | City/State/Zipcode | Phone Number | | Organization | | | | + + + + + | [facility] | [address] | [place] | [phone] | | [facility] | | [address] | | | - IMAGING | | | | + + + + + documented in this encounter Visit Diagnoses Not on filedocumented in this encounter
--- OUTSIDE RECORDS SUMMARY | ~2019-03-21 | XMS | Encounter Summary ---
Demographics + + + | Address | [address] | | | [place] [address] | + + + | Home Phone [...] Providers + +------+ + | Care Plant Operator Name | Role | Phone | + +------+ + | Kaushik Christensen MD | PCP | | + +------+ + Encounter Details +--------+ + + + + | Date | Type | Department | Care Team | Description | +--------+ + + + + | 10/27/ | Orders Only | [facility] | Silvio Alfred MD | | | 2017 | | NEPRHOLOGY [place] | [address] | | | | | [address] | [address] [place], [place] | | | | | [address] [place], [place] | [address] | | | | | [address] | | | | | | [phone] | | | +--------+ + + + [...] [place] | | | | | | [facility] [address] | | | | | | [phone] | | | | | | | [...] | | | LAB | | | ARMEN[facility] | | | | | + + [...]
--- OUTSIDE RECORDS SUMMARY | ~2019-03-21 | XMS | Encounter Summary ---
Demographics + + + | Address | [address] | | | [place] [address] | + + + | Home Phone [...] Team Providers + +------+ + | Care Lead Cargo Mover Name | Role | Phone | + [...] + + | 02/19/ | Documentati | [facility] | Darrel | Jaison (B/P Log | | 2019 | on | NEPHROLOGY [place] | Kash Treadwell | 02/11/19-02/18/19) | | | | [address] | Petrophysical Engineer | | | | | [place] [address] | | | | | | [place], [place] | | | | | | [address] | | | | | | [phone] | | | +--------+ + + + [...] [place] | | | | | | [place] [address] | | | | | | [phone] | | | | | | | | +--------+---------+ + + + documented as of this encounter Visit Diagnoses Not on filedocumented in this encounter"
--- OUTSIDE RECORDS SUMMARY | ~2019-03-21 | XMS | Clinical Summary ---
Demographics + + + | Address | [address] | | | [place] [address] | + + + | Home Phone | | + + + | Preferred Language | Unknown | + + + | Marital Status | | + + + | Advent Affiliation | 1013 | + + + | Race | Unknown | + + + | Ethnic Group | Unknown | + + + Author + + + | Author | [facility] | | | and [place] | + + + | Organization | [facility] | | [...] Team Providers + +------+ + | Care Well Logging Captain Mud Analysis Name | Role | Phone | + [...] Other | | 2019 | | | ACCOUNTS ADJUSTABLE CLERK | | +--------+ + + + + [...] | 02/11/19-02/18/19) | | | | | Surface Supervisor | | +--------+ + + + + [...] ml/min | | | | | | ([facility]) (Primary Dx); | | | | | | Bilateral leg edema; | | | | | | Hyperuricemia; | | | | | | Vitamin D | | | | | | deficiency; | | | | | | Secondary | | | | | | hyperparathyroidism | | | | | | ([facility]); Essential | | | | | | [...] ml/min | | | | | | ([facility]) | +--------+ + + + + | 02/07/ | Documentati | Nephrology | Darrel | Kamille (02/05/19) | | 2019 | on | | [facility] | | | | | | Surface Supervisor | | +--------+ + + + + | 01/30/ | Telephone | Nephrology | Darrel, | Other (Appointment | | 2018 | | | Kash Treadwell | reminder call) | | | | | Surface Supervisor | | +--------+ + + + + [...] + + | Father | | | [place] | | | | (Age | | [...] + + | Son | | | [place] | | | | (Age | | [...] [place] | | | | | | [place] [address] | | | | | | [phone] | | | | | | | [...] | | | | | by [employer] Read Only, | | | | | | [employer] Yvette ([phone]), | | | | | | video editor Hernan Zamora | | | | | | ([phone]) on 03/05/2019 | | | | | [...] | [employer] [facility] | [facility] | [id number] | 03/27/19 | | | Medica | [...] ashlee | | | 5 (Home) | [address] | + +--------+ +--------+ + + | Jordan Farias | Person | Self | [birth year] | [address] | | | al/Fam | | 1930 | [phone] | [place], [place] | | | ashlee | | | 5 (Home) | [address] | + +--------+ +--------+ + + Advance Directives + + + + + | Type | Date Recorded | Patient | Explanation | | | | Drop Hammer Set Up Operator | | + + + + + | Power of | | | | | Atomic Process Engineer | | | | + + + + + | Advance | | | | | Directive | | | | + + + + +
--- OUTSIDE RECORDS SUMMARY | ~2019-03-21 | XMS | Encounter Summary ---
Demographics + + + | Address | [address] | | | [place] [address] | + + + | Home Phone | | + + + | Preferred Language | Unknown | + + + | Marital Status | | + + + | Episcopal Affiliation | 1013 | + + + | Race | Unknown | + + + | Ethnic Group | Unknown | + + + Author + + + | Author | [facility] | | | and [place] | + + + | Organization | [facility] | | | [...] Team Providers + +------+ + | Care Continuous Improvement Coach Name | Role | Phone | + [...] + + | 02/19/ | Documentati | [facility] | Darrel | Jaison (B/P Log | | 2019 | on | NEPHROLOGY [place] | Kash Treadwell | 02/11/19-02/18/19) | | | | [address] | Occupational Health Physician | | | | | [place] [address] | | | | | | [place], [place] | | | | | | [address] | | | | | | [phone] | | | +--------+ + + + [...] [place] | | | | | | [place] [address] | | | | | | [phone] | | | | | | | | +--------+---------+ + + + documented as of this encounter Visit Diagnoses Not on filedocumented in this encounter"
--- OUTSIDE RECORDS SUMMARY | ~2019-03-21 | XMS | Encounter Summary ---
Demographics + + + | Address | [address] | | | [place] [address] | + + + | Home Phone | | + + + | Preferred Language | Unknown | + + + | Marital Status | | + + + | Yarsanism Affiliation | 1013 | + + + | Race | Unknown | + + + | Ethnic Group | Unknown | + + + Author + + + | Author | [facility] | | | and [place] | + + + | Organization | [facility] | | | [...] Providers + +------+ + | Care Director Fundraising Name | Role | Phone | + +------+ + PCP | Unavailable | + +------+ + Encounter Details +--------+ + + + + | Date | Type | Department | Care Team | Description | +--------+ + + + + | 06/22/ | Hospital | [facility] | Sammy Cespedes Shandra Maier, | | | 2011 | Encounter | MED CTR XRAY [address] | MD [address] | | | | | [place] | [place], [place] | | | | | [place] [address] | [address] | | | | | [phone] | | | +--------+ + + + [...] [place] | | | | | | [place] [address] | | | | | | [phone] | | | | | | | | +--------+---------+ + + + documented as of this encounter Procedures + +--------+ + + + | Procedure Name | Priori | Date/Time | Associated Diagnosis | Comments | | | ty | | | | + +--------+ + + + | MRI LUMBAR SPINE WO | | 06/23/2011 | | Results for this | | CONTRAST | | 12:09 PM | | procedure are in the | | | | PDT | | results section. | + +--------+ + + + documented in this encounter Results MRI Lumbar Spine wo Contrast (06/23/2011 12:09 PM PDT) + + | Specimen | + + | | + + + + + | Narrative | Performed At | + + + | [facility] Diagnostic Imaging Department | [facility] | | [address] | [facility] | | UNENHANCED MRI LUMBAR SPINE, | DIAG IMG | | 06/23/2011 CLINICAL HISTORY: LUMBAR SPINAL STENOSIS AND LEFT S1 | | | RADICULOPATHY. COMPARISON: Lumbar radiographs 06/20/2011, CT | | | lumbar spine 03/17/2011. TECHNIQUE: The following 3T MR | | | sequences of the lumbar spine were obtained: 1. Axial and sagittal | | | T1. 2. Axial, sagittal and coronal T2. 3. Sagittal STIR. | | | FINDINGS: Five qtl-cie-wklydmt, lumbar-type vertebrae are visible on | | | the coronal sequence. There is persistent leftward lumbar | | | curvature centered at L2- 3. Numerous rounded T1/T2 hyperintense, | | | STIR hypointense lesions are scattered throughout the lumbar | | | vertebral bodies and are consistent with benign hemangiomata. | | | Small Schmorl's nodes are present within multiple vertebral | | | endplates, without associated marrow edema on the STIR sequence. | | | Lumbar vertebral height is maintained, without evident fracture or | | | spondylolysis. The conus medullaris is unremarkable, terminating | | | at T12-L1. Bilateral renal parapelvic cyst formation is suggested. | | | Imaged intraabdominal and paraspinal structures are otherwise | | | unremarkable. The T11-12 and T12-L1 levels demonstrate no | | | significant central canal or neural foraminal stenosis on provided | | | sagittal images. Disk desiccation, mild posterior disk bulge, | | | prominent dorsal epidural fat deposition and mild to moderate | | | ligamentous and facet hypertrophy combine at L1- 2 to moderately | | | narrow the central canal and neural foramina, as visualized on | | | provided sagittal images. Near complete, asymmetric right-sided | | | disk space narrowing, posterior and right lateral disk osteophyte | | | complex and endplate hyperintensity consistent with Modic | | | degeneration are present at L2-3, combining with dorsal epidural fat | | | deposition and moderate ligamentous and facet hypertrophy to | | | moderately narrow the central canal and neural foramina. Vertebral | | | osteophytes slightly deviate the course of the exiting L2 nerve | | | roots within and distal to their foramina, and there is narrowing of | | | the right subarticular recess with potential for encroachment on | | | the origin of the right L3 nerve root as well. Bilateral facet | | | joint effusions are present. Disk desiccation and a diffuse disk | | | bulge are present at L3-4, combining with moderate ligamentous and | | | facet hypertrophy to fairly mildly narrow the central canal and mild | | | to moderately narrow the neural foramina, without conclusive nerve | | | root compression or displacement. Bilateral facet joint effusions | | | are present. Disk desiccation, mild disk space narrowing, 5 mm | | | anterolisthesis, high-signal annular tear, and a diffuse posterior | | | disk bulge are present at L4-5, combining with severe ligamentous | | | and facet hypertrophy to severely narrow the central canal, | | | completely effacing the CSF space, and severely narrow the left neural | | | foramen as well, with compression of the exiting left L4 nerve | | | root. There is potential impingement on the origins of the L5 | | | nerve roots at the level of the subarticular recesses as well. | | | Bilateral facet joint effusions are present. Disk | | | desiccation, minimal posterior disk bulge and moderate to severe | | | ligamentous and facet hypertrophy are present at L5-S1, moderately | | | narrowing the neural foramina and narrowing the left subarticular | | | recess as well, with potential impingement on the origin of the left | | | S1 nerve root. Prominent facet joint effusions are present. | | | IMPRESSION: 1. DEGENERATIVE DISK DISEASE AND POTENTIAL | | | INSTABILITY AT L4-5, WITH SEVERE, MULTIFACTORIAL CENTRAL CANAL AND | | | LEFT NEURAL FORAMINAL STENOSIS AND POTENTIAL IMPINGEMENT ON THE | | | EXITING LEFT L4 NERVE ROOT AND ORIGINS OF THE L5 NERVE ROOTS. | | | 2. DEGENERATIVE DISK DISEASE AND LEFT SUBARTICULAR RECESS NARROWING | | | AT L5-S1, WITH POTENTIAL IMPINGEMENT ON THE ORIGIN OF THE LEFT S1 | | | NERVE ROOT. 3. DEGENERATIVE DISK DISEASE AT L3-4 WITHOUT | | | EVIDENT NERVE ROOT COMPRESSION OR DISPLACEMENT. 4. | | | ASYMMETRIC DEGENERATIVE DISK DISEASE AND SPONDYLOSIS AT L2-3, WITH | | | MODERATE , MULTIFACTORIAL CENTRAL CANAL AND NEURAL FORAMINAL STENOSIS | | | AND SLIGHT DEVIATION OF THE EXITING L2 NERVE ROOTS, WITH POTENTIAL | | | FOR ENCROACHMENT ON THE ORIGIN OF THE RIGHT L3 NERVE ROOT WELL. | | | 5. LEVOSCOLIOSIS AND MULTILEVEL FACET ARTHROPATHY. | | | Dictated Date/Time: 06/23/2011 15:54 Transcribed Date/Time: | | | 06/23/2011 16:27 Paraeducator: <Electronically Signed | | | by Shamar Jeter MD> 06/23/11 2251 | | + + + + + | Procedure Note | + + | Sarbjit, Rad Conversion - 05/03/2013 5:01 PM [facility] | | Diagnostic Imaging Department | | [address] | | | | | | | | UNENHANCED MRI LUMBAR SPINE, 06/23/2011 | | | | CLINICAL HISTORY: LUMBAR SPINAL STENOSIS AND LEFT S1 RADICULOPATHY. | | | | COMPARISON: Lumbar radiographs 06/20/2011, CT lumbar spine 03/17/2011. | | | | TECHNIQUE: The following 3T MR sequences of the lumbar spine were obtained: | | 1. Axial and sagittal T1. | | 2. Axial, sagittal and coronal T2. | | 3. Sagittal STIR. | | | | FINDINGS: Five wwi-esg-sencylm, lumbar-type vertebrae are visible on the | | coronal sequence. There is persistent leftward lumbar curvature centered at L2- | | 3. Numerous rounded T1/T2 hyperintense, STIR hypointense lesions are scattered | | throughout the lumbar vertebral bodies and are consistent with benign | | hemangiomata. Small Schmorl's nodes are present within multiple vertebral | | endplates, without associated marrow edema on the STIR sequence. Lumbar | | vertebral height is maintained, without evident fracture or spondylolysis. The | | conus medullaris is unremarkable, terminating at T12-L1. Bilateral renal | | parapelvic cyst formation is suggested. Imaged intraabdominal and paraspinal | | structures are otherwise unremarkable. | | | | The T11-12 and T12-L1 levels demonstrate no significant central canal or neural | | foraminal stenosis on provided sagittal images. | | | | Disk desiccation, mild posterior disk bulge, prominent dorsal epidural fat | | deposition and mild to moderate ligamentous and facet hypertrophy combine at L1- | | 2 to moderately narrow the central canal and neural foramina, as visualized on | | provided sagittal images. | | | | Near complete, asymmetric right-sided disk space narrowing, posterior and right | | lateral disk osteophyte complex and endplate hyperintensity consistent with | | Modic degeneration are present at L2-3, combining with dorsal epidural fat | | deposition and moderate ligamentous and facet hypertrophy to moderately narrow | | the central canal and neural foramina. Vertebral osteophytes slightly deviate | | the course of the exiting L2 nerve roots within and distal to their foramina, | | and there is narrowing of the right subarticular recess with potential for | | encroachment on the origin of the right L3 nerve root as well. Bilateral facet | | joint effusions are present. | | | | Disk desiccation and a diffuse disk bulge are present at L3-4, combining with | | moderate ligamentous and facet hypertrophy to fairly mildly narrow the central | | canal and mild to moderately narrow the neural foramina, without conclusive | | nerve root compression or displacement. Bilateral facet joint effusions are | | present. | | | | Disk desiccation, mild disk space narrowing, 5 mm anterolisthesis, high-signal | | annular tear, and a diffuse posterior disk bulge are present at L4-5, combining | | with severe ligamentous and facet hypertrophy to severely narrow the central | | canal, completely effacing the CSF space, and severely narrow the left neural | | foramen as well, with compression of the exiting left L4 nerve root. There is | | potential impingement on the origins of the L5 nerve roots at the level of the | | subarticular recesses as well. Bilateral facet joint effusions are present. | | | | Disk desiccation, minimal posterior disk bulge and moderate to severe | | ligamentous and facet hypertrophy are present at L5-S1, moderately narrowing | | the neural foramina and narrowing the left subarticular recess as well, with | | potential impingement on the origin of the left S1 nerve root. Prominent facet | | joint effusions are present. | | | | IMPRESSION: | | 1. DEGENERATIVE DISK DISEASE AND POTENTIAL INSTABILITY AT L4-5, WITH SEVERE, | | MULTIFACTORIAL CENTRAL CANAL AND LEFT NEURAL FORAMINAL STENOSIS AND POTENTIAL | | IMPINGEMENT ON THE EXITING LEFT L4 NERVE ROOT AND ORIGINS OF THE L5 NERVE | | ROOTS. | | | | 2. DEGENERATIVE DISK DISEASE AND LEFT SUBARTICULAR RECESS NARROWING AT L5-S1, | | WITH POTENTIAL IMPINGEMENT ON THE ORIGIN OF THE LEFT S1 NERVE ROOT. | | | | 3. DEGENERATIVE DISK DISEASE AT L3-4 WITHOUT EVIDENT NERVE ROOT COMPRESSION OR | | DISPLACEMENT. | | | | 4. ASYMMETRIC DEGENERATIVE DISK DISEASE AND SPONDYLOSIS AT L2-3, WITH MODERATE | | , MULTIFACTORIAL CENTRAL CANAL AND NEURAL FORAMINAL STENOSIS AND SLIGHT | | DEVIATION OF THE EXITING L2 NERVE ROOTS, WITH POTENTIAL FOR ENCROACHMENT ON THE | | ORIGIN OF THE RIGHT L3 NERVE ROOT WELL. | | | | 5. LEVOSCOLIOSIS AND MULTILEVEL FACET ARTHROPATHY. | | | | Dictated Date/Time: 06/23/2011 15:54 | | Transcribed Date/Time: 06/23/2011 16:27 | | Paraeducator: | | <Electronically Signed by Shamar Jeter MD> 06/23/11 2251 | + + + +---------+ + + | Performing | Address | City/State/Zipcode | Phone Number | | Organization | | | | + +---------+ + + | [place] | | | | | [place] | | | | + +---------+ + + documented in this encounter Visit Diagnoses Not on filedocumented in this encounter"
--- OUTSIDE RECORDS SUMMARY | ~2019-03-21 | XMS | Encounter Summary ---
Demographics + + + | Address | [address] | | | [place] [address] | + + + | Home Phone | | + + + | Preferred Language | Unknown | + + + | Marital Status | | + + + | Rastafarian Affiliation | 1013 | + + + | Race | Unknown | + + + | Ethnic Group | Unknown | + + + Author + + + | Author | [facility] | | | and [place] | + + + | Organization | [facility] | | | and [...] Team Providers + +------+ + | Care Fence Making Machine Operator Name | Role | Phone | + +------+ + | Kaushik Christensen MD | PCP | | + +------+ + Encounter Details +--------+ + + + + | Date | Type | Department | Care Team | Description | +--------+ + + + + | 08/01/ | Orders Only | [facility] | Silvio Alfred MD | | | 2014 | | NEPHROLOGY [place] | [address] | | | | | [address] | [address] [place], [place] | | | | | [address] [place], [place] | [address] | | | | | [address] | | | | | | [phone] | | | +--------+ + + + [...] [address] | | | | | | [place] [address] | | | | | | [phone] | | | | | | | | +--------+---------+ + + + documented as of this encounter Procedures + +--------+ + + + | Procedure Name | Priori | Date/Time | Associated Diagnosis | Comments | | | ty | | | | + +--------+ + + + | EXTERNAL LAB: CBC | Routin | 08/01/2014 | | Results for this | | | e | 12:00 AM | | procedure are in the | | | | PDT | | results section. | + +--------+ + + + | URINALYSIS WITH | Routin | 08/01/2014 | | Results for this | | MICROSCOPIC WITH | e | 12:00 AM | | procedure are in the | | CULTURE IF INDICATED | | PDT | | results section. | + +--------+ + + + | PARATHYROID HORMONE, | Routin | 08/01/2014 | | Results for this | | INTACT AND CALCIUM | e | 12:00 AM | | procedure are in the | | | | PDT | | results section. | + +--------+ + + + | PROTEIN/CREATININE | Routin | 08/01/2014 | | Results for this | | RATIO, URINE | e | 12:00 AM | | procedure are in the | | | | PDT | | results section. | + +--------+ + + + | PROTEIN, URINE, | Routin | 08/01/2014 | | Results for this | | RANDOM | e | 12:00 AM | | procedure are in the | | | | PDT | | results section. | + +--------+ + + + | CREATININE, URINE, | Routin | 08/01/2014 | | Results for this | | RANDOM | e | 12:00 AM | | procedure are in the | | | | PDT | | results section. | + +--------+ + + + | CULTURE, URINE | Routin | 08/01/2014 | | Results for this | | | e | 12:00 AM | | procedure are in the | | | | PDT | | results section. | + +--------+ + + + | MAGNESIUM | Routin | 08/01/2014 | | Results for this | | | e | 12:00 AM | | procedure are in the | | | | PDT | | results section. | + +--------+ + + + | RENAL FUNCTION PANEL | Routin | 08/01/2014 | | Results for this | | | e | 12:00 AM | | procedure are in the | | | | PDT | | results section. | + +--------+ + + + documented in this encounter Results Urinalysis with Microscopic with Culture if Indicated (08/01/2014 12:00 AM PDT) + + + + [...] + + + | Spec Grav, | 1.015 | 1.005 - 1.030 | EXTERNAL | [...] + + + | pH, Urine | 7 | 5 - 9 | EXTERNAL | [...] + + Parathyroid Hormone, Intact and Calcium (08/01/2014 12:00 AM PDT) + + + + + + | Component | Value | Ref Range | Performed | Pathologist | | | | | At | Signature | + + + + + + | PTH Intact | 101.1 (A) | 15 - 65 | EXTERNAL [...] + +---------+ + + Protein/Creatinine Ratio, Urine (08/01/2014 12:00 AM PDT) + +-------+ + + + | Component | Value | Ref Range | Performed | Pathologist | | | | | At | Signature | + +-------+ + + + | Protein/Cre | 103.4 | 0 - 150 | EXTERNAL | [...] + +---------+ + + Protein, Urine, Random (08/01/2014 12:00 AM PDT) + +-------+ + + + | Component | Value | Ref Range | Performed | Pathologist | | | | | At | Signature | + +-------+ + + + | Protein, | 12 | 0.0 - 50.0 | EXTERNAL | [...] + +---------+ + + Creatinine, Urine, Random (08/01/2014 12:00 AM PDT) + +-------+ + + + | Component | Value | Ref Range | Performed | Pathologist | | | | | At | Signature | + +-------+ + + + | Creatinine, | 116 | | EXTERNAL | | | 24H [...] + +---------+ + + External Lab: CBC (08/01/2014 12:00 AM PDT) + + + + + + | Component | Value | Ref Range | Performed | Pathologist | | | | | At | Signature | + + + + + + | WBC | 6.2 | 4.5 - 11.0 10 | EXTERNAL | | | | | | LAB | | + + + + + + | RED CELL | 3.76 (A) | 3.8 - 5.1 10 | EXTERNAL | | | COUNT | | | LAB | | + + + + + + | Hgb | 11.6 (A) | 12.0 - 16.0 | EXTERNAL | | | | | g/dL | LAB | | + + + + + + | Hematocrit, | 36.1 | 35 - 45 % | EXTERNAL | | | POC | | | LAB | | + + + + + + | MCV | 96.0 | 81 - 99 fL | EXTERNAL [...] + + + + | Platelet | 177 | 140 - 440 K/ L | EXTERNAL | | | Count | | | LAB | | | Plasma | | | | | + + + + + + | RDW-CV | 14.3 | 10.5 - 15.0 % | EXTERNAL [...] + + + | % Segmented | 63.7 | 39 - 80 % | EXTERNAL | | | | | | LAB | | | Neutrophils | | | | | + + + + + + | % | 26.4 | 24 - 44 % | EXTERNAL | | | Lymphocytes | | | LAB | | + + + + + + | % Monocytes | 6.8 | 0 - 12 % | EXTERNAL | | | | | | LAB | | + + + + + + | % | 2.1 | 0 - 6 % | EXTERNAL [...] | | + +---------+ + + Magnesium (08/01/2014 12:00 AM PDT) + +-------+ + + + | Component | Value | Ref Range | Performed | Pathologist | | | | | At | Signature | + +-------+ + + + | Magnesium | 2.5 | 1.7 - 2.5 mg/dL | EXTERNAL [...] + +---------+ + + Renal Function Panel (08/01/2014 12:00 AM PDT) + + + + [...] + + + + | Creatinine | 1.47 (A) | 0.70 - 1.11 | EXTERNAL [...] + + + | Anion Gap | 16.5 | 7 - 21 mmol/L | EXTERNAL | | | | | | LAB | | + + + + + + | eGFR if not | | | EXTERNAL | | | | | | LAB | | | URUGUAYAN | | | | | + + + + + + | Phosphorus, | 3.5 | 2.5 - 5.0 | EXTERNAL | | | Inorganic | | | LAB | | + + + + + + | BUN/Creatin | 19.7 | 6.0 - 28.6 | EXTERNAL | | | ine Ratio | | | LAB | | + + + + + + | Calcium | 9.1 | 8.4 - 10.2 | EXTERNAL | | | | | mg/dL | LAB | | + + + + + + | Estimated | 34 | mg/dL | EXTERNAL | | | [...] | + +---------+ + + Culture, Urine (08/01/2014 12:00 AM PDT) + + | Specimen [...]
--- OUTSIDE RECORDS SUMMARY | ~2019-03-21 | XMS | Encounter Summary ---
Demographics + + + | Address | [address] | | | [place] [address] | + + + | Home Phone | | + + + | Preferred Language | Unknown | + + + | Marital Status | | + + + | Sikh Affiliation | 1013 | + + + | Race | Unknown | + + + | Ethnic Group | Unknown | + + + Author + + + | Author | [facility] | | | and [place] | + + + | Organization | [facility] | | | [...] Team Providers + +------+ + | Care License Examiner Name | Role | Phone | + +------+ + | Kaushik Christensen MD | PCP | | + +------+ + Encounter Details +--------+ + + + + | Date | Type | Department | Care Team | Description | +--------+ + + + + | 04/21/ | Orders Only | [facility] | Chung Rushing, | | | 2015 | | NEPHROLOGY [place] | SHAPER SETTER [address] | | | | | [address] | [address] | | | | | [address] [place], [place] | [place] | | | | | [address] | [address] | | | | | [phone] | | | | | | | [...] [address] | | | | | | [place] [address] | | | | | | [phone] | | | | | | | [...] | | | LAB | | | [facility] | | | | | + + [...]
--- OUTSIDE RECORDS SUMMARY | ~2019-03-21 | XMS | Encounter Summary ---
Demographics + + + | Address | [address] | | | [place] [address] | + + + | Home Phone | | + + + | Preferred Language | Unknown | + + + | Marital Status | | + + + | Methodist Affiliation | 1013 | + + + | Race | Unknown | + + + | Ethnic Group | Unknown | + + + Author + + + | Author | [facility] | | | and [place] | + + + | Organization | [facility] | | | and [...] Team Providers + +------+ + | Care Nail Polish Brush Machine Feeder Name | Role | Phone | + [...] Description | +--------+---------+ + + + | 05/01/ | Office | [facility] | Vargas Beebelas | Spinal stenosis, | | 2012 | Visit | NEUROSURGERY [address] | [address] | lumbar (Primary Dx) | | | | [address] | [address] | | | | | [place], [place] | [place] [address] | | | | | [address] | [phone] | | | | | [phone] | | | +--------+---------+ + + + Social History [...] + + + | Blood Pressure | 122/58 | 05/01/2012 3:29 PM | | | | | PST | | + + + + + | Pulse | 61 | 05/01/2012 3:29 PM | | | | | PST | | + + + + + | Temperature | - | - | | + + + + + | Respiratory Rate | 16 | 05/01/2012 3:29 PM | | | | | PST | | + + + + + | Oxygen Saturation | - | - | | + + + + + | Inhaled Oxygen | - | - | | | Concentration | | | | + + + + + | Weight | 114.3 kg (252 lb) | 05/01/2012 3:29 PM | | | | | PST | | + + + + + | Height | 165.1 cm (5' 5") | 05/01/2012 3:29 PM | | | | | PST | | + + + + + | Body Mass Index | 41.93 | 05/01/2012 3:29 PM | | | | | PST | | + + + + + documented in this encounter Patient Instructions Patient Instructions Roland Beebe PA-C - 05/01/2012 3:56 PM PSTToday we reviewed your x-rays of your lumbar spine. The hardware and fusion seemed to be doing well. You're starting to improve your activity and seemed to be doing well at home. At this time he can continue to gradually progress her activities. If you need his medicine for pain I would en courage you to use Tylenol as directed by the manager embalmer funeral director. We will plan to see you back in 3 months with x-rays. If you having increasing problems or any concerns please feel free t o let us know documented in this encounter Progress Notes Roland Beebe PA-C - 05/01/2012 3:58 PM PSTFormatting of this note might be differ ent from the original. Roland Beebe, LIB[place] [address] [facility], [address] [place], [place] [id number] FAX: NEUROSURGERY FOLLOW-UP CHIEF COMPLAINT: Chief Complaint Patient presents with Other S/P LUMBAR FUSION HISTORY OF PRESENT ILLNESS: The patient is a 82 y.o. female that had a L4-[address] pinto around 3 months ago . She returns and overall is doing well The patient complains of oc casional back pain but is increasing her activities The patient is not still taking narcoti cs for pain management. The patient has been walking as directed and has tried to remain ac tive. Overall, the patient is pleased with her improvement. Although she would like to be a little further head she is at this time. PAST MEDICAL HISTORY: Past Medical History Diagnosis [...] on file. INTERIM PHYSICAL EXAMINATION: Blood pressure 122/58, pulse 61, resp. rate 16, height 1.651 m (5' [...] complex commands MOTOR EXAM: Motor strength is improving SENSORY EXAM: The sensory examination stable from the preoperative exam. REFLEXES: Reflexes are unchanged from her preoperative history and physical. RADIOGRAPHIC REVIEW: The patient s postoperative x-rays show stable instrumentation and alignment and were rev iewed with the patient today. There have been no interval changes since the immediate posto perative films. Complete fusion has yet occurred, but this is normal and would not be expec marga at this time. X-rays were reviewed with the patient today ASSESSMENT: S/P L4-5 fusion for: Encounter Diagnosis Name Primary? Spinal stenosis, lumbar Yes Past Medical History Diagnosis Date Hypertension Obesity, Class III, BMI 40-49.9 (morbid obesity) PLAN: Overall, the patient is doing well. I was pleased to see at least some further improvement and expect more improvement with time. This was discussed with the patient today. I have increased the patient s activities further, and I would like the patient to continue to [facility] with activities as tolerated and as directed. She is no longer in the brace and not t aking pain medications I spent 20 minutes in visit with Jordan Grullon today with the majority of time spent counselling the patient on her recovery and coordinating her future care. The patient will follow-up with me in around 3-4 months for re-evaluation. ELECTRONICALLY SIGNED BY: LIBORIO Herrera, 05/01/2012 16:00 documented in this encounter Plan of Treatment +--------+---------+ + + + | Date | Type | Specialty | Care Team | Description | +--------+---------+ + + + | 04/08/ | Office | Cardiology | Aelxandra Amaya | | | 2020 | Visit | | [address] | | | | | | [address] | | | | | | [place] [address] | | | | | | [phone] | | | | | | | | +--------+---------+ + + + documented as of this encounter Results XR Lumbar Spine 2 or 3 Vw (08/14/2012 11:33 AM PDT) + + | Specimen | + + | | + + + + + | Narrative | Performed At | + + + | [facility] | [place] | | Department [address] [facility] | [facility] | | [ rep [phone]] [ rep [facility] | | st zip] Signed | - IMAGING | | | | | Patient Name: JORDAN GRULLON | | | Physician: HUMBLE : 1930 Age: 82 Sex: F Unit | | | #: [id number] Exam Date: 08/14/12 Location: | | | [facility] Report #: [id number] Page: | | | %(RAD)RES..mtdd.print.filter("pg") of %(RAD) | | | RES..mtdd.print.filter("tpg") | | | | | | Accession Number: [id number] | | | LUMBAR SPINE CLINICAL HISTORY: FOLLOWUP L4-L5 FUSION. | | | COMPARISON: 05/01/2012. FINDINGS: | | | Posterior pedicle screw and naveed and interbody fusions are seen at | | | L4-L5. Fixation hardware and interbody spacer are in unchanged | | | position. There is stable, mild anterolisthesis of L4 on L5, | | | measuring less than 5 mm. As noted previously, there is | | | a levoscoliosis centered on L2, unchanged. Severe, asymmetric disc | | | space narrowing is seen at L2-L3. No adjacent soft tissue | | | abnormalities are noted. IMPRESSION: 1. STABLE | | | L4-L5 POSTERIOR PEDICLE SCREW AND NAVEED AND INTERBODY FUSION. | | | Dictated Date/Time: 08/14/2012 11:33 Transcribed | | | Date/Time: 08/14/2012 12:05 Schedule Announcer: | | | <<Signature on File>> | | | | | | Lefty Kirby MD08/14/12 1450 <Electronically signed by | | | Lefty Kirby MD> Lefty Kirby MD 08/14/12 | | | 1133 Schedule Announcer: [employer] Dexturnnuayaf90/21/13 1205 | | | [place] | | + + + + + + + + | Performing | Address | City/State/Zipcode | Phone Number | | Organization | | | | + + + + + | [facility] | [address] | [place] | [phone] | | [facility] | | [address] | | | - IMAGING | | | | + + + + + documented in this encounter Visit Diagnoses + + | Diagnosis | + + | Spinal stenosis, lumbar - Primary Spinal stenosis, lumbar region, without neurogenic | | claudication | + + documented in this encounter
--- OUTSIDE RECORDS SUMMARY | ~2019-03-21 | XMS | Encounter Summary ---
Demographics + + + | Address | [address] | | | [place] [address] | + + + | Home Phone [...] Team Providers + +------+ + | Care Jig Boring Machine Set Up Operator Name | Role | Phone | + +------+ + | Kaushik Christensen MD | PCP | | + +------+ + Encounter Details +--------+ + + + + | Date | Type | Department | Care Team | Description | +--------+ + + + + | 10/03/ | Orders Only | [facility] | Chung Rushing, | | | 2016 | | NEPHROLOGY [place] | ORNAMENT STITCHER [address] | | | | | [address] | [address] | | | | | [address] [place], [place] | [place] | | | | | [address] | [address] | | | | | [phone] | | | | | | | [...] [address] | | | | | | [place] [address] | | | | | | [phone] | | | | | | | [...]
--- OUTSIDE RECORDS SUMMARY | ~2019-03-21 | XMS | Encounter Summary ---
Demographics + + + | Address | [address] | | | [place] [address] | + + + | Home Phone [...] Team Providers + +------+ + | Care Ceramic Tile Setter Name | Role | Phone | + +------+ + | Kaushik Christensen MD | PCP | | + +------+ + Encounter Details +--------+ + + + + | Date | Type | Department | Care Team | Description | +--------+ + + + + | 03/08/ | Orders Only | [facility] | Conversion | | | 2016 | | NEPHROLOGY [place] | Transaction, | | | | | [address] | Provider Unknown | | | | | [address] [facility], [place] | | | | | | [address] | (Fax) | | | | | [phone] | | | +--------+ + + + [...] [address] | | | | | | [place] [address] | | | | | | [phone] | | | | | | | [...]
--- OUTSIDE RECORDS SUMMARY | ~2019-03-21 | XMS | Encounter Summary ---
Demographics + + + | Address | [address] | | | [place] [address] | + + + | Home Phone | | + + + | Preferred Language | Unknown | + + + | Marital Status | | + + + | Latter Day Affiliation | 1013 | + + + | Race | Unknown | + + + | Ethnic Group | Unknown | + + + Author + + + | Author | [facility] | | | and [place] | + + + | Organization | [facility] | | | [...] Team Providers + +------+ + | Care Lace Burn Out Tender Name | Role | Phone | + [...] | | [address] | [place] [address] | Unspecified | | | | [place], [place] | [phone] | essential | | | | [address] | | hypertension; | | | | [phone] | | Coronary | | | | | | atherosclerosis of | | | | | | unspecified type of | | | | | | vessel, false pass or | | | | | | [...] | | | | | [place] [address] | | | | | | [phone] | | | | | | | [...] | | | | | | vessel, false pass or | | | | | | [...] | | | | | | vessel, false pass or | | | | | | [...] | | | | | | vessel, false pass or | | | | | | graft | | + +------+--------+ + + documented as of this encounter Visit Diagnoses + + | Diagnosis | + + | Obesity, unspecified | + + | Unspecified essential hypertension | + + | Coronary atherosclerosis of unspecified type of vessel, false pass or graft | + + documented in this encounter"
--- OUTSIDE RECORDS SUMMARY | ~2019-03-21 | XMS | Encounter Summary ---
Demographics + + + | Address | [address] | | | [place] [address] | + + + | Home Phone [...] | | + + +---------+ + | Bsii Hooks | ECON | Unknown | | + + +---------+ + Care Team Providers + +------+ + | Care Scoop Driver Name | Role | Phone | + +------+ + | Kaushik Christensen MD | PCP | | + +------+ + Encounter Details +--------+ + + + + | Date | Type | Department | Care Team | Description | +--------+ + + + + | 02/17/ | Orders Only | [facility] | Silvio Alfred MD | | | 2013 | | NEPRHOLOGY [place] | [address] | | | | | [address] | [address] [place], [place] | | | | | [address] [place], [place] | [address] | | | | | [address] | | | | | | [phone] | | | +--------+ + + + [...] [address] | | | | | | [facility] [address] | | | | | | [phone] | | | | | | | [...] | | | LAB | | | SAM[place] | | | | | + + [...]
--- OUTSIDE RECORDS SUMMARY | ~2019-03-21 | XMS | Encounter Summary ---
Demographics + + + | Address | [address] | | | [place] [address] | + + + | Home Phone [...] Team Providers + +------+ + | Care Graphics Specialist Name | Role | Phone | + +------+ + | Kaushik Christensen MD | PCP | | + +------+ + Encounter Details +--------+ + + + + | Date | Type | Department | Care Team | Description | +--------+ + + + + | 01/30/ | Orders Only | [facility] | Conversion | | | 2018 | | NEPRHOLOGY [place] | Transaction, | | | | | [address] | Provider Unknown | | | | | [address] [place], [place] | [phone] | | | | | [address] | (Fax) | | | | | [phone] | | | +--------+ + + + [...] [address] | | | | | | [place] [address] | | | | | | [phone] | | | | | | | [...]
--- OUTSIDE RECORDS SUMMARY | ~2019-03-21 | XMS | Encounter Summary ---
Demographics + + + | Address | [address] | | | [place] [address] | + + + | Home Phone [...] Team Providers + +------+ + | Care Casino Dealer Name | Role | Phone | + +------+ + | Kaushik Christensen MD | PCP | | + +------+ + Encounter Details +--------+ + + + + | Date | Type | Department | Care Team | Description | +--------+ + + + + | 02/21/ | Orders Only | [facility] | AlbertChung matthews, | | | 2016 | | NEPRHOLOGY [place] | MATRIX WORKER [address] | | | | | [address] | [address] | | | | | [address] [place], [place] | [place] | | | | | [address] | [address] | | | | | [phone] | [phone] | | | | | | | [...] [address] | | | | | | [place] [address] | | | | | | [phone] | | | | | | | [...] | | | LAB | | | K[facility]GY[facility] | | | | | + + [...]
--- OUTSIDE RECORDS SUMMARY | ~2019-03-21 | XMS | Encounter Summary ---
Demographics + + + | Address | [address] | | | [place] [address] | + + + | Home Phone [...] Team Providers + +------+ + | Care Supervising Architect Name | Role | Phone | [...] + + | 02/12/ | Refill | [facility] | Silvio Alfred MD | Medication Refill | | 2019 | | NEPHROLOGY [place] | [address] | | | | | [address] | [address] [facility] [place] | | | | | [facility] [address] | [address] | | | | | [place], [place] | | | | | | [address] | | | | | | [phone] | | | +--------+--------+ + + + [...] [address] | | | | | | [place] [address] | | | | | | [phone] | | | | | | | [...]
--- OUTSIDE RECORDS SUMMARY | ~2019-03-21 | XMS | Encounter Summary ---
Demographics + + + | Address | [address] | | | [place] [address] | + + + | Home Phone | | + + + | Preferred Language | Unknown | + + + | Marital Status | | + + + | Temple Affiliation | 1013 | + + + | Race | Unknown | + + + | Ethnic Group | Unknown | + + + Author + + + | Author | [facility] | | | and [place] | + + + | Organization | [facility] | | [...] Team Providers + +------+ + | Care Aircraft Refueller Name | Role | Phone | + [...] | | Procedures | MD [address] | [place] | | | | | CR EVENT | [address] | [address] | | | | | MONITOR | [address] | | | | | | [place], [place] | [place], [place] | | | | | | [address] | [address] | | | | | | Phone: | Phone: | | | | | | [phone] | [phone] | | | | | | Fax: | Fax: | | | | | | [phone] | [phone] | +--------+--------+ + + + + Encounter Details +--------+ + + + + | Date | Type | Department | Care Team | Description | +--------+ + + + + | 03/07/ | Procedure | [facility] | Jose Juan Montes, | Persistent atrial | | 2019 | visit | CARDIOLOGY [place] | [address] | fibrillation | | | | [address] | [address] [facility] | | | | | [address] | [place] [address] | | | | | [place], [place] | [phone] | | | | | [address] | | | | | | [phone] | | | +--------+ + + + [...] of this encounter Progress Notes Mile Freitas, Electrical & Instrumentation Supervisor - 03/07/2019 3:30 PM PSTBardi monitor placed on sherman ent. Instructions for reporting symptoms, and monitoring in patient diary given and underst ood. Patient instructed to call if questions arise. REF:R1000 SN: [id number] BARCODE # [id number] JDW:[facility] [facility]. doc umented in this encounter Plan of Treatment +--------+---------+ + + + | Date | Type | Specialty | Care Team | Description | +--------+---------+ + + + | 04/08/ | Office | Cardiology | Alexandra Amaya | | | 2019 | Visit | | [address] | | | | | | [address] | | | | | | [place] [address] | | | | | | [phone] | | | | | | | | +--------+---------+ + + + documented as of this encounter Visit Diagnoses + + | Diagnosis | + + | Persistent atrial fibrillation Atrial fibrillation | + + documented in this encounter"
--- OUTSIDE RECORDS SUMMARY | ~2019-03-21 | XMS | Encounter Summary ---
Demographics + + + | Address | [address] | | | [place] [address] | + + + | Home Phone | | + + + | Preferred Language | Unknown | + + + | Marital Status | | + + + | Samaritan Affiliation | 1013 | + + + | Race | Unknown | + + + | Ethnic Group | Unknown | + + + Author + + + | Author | [facility] | | | and [place] | + + + | Organization | [facility] | | | [...] Team Providers + +------+ + | Care Instructor Dancing Name | Role | Phone | + [...] + + | 05/01/ | Office | [facility] | Vargas Beebelas | Spinal stenosis, | | 2012 | Visit | NEUROSURGERY [address] | [address] | lumbar (Primary Dx) | | | | [address] | [address] | | | | | [place], [place] | [place] [address] | | | | | [address] | [phone] | | | | | [phone] | | | +--------+---------+ + + + [...] to use Tylenol as directed by the director of financial reporting. We will plan to see you back in 3 months with x-rays. If you having increasing problems or any concerns please feel free t o let us know documented in this encounter Progress Notes Roland Beebe PA-C - 05/01/2012 3:58 PM PSTFormatting of this note might be differ ent from the original. Roland Beebe, LIB[place] [address] [facility], [address] [place], [place] [address] FAX: NEUROSURGERY FOLLOW-UP CHIEF COMPLAINT: Chief Complaint [...] would like the patient to continue to critical access hospital with activities as tolerated and as [...] MONET | | | | | | [place] [address] | | | | | | [phone] | | | | | | | | +--------+---------+ + + + documented as of this encounter Results XR Lumbar Spine 2 or 3 Vw (08/14/2012 11:33 AM PDT) + + | Specimen | + + | | + + + + + | Narrative | Performed At | + + + | [facility] | [place] | | Department [address] [facility] | [facility] | | [ rep ct street[address]] [ rep [facility] | | st zip] Signed | - IMAGING | | | | | Patient Name: JORDAN GRULLON | | | Physician: HUMBLE : 1930 Age: 82 Sex: F Unit | | | #: [id number] Exam Date: 08/14/12 [place]: | | | [facility] [place]: [id number] Page: | | | %(RAD)RES..mtdd.print.filter("pg") of %(RAD) | | | RES..mtdd.print.filter("tpg") | | | | | | Accession Number: [id number] | | | LUMBAR SPINE CLINICAL HISTORY: [...] Transcribed | | | Date/Time: 08/14/2012 12:05 Curator Of Photography And Prints: | | | <<Signature on File>> | | | | | | Lefty Kirby MD08/14/12 1450 <Electronically signed by | | | Lefty Kirby MD> Lefty Kirby MD 08/14/12 | | | 1133 Curator Of Photography And Prints: BackTrack Jnwzlopzgzrfe53/21/13 1205 | | | [place] | | + + + + + + + + | Performing | Address | City/State/Zipcode | Phone Number | | Organization | | | | + + + + + | [facility] | [address] | [place] | [phone] | | [facility] | | [address] | | | - IMAGING | | | | + + + + + documented in this encounter Visit Diagnoses + + | Diagnosis | + + | Spinal stenosis, lumbar - Primary Spinal stenosis, lumbar region, without neurogenic | | claudication | + + documented in this encounter
--- OUTSIDE RECORDS SUMMARY | ~2019-03-21 | XMS | Encounter Summary ---
Demographics + + + | Address | [address] | | | [place] [address] | + + + | Home Phone | | + + + | Preferred Language | Unknown | + + + | Marital Status | | + + + | Buddhist Affiliation | 1013 | + + + | Race | Unknown | + + + | Ethnic Group | Unknown | + + + Author + + + | Author | [facility] | | | and [place] | + + + | Organization | [facility] | | | and [...] Team Providers + +------+ + | Care Wet Wash Assembler Name | Role | Phone | + [...] | | [address] | [place] [address] | | | | | [place] | [phone] | | | | | [address] | | | | | | [phone] | | | +--------+ + + + [...] MONET | | | | | | [place] [address] | | | | | | [phone] | | | | | | | | +--------+---------+ + + + documented as of this encounter Visit Diagnoses + + | Diagnosis | + + | S/P lumbar fusion - Primary Arthrodesis status | + + documented in this encounter"
--- OUTSIDE RECORDS SUMMARY | ~2019-03-21 | XMS | Encounter Summary ---
Demographics + + + | Address | [address] | | | [place] [address] | + + + | Home Phone | | + + + | Preferred Language | Unknown | + + + | Marital Status | | + + + | Worship Affiliation | 1013 | + + + [...] Team Providers + +------+ + | Care Manufacturer Representative Name | Role | Phone | + [...] | 01/17/ | Office | [facility] | David Montgomery MD | Spondylolisthesis of | | 2011 | Visit | NEUROSURGERY [address] | [address] | lumbar region | | | | [address] | [place] [address] | (Primary Dx); Lumbar | | | | [place] | [phone] | stenosis with | | | | [address] | | neurogenic | | | | [phone] | | claudication; Lumbar | | | [...] from t he original. David Montgomery MD [address] [place] [address], [address] [place] [address] FAX: NEUROSURGERY HISTORY AND PHYSICAL EXAMINATION CHIEF [...] has no apparent deficits with short or snf memory. CRANIAL NERVES: II: Acuity is intact. [...] Intrinsics 5 5 Ulnar Intrinsics 5 5 Winch Stripper Strength 5 5 Hip Flexion 5 5 [...] MONET | | | | | | [place] [address] | | | | | | [phone] | | | | | | | [...]
--- OUTSIDE RECORDS SUMMARY | ~2019-03-21 | XMS | Encounter Summary ---
Demographics + + + | Address | [address] | | | [place] [address] | + + + | Home Phone | | + + + | Preferred Language | Unknown | + + + | Marital Status | | + + + | Caodaism Affiliation | 1013 | + + + | Race | Unknown | + + + | Ethnic Group | Unknown | + + + Author + + + | Author | [facility] | | | and [place] | + + + | Organization | [facility] | | [...] Team Providers + +------+ + | Care Water Resources Technical Officer Name | Role | Phone | + +------+ + | Kaushik Christensen MD | PCP | | + +------+ + Encounter Details +--------+ + + + + | Date | Type | Department | Care Team | Description | +--------+ + + + + | 10/12/ | Orders Only | [facility] | Conversion | | | 2017 | | NEPHROLOGY [place] | Transaction, | | | | | [address] | Provider Unknown | | | | | [address] [facility], [place] | | | | | | [address] | (Fax) | | | | | [phone] | | | +--------+ + + + [...] | | | | | | [place] [address] | | | | | | [phone] | | | | | | | [...]
--- OUTSIDE RECORDS SUMMARY | ~2019-03-21 | XMS | Encounter Summary ---
Demographics + + + | Address | [address] | | | [place] [address] | + + + | Home Phone | | + + + | Preferred Language | Unknown | + + + | Marital Status | | + + + | Jew Affiliation | 1013 | + + + [...] Team Providers + +------+ + | Care Email Marketing Manager Name | Role | Phone | [...] | Cervical | Roland | [address] | | | | | radiculopath | [address] | [place], | | | | | y S/P | [address] | [place] | | | | | lumbar | [address] | [address] | | | | | spinal | [place] | Phone: | | | | | fusion | [address] | [phone] | | | | | Procedures | Phone: | Fax: | | | | | MRI Cervical | [phone] | [phone] | | | | | Spine wo | Fax: | | | | | | Contrast | [phone] | | +--------+--------+ + + + + Reason for Visit + + + | Reason | Comments | + + + | Follow-up | 6 Month PO | + + + Encounter Details +--------+---------+ + + + | Date | Type | Department | Care Team | Description | +--------+---------+ + + + | 08/14/ | Office | [facility] | [place], [place] | Cervical | | 2012 | Visit | NEUROSURGERY [address] | [address] | radiculopathy | | | | [address] | [address] | (Primary Dx); S/P | | | | [place], [place] | [place] [address] | lumbar spinal | | | | [address] | [phone] | fusion; Spinal | | | | [phone] | | stenosis, lumbar | +--------+---------+ + [...] from the original. Roland Beebe PA-C [address] [facility], [address] [place] [address] FAX: NEUROSURGERY FOLLOW-UP CHIEF COMPLAINT: Chief Complaint [...] She also notices that she has decreased gis specialist strength of her right hand.. PAST MEDICAL [...] MONET | | | | | | [place] [address] | | | | | | [phone] | | | | | | | [...]
--- OUTSIDE RECORDS SUMMARY | ~2019-03-21 | XMS | Encounter Summary ---
Demographics + + + | Address | [address] | | | [place] [address] | + + + | Home Phone | | + + + | Preferred Language | Unknown | + + + | Marital Status | | + + + | Zoroastrianism Affiliation | 1013 | + + + | Race | Unknown | + + + | Ethnic Group | Unknown | + + + Author + + + | Author | [facility] | | | and [place] | + + + | Organization | [facility] | | | [...] Team Providers + +------+ + | Care Databases Software Consultant Name | Role | Phone | + +------+ + | Kaushik Christensen MD | PCP | | + +------+ + Encounter Details +--------+ + + + + | Date | Type | Department | Care Team | Description | +--------+ + + + + | 12/23/ | Orders Only | [facility] | Silvio Alfred MD | | | 2013 | | NEPHROLOGY [place] | [address] | | | | | [address] | [address] [place], [place] | | | | | [address] [place], [place] | [address] | | | | | [address] | | | | | | [phone] | | | +--------+ + + + [...] MONET | | | | | | [place] [address] | | | | | | [phone] | | | | | | | [...]
--- OUTSIDE RECORDS SUMMARY | ~2019-03-21 | XMS | Encounter Summary ---
Demographics + + + | Address | [address] | | | [place] [address] | + + + | Home Phone [...] Phone | + + +---------+ + | Elaida Moore | ECON | Unknown | | + + +---------+ + | Bisi Hooks | ECON | Unknown | | + + +---------+ + Care Team Providers + +------+ + | Care Stereotyper Name | Role | Phone | + [...] | | [address] | [place] [address] | Unspecified | | | | [place], [place] | [phone] | essential | | | | [address] | | hypertension; | | | | [phone] | | Coronary | | | | | | atherosclerosis of | | | | | | unspecified type of | | | | | | vessel, galena or | | | | | | [...] | | | | | [place] [address] | | | | | | [phone] | | | | | | | [...] | | | | | | vessel, galena or | | | | | | [...] | | | | | | vessel, galena or | | | | | | [...] | | | | | | vessel, galena or | | | | | | graft | | + +------+--------+ + + documented as of this encounter Visit Diagnoses + + | Diagnosis | + + | Obesity, unspecified | + + | Unspecified essential hypertension | + + | Coronary atherosclerosis of unspecified type of vessel, galena or graft | + + documented in this encounter"
--- OUTSIDE RECORDS SUMMARY | ~2019-03-21 | XMS | Encounter Summary ---
Demographics + + + | Address | [address] | | | [place] [address] | + + + | Home Phone [...] Providers + +------+ + | Care Assistant Librarian Name | Role | Phone | + +------+ + | Kaushik Christensen MD | PCP | | + +------+ + Encounter Details +--------+ + + + + | Date | Type | Department | Care Team | Description | +--------+ + + + + | 08/14/ | Hospital | [facility] | Roland Beebe | Spinal stenosis, | | 2012 | Encounter | MED CTR XRAY [address] | [address] | lumbar | | | | [place] | [address] | | | | | [place] [address] | [place] [address] | | | | | [phone] | [phone] | | | | | | | [...] MONET | | | | | | [place] [address] | | | | | | [phone] | | | | | | | | +--------+---------+ + + + documented as of this encounter Procedures + +--------+ + + + | Procedure Name | Priori | Date/Time | Associated Diagnosis | Comments | | | ty | | | | + +--------+ + + + | XR LUMBAR SPINE 2 [place] | Routin | 08/14/2012 | Spinal stenosis, | Results for this | | 3 VW | e | 11:33 AM | lumbar | procedure are in the | | [...] + | [facility] | [place] | | Department [address], [place] | [facility] | | [ rep ct [address]] [ rep [facility] | | st zip] Signed | - IMAGING | | | | | Patient Name: JORDAN GRULLON | | | Physician: HUMBLE : 1930 Age: 82 Sex: F Unit | | | #: [id number] Exam Date: 08/14/12 [place]: | | | [facility] [place]: [id number] Page: | | | %(RAD)RES..mtdd.print.filter("pg") of %(RAD) | | | RES..mtdd.print.filter("tpg") | | | | | | Accession Number: [id number] | | | LUMBAR SPINE CLINICAL HISTORY: [...] Transcribed | | | Date/Time: 08/14/2012 12:05 Edger Liner: | | | <<Signature on File>> | | | | | | Lefty Kirby MD08/14/12 7050 <Electronically signed by | | | Lefty Kirby MD> Lefty Kirby MD 08/14/12 | | | 1133 Edger Liner: [place] [employer] Tourspedro Lczczobgpllct10/21/13 1205 | | | [place] | | + + + + + + + + | Performing | Address | City/State[facility] | Phone Number | | Organization | | | | + + + + + | [facility] | [address] | [place] | [phone] | | [facility] | | [address] | | | - IMAGING | | | | + + + + + documented in this encounter Visit Diagnoses + + | Diagnosis | + + | Spinal stenosis, lumbar Spinal stenosis, lumbar region, without neurogenic | | claudication | + + documented in this encounter
--- OUTSIDE RECORDS SUMMARY | ~2019-03-21 | XMS | Encounter Summary ---
Demographics + + + | Address | [address] | | | [place] [address] | + + + | Home Phone | | + + + | Preferred Language | Unknown | + + + | Marital Status | | + + + | Sabianist Affiliation | 1013 | + + + [...] Team Providers + +------+ + | Care Primary Mill Roller Name | Role | Phone | + +------+ + | Kaushik Christensen MD | PCP | | + +------+ + Encounter Details +--------+ + + + + | Date | Type | Department | Care Team | Description | +--------+ + + + + | 08/14/ | Hospital | [facility] | Roland Beebe | Spinal stenosis, | | 2012 | Encounter | MED CTR XRAY [address] | [address] | lumbar | | | | [place] | [address] | | | | | [place] [address] | [place] [address] | | | | | [phone] | [phone] | | | | | | | [...] MONET | | | | | | [place] [address] | | | | | | [phone] | | | | | | | [...] Merged With [facility] | [place] | | Department [address], [place] | [facility] | | [ rep ct [address]] [ rep [facility] | | st zip] Signed | - IMAGING | | | | | Patient Name: JORDAN GRULLON | | | Physician: HUMBLE : 1930 Age: 82 Sex: F Unit | | | #: [id number] Exam Date: 08/14/12 Location: | | | [facility] [place] Report #: [id number] Page: | | | %(RAD)RES..mtdd.print.filter("pg") of %(RAD) | | | RES..mtdd.print.filter("tpg") | | | | | | Accession Number: [id number] | | | LUMBAR SPINE CLINICAL HISTORY: [...] Transcribed | | | Date/Time: 08/14/2012 12:05 Chair Installer: | | | <<Signature on File>> | | | | | | Lefty Kirby MD08/14/12 4730 <Electronically signed by | | | Lefty Kirby MD> Lefty Kirby MD 08/14/12 | | | 1133 Chair Installer: Carilooppedro Avodvgpgulsgo67/21/13 1205 | | | [place] | | + + + + + + + + | Performing | Address | City/State/[facility] | Phone Number | | Organization | | | | + + + + + | [facility] | [address] | [place] | [phone] | | [facility] | | [address] | | | - IMAGING | | | | + + + + + documented in this encounter Visit Diagnoses + + | Diagnosis | + + | Spinal stenosis, lumbar Spinal stenosis, lumbar region, without neurogenic | | claudication | + + documented in this encounter
--- OUTSIDE RECORDS SUMMARY | ~2019-03-21 | XMS | Encounter Summary ---
Demographics + + + | Address | [address] | | | [place] [address] | + + + | Home Phone [...] Team Providers + +------+ + | Care Icebox Worker Name | Role | Phone | + +------+ + | Kaushik Christensen MD | PCP | | + +------+ + Encounter Details +--------+ + + + + | Date | Type | Department | Care Team | Description | +--------+ + + + + | 01/17/ | Orders Only | [facility] | David Montgomery MD | Obesity; | | 2011 | | NEUROSURGERY [address] | [address] | Hypertension; | | | | [address] | [place] [address] | Coronary artery | | | | [place], [place] | [phone] | disease | | | | [address] | | | | | | [phone] | | | +--------+ + + + [...] MONET | | | | | | [place] [address] | | | | | | [phone] | | | | | | | | +--------+---------+ + + + + +---------+--------+ + + | Name | Type | Priori | Associated Diagnoses | Order Schedule | | | | ty | | | + +---------+--------+ + + | XR Chest PA and | Imaging | Routin | Obesity | Expected: | | Lateral | | e | Hypertension | 01/18/2012, Expires: | | | | | Coronary artery | 01/17/2013 | | | | | disease | | + +---------+--------+ + + | ECG 12 lead | ECG | Routin | Obesity | Expected: 03/18/2012 | | | | e | Hypertension | (Approximate), | | | | | Coronary artery | Expires: 07/16/2012 | | | | | disease | | + +---------+--------+ + + | Basic metabolic | Lab | Routin | Obesity | 1 Occurrences | | panel | | e | Hypertension | starting 01/18/2012 | | | | | Coronary artery | until 01/17/2013 | | | | | disease | | + +---------+--------+ + + | CBC No Differential | Lab | Routin | Obesity | 1 Occurrences | | | | e | Hypertension | starting 01/18/2012 | | | | | Coronary artery | until 01/17/2013 | | | | | disease | | + +---------+--------+ + + documented as of this encounter Visit Diagnoses + + | Diagnosis | + + | Obesity Obesity, unspecified | + + | Hypertension Unspecified essential hypertension | + + | Coronary artery disease Coronary atherosclerosis of unspecified type of vessel, | | rincon or graft | + + documented in this encounter"
--- OUTSIDE RECORDS SUMMARY | ~2019-03-21 | XMS | Encounter Summary ---
Demographics + + + | Address | [address] | | | [place] [address] | + + + | Home Phone [...] Team Providers + +------+ + | Care Chemical Unit Operator Name | Role | Phone | + +------+ + | Kaushik Christensen MD | PCP | | + +------+ + Encounter Details +--------+ + + + + | Date | Type | Department | Care Team | Description | +--------+ + + + + | 08/01/ | Orders Only | [facility] | Silvio Alfred MD | | | 2014 | | NEPHROLOGY [place] | [address] | | | | | [address] | [address] [place], [place] | | | | | [address] [place], [place] | [address] | | | | | [address] | | | | | | [phone] | | | +--------+ + + + [...] MONET | | | | | | [place] [address] | | | | | | [phone] | | | | | | | [...] | | | LAB | | | [place] | | | | | + + [...]
--- OUTSIDE RECORDS SUMMARY | ~2019-03-21 | XMS | Encounter Summary ---
Demographics + + + | Address | [address] | | | [place] [address] | + + + | Home Phone [...] Team Providers + +------+ + | Care Flame Brazing Machine Operator Name | Role | Phone [...] | | [address] | [place] [address] | Coronary artery | | | | [place], [place] | [phone] | disease | | | | [address] | | | | | | [phone] | | | +--------+ + + + [...] MONET | | | | | | [place] [address] | | | | | | [phone] | | | | | | | [...] of unspecified type of vessel, | | [place] graft | + + documented in this encounter"
--- OUTSIDE RECORDS SUMMARY | ~2019-03-21 | XMS | Encounter Summary ---
Demographics + + + | Address | [address] | | | [place] [address] | + + + | Home Phone | | + + + | Preferred Language | Unknown | + + + | Marital Status | | + + + | Hinduism Affiliation | 1013 | + + + | Race | Unknown | + + + | Ethnic Group | Unknown | + + + Author + + + | Author | [facility] | | | and [place] | + + + | Organization | [facility] | | | [...] Team Providers + +------+ + | Care Wearing Apparel Presser Name | Role | Phone | + +------+ + | Kaushik Christensen MD | PCP | | + +------+ + Encounter Details +--------+ + + + + | Date | Type | Department | Care Team | Description | +--------+ + + + + | 10/27/ | Orders Only | [facility] | Silvio Alfred MD | | | 2014 | | NEPHROLOGY [place] | [address] | | | | | [address] | [address] [place], [place] | | | | | [address] [place], [place] | [address] | | | | | [address] | | | | | | [phone] | | | +--------+ + + + [...] MONET | | | | | | [place] [address] | | | | | | [phone] | | | | | | | [...]
--- OUTSIDE RECORDS SUMMARY | ~2019-03-21 | XMS | Encounter Summary ---
Demographics + + + | Address | [address] | | | [place] [address] | + + + | Home Phone [...] Team Providers + +------+ + | Care Vp Name | Role | Phone | + +------+ + | Kaushik Christensen MD | PCP | | + +------+ + Encounter Details +--------+ + + + + | Date | Type | Department | Care Team | Description | +--------+ + + + + | 11/09/ | Orders Only | [facility] | Conversion | | | 2017 | | NEPRHOLOGY [place] | Transaction, | | | | | [address] | Provider Unknown | | | | | [address] [place], [place] | [phone] | | | | | [address] | | | | | | [phone] | | | +--------+ + + + [...] MONET | | | | | | [place] [address] | | | | | | [phone] | | | | | | | | +--------+---------+ + + + documented as of this encounter Procedures + +--------+ + + + | Procedure Name | Priori | Date/Time | Associated Diagnosis | Comments | | | ty | | | | + +--------+ + + + | BASIC METABOLIC | Routin | 11/09/2016 | | Results for this | | PANEL | e | 12:00 AM | | procedure are in the | | | | PDT | | results section. | + +--------+ + + + documented in this encounter Results Basic Metabolic Panel (11/09/2016 12:00 AM PDT) + + + + [...] + + + + | BUN | 23 | 6 - 23 mg/dL | EXTERNAL | | | | | | LAB | | + + + + + + | Creatinine | 1.59 (A) | 0.70 - 1.11 | EXTERNAL | | | | | mg/dL | LAB | | + + + + + + | BUN/Creatin | 14.5 | 6.0 - 28.6 | EXTERNAL | [...] + + + | Anion Gap | 15.8 | 7 - 21 mmol/L | EXTERNAL | | | | | | LAB | | + + + + + + | Estimated | 31 (A) | 60 mg/dL | EXTERNAL | | | GFR [...]
--- OUTSIDE RECORDS SUMMARY | ~2019-03-21 | XMS | Clinical Summary ---
Demographics + + + | Address | [address] | | | [place] [address] | + + + | Home Phone | | + + + | Preferred Language | Unknown | + + + | Marital Status | | + + + | Samaritan Affiliation | Unknown | + + + | Race | Unknown | + + + | Ethnic Group | Unknown | + + + Author + + + | Author | [facility] (Historical as of | | | 11-10-18) | + + + | Organization | [facility] (Historical as of | | | 11-10-18) [...] Providers + +------+ + | Care Textile Supervisor Name | Role | Phone | [...] [place] - MODA | [place] - | [id number] | [employer] | | | | | [...] | | al/Shayne | | 1930 | [phone] | [place] | | | ashlee | | | 1984 | [address] | + +--------+ +--------+ + +
--- OUTSIDE RECORDS SUMMARY | ~2019-03-21 | XMS | Encounter Summary ---
Demographics + + + | Address | [address] | | | [place] [address] | + + + | Home Phone [...] Team Providers + +------+ + | Care Paintings Restorer Name | Role | Phone | + +------+ + | Kaushik Christensen MD | PCP | | + +------+ + Encounter Details +--------+ + + + + | Date | Type | Department | Care Team | Description | +--------+ + + + + | 10/27/ | Orders Only | [facility] | Silvio Alfred MD | | | 2017 | | NEPRHOLOGY [place] | [address] | | | | | [address] | [address] [place], [place] | | | | | [address] [place], [place] | [address] | | | | | [address] | | | | | | [phone] | | | +--------+ + + + [...] MON[place] | | | | | | [facility] [address] | | | | | | [phone] | | | | | | | [...] | | | LAB | | | [place] | | | | | + + [...]
--- OUTSIDE RECORDS SUMMARY | ~2019-03-21 | XMS | Encounter Summary ---
Demographics + + + | Address | [address] | | | [place] [address] | + + + | Home Phone [...] Team Providers + +------+ + | Care Public Improvement Inspector Name | Role | Phone | [...] + + | 03/13/ | Office | [facility] | David Montgomery MD | Spondylolisthesis of | | 2011 | Visit | NEUROSURGERY [address] | [address] | lumbar region | | | | [address] | [place] [address] | (Primary Dx); | | | | [place] | [phone] | DEGENERATIVE DISC | | | | [address] | | DISEASE, LUMBAR | | | | [phone] | | SPINE; Spinal | | | [...] your back and use good technique when berry picker things and bending. Electronica lly signed by David Montgomery MD at 03/13/2012 2:41 PM PST documented in this encounter Progress Notes David Montgomery MD - 03/14/2012 7:34 AM PSTFormatting of this note might be different from t he original. David Montgomery MD [address] [place] [address], [address] [place] [address] FAX: NEUROSURGERY SURGICAL FOLLOW-UP CHIEF COMPLAINT: Chief [...] MONET | | | | | | [place] [address] | | | | | | [phone] | | | | | | | | +--------+---------+ + + + documented as of this encounter Results XR Lumbar Spine 2 or 3 Vw (05/01/2012 4:12 PM PST) + + | Specimen | + + | | + + + + + | Narrative | Performed At | + + + | [facility] | [place] | | Department [address] [place] [address] | [facility] | | [ rep [address]] [ rep [facility] | | st zip] Signed | - IMAGING | | | | | Patient Name: JORDAN GRULLON | | | Physician: LANNY : 1930 Age: 82 Sex: F Unit | | | #: [id number] Exam Date: 05/01/12 Location: | | | [facility] Report #: [id number] Page: | | | %(RAD)RES..mtdd.print.filter("pg") of %(RAD) | | | RES..mtdd.print.filter("tpg") | | | | | | Accession Number: [id number] | | | TWO VIEWS LUMBAR SPINE, [...] Transcribed | | | Date/Time: 05/01/2012 16:58 Director Of Engineering: | | | <<Signature on File>> | | | Shamar King | | | MD [place]05/01/122121 <Electronically signed by Shamar Jeter MD> | | | Shamar Jeter MD 05/01/12 1612 Director Of Engineering: | | | [employer] [id number]/05/13 [id number] David Montgomery MD | | | | | + + + + + + + + | Performing | Address | City/State/Zipcode | Phone Number | | Organization | | | | + + + + + | [facility] | [address] | [place] | [phone] | | [facility] | | [address] | | | - IMAGING | | [...]
--- OUTSIDE RECORDS SUMMARY | ~2019-03-21 | XMS | Encounter Summary ---
Demographics + + + | Address | [address] | | | [place] [address] | + + + | Home Phone | | + + + | Preferred Language | Unknown | + + + | Marital Status | | + + + | Rastafarian Affiliation | 1013 | + + + | Race | Unknown | + + + | Ethnic Group | Unknown | + + + Author + + + | Author | [facility] | | | and [place] | + + + | Organization | [facility] | [...] Team Providers + +------+ + | Care Cushion Cover Inspector Name | Role | Phone | [...] | 01/17/ | Office | [facility] | David Montgomery MD | Spondylolisthesis of | | 2011 | Visit | NEUROSURGERY [address] | [address] | lumbar region | | | | [address] | [place] [address] | (Primary Dx); Lumbar | | | | [place] | [phone] | stenosis with | | | | [address] | | neurogenic | | | | [phone] | | claudication; Lumbar | | | [...] from t he original. David Montgomery MD [address] [place] [address], [address] [place] [address] FAX: NEUROSURGERY HISTORY AND PHYSICAL EXAMINATION CHIEF [...] has no apparent deficits with short or prison memory. CRANIAL NERVES: II: Acuity is intact. [...] Intrinsics 5 5 Ulnar Intrinsics 5 5 Screwmaker Automatic Strength 5 5 Hip Flexion 5 5 [...] MONET | | | | | | [place] [address] | | | | | | [phone] | | | | | | | [...]
--- OUTSIDE RECORDS SUMMARY | ~2019-03-21 | XMS | Encounter Summary ---
Demographics + + + | Address | [address] | | | [place] [address] | + + + | Home Phone | | + + + | Preferred Language | Unknown | + + + | Marital Status | | + + + | Confucianism Affiliation | 1013 | + + + | Race | Unknown | + + + | Ethnic Group | Unknown | + + + Author + + + | Author | [facility] | | | and [place] | + + + | Organization | [facility] | | | [...] Team Providers + +------+ + | Care Distribution Dispatcher Name | Role | Phone | + +------+ + | Kaushik Christensen MD | PCP | | + +------+ + Encounter Details +--------+ + + + + | Date | Type | Department | Care Team | Description | +--------+ + + + + | 10/15/ | Orders Only | [facility] | Chung Rushing, | | | 2015 | | NEPHROLOGY JOSE | AEROLOGIST [address] | | | | | [address] [facility] | [facility] [address] | | | | | [address] [address] [place] | [place] | | | | | [address] | [address] | | | | | [phone] | [phone] | | | | | | | [...] MONET | | | | | | [place] [address] | | | | | | [phone] | | | | | | | [...] | | | LAB | | | THAI | | | | | + + [...]
--- OUTSIDE RECORDS SUMMARY | ~2019-03-21 | XMS | Encounter Summary ---
Demographics + + + | Address | [address] | | | [place] [address] | + + + | Home Phone | | + + + | Preferred Language | Unknown | + + + | Marital Status | | + + + | Denominational Affiliation | 1013 | + + + | Race | Unknown | + + + | Ethnic Group | Unknown | + + + Author + + + | Author | [facility] | | | and [place] | + + + | Organization | [facility] | | | [...] Team Providers + +------+ + | Care Remedial Reading Teacher Name | Role | Phone | [...] | | [address] | [place] [address] | | | | | [place] | [phone] | | | | | [address] | | | | | | [phone] | | | +--------+ + + + [...] MONET | | | | | | [place] [address] | | | | | | [phone] | | | | | | | | +--------+---------+ + + + documented as of this encounter Visit Diagnoses + + | Diagnosis | + + | S/P lumbar fusion - Primary Arthrodesis status | + + documented in this encounter"
--- OUTSIDE RECORDS SUMMARY | ~2019-03-21 | XMS | Encounter Summary ---
Demographics + + + | Address | [address] | | | [place] [address] | + + + | Home Phone [...] Team Providers + +------+ + | Care Basket Grader Name | Role | Phone | + +------+ + | Kaushik Christensen MD | PCP | | + +------+ + Encounter Details +--------+ + + + + | Date | Type | Department | Care Team | Description | +--------+ + + + + | 03/03/ | Orders Only | [facility] | Silvio Alfred MD | | | 2013 | | NEPHROLOGY [place] | [address] | | | | | [address] | [address] [place], [place] | | | | | [address] [place], [place] | [address] | | | | | [address] | | | | | | [phone] | | | +--------+ + + + [...] MONET | | | | | | [place] [address] | | | | | | [phone] | | | | | | | [...]
--- OUTSIDE RECORDS SUMMARY | ~2019-03-21 | XMS | Encounter Summary ---
Demographics + + + | Address | [address] | | | [place] [address] | + + + | Home Phone [...] Providers + +------+ + | Care Oracle Bpm Consultant Name | Role | Phone | [...] Obesity, | | 2011 | | [facility] | [address] | unspecified; | | | | [address] | [place], [place] | Unspecified | | | | [place], [place] | [address] | essential | | | | [address] | | hypertension; | | | | [phone] | | Coronary | | | | | | atherosclerosis of | | | | | | unspecified type of | | | | | | vessel, [place] ore[place] or | | | | | | [...] | | | | | [place] [address] | | | | | | [phone] | | | | | | | | +--------+---------+ + + + documented as of this encounter Visit Diagnoses + + | Diagnosis | + + | Obesity, unspecified | + + | Unspecified essential hypertension | + + | Coronary atherosclerosis of unspecified type of vessel, [place] ore[place] or graft | + + documented in this encounter"
--- OUTSIDE RECORDS SUMMARY | ~2019-03-21 | XMS | Encounter Summary ---
Demographics + + + | Address | [address] | | | [place] [address] | + + + | Home Phone | | + + + | Preferred Language | Unknown | + + + | Marital Status | | + + + | Voodoo Affiliation | 1013 | + + + | Race | Unknown | + + + | Ethnic Group | Unknown | + + + Author + + + | Author | [facility] | | | and [place] | + + + | Organization | [facility] | | [...] Team Providers + +------+ + | Care Admissions Gate Attendant Name | Role | Phone | + [...] [address] | | | | | ([facility]) | [facility] | [address] | | | | | Procedures | [place], [place] | [place], [place] | | | | | Consult | [address] | [address] Phone: | | | | | | Phone: | [phone] | | | | | | [phone] | Fax: | | | | | | Fax: | [phone] | | | | | | [phone] | | + +--------+ + + + + Encounter Details +--------+---------+ + + + | Date | Type | Department | Care Team | Description | +--------+---------+ + + + | 03/05/ | Office | [facility] | Jose Juan Montes, | Persistent atrial | | 2019 | Visit | CARDIOLOGY [place] | [address] | fibrillation | | | | [address] | [place], | (Primary Dx); | | | | [address] | [place] [address] | Essential | | | | [place], [place] | [phone] | hypertension; Stage | | | | [address] | | 4 chronic kidney | | | | [phone] | | disease (HCC); Pedal | | [...] started on Eliqui s for stroke prevention ([id number] VASc 4). She is completely unaware of [...] was noted to have Atrial Fibrillation 09/24/18, [id number] VASc 4, on Eliquis, no prior h/o [...] rinary Incontinence, urgency, no hesitancy. No active Tank Stave Assembler disorders. HEMATOLOGY/ONCOLOGY: No h/o bleeding disorders, DVT, [...] 10/11, resolved) COPD (chronic obstructive pulmonary disease) ([facility]) Hypertension Obesity, Class III, BMI 40-49.9 (morbid obesity) ([facility]) Pernicious anemia Past Surgical History: Procedure [...] file Gets together: Not on file Attends alevism service: Not on file Active member of [...] MONET | | | | | | [place] [address] | | | | | | [phone] | | | | | | | [...] | | | | | by [employer] [place] Read Only, | | | | | | [employer] Yvette ([id number]), | | | | | | editor newspaper Hernan Zamora | | | | | [...]
--- OUTSIDE RECORDS SUMMARY | ~2019-03-21 | XMS | Encounter Summary ---
Demographics + + + | Address | [address] | | | [place] [address] | + + + | Home Phone [...] Providers + +------+ + | Care License And Permit Specialist Name | Role | Phone | [...] [address] | | | | | [phone] | Mita Mireles | | | | | | [place] [address] | | | | | | [phone] | | | | | | | [...] MONET | | | | | | [place] [address] | | | | | | [phone] | | | | | | | | +--------+---------+ + + + documented as of this encounter Visit Diagnoses Not on filedocumented in this encounter"
--- OUTSIDE RECORDS SUMMARY | ~2019-03-21 | XMS | Encounter Summary ---
Demographics + + + | Address | [address] | | | [place] [address] | + + + | Home Phone [...] Providers + +------+ + | Care Dispatcher Refinery Name | Role | Phone | + +------+ + | Kaushik Christensen MD | PCP | | + +------+ + Encounter Details +--------+ + + + + | Date | Type | Department | Care Team | Description | +--------+ + + + + | 10/15/ | Orders Only | [facility] | Chung Rushing, | | | 2015 | | NEPHROLOGY JOSE | CUFFING MACHINE OPERATOR [address] | | | | | [address] [facility] | [facility] | | | | | [address] [address] [place] | [place] | | | | | [address] | [address] | | | | | [phone] | [phone] | | | | | | | [...] MONET | | | | | | [place] [address] | | | | | | [phone] | | | | | | | [...] | | | LAB | | | TURKMEN | | | | | + + [...]
--- OUTSIDE RECORDS SUMMARY | ~2019-03-21 | XMS | Encounter Summary ---
Demographics + + + | Address | [address] | | | [place] [address] | + + + | Home Phone [...] Team Providers + +------+ + | Care Gate Watchman Name | Role | Phone | + +------+ + | Kaushik Crhistensen MD | PCP | | + +------+ + Encounter Details +--------+ + + + + | Date | Type | Department | Care Team | Description | +--------+ + + + + | 01/31/ | Orders Only | [facility] | Alonzo Awad, | Obesity, | | 2011 | | [facility] | [address] | unspecified; | | | | [address] | [place], [place] | Unspecified | | | | [place], [place] | [address] | essential | | | | [address] | | hypertension; | | | | [phone] | | Coronary | | | | | | atherosclerosis of | | | | | | unspecified type of | | | | | | vessel, [place] or | | | | | | [...] | | | | | [place] [address] | | | | | | [phone] | | | | | | | | +--------+---------+ + + + documented as of this encounter Visit Diagnoses + + | Diagnosis | + + | Obesity, unspecified | + + | Unspecified essential hypertension | + + | Coronary atherosclerosis of unspecified type of vessel, [place] or graft | + + documented in this encounter"
--- OUTSIDE RECORDS SUMMARY | ~2019-03-21 | XMS | Encounter Summary ---
Demographics + + + | Address | [address] | | | [place] [address] | + + + | Home Phone [...] Team Providers + +------+ + | Care Impress Associate Name | Role | Phone | [...] + + | 01/30/ | Telephone | [facility] | Rojo, | Other (Appointment | | 2019 | | NEPHROLOGY [place] | Kash Treadwell | reminder call) | | | | [address] | [employer]airer | | | | | [place] [address] | | | | | | [place], [place] | | | | | | [address] | | | | | | [phone] | | | +--------+ + + + [...] MONET | | | | | | [place] [address] | | | | | | [phone] | | | | | | | | +--------+---------+ + + + documented as of this encounter Visit Diagnoses Not on filedocumented in this encounter"
--- OUTSIDE RECORDS SUMMARY | ~2019-03-21 | XMS | Encounter Summary ---
Demographics + + + | Address | [address] | | | [place] [address] | + + + | Home Phone [...] Team Providers + +------+ + | Care Orange Peel Operator Name | Role | Phone | [...] [address] | | | | | ([facility]) | [facility] | [address] | | | | | Procedures | [place], [place] | [place], [place] | | | | | Consult | [address] | [address] Phone: | | | | | | Phone: | [phone] | | | | | | [phone] | Fax: | | | | | | Fax: | [phone] | | | | | | [phone] | | + +--------+ + + + + Encounter Details +--------+---------+ + + + | Date | Type | Department | Care Team | Description | +--------+---------+ + + + | 03/05/ | Office | [facility] | Jose Juan Montes, | Persistent atrial | | 2019 | Visit | CARDIOLOGY [place] | [address] | fibrillation | | | | [address] | [place], | (Primary Dx); | | | | [address] | [place] [address] | Essential | | | | [place], [place] | [phone] | hypertension; Stage | | | | [address] | | 4 chronic kidney | | | | [phone] | | disease (HCC); Pedal | | [...] started on Eliqui s for stroke prevention ([id number] VASc 4). She is completely unaware of [...] was noted to have Atrial Fibrillation 09/24/18, [id number] VASc 4, on Eliquis, no prior h/o [...] rinary Incontinence, urgency, no hesitancy. No active Assistant Curator disorders. HEMATOLOGY/ONCOLOGY: No h/o bleeding disorders, DVT, [...] 10/11, resolved) COPD (chronic obstructive pulmonary disease) ([facility]) Hypertension Obesity, Class III, BMI 40-49.9 (morbid obesity) ([facility]) Pernicious anemia Past Surgical History: Procedure Laterality [...] file Gets together: Not on file Attends baptism service: Not on file Active member of [...] MONET | | | | | | [place] [address] | | | | | | [phone] | | | | | | | [...] | | | | | by [employer] [place] Read Only, | | | | | | [employer] Yvette ([id number]), | | | | | | dictionary editor Hernan Zamora | | | | [...]
--- OUTSIDE RECORDS SUMMARY | ~2019-03-21 | XMS | Encounter Summary ---
Demographics + + + | Address | [address] | | | [place] [address] | + + + | Home Phone [...] Team Providers + +------+ + | Care Stone Repairer Name | Role | Phone | + +------+ + | Kaushik Christensen MD | PCP | | + +------+ + Encounter Details +--------+ + + + + | Date | Type | Department | Care Team | Description | +--------+ + + + + | 11/08/ | Orders Only | [facility] | Conversion | | | 2016 | | NEPRHOLOGY ABSECON | Transaction, | | | | | [address] | Provider Unknown | | | | | [address] [place], [place] | [phone] | | | | | [address] | | | | | | [phone] | | | +--------+ + + + [...] MONET | | | | | | [place] [address] | | | | | | [phone] | | | | | | | [...]
--- OUTSIDE RECORDS SUMMARY | ~2019-03-21 | XMS | Encounter Summary ---
Demographics + + + | Address | [address] | | | [place] [address] | + + + | Home Phone | | + + + | Preferred Language | Unknown | + + + | Marital Status | | + + + | Lutheran Affiliation | 1013 | + + + [...] Team Providers + +------+ + | Care Six Sigma Black Trainer Name | Role | Phone | + [...] | | [address] | [place] [address] | Coronary artery | | | | [place], [place] | [phone] | disease | | | | [address] | | | | | | [phone] | | | +--------+ + + + [...] MONET | | | | | | [place] [address] | | | | | | [phone] | | | | | | | [...] of unspecified type of vessel, | | [place] or graft | + + documented in this encounter"
--- OUTSIDE RECORDS SUMMARY | ~2019-03-21 | XMS | Encounter Summary ---
Demographics + + + | Address | [address] | | | [place] [address] | + + + | Home Phone [...] Providers + +------+ + | Care Lead Software Architect Name | Role | Phone | + +------+ + | Kaushik Christensen MD | PCP | | + +------+ + Encounter Details +--------+ + + + + | Date | Type | Department | Care Team | Description | +--------+ + + + + | 07/26/ | Orders Only | [facility] | Chung Rushing, | | | 2018 | | NEPHROLOGY [place] | CORRECTION OFFICER SUPERVISOR [address] | | | | | [address] | [address] | | | | | [address] [place], [place] | [place] | | | | | [address] | [address] | | | | | [phone] | [phone] | | | | | | | [...] MONET | | | | | | [place] [address] | | | | | | [phone] | | | | | | | [...] | + +---------+ + + External Lab: AJYLENE (07/26/2018 11:19 AM PDT) + + + [...] | | | LAB | | | SAO TOMEAN | | | | | + + [...]
--- OUTSIDE RECORDS SUMMARY | ~2019-03-21 | XMS | Encounter Summary ---
Demographics + + + | Address | [address] | | | [place] [address] | + + + | Home Phone | | + + + | Preferred Language | Unknown | + + + | Marital Status | | + + + | Mandaeism Affiliation | 1013 | + + + [...] Providers + +------+ + | Care Sample Maker Name | Role | Phone | [...] + + | 05/01/ | Office | [facility] | Vargas Beebelas | Spinal stenosis, | | 2012 | Visit | NEUROSURGERY [address] | [address] | lumbar (Primary Dx) | | | | [address] | [address] | | | | | [place], [place] | [place] [address] | | | | | [address] | [phone] | | | | | [phone] | | | +--------+---------+ + + + [...] to use Tylenol as directed by the disk and tape machine tender. We will plan to see you back in 3 months with x-rays. If you having increasing problems or any concerns please feel free t o let us know documented in this encounter Progress Notes Roland Beebe PA-C - 05/01/2012 3:58 PM PSTFormatting of this note might be differ ent from the original. Roland Beebe, LIBORIO [address] [facility], [address] [place], [place] [address] FAX: NEUROSURGERY FOLLOW-UP CHIEF COMPLAINT: Chief Complaint [...] would like the patient to continue to [facility] with activities as tolerated and as directed. She is no longer in the brace and not t aking pain medications I spent 20 minutes in visit with Jordan Grullon today with the majority of time spent counselling the patient on her recovery and coordinating her future care. The patient will follow-up with me in around 3-4 months for re-evaluation. ELECTRONICALLY SIGNED BY: LIBOIRO Herrera, 05/01/2012 16:00 documented in this encounter [...] MONET | | | | | | [place] [address] | | | | | | [phone] | | | | | | | | +--------+---------+ + + + documented as of this encounter Results XR Lumbar Spine 2 or 3 Vw (08/14/2012 11:33 AM PDT) + + | Specimen | + + | | + + + + + | Narrative | Performed At | + + + | [facility] | [place] | | Department [address] [facility] | [facility] | | [ rep [address]] [ rep [facility] | | st zip] Signed | - IMAGING | | | | | Patient Name: JORDAN GRULLON | | | Physician: HUMBLE : 1930 Age: 82 Sex: F Unit | | | #: [id number] Exam Date: 08/14/12 Location: | | | [facility] Report #: [id number] Page: | | | %(RAD)RES..mtdd.print.filter("pg") of %(RAD) | | | RES..mtdd.print.filter("tpg") | | | | | | Accession Number: [id number] | | | LUMBAR SPINE CLINICAL HISTORY: [...] Transcribed | | | Date/Time: 08/14/2012 12:05 Adjustment Supervisor: | | | <<Signature on File>> | | | | | | Lefty Kirby MD08/14/12 1450 <Electronically signed by | | | Lefty Kirby MD> Lefty Kirby MD 08/14/12 | | | 1133 Adjustment Supervisor: [employer] Ndcdwdnrlslel26/21/13 1205 | | | LIB[place]IO [place] | | + + + + + + + + | Performing | Address | City/State/Zipcode | Phone Number | | Organization | | | | + + + + + | [facility] | [address] | [place] | [phone] | | [facility] | | [address] | | | - IMAGING | | | | + + + + + documented in this encounter Visit Diagnoses + + | Diagnosis | + + | Spinal stenosis, lumbar - Primary Spinal stenosis, lumbar region, without neurogenic | | claudication | + + documented in this encounter
--- OUTSIDE RECORDS SUMMARY | ~2019-03-21 | XMS | Encounter Summary ---
Demographics + + + | Address | [address] | | | [place] [address] | + + + | Home Phone [...] Team Providers + +------+ + | Care Hobbies And Crafts Sales Representative Name | Role | Phone | [...] | | Procedures | MD [address] | [place] | | | | | CR EVENT | [address] | [address] | | | | | MONITOR | [address] | [address] | | | | | | [place], [place] | [place], [place] | | | | | | [address] | [address] | | | | | | Phone: | Phone: | | | | | | [phone] | [phone] | | | | | | Fax: | Fax: | | | | | | [phone] | [phone] | +--------+--------+ + + + + Encounter Details +--------+ + + + + | Date | Type | Department | Care Team | Description | +--------+ + + + + | 03/07/ | Procedure | [facility] | Jose Juan Montes, | Persistent atrial | | 2019 | visit | CARDIOLOGY [place] | [address] | fibrillation | | | | [address] | [facility] [address] [facility] | | | | | [address] | [place] [address] | | | | | [place], [place] | [phone] | | | | | [address] | | | | | | [phone] | | | +--------+ + + + [...] of this encounter Progress Notes Mile Freitas, Lean Manufacturing Engineer - 03/07/2019 3:30 PM PSTBardi monitor placed on sherman ent. Instructions for reporting symptoms, and monitoring in patient diary given and underst ood. Patient instructed to call if questions arise. REF:R1000 SN: [id number] BARCODE # [id number] JDW:DYNO TECHNICIAN-AAMA. doc umented in this encounter Plan of Treatment +--------+---------+ + + + | Date | Type | Specialty | Care Team | Description | +--------+---------+ + + + | 04/08/ | Office | Cardiology | Alexandra Amaya | | | 2019 | Visit | | [address] | | | | | | [address] | | | | | | [place] [address] | | | | | | [phone] | | | | | | | | +--------+---------+ + + + documented as of this encounter Visit Diagnoses + + | Diagnosis | + + | Persistent atrial fibrillation Atrial fibrillation | + + documented in this encounter"
--- OUTSIDE RECORDS SUMMARY | ~2019-03-21 | XMS | Clinical Summary ---
Demographics + + + | Address | [address] | | | [place] [address] | + + + | Home Phone | | + + + | Preferred Language | Unknown | + + + | Marital Status | | + + + | Worship Affiliation | Unknown | + + + | Race | Unknown | + + + | Ethnic Group | Unknown | + + + Author + + + | Author | [facility] [employer] (Historical as of | | | 11-10-18) | + + + | Organization | [facility] [employer] (Historical as of | | | 11-10-18) [...] Team Providers + +------+ + | Care Compliance Review Specialist Name | Role | Phone | [...] MA - MODA | MA - | [id number] | [employer] | | | | | [...] | | al/Shayne | | 1930 | [phone] | [place] | | | ashlee | | | 1984 | [address] | + +--------+ +--------+ + +
--- OUTSIDE RECORDS SUMMARY | ~2019-03-21 | XMS | Encounter Summary ---
Demographics + + + | Address | [address] | | | [place] [address] | + + + | Home Phone | | + + + | Preferred Language | Unknown | + + + | Marital Status | | + + + | Mormon Affiliation | 1013 | + + + | Race | Unknown | + + + | Ethnic Group | Unknown | + + + Author + + + | Author | [facility] | | | and [place] | + + + | Organization | [facility] | | [...] Team Providers + +------+ + | Care Display And Banner Designer Name | Role | Phone | + +------+ + | Kaushik Christensen MD | PCP | | + +------+ + Encounter Details +--------+ + + + + | Date | Type | Department | Care Team | Description | +--------+ + + + + | 09/07/ | Orders Only | [facility] | Chung Rushing, | | | 2017 | | NEPHROLOGY [place] | PROVIDER RELATIONS CONSULTANT [address] | | | | | [address] | [address] | | | | | [address] [place], [place] | [place] | | | | | [address] | [address] | | | | | [phone] | [phone] | | | | | | | [...] MONET | | | | | | [place] [address] | | | | | | [phone] | | | | | | | [...] | | | LAB | | | ZIM[place] | | | | | + + [...]
--- OUTSIDE RECORDS SUMMARY | ~2019-03-21 | XMS | Encounter Summary ---
Demographics + + + | Address | [address] | | | [place] [address] | + + + | Home Phone | | + + + | Preferred Language | Unknown | + + + | Marital Status | | + + + | Faith Affiliation | 1013 | + + + [...] Team Providers + +------+ + | Care Shuttle Veneering Supervisor Name | Role | Phone | [...] + + | 02/07/ | Documentati | [facility] | Darrel, | Results (02/05/19) | | 2019 | on | NEPHROLOGY [place] | [facility] | | | | | [address] | Sand Mixer Machine | | | | | [place] [facility] | | | | | | [place] | | | | | | [address] | | | | | | [phone] | | | +--------+ + + + [...] MONET | | | | | | [place] [address] | | | | | | [phone] | | | | | | | [...]
--- OUTSIDE RECORDS SUMMARY | ~2019-03-21 | XMS | Encounter Summary ---
Demographics + + + | Address | [address] | | | [place] [address] | + + + | Home Phone [...] Team Providers + +------+ + | Care Caser Up Name | Role | Phone | + +------+ + | Kaushik Christensen MD | PCP | | + +------+ + Encounter Details +--------+ + + + + | Date | Type | Department | Care Team | Description | +--------+ + + + + | 08/01/ | Orders Only | [facility] | Silvio Alfred MD | | | 2014 | | NEPHROLOGY [place] | [address] [place] | | | | | [address] | [address] [place], [place] | | | | | [address] [place], [place] | [address] | | | | | [address] | | | | | | [phone] | | | +--------+ + + + [...] MONET | | | | | | [place] [address] | | | | | | [phone] | | | | | | | [...]
--- OUTSIDE RECORDS SUMMARY | ~2019-03-21 | XMS | Encounter Summary ---
Demographics + + + | Address | [address] | | | [place] [address] | + + + | Home Phone | | + + + | Preferred Language | Unknown | + + + | Marital Status | | + + + | Judaism Affiliation | 1013 | + + + | Race | Unknown | + + + | Ethnic Group | Unknown | + + + Author + + + | Author | [facility] | | | and [place] | + + + | Organization | [facility] | | | [...] Team Providers + +------+ + | Care Dance Hall Hostess Name | Role | Phone | + +------+ + | Kaushik Christensen MD | PCP | | + +------+ + Encounter Details +--------+ + + + + | Date | Type | Department | Care Team | Description | +--------+ + + + + | 03/13/ | Hospital | [facility] | David Montgomery MD | Status post lumbar | | 2012 - | Encounter | MED CTR XRAY [address] | [address] | spinal fusion | | | | [place] | [place] [address] | | | 03/15/ | | [place] [address] | [phone] | | | 2011 | | [phone] | | | +--------+ + + + [...] MONET | | | | | | [place] [address] | | | | | | [phone] | | | | | | | [...] Performed At | + + + | [facility] Diagnostic Imaging | [place] | | Department [address] [facility] | [facility] | | [ rep ct [address]] [ rep [facility] | | [facility]] Signed | - IMAGING | | | | | Patient Name: JORDAN GRULLON | | | Physician: LANNY : 1930 Age: 82 Sex: F Unit | | | #: [id number] Exam Date: 03/13/12 [place]: | | | [facility] [place] #: [id number] Page: | | | %(RAD)RES..mtdd.print.filter("pg") of %(RAD) | | | RES..mtdd.print.filter("tpg") | | | | | | Accession Number: [id number] | | | LUMBAR SPINE X-RAY CLINICAL [...] | | | Transcribed Date/Time: 03/13/2012 17:42 Shoe Fitter: | | | <<Signature on File>> | | | Daniel | | | MD Jeanmarie03/14/12 0838 <Electronically signed by Daniel Murry MD> | | | Daniel Murry MD 03/13/12 8475 Shoe Fitter: [employer] | | | [place]66/18/12 5224 David Montgomery MD | | + + + + + + + + | Performing | Address | City/State/Zipcode | Phone Number | | Organization | | | | + + + + + | [facility] | [address] | [place] | [phone] | | [facility] | | [address] | | | - IMAGING | | | | + + + + + documented in this encounter Visit Diagnoses + + | Diagnosis | + + | Status post lumbar spinal fusion Arthrodesis status | + + documented in this encounter
--- OUTSIDE RECORDS SUMMARY | ~2019-03-21 | XMS | Encounter Summary ---
Demographics + + + | Address | [address] | | | [place] [address] | + + + | Home Phone [...] Team Providers + +------+ + | Care Computer Builder Name | Role | Phone | + +------+ + | Kaushik Christensen MD | PCP | | + +------+ + Encounter Details +--------+ + + + + | Date | Type | Department | Care Team | Description | +--------+ + + + + | 03/08/ | Orders Only | [facility] | Conversion | | | 2016 | | NEPHROLOGY [place] | Transaction, | | | | | [address] | Provider Unknown | | | | | [address] [facility] [place] | | | | | | [address] | (Fax) | | | | | [phone] | | | +--------+ + + + [...] MONET | | | | | | [place] [address] | | | | | | [phone] | | | | | | | [...]
--- OUTSIDE RECORDS SUMMARY | ~2019-03-21 | XMS | Encounter Summary ---
Demographics + + + | Address | [address] | | | [place] [address] | + + + | Home Phone [...] Team Providers + +------+ + | Care Reel Winder Name | Role | Phone | + [...] XRAY [address] | MD [address] | | | | | [place] | [place], [place] | | | | | [place] [address] | [address] | | | | | [phone] | | | +--------+ + + + [...] MONET | | | | | | [place] [address] | | | | | | [phone] | | | | | | | [...] Performed At | + + + | [facility] Diagnostic Imaging Department | [facility] | | [address] [facility] | [facility] | | UNENHANCED MRI LUMBAR SPINE, | [...] Sagittal STIR. | | | FINDINGS: Five lkw-svw-janzqne, lumbar-type vertebrae are visible on | | [...] Transcribed Date/Time: | | | 06/23/2011 16:27 Web Designer: <Electronically Signed | | | by Shamar Jeter MD> 06/23/11 2251 | | + + + + + | Procedure Note | + + | Sarbjit, Rad Conversion - 05/03/2013 5:01 PM [facility] | | Diagnostic Imaging Department | | [address] [facility] | | | | | | [...] STIR. | | | | FINDINGS: Five wqt-ont-crdufqr, lumbar-type vertebrae are visible on the | [...] | Transcribed Date/Time: 06/23/2011 16:27 | | Web Designer: | | <Electronically Signed by Shamar Jeter [...]
--- OUTSIDE RECORDS SUMMARY | ~2019-03-21 | XMS | Encounter Summary ---
Demographics + + + | Address | [address] | | | [place] [address] | + + + | Home Phone [...] Team Providers + +------+ + | Care Pupil Personnel Worker Name | Role | Phone | + +------+ + | Kaushik Christensen MD | PCP | | + +------+ + Encounter Details +--------+ + + + + | Date | Type | Department | Care Team | Description | +--------+ + + + + | 08/14/ | Hospital | [facility] | Roland Beebe | Spinal stenosis, | | 2012 | Encounter | MED CTR XRAY [address] | [address] | lumbar | | | | [place] | [address] | | | | | [place] [address] | [place] [address] | | | | | [phone] | [phone] | | | | | | | [...] MONET | | | | | | [place] [address] | | | | | | [phone] | | | | | | | [...] Performed At | + + + | [facility] Diagnostic Imaging | [place] | | Department [address], [place] | [facility] | | [ rep ct [address]] [ rep [facility] | | st zip] Signed | - IMAGING | | | | | Patient Name: JORDAN GRULLON | | | Physician: HUMBLE : 1930 Age: 82 Sex: F Unit | | | #: [id number] Exam Date: 08/14/12 Location: | | | [facility] [place] Report #: [id number] Page: | | | %(RAD)RES..mtdd.print.filter("pg") of %(RAD) | | | RES..mtdd.print.filter("tpg") | | | | | | Accession Number: [id number] | | | LUMBAR SPINE CLINICAL HISTORY: [...] Transcribed | | | Date/Time: 08/14/2012 12:05 Measuring Machine Tender: | | | <<Signature on File>> | | | | | | Lefty Kirby MD08/14/12 5400 <Electronically signed by | | | Lefty Kirby MD> Lefty Kirby MD 08/14/12 | | | 1133 Measuring Machine Tender: Preisbockpedro Cqxomrbmgtfoq38/21/13 1205 | | | [place] | | + + + + + + + + | Performing | Address | City/State[facility] | Phone Number | | Organization | | | | + + + + + | [facility] | [address] | [place] | [phone] | | [facility] | | [address] | | | - IMAGING | | | | + + + + + documented in this encounter Visit Diagnoses + + | Diagnosis | + + | Spinal stenosis, lumbar Spinal stenosis, lumbar region, without neurogenic | | claudication | + + documented in this encounter
--- OUTSIDE RECORDS SUMMARY | ~2019-03-21 | XMS | Encounter Summary ---
Demographics + + + | Address | [address] | | | [place] [address] | + + + | Home Phone [...] Team Providers + +------+ + | Care Maintenance Leader Name | Role | Phone | + +------+ + | Kaushik Christensen MD | PCP | | + +------+ + Encounter Details +--------+ + + + + | Date | Type | Department | Care Team | Description | +--------+ + + + + | 12/05/ | Orders Only | [facility] | AlbertChung matthews, | | | 2016 | | NEPRHOLOGY [place] | COVER INSPECTOR [address] | | | | | [address] | [facility] | | | | | [address] [place], [place] | [place] | | | | | [address] | [address] | | | | | [phone] | [phone] | | | | | | | [...] MONET | | | | | | [place] [address] | | | | | | [phone] | | | | | | | [...] | | | LAB | | | CROATIAN | | | | | + + [...]
--- OUTSIDE RECORDS SUMMARY | ~2019-03-21 | XMS | Encounter Summary ---
Demographics + + + | Address | [address] | | | [place] [address] | + + + | Home Phone [...] Team Providers + +------+ + | Care In Tube Conversion Technician Name | Role | Phone | + +------+ + | Kaushik Christensen MD | PCP | | + +------+ + Encounter Details +--------+ + + + + | Date | Type | Department | Care Team | Description | +--------+ + + + + | 11/04/ | Orders Only | [facility] | Kaushik Christensen | | | 2013 | | MEDICAL CENTER | MD Al[address] | | | | | HEALTH INFORMATION | Mita Fermin | | | | | MANAG[address] | [place] [address] | | | | | [address] | [phone] | | | | | [place], [place] | | | | | | [address] | | | | | | [phone] | | | +--------+ + + + [...] MONET | | | | | | [place] [address] | | | | | | [phone] | | | | | | | [...]
--- OUTSIDE RECORDS SUMMARY | ~2019-03-21 | XMS | Encounter Summary ---
Demographics + + + | Address | [address] | | | [place] [address] | + + + | Home Phone | | + + + | Preferred Language | Unknown | + + + | Marital Status | | + + + | Islam Affiliation | 1013 | + + + | Race | Unknown | + + + | Ethnic Group | Unknown | + + + Author + + + | Author | [facility] | | | and [place] | + + + | Organization | [facility] | | [...] Team Providers + +------+ + | Care Care Management Associate Name | Role | Phone | + +------+ + | Kaushik Christensen MD | PCP | | + +------+ + Encounter Details +--------+ + + + + | Date | Type | Department | Care Team | Description | +--------+ + + + + | 09/07/ | Orders Only | [facility] | Chung Rushing, | | | 2017 | | NEPHROLOGY [place] | FISH STRAIGHTENER [address] | | | | | [address] | [address] | | | | | [address] [place], [place] | [place] | | | | | [address] | [address] | | | | | [phone] | [phone] | | | | | | | [...] MONET | | | | | | [place] [address] | | | | | | [phone] | | | | | | | [...] | | | LAB | | | VENEZUELAN | | | | | + + [...]
--- OUTSIDE RECORDS SUMMARY | ~2019-03-21 | XMS | Encounter Summary ---
Demographics + + + | Address | [address] | | | [place] [address] | + + + | Home Phone [...] Team Providers + +------+ + | Care Cut Off Saw Operator Name | Role | Phone | + +------+ + | Kaushik Christensen MD | PCP | | + +------+ + Encounter Details +--------+ + + + + | Date | Type | Department | Care Team | Description | +--------+ + + + + | 10/03/ | Orders Only | [facility] | Chung Rushing, | | | 2016 | | NEPHROLOGY [place] | DATA GOVERNANCE CONSULTANT [address] | | | | | [address] | [address] | | | | | [address] [place], [place] | [place] | | | | | [address] | [address] | | | | | [phone] | [phone] | | | | | | | [...] MONET | | | | | | [place] [address] | | | | | | [phone] | | | | | | | [...]
--- OUTSIDE RECORDS SUMMARY | ~2019-03-21 | XMS | Encounter Summary ---
Demographics + + + | Address | [address] | | | [place] [address] | + + + | Home Phone [...] + + + | Author | [facility] | | | and [place] | + + + | Organization | [facility] | | [...] Providers + +------+ + | Care Hotel Reservation Agent Name | Role | Phone | + [...] XRAY [address] | MD [address] | | | | | [place] | [place], [place] | | | | | [place] [address] | [address] | | | | | [phone] | | | +--------+ + + + [...] MONET | | | | | | [place] [address] | | | | | | [phone] | | | | | | | [...] [facility] Diagnostic Imaging Department | [facility] | | [address] [facility] | [facility] | | LUMBAR SPINE CLINICAL | DIAG [...] | | | Transcribed Date/Time: 06/20/2011 15:30 Put In Beat Adjuster: | | | <Electronically Signed by Lefty Kirby MD> 06/20/11 1916 | | + + + + + | Procedure Note | + + | Sarbjit, Rad Conversion - 05/03/2013 4:59 PM [facility] | | Diagnostic Imaging Department [address] [place] [address] | | LUMBAR SPINE CLINICAL HISTORY: BACK [...] 15:14 | |Transcribed Date/Time: 06/20/2011 15:30 | |Put In Beat Adjuster: | |<Electronically Signed by Lefty Kirby MD> [...]
--- OUTSIDE RECORDS SUMMARY | ~2019-03-21 | XMS | Encounter Summary ---
Demographics + + + | Address | [address] | | | [place] [address] | + + + | Home Phone | | + + + | Preferred Language | Unknown | + + + | Marital Status | | + + + | Amish Affiliation | 1013 | + + + | Race | Unknown | + + + | Ethnic Group | Unknown | + + + Author + + + | Author | [facility] | | | and [place] | + + + | Organization | [facility] | | | [...] Team Providers + +------+ + | Care Rivet Hole Machine Operator Name | Role | Phone | + +------+ + | Kaushik Christensen MD | PCP | | + +------+ + Encounter Details +--------+ + + + + | Date | Type | Department | Care Team | Description | +--------+ + + + + | 11/09/ | Orders Only | [facility] | Conversion | | | 2017 | | NEPRHOLOGY [place] | Transaction, | | | | | [address] | Provider Unknown | | | | | [address] [place], [place] | [phone] | | | | | [address] | | | | | | [phone] | | | +--------+ + + + [...] MONET | | | | | | [place] [address] | | | | | | [phone] | | | | | | | [...]
--- OUTSIDE RECORDS SUMMARY | ~2019-03-21 | XMS | Encounter Summary ---
Demographics + + + | Address | [address] | | | [place] [address] | + + + | Home Phone [...] Providers + +------+ + | Care Sheet Music Salesperson Name | Role | Phone | + [...] XRAY [address] | MD [address] | | | | | [place] | [place], [place] | | | | | [place] [address] | [address] | | | | | [phone] | | | +--------+ + + + [...] MONET | | | | | | [place] [address] | | | | | | [phone] | | | | | | | [...] At | + + + | [facility] Diagnostic Imaging Department | [place] | | [address] [facility] | [facility] | | BONE DENSITY TESTING | DIAG [...] Transcribed Date/Time: | | | 09/29/2011 11:13 Mission Commander: LZ <Electronically Signed | | | by Lefty Kirby MD> 09/29/11 1346 | | + + + + + | Procedure Note | + + | Sarbjit, Rad Conversion - 05/03/2013 5:38 PM [facility] | | Diagnostic Imaging Department [address] [place] [address] | | BONE DENSITY TESTING CLINICAL HISTORY: [...] 10:34 | |Transcribed Date/Time: 09/29/2011 11:13 | |Mission Commander: | |<Electronically Signed by Lefty Kirby MD> 09/29/11 1346 | + + + +---------+ + + | Performing | Address | City/State/[facility] | Phone Number | | Organization | | | | + +---------+ + + | [place] | | | | | [facility] | | | | + +---------+ + + documented in this encounter Visit Diagnoses Not on filedocumented in this encounter"
--- OUTSIDE RECORDS SUMMARY | ~2019-03-21 | XMS | Encounter Summary ---
Demographics + + + | Address | [address] | | | [place] [address] | + + + | Home Phone [...] Team Providers + +------+ + | Care Sr. Manager Marketing Name | Role | Phone | + [...] + + | 01/30/ | Telephone | [facility] | Rjoo, | Other (Appointment | | 2019 | | NEPHROLOGY [place] | Kash Treadwell | reminder call) | | | | [address] | [address] | | | | | [place] [address] | | | | | | [place], [place] | | | | | | [address] | | | | | | [phone] | | | +--------+ + + + [...] MONET | | | | | | [place] [address] | | | | | | [phone] | | | | | | | | +--------+---------+ + + + documented as of this encounter Visit Diagnoses Not on filedocumented in this encounter"
--- OUTSIDE RECORDS SUMMARY | ~2019-03-21 | XMS | Encounter Summary ---
Demographics + + + | Address | [address] | | | [place] [address] | + + + | Home Phone [...] Team Providers + +------+ + | Care It Program Auditor Name | Role | Phone | + +------+ + | Kaushik Christensen MD | PCP | | + +------+ + Encounter Details +--------+ + + + + | Date | Type | Department | Care Team | Description | +--------+ + + + + | 12/13/ | Orders Only | [facility] | Conversion | | | 2016 | | NEPRHOLOGY [place] | Transaction, | | | | | [address] | Provider Unknown | | | | | [address] [place], [place] | [phone] | | | | | [address] | | | | | | [phone] | | | +--------+ + + + [...] MONET | | | | | | [place] [address] | | | | | | [phone] | | | | | | | [...] | | | LAB | | | KITTITIAN | | | | | + + [...]
--- OUTSIDE RECORDS SUMMARY | ~2019-03-21 | XMS | Encounter Summary ---
Demographics + + + | Address | [address] | | | [place] [address] | + + + | Home Phone | | + + + | Preferred Language | Unknown | + + + | Marital Status | | + + + | Pentecostalism Affiliation | 1013 | + + + | Race | Unknown | + + + | Ethnic Group | Unknown | + + + Author + + + | Author | [facility] | | | and [place] | + + + | Organization | [facility] | | | and [...] Team Providers + +------+ + | Care Grain Spouter Name | Role | Phone | + +------+ + | Kaushik Christensen MD | PCP | | + +------+ + Encounter Details +--------+ + + + + | Date | Type | Department | Care Team | Description | +--------+ + + + + | 10/27/ | Orders Only | [facility] | Silvio Alfred MD | | | 2014 | | NEPHROLOGY [place] | [address] [place] | | | | | [address] | [address] [place], [place] | | | | | [address] [place], [place] | [address] | | | | | [address] | | | | | | [phone] | | | +--------+ + + + [...] MONET | | | | | | [place] [address] | | | | | | [phone] | | | | | | | [...]
--- OUTSIDE RECORDS SUMMARY | ~2019-03-21 | XMS | Encounter Summary ---
Demographics + + + | Address | [address] | | | [place] [address] | + + + | Home Phone [...] Team Providers + +------+ + | Care Organ Assembler Name | Role | Phone | + +------+ + | Kaushik Christensen MD | PCP | | + +------+ + Encounter Details +--------+ + + + + | Date | Type | Department | Care Team | Description | +--------+ + + + + | 09/21/ | Orders Only | [facility] | Chung Rushing, | | | 2016 | | NEPHROLOGY [place] | REAL ESTATE OFFICER [address] | | | | | [address] [facility] | [facility] [address] | | | | | [place] | [place] | | | | | [address] | [address] | | | | | [phone] | [phone] | | | | | | | [...] 04/08/ | Office | Cardiology | Alexandra Amyaa | | | 2020 | Visit | | [address] | | | | | | [place] | | | | | | [place] [address] | | | | | | [phone] | | | | | | | [...]
--- OUTSIDE RECORDS SUMMARY | ~2019-03-21 | XMS | Encounter Summary ---
Demographics + + + | Address | [address] | | | [place] [address] | + + + | Home Phone | | + + + | Preferred Language | Unknown | + + + | Marital Status | | + + + | Holiness Affiliation | 1013 | + + + | Race | Unknown | + + + | Ethnic Group | Unknown | + + + Author + + + | Author | [facility] | | | and [place] | + + + | Organization | [facility] | | | [...] Team Providers + +------+ + | Care Sr Solutions Consultant Name | Role | Phone | + +------+ + | Kaushik Christensen MD | PCP | | + +------+ + Encounter Details +--------+ + + + + | Date | Type | Department | Care Team | Description | +--------+ + + + + | 09/26/ | Orders Only | [facility] | Chung Rushing, | | | 2014 | | NEPHROLOGY [place] | PAN OPERATOR [address] | | | | | [address] | [address] | | | | | [address] [place], [place] | [place] | | | | | [address] | [address] | | | | | [phone] | [phone] | | | | | | | [...] MONET | | | | | | [place] [address] | | | | | | [phone] | | | | | | | [...]
--- OUTSIDE RECORDS SUMMARY | ~2019-03-21 | XMS | Encounter Summary ---
Demographics + + + | Address | [address] | | | [place] [address] | + + + | Home Phone | | + + + | Preferred Language | Unknown | + + + | Marital Status | | + + + | Alevism Affiliation | 1013 | + + + | Race | Unknown | + + + | Ethnic Group | Unknown | + + + Author + + + | Author | [facility] | | | and [place] | + + + | Organization | [facility] | | [...] Team Providers + +------+ + | Care Derrick Boat Lever Operator Name | Role | Phone | + +------+ + PCP | Unavailable | + +------+ + Encounter Details +--------+ + + + + | Date | Type | Department | Care Team | Description | +--------+ + + + + | 09/12/ | Hospital | [facility] | Jonathan Izquierdo | | | 2011 | Encounter | MED CTR XRAY [address] | MD Steve [address] | | | | | [place] | [address] [place] | | | | | [place] [address] | [place] [address] | | | | | [phone] | [phone] | | | | | | | [...] MONET | | | | | | [place] [address] | | | | | | [phone] | | | | | | | [...] [facility] Diagnostic Imaging Department | [facility] | | [address], [place] | [facility] | | STRESS PERFUSION STUDY, | DIA [...] Transcribed Date/Time: 12/08/2011 | | | 19:05 Manager Consumer Insights: <Electronically Signed by Dipesh Wilson | | | MD Timbo> 12/08/111951 | | + + + + + | Procedure Note | + + | Sarbjit, Rad Conversion - 05/03/2013 6:00 PM [facility] | | Diagnostic Imaging Department | | [address] [facility] | | | | | | | [...] | Transcribed Date/Time: 12/08/2011 19:05 | | Manager Consumer Insights: | | <Electronically Signed by Dipesh Izquierdo [...]
--- OUTSIDE RECORDS SUMMARY | ~2019-03-21 | XMS | Encounter Summary ---
Demographics + + + | Address | [address] | | | [place] [address] | + + + | Home Phone [...] + + | Author | [facility] | | | and [place] | + + + | Organization | [facility] | | | [...] Team Providers + +------+ + | Care Chocolate Refining Roller Name | Role | Phone | [...] + + | 03/12/ | Telephone | [facility] | Lia Diallo, | Other | | 2019 | | CARDIOLOGY [employer] | [facility] | | | | | [address] | | | | | | [place], [place] | | | | | | [address] | | | | | | [phone] | | | +--------+ + + + [...] MONET | | | | | | [place] [address] | | | | | | [phone] | | | | | | | | +--------+---------+ + + + documented as of this encounter Visit Diagnoses Not on filedocumented in this encounter"
--- OUTSIDE RECORDS SUMMARY | ~2019-03-21 | XMS | Encounter Summary ---
Demographics + + + | Address | [address] | | | [place] [address] | + + + | Home Phone [...] + + | Author | [facility] | | | and [place] | + + + | Organization | [facility] | | | [...] Team Providers + +------+ + | Care Explosive Man Name | Role | Phone | + +------+ + | Renaldo [place] DO | PCP | Unavailable | + +------+ + Encounter Details +--------+ + + + + | Date | Type | Department | Care Team | Description | +--------+ + + + + | 02/11/ | Orders Only | [facility] | Silvio Alfred MD | Essential | | 2019 | | NEPHROLOGY [place] | [address] [place] | hypertension | | | | [address] | [address] [place], [place] | (Primary Dx); CKD | | | | [address] | [address] | (chronic kidney | | | | [place], [place] | | disease) stage 4, | | | | [address] | | GFR 15-29 ml/min | | | | [phone] | | (HCC) | +--------+ + + [...] MONET | | | | | | [place] [address] | | | | | | [phone] | | | | | | | [...] ml/min | | | | | | ([facility]) | | + +------+--------+ + + documented as of this encounter Visit Diagnoses + + | Diagnosis | + + | Essential hypertension - Primary Unspecified essential hypertension | + + | CKD (chronic kidney disease) stage 4, GFR 15-29 ml/min ([facility]) Chronic kidney disease, | | Stage IV (severe) | + + documented in this encounter"
--- OUTSIDE RECORDS SUMMARY | ~2019-03-21 | XMS | Encounter Summary ---
Demographics + + + | Address | [address] | | | [place] [address] | + + + | Home Phone | | + + + | Preferred Language | Unknown | + + + | Marital Status | | + + + | Denominational Affiliation | 1013 | + + + | Race | Unknown | + + + | Ethnic Group | Unknown | + + + Author + + + | Author | [facility] | | | and [place] | + + + | Organization | [facility] | | | [...] Team Providers + +------+ + | Care Music Education Adjunct Professor Name | Role | Phone | + [...] XRAY [address] | MD [address] | | | | | [place] | [place], [place] | | | | | [place] [address] | [address] | | | | | [phone] | | | +--------+ + + + [...] | | | | | | [place] [address] | | | | | | [phone] | | | | | | | [...] Performed At | + + + | [facility] Diagnostic Imaging Department | [facility] | | [address] [facility] | [facility] | | UNENHANCED MRI LUMBAR SPINE, [...] Sagittal STIR. | | | FINDINGS: Five xqc-rbr-uugwunm, lumbar-type vertebrae are visible on | | [...] Transcribed Date/Time: | | | 06/23/2011 16:27 Administrative Nursing Supervisor: <Electronically Signed | | | by Shamar Jeter MD> 06/23/11 2251 | | + + + + + | Procedure Note | + + | Sarbjit, Rad Conversion - 05/03/2013 5:01 PM [facility] | | Diagnostic Imaging Department | | [address] [facility] | | | | | | | [...] STIR. | | | | FINDINGS: Five car-rpr-kkhzkow, lumbar-type vertebrae are visible on the | [...] | Transcribed Date/Time: 06/23/2011 16:27 | | Administrative Nursing Supervisor: | | <Electronically Signed by Shamar Jeter [...]
--- OUTSIDE RECORDS SUMMARY | ~2019-03-21 | XMS | Encounter Summary ---
Demographics + + + | Address | [address] | | | [place] [address] | + + + | Home Phone [...] + + + | Author | [facility] | | | and [place] | + + + | Organization | [facility] | | | [...] Team Providers + +------+ + | Care Vehicle Window Tinter Name | Role | Phone | + +------+ + | Kaushik Christensen MD | PCP | | + +------+ + Encounter Details +--------+ + + + + | Date | Type | Department | Care Team | Description | +--------+ + + + + | 10/18/ | Orders Only | [facility] | Provider, | Vitamin D | | 2018 | | SYSTEM GENERIC OP | MD [address] | deficiency; | | | | CONVERSION [address] | 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[place], [place] | [place] [address] | hyperparathyroidism | | | | [address] | | of renal origin | | | | [phone] | | ([facility]); Hyperuricemia | | | | | | without signs of | | | | | | inflammatory | | | | | | arthritis and | | | | | | tophaceous disease; | | | | | | Chronic kidney | | | | | | disease, stage III | | | | | | (moderate) ([facility]); | | | | | | Localized [...] MONET | | | | | | [place] [address] | | | | | | [phone] | | | | | | | [...] Expires: | | | | | (moderate) ([facility]) | 03/26/2019 | | | | | [...] Expires: | | | | | (moderate) ([facility]) | 03/26/2019 | | | | | [...] Expires: | | | | | (moderate) ([facility]) | 03/26/2019 | | | | | [...]
--- OUTSIDE RECORDS SUMMARY | ~2019-03-21 | XMS | Encounter Summary ---
Demographics + + + | Address | [address] | | | [place] [address] | + + + | Home Phone [...] Team Providers + +------+ + | Care Rv Repair Technician Name | Role | Phone | + +------+ + | Kaushik Christensen MD | PCP | | + +------+ + Encounter Details +--------+ + + + + | Date | Type | Department | Care Team | Description | +--------+ + + + + | 07/25/ | Orders Only | [facility] | Chung Rushing, | | | 2017 | | NEPRHOLOGY [place] | POLE MAKER [address] | | | | | [address] | [facility] | | | | | [address] [place], [place] | [place] | | | | | [address] | [address] | | | | | [phone] | [phone] | | | | | | | [...] MONET | | | | | | [place] [address] | | | | | | [phone] | | | | | | | [...] | | | LAB | | | BRUNE[place] | | | | | + + [...]
--- OUTSIDE RECORDS SUMMARY | ~2019-03-21 | XMS | Encounter Summary ---
Demographics + + + | Address | [address] | | | [place] [address] | + + + | Home Phone [...] Team Providers + +------+ + | Care Foreman/Project Manager Name | Role | Phone | + +------+ + PCP | Unavailable | + +------+ + Encounter Details +--------+ + + + + | Date | Type | Department | Care Team | Description | +--------+ + + + + | 06/26/ | Hospital | [facility] | | | | 1997 | Encounter | MED CTR XRAY [address] | | | | | | Lizzy [address] | | | | | | [place] [address] | | | | | | [phone] | | | +--------+ + + + [...] MONET | | | | | | [place] [address] | | | | | | [phone] | | | | | | | | +--------+---------+ + + + documented as of this encounter Visit Diagnoses Not on filedocumented in this encounter"
--- OUTSIDE RECORDS SUMMARY | ~2019-03-21 | XMS | Encounter Summary ---
Demographics + + + | Address | [address] | | | [place] [address] | + + + | Home Phone [...] Team Providers + +------+ + | Care Application Architect Name | Role | Phone | + +------+ + | Kaushik Christensen MD | PCP | | + +------+ + Encounter Details +--------+ + + + + | Date | Type | Department | Care Team | Description | +--------+ + + + + | 04/21/ | Orders Only | [facility] | Chung Rushing, | | | 2015 | | NEPHROLOGY [place] | FIT MODEL [address] | | | | | [address] | [address] | | | | | [address] [place], [place] | [place] | | | | | [address] | [address] | | | | | [phone] | [phone] | | | | | | | [...] MONET | | | | | | [place] [address] | | | | | | [phone] | | | | | | | [...] | | | LAB | | | [facility] | | | | | + [...]
--- OUTSIDE RECORDS SUMMARY | ~2019-03-21 | XMS | Encounter Summary ---
Demographics + + + | Address | [address] | | | [place] [address] | + + + | Home Phone [...] Team Providers + +------+ + | Care Training And Quality Manager Name | Role | Phone | + +------+ + | Kaushik Christensen MD | PCP | | + +------+ + Encounter Details +--------+ + + + + | Date | Type | Department | Care Team | Description | +--------+ + + + + | 11/04/ | Orders Only | [facility] | Kaushik Christensen | | | 2013 | | MEDICAL CENTER | MD [address] | | | | | HEALTH INFORMATION | [address]ita Fermin | | | | | [address] | [place] [address] | | | | | [address] | [phone] | | | | | [place], [place] | | | | | | [address] | | | | | | [phone] | | | +--------+ + + + [...] MONET | | | | | | [place] [address] | | | | | | [phone] | | | | | | | [...]
--- OUTSIDE RECORDS SUMMARY | ~2019-03-21 | XMS | Encounter Summary ---
Demographics + + + | Address | [address] | | | [place] [address] | + + + | Home Phone [...] | Author | [facility] | | | and [place] | + + + | Organization | [facility] | | | and [place] | + [...] Providers + +------+ + | Care Computer Security Coordinator Name | Role | Phone | + +------+ + | Kaushik Christensen MD | PCP | | + +------+ + Encounter Details +--------+ + + + + | Date | Type | Department | Care Team | Description | +--------+ + + + + | 11/02/ | Orders Only | [facility] | AlbertChung matthews, | | | 2016 | | NEPRHOLOGY [place] | SENIOR PHP SOFTWARE DEVELOPER [address] | | | | | [address] | [facility] | | | | | [address] [place], [place] | [place] | | | | | [address] | [address] | | | | | [phone] | [phone] | | | | | | | [...] MONET | | | | | | [place] [address] | | | | | | [phone] | | | | | | | [...]
--- OUTSIDE RECORDS SUMMARY | ~2019-03-21 | XMS | Encounter Summary ---
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 Electronica lly signed by David Montgomery MD at 03/13/2012 2:41 PM PST documented in this encounter Progress Notes David Montgomery MD - 03/14/2012 7:34 AM PSTFormatting of this note might be different from t he original. David Montgomery MD [address] [place] [address], [address] [place] [address] FAX: NEUROSURGERY SURGICAL FOLLOW-UP CHIEF COMPLAINT: Chief [...] MONET | | | | | | [place] [address] | | | | | | [phone] | | | | | | | | +--------+---------+ + + + documented as of this encounter Results XR Lumbar Spine 2 or 3 Vw (05/01/2012 4:12 PM PST) + + | Specimen | + + | | + + + + + | Narrative | Performed At | + + + | [facility] Diagnostic Imaging | [place] | | Department [address] [place] [address] | [facility] | | [ rep [address]] [ rep [facility] | | st zip] Signed | - IMAGING | | | | | Patient Name: JORDAN GRULLON | | | Physician: LANNY : 1930 Age: 82 Sex: F Unit | | | #: [id number] Exam Date: 05/01/12 Location: | | | [facility] [place] Report #: [id number] Page: | | | %(RAD)RES..mtdd.print.filter("pg") of %(RAD) | | | RES..mtdd.print.filter("tpg") | | | | | | Accession Number: [id number] | | | TWO VIEWS LUMBAR SPINE, [...] Transcribed | | | Date/Time: 05/01/2012 16:58 Educational Advisor: | | | <<Signature on File>> | | | Shamar King | | | MD [place]05/01/122121 <Electronically signed by Shamar Jeter MD> | | | Shamar Jeter MD 05/01/12 1612 Educational Advisor: | | | [employer] Oyjautfvmwjsg67/05/13 8675 David Montgomery MD | | | | | + + + + + + + + | Performing | Address | City/State/Zipcode | Phone Number | | Organization | | | | + + + + + | [facility] | [address] | [place] | [phone] | | [facility] | | [address] | | | - IMAGING | | [...]
--- OUTSIDE RECORDS SUMMARY | ~2019-03-21 | XMS | Encounter Summary ---
Demographics + + + | Address | [address] | | | [place] [address] | + + + | Home Phone [...] Team Providers + +------+ + | Care Telephone Service Representative Name | Role | Phone | + +------+ + | Kaushik Christensen MD | PCP | | + +------+ + Encounter Details +--------+ + + + + | Date | Type | Department | Care Team | Description | +--------+ + + + + | 03/03/ | Orders Only | [facility] | Silvio Alfred MD | | | 2013 | | NEPHROLOGY [place] | [address] [place] | | | | | [address] [place] | [address] [place], [place] | | | | | [address] [place], [place] | [address] | | | | | [address] | | | | | | [phone] | | | +--------+ + + + [...] | | | | | [place] [address] | | | | | | [phone] | | | | | | | [...]
--- OUTSIDE RECORDS SUMMARY | ~2019-03-21 | XMS | Encounter Summary ---
Demographics + + + | Address | [address] | | | [place] [address] | + + + | Home Phone [...] Team Providers + +------+ + | Care Hay Farmer Name | Role | Phone | + [...] + + | 11/05/ | Telephone | [facility] | Jonathan Izquierdo | Recall For Services | | 2012 | | [address] | MD Steve [address] | (DMST) | | | | [place], | [address] [place] | | | | | [place] [address] | [place] [address] | | | | | [phone] | [phone] | | | | | | | [...] MON[place] | | | | | | [place] [address] | | | | | | [phone] | | | | | | | | +--------+---------+ + + + documented as of this encounter Visit Diagnoses Not on filedocumented in this encounter"
--- OUTSIDE RECORDS SUMMARY | ~2019-03-21 | XMS | Encounter Summary ---
Demographics + + + | Address | [address] | | | [place] [address] | + + + | Home Phone [...] Team Providers + +------+ + | Care Wastewater Superintendent Name | Role | Phone | + [...] | | | | | | | [place], | | | | | | | [place] | | | | | | | [address] | | | | | | | Phone: | | | | | | | [phone] | | | | | | | Fax: | | | | | | | [phone] | | +--------+ + + + + [...] [place] | | | | | | [address] | | | | | | [phone] | | | +--------+ + + + [...] MONET | | | | | | [place] [address] | | | | | | [phone] | | | | | | | [...] Performed At | + + + | [facility] Diagnostic Imaging | [place] | | Department [address] [facility] | [facility] | | [ rep [address]] [ rep [facility] | | [facility]] Signed | - IMAGING | | | | | Patient Name: JORDAN GRULLON | | | Physician: LANNY : 1930 Age: 82 Sex: F Unit | | | #: [id number] Exam Date: 03/13/12 Location: | | | [facility] Report #: [id number] Page: | | | %(RAD)RES..mtdd.print.filter("pg") of %(RAD) | | | RES..mtdd.print.filter("tpg") | | | | | | Accession Number: [id number] | | | LUMBAR SPINE X-RAY CLINICAL [...] | | | Transcribed Date/Time: 03/13/2012 17:42 Speech Coach: | | | <<Signature on File>> | | | aDniel | | | MD Jeanmarie03/14/12 0838 <Electronically signed by Daniel Murry MD> | | | Daniel Murry MD 03/13/12 8444 Speech Coach: [employer] | | | [id number]/18/12 5469 David Montgomery MD | | + + + + + + + + | Performing | Address | City/State/Zipcode | Phone Number | | Organization | | | | + + + + + | [facility] | [address] | [place] | [phone] | | [facility] | | [address] | | | - IMAGING | | | | + + + + + documented in this encounter Visit Diagnoses + + | Diagnosis | + + | Status post lumbar spinal fusion - Primary Arthrodesis status | + + documented in this encounter
--- OUTSIDE RECORDS SUMMARY | ~2019-03-21 | XMS | Encounter Summary ---
Demographics + + + | Address | [address] | | | [place] [address] | + + + | Home Phone [...] Team Providers + +------+ + | Care Stull Installer Name | Role | Phone | + +------+ + | Kaushik Christensen MD | PCP | | + +------+ + Encounter Details +--------+ + + + + | Date | Type | Department | Care Team | Description | +--------+ + + + + | 07/25/ | Orders Only | [facility] | Chung Rushing, | | | 2017 | | NEPRHOLOGY [place] | CONSULTING INTERN [address] | | | | | [address] | [facility] | | | | | [address] [place], [place] | [place] | | | | | [address] | [address] | | | | | [phone] | [phone] | | | | | | | [...] MONET | | | | | | [place] [address] | | | | | | [phone] | | | | | | | [...]
--- OUTSIDE RECORDS SUMMARY | ~2019-03-21 | XMS | Encounter Summary ---
Demographics + + + | Address | [address] | | | [place] [address] | + + + | Home Phone [...] Team Providers + +------+ + | Care Geography Head Name | Role | Phone | + +------+ + | Kaushik Christensen MD | PCP | | + +------+ + Encounter Details +--------+ + + + + | Date | Type | Department | Care Team | Description | +--------+ + + + + | 11/02/ | Orders Only | [facility] | AlbertChung matthews, | | | 2016 | | NEPRHOLOGY [place] | PEAT SHREDDER TENDER [address] | | | | | [address] | [facility] | | | | | [address] [place], [place] | [place] | | | | | [address] | [address] | | | | | [phone] | [phone] | | | | | | | [...] MONET | | | | | | [place] [address] | | | | | | [phone] | | | | | | | [...]
--- OUTSIDE RECORDS SUMMARY | ~2019-03-21 | XMS | Encounter Summary ---
Demographics + + + | Address | [address] | | | [place] [address] | + + + | Home Phone [...] Providers + +------+ + | Care Rn Documentation Name | Role | Phone | + +------+ + | Kaushik Christensen MD | PCP | | + +------+ + Encounter Details +--------+ + + + + | Date | Type | Department | Care Team | Description | +--------+ + + + + | 12/12/ | Orders Only | [facility] | Conversion | | | 2017 | | NEPRHOLOGY [place] | Transaction, | | | | | [address] | Provider Unknown | | | | | [address] [place], [place] | [phone] | | | | | [address] | | | | | | [phone] | | | +--------+ + + + [...] MONET | | | | | | [place] [address] | | | | | | [phone] | | | | | | | [...]
--- OUTSIDE RECORDS SUMMARY | ~2019-03-21 | XMS | Encounter Summary ---
Demographics + + + | Address | [address] | | | [place] [address] | + + + | Home Phone | | + + + | Preferred Language | Unknown | + + + | Marital Status | | + + + | Quaker Affiliation | 1013 | + + + | Race | Unknown | + + + | Ethnic Group | Unknown | + + + Author + + + | Author | [facility] | | | and [place] | + + + | Organization | [facility] | | [...] Team Providers + +------+ + | Care Hospice Case Manager Name | Role | Phone | + +------+ + | Kaushik Christensen MD | PCP | | + +------+ + Encounter Details +--------+ + + + + | Date | Type | Department | Care Team | Description | +--------+ + + + + | 10/18/ | Orders Only | [facility] | Provider, | Vitamin D | | 2018 | | SYSTEM GENERIC OP | MD [address] | deficiency; | | | | CONVERSION [address] | 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); Hyperuricemia | | | | | | without signs of | | | | | | inflammatory | | | | | | arthritis and | | | | | | tophaceous disease; | | | | | | Chronic kidney | | | | | | disease, stage III | | | | | | (moderate) ([facility]); | | | | | [...] MONET | | | | | | [place] [address] | | | | | | [phone] | | | | | | | [...] Expires: | | | | | (moderate) ([facility]) | 03/26/2019 | | | [...] Expires: | | | | | (moderate) ([facility]) | 03/26/2019 | | | [...] Expires: | | | | | (moderate) ([facility]) | 03/26/2019 | | | [...]
--- OUTSIDE RECORDS SUMMARY | ~2019-03-21 | XMS | Encounter Summary ---
Demographics + + + | Address | [address] | | | [place] [address] | + + + | Home Phone [...] Team Providers + +------+ + | Care Broadcast Operations Technician Name | Role | Phone | + +------+ + | Kaushik Christensen MD | PCP | | + +------+ + Encounter Details +--------+ + + + + | Date | Type | Department | Care Team | Description | +--------+ + + + + | 05/01/ | Hospital | [facility] | David Montgomery MD | Spondylolisthesis of | | 2013 - | Encounter | MED CTR XRAY [address] | [address] | lumbar region | | | | [place] | [place] [address] | | | 05/03/ | | [place] [address] | [phone] | | | 2012 | | [phone] | | | +--------+ + + + [...] MONET | | | | | | [place] [address] | | | | | | [phone] | | | | | | | [...] Performed At | + + + | [facility] | [place] | | Department [address] [place] [address] | [facility] | | [ rep [address]] [ rep [facility] | | [facility]] Signed | - IMAGING | | | | | Patient Name: JORDAN GRULLON | | | Physician: LANNY : 1930 Age: 82 Sex: F Unit | | | #: [id number] Exam Date: 05/01/12 Location: | | | [facility] Report #: [id number] Page: | | | %(RAD)RES..mtdd.print.filter("pg") of %(RAD) | | | RES..mtdd.print.filter("tpg") | | | | | | Accession Number: [id number] | | | TWO VIEWS LUMBAR SPINE, [...] Transcribed | | | Date/Time: 05/01/2012 16:58 Crane Engineer: | | | <<Signature on File>> | | | Shamar King | | Luis Carlos Jeter MD05/01/122 <Electronically signed by Shamar Jeter MD> | | | Shamar Jeter MD 05/01/12 1612 Crane Engineer: | | | Webmedx Orijjsiwoguzm05/05/13 1658 David Montgomery MD | | | | | + + + + + + + + | Performing | Address | City/State/Zipcode | Phone Number | | Organization | | | | + + + + + | [facility] | [address] | [place] | [phone] | | [facility] | | [address] | | | - IMAGING | | | | + + + + + documented in this encounter Visit Diagnoses + + | Diagnosis | + + | Spondylolisthesis of lumbar region Acquired spondylolisthesis | + + documented in this encounter
--- OUTSIDE RECORDS SUMMARY | ~2019-03-21 | XMS | Encounter Summary ---
Demographics + + + | Address | [address] | | | [place] [address] | + + + | Home Phone [...] Team Providers + +------+ + | Care Hydrogen Operator Name | Role | Phone | [...] | Cervical | Roland | [address] | | | | | radiculopath | [address] | [place], | | | | | y S/P | [address] | [place] | | | | | lumbar | [address] | [address] | | | | | spinal | [place] | Phone: | | | | | fusion | [address] | [phone] | | | | | Procedures | Phone: | Fax: | | | | | MRI Cervical | [phone] | [phone] | | | | | Spine wo | Fax: | | | | | | Contrast | [phone] | | +--------+--------+ + + + + Reason for Visit + + + | Reason | Comments | + + + | Follow-up | 6 Month PO | + + + Encounter Details +--------+---------+ + + + | Date | Type | Department | Care Team | Description | +--------+---------+ + + + | 08/14/ | Office | [facility] | [place], [place] | Cervical | | 2012 | Visit | NEUROSURGERY [address] | [address] | radiculopathy | | | | [address] | (Primary Dx); S/P | | | | [place], [place] | [place] [address] | lumbar spinal | | | | [address] | [phone] | fusion; Spinal | | | | [phone] | | stenosis, lumbar | +--------+---------+ + [...] from the original. Roland Beebe PA-C [address] [facility] [address] [place] [address] FAX: NEUROSURGERY FOLLOW-UP CHIEF COMPLAINT: Chief Complaint [...] She also notices that she has decreased tick eradicator strength of her right hand.. PAST MEDICAL [...] MONET | | | | | | [place] [address] | | | | | | [phone] | | | | | | | [...]
--- OUTSIDE RECORDS SUMMARY | ~2019-03-21 | XMS | Encounter Summary ---
Demographics + + + | Address | [address] | | | [place] [address] | + + + | Home Phone | | + + + | Preferred Language | Unknown | + + + | Marital Status | | + + + | Cheondoism Affiliation | 1013 | + + + [...] Team Providers + +------+ + | Care Glass Cleaner Name | Role | Phone | + +------+ + | Kaushik Christensen MD | PCP | | + +------+ + Encounter Details +--------+ + + + + | Date | Type | Department | Care Team | Description | +--------+ + + + + | 09/26/ | Orders Only | [facility] | Chung Rushing, | | | 2014 | | NEPHROLOGY [place] | LICENSE AND PERMIT SPECIALIST [address] | | | | [address] | [address] | | | | | [address] [place], [place] | [place] | | | | | [address] | [address] | | | | | [phone] | [phone] | | | | | | | [...] | | | | | [place] [address] | | | | | | [phone] | | | | | | | [...]
--- OUTSIDE RECORDS SUMMARY | ~2019-03-21 | XMS | Encounter Summary ---
Demographics + + + | Address | [address] | | | [place] [address] | + + + | Home Phone [...] Team Providers + +------+ + | Care Ticket Maker Name | Role | Phone | + +------+ + | Kaushik Christensen MD | PCP | | + +------+ + Encounter Details +--------+ + + + + | Date | Type | Department | Care Team | Description | +--------+ + + + + | 05/01/ | Hospital | [facility] | David Montgomery MD | Spondylolisthesis of | | 2013 - | Encounter | MED CTR XRAY [address] | [address] | lumbar region | | | | [place] | [place] [address] | | | 05/03/ | | [place] [address] | [phone] | | | 2012 | | [phone] | | | +--------+ + + + [...] MONET | | | | | | [place] [address] | | | | | | [phone] | | | | | | | [...] Performed At | + + + | [facility] | [place] | | Department [address] [place] [address] | [facility] | | [ rep ct [address]] [ rep [facility] | | [facility]] Signed | - IMAGING | | | | | Patient Name: JORDAN GRULLON | | | Physician: LANNY : 1930 Age: 82 Sex: F Unit | | | #: [id number] Exam Date: 05/01/12 Location: | | | [facility] Report #: [id number] Page: | | | %(RAD)RES..mtdd.print.filter("pg") of %(RAD) | | | RES..mtdd.print.filter("tpg") | | | | | | Accession Number: [id number] | | | TWO VIEWS LUMBAR SPINE, [...] Transcribed | | | Date/Time: 05/01/2012 16:58 Neon Tube Pumper: | | | <<Signature on File>> | | | Shamar King | | Luis Carlos Jeter MD05/01/122 <Electronically signed by Shamar Jeter MD> | | | Shamar Jeter MD 05/01/12 1612 Neon Tube Pumper: | | | Webmedx Hjzlhbifqostu72/05/13 1658 David Montgomery MD | | | | | + + + + + + + + | Performing | Address | City/State/Zipcode | Phone Number | | Organization | | | | + + + + + | [facility] | [address] | [place] | [phone] | | [facility] | | [address] | | | - IMAGING | | | | + + + + + documented in this encounter Visit Diagnoses + + | Diagnosis | + + | Spondylolisthesis of lumbar region Acquired spondylolisthesis | + + documented in this encounter
--- OUTSIDE RECORDS SUMMARY | ~2019-03-21 | XMS | Encounter Summary ---
Demographics + + + | Address | [address] | | | [place] [address] | + + + | Home Phone | | + + + | Preferred Language | Unknown | + + + | Marital Status | | + + + | Mandaen Affiliation | 1013 | + + + | Race | Unknown | + + + | Ethnic Group | Unknown | + + + Author + + + | Author | [facility] | | | and [place] | + + + | Organization | [facility] | | [...] Team Providers + +------+ + | Care Student Teaching Coordinator Name | Role | Phone | + +------+ + | Kaushik Christensen MD | PCP | | + +------+ + Encounter Details +--------+ + + + + | Date | Type | Department | Care Team | Description | +--------+ + + + + | 01/31/ | Orders Only | [facility] | Conversion | | | 2018 | | NEPHROLOGY [place] | Transaction, | | | | | [address] | Provider Unknown | | | | | [address] [facility], [place] | | | | | | [address] | (Fax) | | | | | [phone] | | | +--------+ + + + [...] MONET | | | | | | [place] [address] | | | | | | [phone] | | | | | | | [...]
--- OUTSIDE RECORDS SUMMARY | ~2019-03-21 | XMS | Encounter Summary ---
Demographics + + + | Address | [address] | | | [place] [address] | + + + | Home Phone | | + + + | Preferred Language | Unknown | + + + | Marital Status | | + + + | Jew Affiliation | 1013 | + + + | Race | Unknown | + + + | Ethnic Group | Unknown | + + + Author + + + | Author | [facility] | | | and [place] | + + + | Organization | [facility] | | [...] Team Providers + +------+ + | Care Vending Machine Filler Name | Role | Phone | + +------+ + | Kaushik Christensen MD | PCP | | + +------+ + Encounter Details +--------+ + + + + | Date | Type | Department | Care Team | Description | +--------+ + + + + | 11/09/ | Orders Only | [facility] | Conversion | | | 2017 | | NEPRHOLOGY [place] | Transaction, | | | | | [address] | Provider Unknown | | | | | [address] [place], [place] | [phone] | | | | | [address] | | | | | | [phone] | | | +--------+ + + + [...] MONET | | | | | | [place] [address] | | | | | | [phone] | | | | | | | [...]
--- OUTSIDE RECORDS SUMMARY | ~2019-03-21 | XMS | Encounter Summary ---
Demographics + + + | Address | [address] | | | [place] [address] | + + + | Home Phone | | + + + | Preferred Language | Unknown | + + + | Marital Status | | + + + | Tenriism Affiliation | 1013 | + + + | Race | Unknown | + + + | Ethnic Group | Unknown | + + + Author + + + | Author | [facility] | | | and [place] | + + + | Organization | [facility] | | | [...] Providers + +------+ + | Care Sheet Rock Taper Helper Name | Role | Phone | + +------+ + PCP | Unavailable | + +------+ + Encounter Details +--------+ + + + + | Date | Type | Department | Care Team | Description | +--------+ + + + + | 09/12/ | Hospital | [facility] | Jonathan Izquierdo | | | 2011 | Encounter | MED CTR XRAY [address] | MD Steve [address] | | | | | [place] | [address] [place] | | | | | [place] [address] | [place] [address] | | | | | [phone] | [phone] | | | | | | | [...] MONET | | | | | | [place] [address] | | | | | | [phone] | | | | | | | [...] Performed At | + + + | [facility] Diagnostic Imaging Department | [facility] | | [address], [place] | [facility] | | STRESS PERFUSION STUDY, | [...] Transcribed Date/Time: 12/08/2011 | | | 19:05 Supply Chain Development Manager: <Electronically Signed by Dipesh Wilson | | | MD Timbo> 12/08/111951 | | + + + + + | Procedure Note | + + | Sarbjit, Rad Conversion - 05/03/2013 6:00 PM [facility] | | Diagnostic Imaging Department | | [address] [facility] | | | | | | [...] | Transcribed Date/Time: 12/08/2011 19:05 | | Supply Chain Development Manager: | | <Electronically Signed by Dipesh Izquierdo [...]
--- OUTSIDE RECORDS SUMMARY | ~2019-03-21 | XMS | Encounter Summary ---
Demographics + + + | Address | [address] | | | [place] [address] | + + + | Home Phone [...] Team Providers + +------+ + | Care Human Resources Mgr Name | Role | Phone | + +------+ + | Kaushik Christensen MD | PCP | | + +------+ + Encounter Details +--------+ + + + + | Date | Type | Department | Care Team | Description | +--------+ + + + + | 01/29/ | Hospital | [facility] | David Montgomery MD | | | 2011 - | Encounter | MED CTR SURGICAL | [address] | | | | | [address] | [place] [address] | | | 01/31/ | | [place] [address] | [phone] | | | 2011 | | [phone] | | | +--------+ + + + [...] MONET | | | | | | [place] [address] | | | | | | [phone] | | | | | | | [...] + | [facility] Diagnostic Imaging | [place] | | Department [address] [place] [address] | [facility] | | [ rep ct street1[address]2] [ rep ct [facility] | [facility]] Signed | - IMAGING | | | | | Patient Name: JORDAN GRULLON | | | Physician: LANNY : 1930 Age: 81 Sex: F Unit | | | #: [id number] Exam Date: 01/31/12 Location: | | | [address] [place] [address]- Report #: [id number] Page: | | | %(RAD)RES..mtdd.print.filter("pg") of %(RAD) | | | RES..mtdd.print.filter("tpg") | | | | | | Accession Number: [id number] | | | TWO VIEWS LUMBAR SPINE, 01/31/2012 CLINICAL HISTORY: | | | STATUS POST LUMBAR FUSION. COMPARISON: Lumbar MRI | | | 06/23/2011, lumbar radiographs 06/20/2011. FINDINGS: | | | Five [id number], lumbar-type vertebrae are visible. There is | [...] Transcribed Date/Time: 01/31/2012 13:13 | | | Junior Web Designer: <<Signature on File>> | | | | | | Shamar Jeter MD01/31/12 8234 <Electronically signed by Shamar King | | | Corona PURCELL> Shamar Jeter MD 01/31/12 1258 | | | Junior Web Designer: Simmr Mqcftjiwnpggf40/06/12 1313 | | | David Montgomery MD | | + + + + + + + + | Performing | Address | City/State/Zipcode | Phone Number | | Organization | | | | + + + + + | [facility] | [address] | [place] | [phone] | | [facility] | | [address] | | | - IMAGING | | | | + + + + + documented in this encounter Visit Diagnoses Not on filedocumented in this encounter
[~2019-03-21 08:08] MED LIST: ALLOPURINOL100 MG PO; AMLODIPINE BESY10 MG PO; ASPIRIN81 MG PO; B-12500 MCG PO; PAIN RELIEVER325 MG PO; POTASSIUM CHLO10 MEQ PO; PROTONIX40 MG PO; TOPROL XL25 MG PO; TORSEMIDE100 MG PO; VITAMIN D325 MC2 PO
[2019-03-21] MEDS ORDERED: ELIQUIS2.5 MG PO (08:39)
[2019-03-21] MEDS ORDERED: METOLAZONE2.5 MG PO (08:39)
[2019-03-21] MEDS ORDERED: TRAVATAN Z5 ML OU (08:40)
--- NOTE | 2019-03-21 12:05 | NUR ---
PATIENT ADMITTED TO MED SURG. 2+BILATERAL LEG EDEMA NOTED. PATIENT INDICATED THAT PCP YOSSI TOLD HER DAUGHTER TO KEEP CATALINA LEG WRAP ON BILATERAL LOWER EXTREMITIES TO HELP WITH EDEMA. COCCYX AREA IS RED, , SMALL 1CM EXCORIATION NOTED. PATIENT DENIES PAIN OR NAUSEA AT THIS TIME, INDICATES THAT SHE IS HUNGARY. MENU PROVIDED, LUNCH ORDERED. DAUGHTER IN ROOM.
--- NOTE | 2019-03-21 16:00 | NUR ---
PT RESTING IN BED. DIVISIONAL MERCHANDISING MANAGER AT BEDSIDE. PT ON ROOM AIR, LUNG SOUNDS CLEAR. BOWEL TONES ACTIVE, DENIES NAUSEA. NYSTATIN POWDER APPLIED TO REDNESS IN GROIN, INCONTINENT BRIEFS IN PLACE. BLE WITH EDEMA, CATALINA BANDAGES REMOVED, SKIN ASSESSED AND INTACT, NEW CATALINA BANDAGES APPLIED. IV FLUIDS INFUSING AT 50 ML/HR. PT DENIES OTHER NEEDS AT THIS TIME.
--- NOTE | 2019-03-21 16:26 | NUR ---
Spoke with Jordan and daughter,Eladia. Pt has been becoming weaker over the last few days. Daughter moved Jordan in with her over the weekend as pt was no longer able to walk. Daughter is having difficulty handling pt as she has had Mari Russ syndrom. Pt has required assistance from [employer] for electricity and gas bill for payment. Daughter has been assisting with food. Pt. was using walker, cane, and commode for DME. Unable to walk for last few days, daughter is transfering pt to and onto commode when needed. Both feel pt would benefit discharge to group home for strengthening when discharged.
--- NOTE | 2019-03-21 17:15 | NUR ---
PT ASSISTED ON BEDPAN, VOIDED AND HAD SMALL BM. PERICARE PROVIDED. ALLEVYN CHANGED. PT DENIES OTHER NEEDS AT THIS TIME.
--- NOTE | 2019-03-21 19:50 | NUR ---
Repositioned in bed, Coop, HOB elevated, IVF infusing D%1/2NS w 20Meq at 50cc/hr, tolerating well. Tolerating diet, no c/o n/v, incontinent of urine, attends in place, barrier cream to vipin area. Dry skin with multiple dry scabbed over areas over arms, abd, legs in different stages of healing. Bruising over arms healing, not open. LE angela wrap in place, pulses palpable. edematous L leg from hip to ankles more edematous than R, inner area of both legs tender-red to touch, brancheable. elevated. fece slightly jaundiced color. Pt alert and oriented, follows instructions, using call light appropriately. Call light at bedside
--- NOTE | 2019-03-21 19:59 | NUR ---
WITH THE HELP OF RN LEEROY WE REPOSITIONED PT IN BED. VITALS DONE AND CHARTED. FRESH WATER GIVEN. BEDSIDE TABLE AND CALL LIGHT IN REACH. PT NEEDS NOTHING MORE AT THIS TIME.
--- NOTE | 2019-03-21 21:25 | NUR ---
PT USED BEDPAN, VOIDED LARGE AMOUNT OF CLEAR URINE, SKIN CARE DONE, BARRIER CREAM APPLIED, ALLEVYN DRESSING OVER BUTTOCKS INTACT. COOPERATIVE, FLUIDS INFUSING W/O PROBLEMS, TOLERATING FLUIDS. WATCHING TV. CALL LIGHT AT BEDSIDE
--- NOTE | 2019-03-21 23:18 | NUR ---
Resting, eyes closed, no resp distress, call light and fluids at hands reach
--- NOTE | 2019-03-22 00:51 | NUR ---
resting, no distress, resp even, unlabored. call light at bedside
--- NOTE | 2019-03-22 01:16 | NUR ---
VITALS AND I&OS DONE AND CHARTED. WITH THE HELP OF RN LEEROY WE GOT HER ON AND OFF THE BEDPAN. BEDSIDE TABLE AND CALL LIGHT IN REACH.
--- NOTE | 2019-03-22 01:25 | NUR ---
Repositioned, Incontinent of urine, changed, skin care done, barrier cream to buttocks, allevyn dressing intact. LE acewrapped, good cms, elevated. Coop. tolerating sips of fluids, no c/opain.
--- NOTE | 2019-03-22 02:33 | NUR ---
PT CALLED SAYING SHE FELT SICK TO HER STOMACH. SHE HAS AN EMESIS BAG IN HAND AND STATES THIS HAPPENS FROM TIME TO TIME. ASSISTED HER TO SIT UP IN THE BED. SHE COMPLAINS OF PAIN IN HER LEFT LE. LOOSENED WRAP ON LEG AND SHE CONTINUED TO SAY IT HURT AND ASKED TO TAKE IT OFF. REMOVED WRAP FOR A BIT PER PT'S REQUEST. SHE DENIES FURTHER NEEDS AT THIS TIME. CALL LIGHT IS CLOSE.
--- NOTE | 2019-03-22 04:06 | NUR ---
pt sitting up in bed, angela wrap bandages removed from her feet at her request, increased anxiety noted, redirectable after a few cues. C/o feeling sick to her stomach, was given EMANUEL Deluca earlier, effective. Increased anxiety and stating "I need my family here now, Im dying and they are not doing anything to help me." pt reassured but continues to insist on having her family here. Pt awake, oriented, no resp distress, lungs clear, denies c/o cp or pain. IVf infusing. will notify Daughter
--- NOTE | 2019-03-22 04:36 | NUR ---
c/o 310 legs pain, medicated with Tylenol 650mg po. Awake, less anxious, watching tv, legs elevated, fluids and call light at bedside, no n/v. IVf infusing. angela wrap bandages still off, declines to have them put back on. will continue to reasess
--- NOTE | 2019-03-22 06:11 | NUR ---
VITALS AND I&OS DONE AND CHARTED. WITH THE HELP OF ZACKERY WILLOUGHBY WE GOT PT ONTO THE BEDPAN. SHE WILL CALL WHEN SHE IS DONE.
--- NOTE | 2019-03-22 06:13 | NUR ---
WITH THE HELP OF RN LEEROY WE GOT PT OFF THE BEDPAN. GARBAGES EMPTIED. FRESH WATER GIVEN. BEDSIDE TABLE AND CALL LIGHT IN REACH. FAMILY IN THE ROOM WHEN WE LEFT. PT NEEDS NOTHING MORE AT THIS TIME.
--- NOTE | 2019-03-22 06:43 | NUR ---
Pt currently resting. Was very anxious late this shift, family was called and they came in and reassured pt . pt calmed down and went back to sleep. Was medicated with Tylenol x2 per c/o bilat leg pain. Nick wrapped bandages removed from legs at her requests and placed back on by family, L leg continues to be more edematous and bigger in size than R leg, Pt Allevyn dressing in buttocks intact. Pt has voided QS yellow urine. helps with turning. Call ligfht at bedside. IVf infusing w/o problems
--- NOTE | 2019-03-22 07:32 | NUR ---
0725: Report recieved from Kady VIZCARRA. Pt sleeping at this time, call bowen within reach.
--- NOTE | 2019-03-22 07:59 | NUR ---
PT RESTING IN HER BED, SHE IS PLEASENT AND ANSWERS ALERT TO PERSON, PLACE AND TIME BUT IS FORGETFUL. BED ALARM WAS TURNED ON. SHE DENIES ANY PAIN OR NEW PROBLEMS AT THIS TIME. SHE HAS A CATALINA WRAP TO HER RIGHT LOWER LEG AND HAS EDEMA NOTED TO HER LEGS AND ARMS. DRESSING TO HER COCCYX REMAINS CDI. SEE ASSESSMENT.
--- NOTE | 2019-03-22 09:09 | NUR ---
MED REC COMPLETE
--- NOTE | 2019-03-22 09:39 | NUR ---
Pt resting in her bed and she is speaking with her visitor. She states she is comfortable and denies the need for anything at this time.
--- NOTE | 2019-03-22 10:24 | NUR ---
Pt working with physical therapy at this time.
--- NOTE | 2019-03-22 11:15 | NUR ---
Pt resting in her chair and she states that she is comfortable. Call bowen within reach.
--- NOTE | 2019-03-22 11:16 | NUR ---
In to speak with Jordan. She states she is feeling better today. Able to stand and walk few steps with PT and walker. Plans on dc to long-term when able for further PT/OT for strengthening.
--- NOTE | 2019-03-22 11:51 | NUR ---
PT CONTINUES RESTING IN HER CHAIR WITHOUT ANY COMPLAINTS. SHE IS VISITING WITH HER FAMILY AT THIS TIME.
--- NOTE | 2019-03-22 13:21 | NUR ---
PT RESTING IN HER CHAIR VISITING WITH HER FAMILY. HER FEET ARE ELEVATED AND SHE STATES SHE HAS SOME SLIGHT BILAT LEG PAIN WHICH IS NORMAL FOR HER BUT THAT IT IS UNDER CONTROL AND "BETTER THAN YESTERDAY". WILL CONTINUE TO MONITOR.
--- NOTE | 2019-03-22 15:22 | NUR ---
Pt visiting with her family and she denies any problems or pain.
--- NOTE | 2019-03-22 15:30 | NUR ---
PT AND FAMILY--4 MEMBERS, DAUGHTER DWAIN INCLUDED IN THIS. SHE STATES UNDERSTANDING OF THIS. DAUGHTER IS WANTING FOR MOTHER TO GO TO REHAB TO GET STRONGER
--- NOTE | 2019-03-22 16:44 | NUR ---
Pt assisted back to the bed. She denies any complaints at this time.
--- NOTE | 2019-03-22 17:33 | NUR ---
Pt eating her dinner while sitting up in bed. She appears in no distress and denies any problems at this time.
--- NOTE | 2019-03-22 19:30 | NUR ---
SHIFT REPORT RECEIVED FROM DAYSHIFT ZACKERY OJEDA AT BEDSIDE. PT RESTING IN BED WITH EYES CLOSED, RESPIRATIONS EVEN AND UNLABORED. NO SIGNS OF PAIN OR DISTRESS NOTED, CALL LIGHT IN REACH.
--- NOTE | 2019-03-22 21:30 | NUR ---
PT RESTING IN BED WITH EYES CLOSED, RESPIRATIONS EVEN AND UNLABORED. NO DISTRESS NOTED, CALL LIGHT IN REACH.
--- NOTE | 2019-03-22 21:44 | NUR ---
VITALS DONE AND CHARTED. BEDSIDE TABLE AND CALL LIGHT IN REACH.
--- NOTE | 2019-03-22 22:15 | NUR ---
ASSESSMENT COMPLETE, SCHEDULED MEDS GIVEN (SEE EMAR). PT A/O TO SELF AND PLACE. REORIENTED TO DATE, VSS. PT DENIES PAIN. RESTING COMFORTABLY IN BED. IV SITE FLUSHES EASILY, BLOOD RETURN NOTED. PT DENIES ADDITIONAL NEEDS, CALL LIGHT IN REACH.
--- NOTE | 2019-03-23 01:11 | NUR ---
WITH HELP FROM VASILIY JUNE, ASSISSTED PT ONTO BEDPAN PER PT REQUEST, NO FURTHER NEEDS. CALL LIGHT IN REACH.
--- NOTE | 2019-03-23 01:27 | NUR ---
WITH THE HELP OF ZACKERY WHITESIDE WE GOT PT ON AND OFF THE BEDPAN. BEDSIDE TABLE AND CALL LIGHT IN REACH. EMPTIED GARBAGE. FRESH WATER GIVEN
--- NOTE | 2019-03-23 02:20 | NUR ---
PT AWAKE AND RESTING IN BED, EYES OPEN. CATALINA WRAP TO RLE REMOVED PER PT REQUEST. BILATERAL PEDAL PULSES NOTED, SKIN WARM TO THE TOUCH AND PINK IN COLOR. BLE ELEVATED PER PT REQUEST. NO FURTHER NEEDS, CALL LIGHT IN REACH.
--- NOTE | 2019-03-23 02:34 | NUR ---
ASSESSMENT COMPLETE, NO NEW CHANGES OR CONCERNS. PT AWAKE AND WATCHING TELEVISION. A/O TO SELF, PLACE, AND DATE. DENIES PAIN. BLE ELEVATED ON PILLOWS. NO ADDITIONAL NEEDS VERBALIZED, CALL LIGHT IN REACH.
--- NOTE | 2019-03-23 08:07 | NUR ---
PATIENT SAT UP AT THE EDGE OF THE BED AND DANGLED HER FEET FOR A FEW MINUTES WITH ONE PERSON ASSIST. PATIENT LAYING BACK DOWN IN BED AT THIS TIME, CALL LIGHT IN REACH. PATIENT REFUSED TO SIT UP IN THE CHAIR AT THIS TIME. BED ALARM ON. AM CARE AND SHOWER REFUSED.
--- NOTE | 2019-03-23 19:05 | NUR ---
SHIFT REPORT RECEIVED FROM DAYSHIFT ZACKERY KEANE AT BEDSIDE. PT AWAKE AND WATCHING TELEVISION. PT APPEARS COMFORTABLE, NO DISTRESS NOTED. DENIES NEEDS,CALL LIGHT IN REACH.
--- NOTE | 2019-03-23 20:50 | NUR ---
2PA TO USE BEDPAN AND PLACED NEW ALLEVYN ON COCCYX. VS AND I&O'S ENTERED AND PT DENIES FURTHER NEEDS AT THIS TIME. CALL LIGHT IS WITHIN REACH.
--- NOTE | 2019-03-23 21:50 | NUR ---
ASSESSMENT COMPLETE, SCHEDULED MEDS GIVEN (SEE EMAR). PT A/O TO SELF, PLACE, AND EVENTS. REORIENTED TO DATE AND TIME. VSS, PT DENIES PAIN AND NAUSEA. BLE ELEVATED ON PILLOWS. PT REPOSITIONED IN BED, DENIES ADDITIONAL NEEDS. CALL LIGHT IN REACH.
--- NOTE | 2019-03-23 23:09 | NUR ---
PT ASKED FOR PAIN MEDS. I INFORMED HER RN STEVO. BEDSIDE TABLE AND CALL LIGHT IN REACH.
--- NOTE | 2019-03-23 23:47 | NUR ---
pt REQUESTED PAIN MEDICATION FOR LEG PAIN 08/03. PRN GIVEN PER REQUEST OF PRIMARY RN (SEE MAR). 2PA REPOSITIONED IN BED. CALL LIGHT WITHIN REACH. BED ALARM ON.
--- NOTE | 2019-03-24 01:18 | NUR ---
NEW ALLEVYN TO BUTTOCKS, PT OFF OF BEDPAN AND RESTING IN BED. ASSESSMENT COMPLETE, NO NEW CHANGES OR CONCERNS. PT FORGETFUL AT TIMES, REORIENTED TO DATE AND TIME. PLEASANT AND INTERACTIVE WITH STAFF, DENIES PAIN OR NAUSEA. NO NEEDS VERBALIZED. ICE WATER PROVIDED BY VASILIY JUNE. CALL LIGHT IN REACH.
--- NOTE | 2019-03-24 03:27 | NUR ---
WITH THE HELP OF ZACKERY WILLOUGHBY WE BOOSTED PT UP IN BED. THEN SHE WANTED TO SIT ON THE SIDE OF HER BED. WE HELPED HER TO DO THAT. HELPED HER BACK INTO BED. ADJUSTED HER BED SEVERAL DIFFERENT WAYS UPON HER REQUEST. PT COULD NOT GET COMFORTABLE SHE SAYS. BEDSIDE TABLE AND CALL LIGHT IN REACH.
--- NOTE | 2019-03-24 05:14 | NUR ---
PT RESTING IN BED, EYES CLOSED. RESPIRATIONS EVEN AND UNLABORED. NO DISTRESS NOTED, CALL LIGHT IN REACH.
--- NOTE | 2019-03-24 08:45 | NUR ---
PT ASSISTED TO BEDPAN, VOIDED WITHOUT DIFFICULTY. OFF BEDPAN ASSISTED TO POSITION OF COMFORT. PT DENIES PAIN OR OTHER NEEDS OR CONCERNS AT THIS TIME. CALL LIGHT WITHIN REACH.
--- NOTE | 2019-03-24 09:20 | NUR ---
PT SITTING UP AT 90 DEGREES, AWAKE AND ALERT. ORIENTED TO SELF AND "HOSPITAL", REORIENTED TO DATE. DENIES PAIN. EATING BREAKFAST INDEPENDENTLY, ENEIDA WELL. CALL LIGHT WITHIN REACH.
--- NOTE | 2019-03-24 11:45 | NUR ---
PT SITTING UP IN RECLINER, APPEARS TO BE SLEEPING. RESP EVEN AND UNLABORED.
--- NOTE | 2019-03-24 13:10 | NUR ---
PT ATE ALL OF LUNCH INDEPENDENTLY, ENEIDA WELL. REQUESTING TO GET BACK TO BED FROM RECLINER. 2PA WITH WALKER TO TRANSFER TO BED, ENEIDA WELL. PT DENIES PAIN AT THIS TIME. CALL LIGHT WITHIN REACH.
--- NOTE | 2019-03-24 15:06 | NUR ---
PT SITTING UP IN BED VISITING WITH SISTER. ALERT AND ORIENTED AT THIS TIME. 1PA ASSIST TO PIVOT TRANSFER TO BSC. BACK TO BED. CALL LIGHT WITHIN REACH.
--- NOTE | 2019-03-24 17:36 | NUR ---
PT ATE 75% OF DINNER ENEIDA WELL. CURRENTLY RESTING IN BED NODDING OFF OCC. OPENED EYES SPONTANEOUSLY UPON THIS RN ENTERING ROOM. TOOK PILLS EASILY. DENIES NEEDS OR CONCERNS AT THIS TIME. CALL LIGHT WITHIN REACH.
--- NOTE | 2019-03-24 19:05 | NUR ---
SHIFT REPORT RECEIVED FROM DAYSHIFT ZACKERY HICKEY AT BEDSIDE. PT AWAKE AND RESTING IN BED, NO NEEDS AT THIS TIME. CALL LIGHT IN REACH.
--- NOTE | 2019-03-24 19:25 | NUR ---
WITH HELP FROM URIEL VIZCARRA, PT UP 2PA WITH FWW TO BSC. 600MLS OUTPUT, PT BACK IN BED WITH ASSIST FROM ZACKERY TREVINO AND SALMON TROLL FISHER. NO FURTHER NEEDS, CALL LIGHT IN REACH.
--- NOTE | 2019-03-24 22:17 | NUR ---
ASSESSMENT COMPLETE, SCHEDULED MEDS GIVEN. PT FORGETFUL, BUT A/O TO NAME, PLACE,AND MONTH. PT DENIES PAIN, VSS. DENIES NAUSEA. NO NEEDS AT THIS TIME, CALL LIGHT IN REACH.
--- NOTE | 2019-03-24 23:04 | NUR ---
PT PLACED ON BEDPAN TO VOID, 600MLS OUTPUT NOTED. PT RESTING IN BED, DENIES FURTHER NEEDS. CALL LIGHT IN REACH.
--- NOTE | 2019-03-25 00:33 | NUR ---
PT AWAKE AND WATCHING TELEVISION, PILLOW ADJUSTED FOR COMFORT PER PT REQUEST, NO ADDITIONAL NEEDS. CALL LIGHT IN REACH.
--- NOTE | 2019-03-25 01:43 | NUR ---
PT RECENTLY ASSISTED BY HIDE HOUSE SUPERVISOR AND HOT KETTLE TENDER JUNE FROM BED TO CHAIR FOR COMFORT. PT CONTINUES TO REPORT BACK PAIN, CURRENTLY RATES PAIN 10/10, PRN TYLENOL GIVEN AND PT WAS ASSISTED 2PA WITH FWW BACK TO BED. BLE ELEVATED ON PILLOW. CALL LIGHT IN REACH.
--- NOTE | 2019-03-25 02:30 | NUR ---
ASSESSMENT COMPLETE, PT AWAKE AND RESTING IN BED. REMOTE PICKED UP FROM FLOOR AND WITHIN REACH. PT REPORTS 5/10 PAIN, BUT STATES, "IT PROBABLY WASN'T A TEN IN THE FIRST PLACE. MORE LIKE A FIVE". NO NEW CONCERNS OR CHANGES. CALL LIGHT IN REACH.
--- NOTE | 2019-03-25 04:08 | NUR ---
WITH THE HELP OF ZACKERY WHITESIDE WE HELPED PT ON AND OFF THE BEDPAN.BED ALARM SET. BEDSIDE TABLE AND CALL LIGHT IN REACH.
--- NOTE | 2019-03-25 05:26 | NUR ---
PT RESTLESS THROUGHOUT THE NIGHT, INTERMITTENT SLEEPING. VSS, PT ON RA. FORGETFUL AT TIMES, REORIENT TO DATE AND TIME PRN. 2PA WITH FWW, USES CALL LIGHT APPROPERIATELY. 2G SODIUM DIET, TOLERATING WELL, NO REPORTED NAUSEA. PAIN CONTROLLED WITH PRN TYLENOL.
--- NOTE | 2019-03-25 06:34 | NUR ---
VITALS AND I&OS DONE AND CHARTED. GARBAGES EMPTIED. FRESH ICE WATER GIVEN. BEDSIDE TABLE AND CALL LIGHT IN REACH.
--- NOTE | 2019-03-25 07:36 | NUR ---
BEDSIDE REPORT FROM STEVO VIZCARRA, PT IS ALERT DROWSY. RN REPORTS THAT PT HAS NOT SLEPT WELL, SHE HAS BEEN UP MULTIPLE TIMES TO BEDSIDE COMMODE. SHE HAS BEEN ORIENTED WITH INTERMITTEN FORGETFULNESS. BED ALARM ON.
--- NOTE | 2019-03-25 07:50 | NUR ---
Chart and orders faxed to [facility] this am. Awaiting on confirmation and if they can transport today.
--- NOTE | 2019-03-25 08:04 | NUR ---
PT TWO PERSON ASSIST TO RECLINER FOR BREAKFAST WITH FWW. PT TOLERATED ACTIVITY WELL.
--- NOTE | 2019-03-25 09:00 | NUR ---
TALKED WITH PT DAUGHTER DWAIN ABOUT PT AND WHAT THE PLANS ARE FOR TODAY. DWAIN STATES HER MOTHER IS QUITE CONFUSED SHE STATED SHE CALLED HER FROM THE ROOM AND TOLD HER SHE WAS ALREADY AT [facility] AND THEY WERE GETTING HER ALL SETTLED IN AND THAT SHE COULD COME VISIT HER THERE NOW. SHE WENT AND FOUND THAT HER MOTHER WAS STILL HERE. WE DISCUSSED THIS AND SHE STATES SHE HAS BEEN GETTING MORE CONFUSED GRADUALLY GETTING WORSE TO WHERE IT IS TOO HARD FOR HER TO HANDLE HER. SHE SAID SHE WILL BE GLAD WHEN THEY GET HER ALL MOVED AND SETTLED IN.
--- NOTE | 2019-03-25 09:53 | NUR ---
PATIENT SITTING IN BED WATCHING TV. FRESH WATER GIVEN. PATIENT REFUSED SHOWER. LINENS CHANGED. CALL LIGHT IN REACH. NO FURTHER NEEDS AT THIS TIME.
--- NOTE | 2019-03-25 09:54 | NUR ---
Spoke with pt and her daughter Eladia. Notified I have sent chart to [facility], awaiting auth from [facility]. Daughter states pt. thinks she is at [facility] at this time.
--- NOTE | 2019-03-25 11:03 | NUR ---
PT RESTING IN BED EYES CLOSED, RR EVEN 16 BPM. NO DISTRESS NOTED. PT APPEARS TO BE SLEEPING.
--- NOTE | 2019-03-25 11:20 | NUR ---
Notified by Jason they will accept the pt. today and will transport. Will machine operator picker around 12p.
--- NOTE | 2019-03-25 13:00 | NUR ---
pt sitting at side of bed eating peaches. pt reports had nice nap and is feeling much better
--- NOTE | 2019-03-25 13:23 | NUR ---
REPORT CALLED TO SHILA VIZCARRA AT [facility]. REPORT GIVEN QUESTIONS ANSWERED.
--- NOTE | 2019-03-25 13:39 | NUR ---
PT TO BE DC'D TO [facility]. SHE IS SITTING ON THE SIDE OF HER BED, DANGLING HER LEGS AND ENJOYING HER BRIGHT YELLOW SOCKS. HAD A BRIEF VISIT, DAUGHTER IN TO HELP WITH DC. STAFF ALSO IN TO COMPLETE DC-EXTENDED A BLESSING.
== END 2019-03-25 13:15 | DRG 641 ==
LOC: ED 08:08 → MS 08:09
PROVIDERS: ADMIT Internal Medicine
DX: E87.6 Hypokalemia (principal); N18.4 Chronic kidney disease, stage 4 (severe); T50.1X5A Adverse effect of loop [high-ceiling] diuretics, initial encounter; R26.2 Difficulty in walking, not elsewhere classified; I12.9 Hypertensive chronic kidney disease with stage 1 through stage 4 chronic kidney disease, or unspecified chronic kidney disease; I48.0 Paroxysmal atrial fibrillation; E79.0 Hyperuricemia without signs of inflammatory arthritis and tophaceous disease; K21.9 Gastro-esophageal reflux disease without esophagitis; Z66 Do not resuscitate; Z79.01 Long term (current) use of anticoagulants; Z91.81 History of falling; Z79.899 Other long term (current) drug therapy
CPT/HCPCS: 36415; 51701; 72131; 72170; 80048; 80053; 81001; 83735; 84132; 85025; 97110; 97116; 97162; 97165; 99285-25; J3480; J7060

== ENCOUNTER 2019-04-27 14:22 | Emergency (ER) | payer MEDICARE, OTHER, MEDICAID ==
[~2019-04-27] VITALS: Ht 165.1 cm; Wt 126.5 kg
[~2019-04-27 14:22] MED LIST changes: +ELIQUIS2.5 MG PO; +METOLAZONE2.5 MG PO; +TRAVATAN Z5 ML OU
[2019-04-27] MEDS ORDERED: TORSEMIDE20 MG PO (14:45)
[2019-04-27] MEDS ORDERED: K-TAB ER20 MEQ PO (14:46)
== END 2019-04-27 17:10 | disposition home or self-care (01) ==
LOC: ED 14:22
DX: K62.5 Hemorrhage of anus and rectum (principal); K64.9 Unspecified hemorrhoids; K56.41 Fecal impaction; I48.91 Unspecified atrial fibrillation; I10 Essential (primary) hypertension; Z79.899 Other long term (current) drug therapy
CPT/HCPCS: 80053; 85025; 99283

== ENCOUNTER 2020-02-05 09:36 | Emergency (ER) | payer MEDICARE, OTHER, MEDICAID ==
[~2020-02-05] VITALS: Ht 165.1 cm; Wt 126.6 kg
[~2020-02-05 09:36] MED LIST changes: +K-TAB ER20 MEQ PO; +TORSEMIDE20 MG PO
[2020-02-05] MEDS ORDERED: QUETIAPINE FUMA25 MG PO (11:14)
== END 2020-02-05 14:16 | disposition home or self-care (01) ==
LOC: ED 09:36
DX: R60.0 Localized edema (principal); I48.91 Unspecified atrial fibrillation; I10 Essential (primary) hypertension; Z79.899 Other long term (current) drug therapy; K21.9 Gastro-esophageal reflux disease without esophagitis
CPT/HCPCS: 80053; 81001; 85025; 99285